=== PATIENT | female | born 1970 | race Two or more races ===

== ENCOUNTER → 2017-04-04 | Outpatient (CLI) | payer MEDICARE, MEDICAID ==
[~2017-04-04] VITALS: Ht 30.5 cm; Wt 0.5 kg
[~2017-04-04] MED LIST: ADENOSINE 76 MG in GIVE UN-DILUTED 0 ML IV ONE; ADENOSINE 90 MG/30 ML INJ IV ONE
== END | disposition home or self-care (01) ==
LOC: Rad HDHVI 09:34
PROVIDERS: ATTEND Internal Medicine Cardiovascular Disease
DX: I10 Essential (primary) hypertension (principal); E11.9 Type 2 diabetes mellitus without complications; E78.00 Pure hypercholesterolemia, unspecified
CPT/HCPCS: 78452; 93005; 93306; 96374; 96375; A9500; J0153

== ENCOUNTER → 2017-05-01 | Outpatient (CLI) | payer MEDICARE ==
[2017-05-01 10:50] VITALS: BP 167/73
[2017-05-01 11:20] VITALS: BP 155/67
[2017-05-01 12:38] LABS: Basophils # (auto) 0 uL; Eosinophils # (auto) 0.1 uL; Hemoglobin 7.9 g/dL (12.2-16.2); Lymphocytes # (auto) 1.4 uL; Mean Corpuscular Hemoglobin 29.2 pg (28.0-32.0); Nucleated Red Blood Cells % 0.1 %
[2017-05-01 12:41] LABS: Basophils % (auto) 0.3 % (0.0-2.0); Eosinophils % (auto) 2.5 % (0.0-7.0); Hematocrit 23.4 % (36.0-46.0); Lymphocytes % (auto) 29.3 % (10.0-50.0); Mean Corpuscular Hgb Conc. 33.9 g/dL (32.0-36.0); Mean Corpuscular Volume 86.3 fL (80.0-100.0); Mean Platelet Volume 8.6 fL (6.9-10.8); Monocytes # (auto) 0.2 uL; Neutrophils % (auto) 62.9 % (37.0-80.0); Platelet Count (auto) 159 10^3/uL (140-450); Red Cell Distribution Width 14.1 % (11.8-14.3); White Blood Cell 4.7 10^3/uL (4.4-10.8)
[2017-05-01 12:43] LABS: BUN/Creatinine Ratio 4.6; Calcium 7.3 mg/dL (8.5-10.1); Potassium 4.4 mmol/L (3.5-5.1)
[2017-05-01 12:49] LABS: INR 1.01 (0.9-1.15); Partial Thromboplastin Time 28.5 sec (22.64-33.71)
== END | disposition home or self-care (01) ==
LOC: Rad HDHVI 10:36
PROVIDERS: ATTEND Internal Medicine Cardiovascular Disease
DX: Z01.818 Encounter for other preprocedural examination (principal); I10 Essential (primary) hypertension; D64.9 Anemia, unspecified; R79.1 Abnormal coagulation profile; I25.119 Atherosclerotic heart disease of native coronary artery with unspecified angina pectoris; E78.00 Pure hypercholesterolemia, unspecified; E11.9 Type 2 diabetes mellitus without complications; Z98.890 Other specified postprocedural states
CPT/HCPCS: 36415; 80048; 85025; 85610; 85730; 93005; G0463; 71020

== ENCOUNTER 2017-05-04 08:22 | Day surgery (SDC) | payer MEDICAID, MEDICARE ==
[2017-05-04] MEDS ORDERED: INSLANTI SC (08:50)
[2017-05-04] MEDS ORDERED: CINA30TA2 PO (08:50)
[2017-05-04] MEDS ORDERED: AMLO5TAB2 PO (08:50)
[2017-05-04] MEDS ORDERED: BENA20TA14 PO (08:50)
[2017-05-04] MEDS ORDERED: CARV12.544 PO (08:50)
[2017-05-04] MEDS ORDERED: SERT-274 PO (08:50)
[2017-05-04] MEDS ORDERED: SEVE800T8 PO (08:50)
[2017-05-04] MEDS ORDERED: OMEP20CA74 PO (08:50)
[2017-05-04] MEDS ORDERED: CLON0.1T PO (08:50)
[2017-05-04] MEDS ORDERED: IOHEXOL 350 MG/ML 100ML IJ ONE (09:27)
[2017-05-04] MEDS ORDERED: LIDOCAINE 2%HCL (LOCAL ANESTH.) INJ 20ML MDV ONE (09:28)
[2017-05-04] MEDS ORDERED: fentaNYL CITRATE 100 MCG/2 ML VL ONE (09:50)
[2017-05-04] MEDS ORDERED: IODIXANOL 320MG/ML 100ML BTL IV ONE (09:51)
[2017-05-04] MEDS ORDERED: MIDAZOLAM HCL 1MG/1ML-2 ML VIAL ONE (09:51)
[2017-05-04] MEDS ORDERED: ANGIOMAX 250 MG VIAL IV ONE (09:52)
[2017-05-04] MEDS ORDERED: ACETAMINOPHEN 325 MG TAB PO ONE ×2 (11:15→11:30)
== END 2017-05-04 13:30 | disposition home or self-care (01) ==
LOC: CATH 08:22
PROVIDERS: ATTEND Internal Medicine Cardiovascular Disease
DX: I25.10 Atherosclerotic heart disease of native coronary artery without angina pectoris (principal); E11.40 Type 2 diabetes mellitus with diabetic neuropathy, unspecified; N19 Unspecified kidney failure; Z99.2 Dependence on renal dialysis; I27.20 Pulmonary hypertension, unspecified; E66.9 Obesity, unspecified; Z86.718 Personal history of other venous thrombosis and embolism; G45.9 Transient cerebral ischemic attack, unspecified; J44.9 Chronic obstructive pulmonary disease, unspecified
CPT/HCPCS: 93460; C1769; C1894; J1644; J2250; J3010; J7030; Q9967; 99152

== ENCOUNTER → 2017-06-26 | Outpatient (CLI) | payer MEDICARE, MEDICAID ==
[~2017-06-26] MED LIST changes: -ADENOSINE 76 MG in GIVE UN-DILUTED 0 ML IV ONE; -ADENOSINE 90 MG/30 ML INJ IV ONE; +AMIO200T33 PO; +AMLO5TAB2 PO; +ASPI81CH43 PO; +ATOR10TA52 PO; +BENA20TA14 PO; +CALC0.5C PO; +CARV12.544 PO; +CINA30TA2 PO; +CLON0.1T PO; +CLOP75TA28 PO; +HYDR-4683 PO; +HYDR50TA15 PO; +INSLANTI SC; +LUBI24CA6 PO; +METO10TA3 PO; +METO25TA5 PO; +OMEP20CA74 PO; +PANT40TA2 PO; +SENN-58 PO; +SERT-274 PO; +SEVE800T8 PO
== END | disposition home or self-care (01) ==
LOC: Rad HDHVI 15:51
PROVIDERS: ATTEND Internal Medicine Cardiovascular Disease
DX: I25.10 Atherosclerotic heart disease of native coronary artery without angina pectoris (principal); I10 Essential (primary) hypertension
CPT/HCPCS: 93306

== ENCOUNTER 2017-07-03 09:21 | Inpatient (IN) | payer MEDICARE, MEDICAID ==
[~2017-07-03] VITALS: Ht 170.2 cm; Wt 50.6 kg
[~2017-07-03 09:21] MED LIST changes: -AMIO200T33 PO; -ASPI81CH43 PO; -ATOR10TA52 PO; -CALC0.5C PO; -CLOP75TA28 PO; -HYDR-4683 PO; -HYDR50TA15 PO; -LUBI24CA6 PO; -METO10TA3 PO; -METO25TA5 PO; -PANT40TA2 PO; -SENN-58 PO
[2017-07-03 10:19] LABS: Basophils # (auto) 0 uL; Basophils % (auto) 0.6 % (0.0-2.0); Eosinophils # (auto) 0.6 uL; Eosinophils % (auto) 7.6 % (0.0-7.0); Hematocrit 29.6 % (36.0-46.0); Hemoglobin 9.6 g/dL (12.2-16.2); Lymphocytes # (auto) 0.8 uL; Mean Corpuscular Hemoglobin 28.4 pg (28.0-32.0); Mean Corpuscular Hgb Conc. 32.4 g/dL (32.0-36.0); Mean Corpuscular Volume 87.7 fL (80.0-100.0); Monocytes # (auto) 0.5 uL; Monocytes % (auto) 6.5 % (0.0-12.0); Neutrophils # (auto) 6.1 uL; Neutrophils % (auto) 75.3 % (37.0-80.0); Platelet Count (auto) 366 10^3/uL (140-450); Red Blood Cells 3.37 10^6/uL (4.0-5.20); Red Cell Distribution Width 16.1 % (11.8-14.3); White Blood Cell 8.1 10^3/uL (4.4-10.8)
[2017-07-03 10:31] LABS: INR 1.14 (0.9-1.15); Prothrombin Time 12.4 sec (9.37-12.3)
[2017-07-03 10:51] LABS: Albumin 2.9 g/dL (3.4-5.0); BUN/Creatinine Ratio 3.9; Bilirubin, Total 0.5 mg/dL (0.2-1.0); Calcium 8.7 mg/dL (8.5-10.1); Potassium 3.7 mmol/L (3.5-5.1)
[2017-07-03] MEDS ORDERED: METO10TA3 PO (13:28)
[2017-07-03] MEDS ORDERED: CLOP75TA28 PO (13:28)
[2017-07-03] MEDS ORDERED: HYDR50TA15 PO (13:28)
[2017-07-03] MEDS ORDERED: SENN-58 PO (13:28)
[2017-07-03] MEDS ORDERED: HYDR-4683 PO (13:28)
[2017-07-03] MEDS ORDERED: LUBI24CA6 PO (13:28)
[2017-07-03] MEDS ORDERED: ASPI81CH43 PO (13:28)
[2017-07-03] MEDS ORDERED: AMIO200T33 PO (13:28)
[2017-07-03] MEDS ORDERED: CALC0.5C PO (13:28)
[2017-07-03] MEDS ORDERED: METO25TA5 PO (13:28)
[2017-07-03] MEDS ORDERED: PANT40TA2 PO (13:28)
[2017-07-03] MEDS ORDERED: ATOR10TA52 PO (13:28)
[2017-07-03] MEDS ORDERED: ONDANSETRON HCL 4 MG/2 ML VIAL IV PRN (13:30)
[2017-07-03] MEDS ORDERED: MORPHINE SULFATE 4 MG/ML SYR/VIAL IV PRN ×2 (13:30)
[2017-07-03] MEDS ORDERED: NITROGLYCERIN 0.4 MG SL TAB SL PRN (13:30)
[2017-07-03] MEDS ORDERED: DEXTROSE (50%) 50ML SYRG IV PRN (14:00)
[2017-07-03] MEDS ORDERED: hydrALAZINE HCL 25 MG TAB PO SCH (14:00)
[2017-07-03] MEDS ORDERED: PATIENTS OWN MEDICATION (Hydralazine Hcl 1 TAB) PO SCH (14:00)
[2017-07-03] MEDS: HYDROcodone-ACET 5/325MG TAB PO PRN ×2 (14:20→20:39)
[2017-07-03] MEDS: hydrALAZINE HCL 25 MG TAB PO SCH ×2 (14:21→21:48)
[2017-07-03] MEDS ORDERED: KETOROLAC TROMETH 30 MG/ML 1ML VIAL IV ONE (14:30)
[2017-07-03] MEDS ORDERED: ENOXAPARIN SOD 80 MG/0.8ML SYRINGE SC ONE (14:30)
[2017-07-03 17:00] VITALS: BP 142/74
[2017-07-03] MEDS: InsuLIN REG 1unit/0.01ml Soln (100units/ml) SC SCH ×2 (17:00→22:00)
[2017-07-03] MEDS: SEVELAMER 800 MG TAB PO SCH (17:40)
[2017-07-03] MEDS: ACCU-CHEK COMFORT CURVE STRIP VI SCH ×2 (17:41→22:14)
[2017-07-03] MEDS: IPRATROPIUM BROM 0.5 MG/2.5ML INH SOL NEB SCH (18:00)
[2017-07-03] MEDS ORDERED: PATIENTS OWN MEDICATION (Sevelamer Carbonate (Renvela) 800 MG) PO SCH (18:00)
[2017-07-03 20:00] VITALS: BP 147/69
[2017-07-03 20:59] VITALS: BP 142/74
[2017-07-03] MEDS: ATORVASTATIN 20 MG TAB PO SCH (21:47)
[2017-07-03 21:48] VITALS: BP 147/69
[2017-07-03] MEDS: METOPROLOL TARTRATE 25 MG TAB PO SCH (21:48)
[2017-07-04] VITALS (7 sets, daily range): BP systolic 121–153; BP diastolic 70–80
[2017-07-04] MEDS: HYDROcodone-ACET 5/325MG TAB PO PRN ×4 (03:06→21:43)
[2017-07-04] MEDS: hydrALAZINE HCL 25 MG TAB PO SCH ×3 (05:57→21:40)
[2017-07-04 06:10] LABS: Basophils # (auto) 0 uL; Basophils % (auto) 0.4 % (0.0-2.0); Eosinophils # (auto) 0.9 uL; Eosinophils % (auto) 9.5 % (0.0-7.0); Hematocrit 29.2 % (36.0-46.0); Hemoglobin 9.7 g/dL (12.2-16.2); Lymphocytes # (auto) 0.8 uL; Lymphocytes % (auto) 8.7 % (10.0-50.0); Mean Corpuscular Hgb Conc. 33.1 g/dL (32.0-36.0); Mean Corpuscular Volume 87.5 fL (80.0-100.0); Monocytes # (auto) 0.6 uL; Monocytes % (auto) 6.1 % (0.0-12.0); Neutrophils % (auto) 75.3 % (37.0-80.0); Platelet Count (auto) 347 10^3/uL (140-450); Red Blood Cells 3.34 10^6/uL (4.0-5.20); White Blood Cell 9.3 10^3/uL (4.4-10.8)
[2017-07-04 06:40] LABS: Calcium 8.9 mg/dL (8.5-10.1); Potassium 3.9 mmol/L (3.5-5.1)
[2017-07-04 06:49] LABS: BUN/Creatinine Ratio 4.5
[2017-07-04] MEDS: INSULIN LANTUS (GLARGINE) 1 /0.01ml (100units/ml) SC SCH (06:52)
[2017-07-04] MEDS: InsuLIN REG 1unit/0.01ml Soln (100units/ml) SC SCH ×4 (06:53→21:32)
[2017-07-04] MEDS: ACCU-CHEK COMFORT CURVE STRIP VI SCH ×4 (07:09→21:31)
[2017-07-04] MEDS: IPRATROPIUM BROM 0.5 MG/2.5ML INH SOL NEB SCH ×5 (07:13→19:26)
[2017-07-04] MEDS: ALBUTEROL SULF 2.5 MG/0.5ML(0.5%) NEB SOLN NEB PRN ×2 (07:13→12:17)
[2017-07-04] MEDS: SEVELAMER 800 MG TAB PO SCH ×3 (08:21→17:09)
[2017-07-04] MEDS ORDERED: SENNA 8.6 MG TAB PO ONE (09:30)
[2017-07-04] MEDS: DOCUSATE SOD 100 MG CAP PO PRN ×2 (09:37→21:45)
[2017-07-04] MEDS: CLOPIDOGREL BISULFATE 75 MG TAB PO SCH (09:39)
[2017-07-04] MEDS: CALCITRIOL 0.25 MCG CAP PO SCH (09:39)
[2017-07-04] MEDS: AMIODARONE HCL 200 MG TAB PO SCH (09:39)
[2017-07-04] MEDS: ASPirin 81 mg TAB PO SCH (09:39)
[2017-07-04] MEDS: PANTOPRAZOLE 40 MG TAB PO SCH (09:39)
[2017-07-04] MEDS: amLODIPine BESYLATE 5 MG TAB PO SCH (09:40)
[2017-07-04] MEDS: METOPROLOL TARTRATE 25 MG TAB PO SCH ×2 (09:41→21:40)
[2017-07-04] MEDS ORDERED: ENOXAPARIN SOD 80 MG/0.8ML SYRINGE SC SCH (10:00)
[2017-07-04] MEDS ORDERED: PATIENTS OWN MEDICATION (Atorvastatin Calcium 1 TAB) PO SCH (10:00)
[2017-07-04] MEDS ORDERED: CALCITRIOL PO SCH (10:00)
[2017-07-04] MEDS ORDERED: EPOETIN ALFA 10,000 UNIT/1 ML VIAL IV ONE (15:15)
[2017-07-04] MEDS: ATORVASTATIN 20 MG TAB PO SCH (21:39)
[2017-07-05 05:07] VITALS: BP 153/71
[2017-07-05] MEDS: hydrALAZINE HCL 25 MG TAB PO SCH ×3 (05:57→22:31)
[2017-07-05] MEDS: IPRATROPIUM BROM 0.5 MG/2.5ML INH SOL NEB SCH ×3 (06:28→18:55)
[2017-07-05] MEDS: INSULIN LANTUS (GLARGINE) 1 /0.01ml (100units/ml) SC SCH (06:45)
[2017-07-05] MEDS: InsuLIN REG 1unit/0.01ml Soln (100units/ml) SC SCH ×4 (06:45→22:00)
[2017-07-05] MEDS: ACCU-CHEK COMFORT CURVE STRIP VI SCH ×4 (06:45→22:00)
[2017-07-05] MEDS: DOCUSATE SOD 100 MG CAP PO PRN (08:17)
[2017-07-05] MEDS: SEVELAMER 800 MG TAB PO SCH ×3 (08:17→17:39)
[2017-07-05] MEDS: HYDROcodone-ACET 5/325MG TAB PO PRN ×3 (08:18→22:31)
[2017-07-05] MEDS: AMIODARONE HCL 200 MG TAB PO SCH (08:39)
[2017-07-05] MEDS: CLOPIDOGREL BISULFATE 75 MG TAB PO SCH (08:40)
[2017-07-05] MEDS: CALCITRIOL 0.25 MCG CAP PO SCH (08:40)
[2017-07-05] MEDS: amLODIPine BESYLATE 5 MG TAB PO SCH (08:40)
[2017-07-05] MEDS: ASPirin 81 mg TAB PO SCH (08:40)
[2017-07-05] MEDS: PANTOPRAZOLE 40 MG TAB PO SCH (08:40)
[2017-07-05] MEDS: METOPROLOL TARTRATE 25 MG TAB PO SCH ×2 (08:57→22:44)
[2017-07-05 09:00] VITALS: BP 154/73
[2017-07-05] MEDS ORDERED: LACTULOSE 20Gm/30ML SOLN PO ONE (11:00)
[2017-07-05] MEDS ORDERED: DOCUSATE SOD 100 MG CAP PO ONE (11:00)
[2017-07-05 13:00] VITALS: BP 137/68
[2017-07-05 17:00] VITALS: BP 148/72
[2017-07-05] MEDS: ALBUTEROL SULF 2.5 MG/0.5ML(0.5%) NEB SOLN NEB PRN (18:55)
[2017-07-05 20:00] VITALS: BP 145/73
[2017-07-05 22:21] VITALS: BP 145/73
[2017-07-05] MEDS: ATORVASTATIN 20 MG TAB PO SCH (22:30)
[2017-07-06] MEDS: IPRATROPIUM BROM 0.5 MG/2.5ML INH SOL NEB SCH ×3 (00:22→12:33)
[2017-07-06 04:34] VITALS: BP 129/81
[2017-07-06] MEDS: hydrALAZINE HCL 25 MG TAB PO SCH ×2 (06:25→14:00)
[2017-07-06] MEDS: InsuLIN REG 1unit/0.01ml Soln (100units/ml) SC SCH ×2 (06:57→11:30)
[2017-07-06] MEDS: ACCU-CHEK COMFORT CURVE STRIP VI SCH ×2 (06:57→12:00)
[2017-07-06] MEDS: INSULIN LANTUS (GLARGINE) 1 /0.01ml (100units/ml) SC SCH (06:58)
[2017-07-06 07:08] LABS: Hematocrit 29.3 % (36.0-46.0); Hemoglobin 9.5 g/dL (12.2-16.2); Mean Corpuscular Hemoglobin 28.5 pg (28.0-32.0); Mean Corpuscular Hgb Conc. 32.5 g/dL (32.0-36.0); Mean Corpuscular Volume 87.6 fL (80.0-100.0); Platelet Count (auto) 367 10^3/uL (140-450); Red Blood Cells 3.34 10^6/uL (4.0-5.20); Red Cell Distribution Width 16.3 % (11.8-14.3); White Blood Cell 8.8 10^3/uL (4.4-10.8)
[2017-07-06 07:15] LABS: BUN/Creatinine Ratio 3.5; Phosphorus 3.5 mg/dL (2.5-4.90); Potassium 4.1 mmol/L (3.5-5.1)
[2017-07-06 07:17] LABS: Band Neutrophils % (manual) 0; Basophils % (manual) 0 (0.0-2.0); Blast Cells 0; Metamyelocytes % 0; Myelocytes % 0; Promyelocytes % 0; Reactive Lymphocytes 0
[2017-07-06 08:00] VITALS: BP 158/78
[2017-07-06] MEDS: SEVELAMER 800 MG TAB PO SCH ×2 (08:36→12:09)
[2017-07-06 11:08] VITALS: BP 129/81
[2017-07-06 11:09] LABS: Eosinophils % (manual) 18 (0-7); Lymphocytes % (manual) 14 (10.0-50.0); Monocytes % (manual) 3 (0-12)
[2017-07-06 12:09] VITALS: BP 173/85
[2017-07-06] MEDS: ASPirin 81 mg TAB PO SCH (14:25)
[2017-07-06] MEDS: amLODIPine BESYLATE 5 MG TAB PO SCH (14:25)
[2017-07-06] MEDS: AMIODARONE HCL 200 MG TAB PO SCH (14:25)
[2017-07-06] MEDS: METOPROLOL TARTRATE 25 MG TAB PO SCH (14:25)
[2017-07-06] MEDS: CALCITRIOL 0.25 MCG CAP PO SCH (14:26)
[2017-07-06] MEDS: PANTOPRAZOLE 40 MG TAB PO SCH (14:26)
[2017-07-06] MEDS: CLOPIDOGREL BISULFATE 75 MG TAB PO SCH (14:26)
[2017-07-06] MEDS ORDERED: EPOETIN ALFA 10,000 UNIT/1 ML VIAL IV ONE (19:00)
== END 2017-07-06 14:30 | disposition home or self-care (01) | DRG 291 ==
LOC: ER 09:21 → TELE 09:22 → TELE-CENTR 17:11
PROVIDERS: ADMIT Internal Medicine; ATTEND Internal Medicine
PROC: 5A1D70Z Performance of Urinary Filtration, Intermittent, Less than 6 Hours Per Day (ICD-10-PCS; principal; 2017-07-04)
PROC: 5A1D70Z Performance of Urinary Filtration, Intermittent, Less than 6 Hours Per Day (ICD-10-PCS; 2017-07-06)
DX: I13.2 Hypertensive heart and chronic kidney disease with heart failure and with stage 5 chronic kidney disease, or end stage renal disease (principal); N18.6 End stage renal disease; J96.00 Acute respiratory failure, unspecified whether with hypoxia or hypercapnia; E44.0 Moderate protein-calorie malnutrition; I50.32 Chronic diastolic (congestive) heart failure; Z68.1 Body mass index [BMI] 19.9 or less, adult; R07.89 Other chest pain; I25.10 Atherosclerotic heart disease of native coronary artery without angina pectoris; E11.22 Type 2 diabetes mellitus with diabetic chronic kidney disease; D63.1 Anemia in chronic kidney disease; E11.43 Type 2 diabetes mellitus with diabetic autonomic (poly)neuropathy; F32.9 Major depressive disorder, single episode, unspecified; E66.9 Obesity, unspecified; K59.00 Constipation, unspecified; E78.5 Hyperlipidemia, unspecified; K21.9 Gastro-esophageal reflux disease without esophagitis; K31.84 Gastroparesis; Z79.4 Long term (current) use of insulin; Z86.73 Personal history of transient ischemic attack (TIA), and cerebral infarction without residual deficits; Z95.1 Presence of aortocoronary bypass graft; Z99.2 Dependence on renal dialysis; Z79.899 Other long term (current) drug therapy; Z90.49 Acquired absence of other specified parts of digestive tract; Z90.5 Acquired absence of kidney; J98.6 Disorders of diaphragm
CPT/HCPCS: 36415; 36600; 71045; 71250; 78582; 80048; 80053; 82805; 82962; 83036; 84100; 84484; 85007; 85025; 85027; 85610; 85730; 87040; 87081; 90935; 93005; 93306; 93970; 94640; 94761; J0885; J1815

== ENCOUNTER → 2017-07-20 | Outpatient (CLI) | payer MEDICARE, MEDICAID ==
[~2017-07-20] MED LIST changes: +AMIO200T33 PO; +ASPI81CH43 PO; +ATOR10TA52 PO; -BENA20TA14 PO; +CALC0.5C PO; -CARV12.544 PO; -CLON0.1T PO; +CLOP75TA28 PO; +HYDR-4683 PO; +HYDR50TA15 PO; +LUBI24CA6 PO; +METO10TA3 PO; +METO25TA5 PO; -OMEP20CA74 PO; +PANT40TA2 PO; +SENN-58 PO
== END | disposition home or self-care (01) ==
LOC: Rad HDHVI 08:01
PROVIDERS: ATTEND Internal Medicine Cardiovascular Disease
DX: E11.9 Type 2 diabetes mellitus without complications (principal); I25.5 Ischemic cardiomyopathy
CPT/HCPCS: 93306

== ENCOUNTER → 2017-08-03 | Outpatient (CLI) | payer MEDICARE, MEDICAID ==
[~2017-08-03] VITALS: Ht 30.5 cm; Wt 0.5 kg
[~2017-08-03] MED LIST changes: +ADENOSINE 65 MG in GIVE UN-DILUTED 0 ML IV ONE; +ADENOSINE 90 MG/30 ML INJ IV ONE
== END | disposition home or self-care (01) ==
LOC: Rad HDHVI 08:40
PROVIDERS: ATTEND Internal Medicine Cardiovascular Disease
DX: E11.22 Type 2 diabetes mellitus with diabetic chronic kidney disease (principal); I13.0 Hypertensive heart and chronic kidney disease with heart failure and stage 1 through stage 4 chronic kidney disease, or unspecified chronic kidney disease; N18.9 Chronic kidney disease, unspecified; E78.5 Hyperlipidemia, unspecified; I50.33 Acute on chronic diastolic (congestive) heart failure; E11.40 Type 2 diabetes mellitus with diabetic neuropathy, unspecified; J98.6 Disorders of diaphragm; R00.2 Palpitations; R06.02 Shortness of breath; R07.89 Other chest pain; Z79.899 Other long term (current) drug therapy; Z95.1 Presence of aortocoronary bypass graft
CPT/HCPCS: 78452; 93005; 96374; 96375; A9500; J0153

== ENCOUNTER 2019-03-05 11:14 | Inpatient (IN) | payer MEDICARE, MEDICAID ==
[~2019-03-05] VITALS: Ht 170.2 cm; Wt 90.3 kg
[~2019-03-05 11:14] MED LIST changes: -ADENOSINE 65 MG in GIVE UN-DILUTED 0 ML IV ONE; -ADENOSINE 90 MG/30 ML INJ IV ONE; +AMLO5TAB15 PO; -AMLO5TAB2 PO; -HYDR-4683 PO; +HYDR-4833 PO
[2019-03-05 11:58] LABS: Basophils # (auto) 0 uL; Basophils % (auto) 0.4 % (0.0-2.0); Eosinophils # (auto) 0.2 uL; Eosinophils % (auto) 3.6 % (0.0-7.0); Hematocrit 35.2 % (36.0-46.0); Hemoglobin 11.7 g/dL (12.2-16.2); Lymphocytes # (auto) 0.9 uL; Mean Corpuscular Hemoglobin 30.1 pg (28.0-32.0); Mean Corpuscular Hgb Conc. 33.2 g/dL (32.0-36.0); Mean Corpuscular Volume 90.4 fL (80.0-100.0); Monocytes # (auto) 0.4 uL; Monocytes % (auto) 6.5 % (0.0-12.0); Neutrophils # (auto) 4.5 uL; Neutrophils % (auto) 74.5 % (37.0-80.0); Platelet Count (auto) 195 10^3/uL (140-450); Red Blood Cells 3.89 10^6/uL (4.0-5.20); Red Cell Distribution Width 13.8 % (11.8-14.3); White Blood Cell 6.1 10^3/uL (4.4-10.8)
[2019-03-05 12:17] LABS: Albumin 3.6 g/dL (3.4-5.0); Calcium 8.6 mg/dL (8.5-10.1); Potassium 3.9 mmol/L (3.5-5.1)
[2019-03-05 12:18] LABS: BUN/Creatinine Ratio 6.6
[2019-03-05 12:31] LABS: Bilirubin, Total 0.4 mg/dL (0.2-1.0); Total Protein 7.9 g/dL (6.4-8.2)
[2019-03-05] MEDS ORDERED: ONDANSETRON HCL 4 MG/2 ML VIAL IV ONE (14:45)
[2019-03-05] MEDS ORDERED: MORPHINE SULFATE 4 MG/ML SYR/VIAL IV ONE (14:45)
[2019-03-05] MEDS ORDERED: NITROGLYCERIN 0.4 MG SL TAB SL PRN (15:45)
[2019-03-05] MEDS ORDERED: MORPHINE SULF INJ 2 MG/ML SYRINGE 1ML IV PRN (15:45)
[2019-03-05] MEDS ORDERED: DEXTROSE (50%) 50ML SYRG IV PRN (16:30)
[2019-03-05] MEDS: ACCU-CHEK COMFORT CURVE STRIP VI SCH ×2 (18:16→21:43)
[2019-03-05] MEDS: InsuLIN REG 1unit/0.01ml Soln (100units/ml) SC SCH ×2 (18:16→21:43)
[2019-03-05] MEDS: CLOPIDOGREL BISULFATE 75 MG TAB PO SCH (18:26)
[2019-03-05] MEDS: ENOXAPARIN SOD 80 MG/0.8ML SYRINGE SC SCH (18:26)
[2019-03-05] MEDS: SEVELAMER 800 MG TAB PO SCH (18:26)
--- NOTE | 2019-03-05 19:25 | NUR ---
CAME ON WC FROM, ALERT AND ORIENTED X4, NOT IN DISTRESS, CLEAR LUNG SOUNDS IN BILATERAL UPPER AND LOWER LUNG LOBES, RR=18, SAT=96-98%, SR R=78 ON TELE MONITOR, DENIED CHEST PAIN OR DISCOMFORT AT THIS TIME, ABDOMEN SOFT WITH ACTIVE BS, LAST BM=THIS MORNING REPORTED, DIETARY WAS CONTACTED FOR DINNER TRAY ORDERED, PENDING DIET TRAY ORDERED, SKIN INTACT WARM TO TOUCH, LT. UPPER ARM SHILLY CATHETER HD ACCESS INTACT, RT.AC IV ACCESS IN LACE AND INTACT, AMBULATES WITH NO RESTRICTIONS NOTED, VS T=97.6 RR=18 SAT=98% P=58 AX=780/76, DENIED PAIN, RESTING ON THE BED, HEAD OF BED ELEVATED, BED IN LOW POSITION RAILS UP X2, CALL LIGHT ON REACH, REPORT WAS GIVEN TO THE HARNESS INSTALLER RN.
[2019-03-05] MEDS ORDERED: LUBI24CA6 PO (19:40)
[2019-03-05] MEDS ORDERED: NIFE60TA59 PO (19:43)
--- NOTE | 2019-03-05 19:54 | NUR ---
Opening Shift Note Assumed care of patient, awake and alert. No S/S of distress/SOB or pain. Instructed on POC and to call for assist PRN, will continue to monitor for changes Q1hr and PRN.Dinner served.
--- NOTE | 2019-03-05 20:47 | NUR ---
Paged Dr. García for pain med for headache, with order of [place] 10/325mg.p.o every 6 hours as needed.
[2019-03-05] MEDS: HYDROcodone-ACET 10/325MG TAB PO PRN (21:09)
[2019-03-05] MEDS: ATORVASTATIN 20 MG TAB PO SCH (21:10)
[2019-03-05] MEDS: hydrALAZINE HCL 25 MG TAB PO SCH (21:10)
[2019-03-05 21:38] VITALS: BP 167/70
[2019-03-05] MEDS: INSULIN LANTUS (GLARGINE) 1 /0.01ml (100units/ml) SC SCH (21:43)
[2019-03-06 04:47] VITALS: BP 147/73
[2019-03-06] MEDS: hydrALAZINE HCL 25 MG TAB PO SCH ×3 (05:47→21:58)
[2019-03-06] MEDS: ACCU-CHEK COMFORT CURVE STRIP VI SCH ×4 (06:03→21:58)
[2019-03-06] MEDS: InsuLIN REG 1unit/0.01ml Soln (100units/ml) SC SCH ×4 (06:03→22:17)
[2019-03-06] MEDS: HYDROcodone-ACET 10/325MG TAB PO PRN ×3 (06:03→20:24)
[2019-03-06] MEDS: INSULIN LANTUS (GLARGINE) 1 /0.01ml (100units/ml) SC SCH ×2 (06:23→22:16)
--- NOTE | 2019-03-06 07:14 | NUR ---
Care report given to Hayley Parsons, patient is resting no distress.
--- NOTE | 2019-03-06 07:30 | NUR ---
Opening Shift Note RECEIVED REPORT FROM NOC RN. Assumed care of patient, awake and alert. No S/S of distress/SOB or pain. BED IN LOWEST, LOCKED POSITION WITH SIDERAILS UP x2 AND CALL LIGHT WITHIN REACH. Instructed on POC and to call for assist PRN, will continue to monitor for changes Q1hr and PRN.
[2019-03-06] MEDS: SEVELAMER 800 MG TAB PO SCH ×3 (08:10→17:41)
[2019-03-06 08:32] VITALS: BP 178/75
[2019-03-06] MEDS: cloNIDine HCL 0.1 MG TAB PO PRN (09:25)
[2019-03-06] MEDS: CLOPIDOGREL BISULFATE 75 MG TAB PO SCH (09:55)
[2019-03-06] MEDS: ASPirin-EC 81 mg tab PO SCH (09:55)
[2019-03-06] MEDS: CALCITRIOL 0.25 MCG CAP PO SCH (09:55)
[2019-03-06] MEDS: METOPROLOL SUCCINATE XL 50 MG TAB PO SCH (09:55)
[2019-03-06] MEDS: SERTRALINE HCL 50 MG TAB PO SCH (09:56)
[2019-03-06] MEDS: AMIODARONE HCL 200 MG TAB PO SCH (09:56)
[2019-03-06 13:21] VITALS: BP 131/69
[2019-03-06 16:45] VITALS: BP 143/63
--- NOTE | 2019-03-06 16:45 | NUR ---
DR. HOANG CALLED FOR A STATUS UPDATE ON PATIENT. WILL PUT IN ORDERS FOR DIALYSIS FOR TOMORROW (MONDAY).
[2019-03-06] MEDS: ENOXAPARIN SOD 80 MG/0.8ML SYRINGE SC SCH (17:41)
--- NOTE | 2019-03-06 19:25 | NUR ---
Opening Shift Note Assumed care of patient, awake and alert. No S/S of distress or SOB. Verbalizes 7/10 pain localized to frontal lobe. Will assess patient and medicate as per order. Instructed on POC and to call for assist PRN, will continue to monitor for changes Q1hr and PRN.Dinner served.
[2019-03-06 21:39] VITALS: BP 147/67
[2019-03-06] MEDS: ATORVASTATIN 20 MG TAB PO SCH (21:58)
[2019-03-07] MEDS: cloNIDine HCL 0.1 MG TAB PO PRN ×2 (05:16→17:47)
[2019-03-07 05:20] VITALS: BP 177/75
[2019-03-07] MEDS: hydrALAZINE HCL 25 MG TAB PO SCH ×3 (06:13→22:16)
[2019-03-07] MEDS: InsuLIN REG 1unit/0.01ml Soln (100units/ml) SC SCH ×4 (06:27→22:00)
[2019-03-07] MEDS: INSULIN LANTUS (GLARGINE) 1 /0.01ml (100units/ml) SC SCH ×2 (06:28→22:17)
[2019-03-07] MEDS: ACCU-CHEK COMFORT CURVE STRIP VI SCH ×4 (06:29→22:17)
--- NOTE | 2019-03-07 07:30 | NUR ---
Opening Shift Note RECEIVED REPORT FROM NOC RN. Assumed care of patient, awake and alert. No S/S of distress/SOB or pain. BED IN LOWEST, LOCKED POSITION WITH SIDERAILS UP x2 AD CALL LIGHT WITHIN REACH. Instructed on POC and to call for assist PRN, will continue to monitor for changes Q1hr and PRN.
[2019-03-07] MEDS: SEVELAMER 800 MG TAB PO SCH ×3 (08:07→17:47)
[2019-03-07] MEDS: HYDROcodone-ACET 10/325MG TAB PO PRN ×2 (08:07→17:28)
[2019-03-07] MEDS ORDERED: ENOXAPARIN SOD 100 MG/1 ML SYRINGE SC SCH (08:30)
[2019-03-07 09:00] VITALS: BP 137/72
--- NOTE | 2019-03-07 12:30 | NUR ---
DIALYSIS FINISHED. 2.5 LITERS REMOVED. POST DIALYSIS VITALS: HR 51, BP 145/56
[2019-03-07 13:00] VITALS: BP 133/62
[2019-03-07] MEDS: CLOPIDOGREL BISULFATE 75 MG TAB PO SCH (14:10)
[2019-03-07] MEDS: CALCITRIOL 0.25 MCG CAP PO SCH (14:10)
[2019-03-07] MEDS: ASPirin-EC 81 mg tab PO SCH (14:11)
[2019-03-07] MEDS: AMIODARONE HCL 200 MG TAB PO SCH (14:11)
[2019-03-07] MEDS: SERTRALINE HCL 50 MG TAB PO SCH (14:11)
[2019-03-07] MEDS: METOPROLOL SUCCINATE XL 50 MG TAB PO SCH (14:13)
[2019-03-07 17:00] VITALS: BP 159/69
--- NOTE | 2019-03-07 19:30 | NUR ---
Opening Shift Note Assumed care of patient, awake and alert. No S/S of distress or SOB. Denies pain at this time. Instructed on POC and to call for assist PRN, will continue to monitor for changes Q1hr and PRN.
[2019-03-07 22:00] VITALS: BP 138/70
--- NOTE | 2019-03-07 22:00 | NUR ---
2200 BLOOD SUGAR READING 135. PATIENT STATES SHE ONLY WANTS LANTUS AND NOT REGULAR INSULIN AT THIS TIME BECAUSE SHE "DIDN'T FEEL GOOD THIS MORNING SINCE HER BLOOD SUGAR WAS LOW."
[2019-03-07] MEDS: ATORVASTATIN 20 MG TAB PO SCH (22:16)
[2019-03-08] MEDS: cloNIDine HCL 0.1 MG TAB PO PRN ×2 (05:13→18:04)
[2019-03-08] MEDS: hydrALAZINE HCL 25 MG TAB PO SCH ×3 (06:00→22:35)
--- NOTE | 2019-03-08 06:00 | NUR ---
AM BLOOD PRESSURE 121/63. PATIENT STATES SHE "STARTS FEELING DIZZY, WHEN HER BLOOD PRESSURE IS AT THAT READING." 0600 APRESOLINE REFUSED. WILL CONTINUE TO MONITOR CLOSELY.
[2019-03-08 06:19] VITALS: BP 155/72
[2019-03-08] MEDS: INSULIN LANTUS (GLARGINE) 1 /0.01ml (100units/ml) SC SCH ×2 (06:23→22:00)
[2019-03-08] MEDS: ACCU-CHEK COMFORT CURVE STRIP VI SCH ×4 (06:23→22:00)
[2019-03-08] MEDS: InsuLIN REG 1unit/0.01ml Soln (100units/ml) SC SCH ×4 (06:24→22:00)
[2019-03-08 06:29] LABS: Basophils # (auto) 0 uL; Basophils % (auto) 0.4 % (0.0-2.0); Eosinophils # (auto) 0.2 uL; Eosinophils % (auto) 4.4 % (0.0-7.0); Hematocrit 33.3 % (36.0-46.0); Hemoglobin 11.3 g/dL (12.2-16.2); Lymphocytes # (auto) 1.1 uL; Lymphocytes % (auto) 20.6 % (10.0-50.0); Mean Corpuscular Hemoglobin 30.4 pg (28.0-32.0); Mean Corpuscular Hgb Conc. 33.8 g/dL (32.0-36.0); Monocytes # (auto) 0.4 uL; Monocytes % (auto) 7.3 % (0.0-12.0); Neutrophils # (auto) 3.5 uL; Neutrophils % (auto) 67.3 % (37.0-80.0); Platelet Count (auto) 164 10^3/uL (140-450); Red Cell Distribution Width 13.7 % (11.8-14.3); White Blood Cell 5.2 10^3/uL (4.4-10.8)
[2019-03-08 06:47] LABS: INR 0.98 (0.9-1.15); Partial Thromboplastin Time 33.9 sec (23.64-32.05)
[2019-03-08 06:58] LABS: Calcium 8.4 mg/dL (8.5-10.1)
--- NOTE | 2019-03-08 07:30 | NUR ---
Opening Shift Note Assumed care of patient, awake and alert. No S/S of distress/SOB or pain. Instructed on POC and to call for assist PRN, will continue to monitor for changes Q1hr and PRN.
[2019-03-08 08:00] VITALS: BP 153/48
[2019-03-08] MEDS: SEVELAMER 800 MG TAB PO SCH ×3 (08:00→18:03)
[2019-03-08] MEDS ORDERED: ANGIOMAX 250 MG VIAL IV ONE (08:57)
[2019-03-08] MEDS ORDERED: fentaNYL CITRATE 100 MCG/2 ML VL ONE (08:57)
[2019-03-08] MEDS ORDERED: MIDAZOLAM HCL 1MG/1ML-2 ML VIAL ONE (08:58)
[2019-03-08] MEDS ORDERED: SODIUM CHL 0.9% 50 ML ONE (08:58)
[2019-03-08 09:00] VITALS: BP 153/48
[2019-03-08] MEDS ORDERED: IOHEXOL 350 MG/ML 100ML IJ ONE (09:40)
[2019-03-08] MEDS ORDERED: ATROPINE SULF 1 MG/10ml SYR ONE (09:48)
[2019-03-08] MEDS ORDERED: EPINEPHrine HCL 1 MG/10 ML SYRG ONE (09:48)
[2019-03-08] MEDS: HEPARIN SODIUM (PORCINE) 5000 UNITS/ML 1ML VIAL SC SCH ×2 (10:00→22:41)
[2019-03-08] MEDS: METOPROLOL SUCCINATE XL 50 MG TAB PO SCH (10:00)
[2019-03-08] MEDS: CLOPIDOGREL BISULFATE 75 MG TAB PO SCH (10:25)
[2019-03-08] MEDS: SERTRALINE HCL 50 MG TAB PO SCH (11:24)
[2019-03-08] MEDS: CALCITRIOL 0.25 MCG CAP PO SCH (11:24)
[2019-03-08] MEDS: ASPirin-EC 81 mg tab PO SCH (11:31)
[2019-03-08] MEDS: AMIODARONE HCL 200 MG TAB PO SCH (11:32)
--- NOTE | 2019-03-08 11:32 | NUR ---
PHYSICAL ASSESSMENT PHYSICAL ASSESSMENT DONE AT 1115 WHEN PATIENT RETURNED FROM CORRECTIONAL CASE MANAGER. PT HAS CHEST PAIN AT 1115 UPON RETURN FROM CORRECTIONAL CASE MANAGER. DR LLOYD MILIAN, GAVE PRN MORPHINE. CORRECTIONAL CASE MANAGER STATED IT IS FROM REINNERVATION FROM STENT PLACEMENT. REEVALUATED PAIN AT 1130 PT PAIN IS 5/10 AND STATING ITS TOLERABLE. NO SOB OR DIAPHORESIS NOTED. WILL CONTINUE TO MONITOR Addendum: 03/08/19 at 1249 by JACE COLON RN RN Amended: Links added.
--- NOTE | 2019-03-08 12:25 | NUR ---
NUTRITION ASSESSMENT NOTES Please refer to link notes of nutrition screen form filed under the intervention section of the plan of care for further details. Est. Needs: 1800 kcal to 2250 kcal (20-25 kcal/kgBW), 90 gms to 135 gms pro (1.0-1.5 gms/kgBW d/t ESRD on HD). Will continue to monitor pertinent labs and reassess nutrient need prn Thank you. Addendum: 03/08/19 at [address] Amended: Links added.
[2019-03-08 13:00] VITALS: BP 152/52
[2019-03-08] MEDS: HYDROcodone-ACET 10/325MG TAB PO PRN ×2 (16:58→23:09)
[2019-03-08 17:00] VITALS: BP 161/51
--- NOTE | 2019-03-08 19:30 | NUR ---
OPENING SHIFT NOTE ASSUMED CARE OF PATIENT. PATIENT AWAKE AND ALERT X4 WITH NO S/S OF DISTRESS/SOB. FALL PRECAUTIONS IN PLACE. BED AT LOWEST LOCKED POSITION, SIDE RAILS UP X2 AND CALL LIGHT WITHIN REACH. INSTRUCTED ON POC AND TO CALL FOR ASSISTANCE PRN. WILL CONTINUE TO MONITOR FOR CHANGES Q1H AND PRN.
[2019-03-08 21:48] VITALS: BP 131/67
[2019-03-08] MEDS: ATORVASTATIN 20 MG TAB PO SCH (22:35)
[2019-03-09 05:17] VITALS: BP 133/73
[2019-03-09] MEDS: hydrALAZINE HCL 25 MG TAB PO SCH ×2 (05:43→13:50)
[2019-03-09] MEDS: INSULIN LANTUS (GLARGINE) 1 /0.01ml (100units/ml) SC SCH (05:43)
[2019-03-09] MEDS: ACCU-CHEK COMFORT CURVE STRIP VI SCH ×2 (05:43→11:30)
[2019-03-09] MEDS: InsuLIN REG 1unit/0.01ml Soln (100units/ml) SC SCH ×2 (05:44→11:30)
[2019-03-09] MEDS: HYDROcodone-ACET 10/325MG TAB PO PRN ×2 (05:45→13:50)
[2019-03-09] MEDS ORDERED: SODIUM CHL 0.9% 1000 ML BAG XX ONE (07:00)
--- NOTE | 2019-03-09 07:30 | NUR ---
Opening Shift Note Assumed care of patient, awake and alert. No S/S of distress/SOB. Pain reassessment currently at 09/21. Patient feels comfortable while eating her breakfast. Instructed on POC and to call for assist PRN, will continue to monitor for changes Q1hr and PRN.
[2019-03-09] MEDS: SEVELAMER 800 MG TAB PO SCH ×2 (07:54→12:00)
[2019-03-09 08:00] VITALS: BP 143/72
[2019-03-09 09:20] VITALS: BP 143/72
[2019-03-09] MEDS: METOPROLOL SUCCINATE XL 50 MG TAB PO SCH (10:00)
--- NOTE | 2019-03-09 13:30 | NUR ---
finished dialysis. 2.5 liters removed. vital signs stable and pressure dressing to left arm in place.
[2019-03-09] MEDS: AMIODARONE HCL 200 MG TAB PO SCH (13:47)
[2019-03-09] MEDS: CLOPIDOGREL BISULFATE 75 MG TAB PO SCH (13:47)
[2019-03-09] MEDS: SERTRALINE HCL 50 MG TAB PO SCH (13:47)
[2019-03-09] MEDS: CALCITRIOL 0.25 MCG CAP PO SCH (13:51)
[2019-03-09] MEDS: ASPirin-EC 81 mg tab PO SCH (13:51)
[2019-03-09 13:52] VITALS: BP 138/73
[2019-03-09] MEDS: HEPARIN SODIUM (PORCINE) 5000 UNITS/ML 1ML VIAL SC SCH (14:00)
[2019-03-09 14:23] VITALS: BP 127/68
--- NOTE | 2019-03-09 15:30 | NUR ---
Discharge instructions given as ordered. Encourage to follow up with PMD as instructed. All questions and concerns addressed. Patient verbalized understanding. IV removed with catheter intact, pressure dressing applied. Telemetry unit returned to ICU. Patient taken to vehicle via wheelchair with all personal belongings, accompanied by staff and family member. No distress noted at time of departure.
== END 2019-03-09 15:30 | disposition home or self-care (01) | DRG 246 ==
LOC: ER 11:14 → TELE 11:15 → SUATTDRO 14:30 → TELE-WESTW 18:48
PROVIDERS: ADMIT Internal Medicine Cardiovascular Disease; ATTEND Internal Medicine Cardiovascular Disease
PROC: 5A1D70Z Performance of Urinary Filtration, Intermittent, Less than 6 Hours Per Day (ICD-10-PCS; 2019-03-07)
PROC: 027034Z Dilation of Coronary Artery, One Artery with Drug-eluting Intraluminal Device, Percutaneous Approach (ICD-10-PCS; principal; 2019-03-08)
PROC: B2131ZZ Fluoroscopy of Multiple Coronary Artery Bypass Grafts using Low Osmolar Contrast (ICD-10-PCS; 2019-03-08)
PROC: B2111ZZ Fluoroscopy of Multiple Coronary Arteries using Low Osmolar Contrast (ICD-10-PCS; 2019-03-08)
PROC: B2181ZZ Fluoroscopy of Left Internal Mammary Bypass Graft using Low Osmolar Contrast (ICD-10-PCS; 2019-03-08)
PROC: 5A1D70Z Performance of Urinary Filtration, Intermittent, Less than 6 Hours Per Day (ICD-10-PCS; 2019-03-09)
DX: I21.4 Non-ST elevation (NSTEMI) myocardial infarction (principal); N18.6 End stage renal disease; I13.2 Hypertensive heart and chronic kidney disease with heart failure and with stage 5 chronic kidney disease, or end stage renal disease; E11.22 Type 2 diabetes mellitus with diabetic chronic kidney disease; I50.9 Heart failure, unspecified; I25.10 Atherosclerotic heart disease of native coronary artery without angina pectoris; E66.01 Morbid (severe) obesity due to excess calories; D63.1 Anemia in chronic kidney disease; E78.5 Hyperlipidemia, unspecified; E11.42 Type 2 diabetes mellitus with diabetic polyneuropathy; Z79.02 Long term (current) use of antithrombotics/antiplatelets; Z99.2 Dependence on renal dialysis; Z79.4 Long term (current) use of insulin; Z86.73 Personal history of transient ischemic attack (TIA), and cerebral infarction without residual deficits; Z68.31 Body mass index [BMI] 31.0-31.9, adult; Z95.1 Presence of aortocoronary bypass graft; Z82.49 Family history of ischemic heart disease and other diseases of the circulatory system; Z90.710 Acquired absence of both cervix and uterus; Z79.82 Long term (current) use of aspirin; Z79.899 Other long term (current) drug therapy; Z98.61 Coronary angioplasty status
CPT/HCPCS: 36415; 71045; 80048; 80053; 82962; 83735; 84484; 85025; 85610; 85730; 90935; 92928; 93005; 93455; 99152; 99153; 99291; C1874; C1887; G0378; J1815; J2250; J2405

== ENCOUNTER → 2019-04-02 | Outpatient (CLI) | payer MEDICARE, MEDICAID ==
[~2019-04-02] MED LIST changes: +ALPR0.25 PO; +CARV12.544 PO; +IOHEXOL 350 MG/ML 100ML IJ ONE; +LIDOCAINE 2%HCL (LOCAL ANESTH.) INJ 20ML MDV ONE; +NIFE60TA59 PO; +NITR0.4S29 SL
[2019-04-02 09:39] VITALS: BP 173/76
[2019-04-02 09:53] VITALS: BP 164/69
--- NOTE | 2019-04-02 09:53 | NUR ---
Pre-Op Discharge Summary: See e-MAR for any medications given for this visit. Pre-op orders received and carried out per MD of EKG, LABS and chest xrays. Patient given a copy of EKG with instructions to go to [facility] out patient for further follow up care. PT TO HAVE PTCA OF THE CIRC ON 04/04/19.
[2019-04-02 12:35] LABS: Partial Thromboplastin Time 26.8 sec (23.64-32.05)
[2019-04-02 12:45] LABS: Calcium 9.7 mg/dL (8.5-10.1); Potassium 4.3 mmol/L (3.5-5.1)
[2019-04-02 12:49] LABS: BUN/Creatinine Ratio 5.9
[2019-04-02 12:58] LABS: Basophils # (auto) 0 uL; Basophils % (auto) 0.2 % (0.0-2.0); Eosinophils # (auto) 0.3 uL; Eosinophils % (auto) 3.5 % (0.0-7.0); Hematocrit 35.5 % (36.0-46.0); Hemoglobin 12.2 g/dL (12.2-16.2); Lymphocytes # (auto) 1.2 uL; Mean Corpuscular Hemoglobin 30.6 pg (28.0-32.0); Mean Corpuscular Hgb Conc. 34.2 g/dL (32.0-36.0); Mean Corpuscular Volume 89.4 fL (80.0-100.0); Monocytes # (auto) 0.4 uL; Monocytes % (auto) 5.6 % (0.0-12.0); Neutrophils # (auto) 5.4 uL; Neutrophils % (auto) 73.7 % (37.0-80.0); Nucleated Red Blood Cells % 0.1 %; Platelet Count (auto) 193 10^3/uL (140-450); Red Blood Cells 3.97 10^6/uL (4.0-5.20); Red Cell Distribution Width 13.4 % (11.8-14.3); White Blood Cell 7.3 10^3/uL (4.4-10.8)
== END | disposition home or self-care (01) ==
LOC: Rad HDHVI 09:26
PROVIDERS: ATTEND Internal Medicine Cardiovascular Disease
DX: Z01.812 Encounter for preprocedural laboratory examination (principal); E78.5 Hyperlipidemia, unspecified; I42.9 Cardiomyopathy, unspecified; I34.0 Nonrheumatic mitral (valve) insufficiency; E11.22 Type 2 diabetes mellitus with diabetic chronic kidney disease; N18.6 End stage renal disease; I51.7 Cardiomegaly; I21.19 ST elevation (STEMI) myocardial infarction involving other coronary artery of inferior wall; Z98.61 Coronary angioplasty status; Z95.1 Presence of aortocoronary bypass graft
CPT/HCPCS: 36415; 71046; 80048; 84702; 85025; 85610; 85730; 93005; G0463

== ENCOUNTER 2019-04-04 06:41 | Inpatient (IN) | payer MEDICARE, MEDICAID ==
[~2019-04-04] VITALS: Ht 170.2 cm; Wt 89.4 kg
[~2019-04-04 06:41] MED LIST changes: -IOHEXOL 350 MG/ML 100ML IJ ONE; -LIDOCAINE 2%HCL (LOCAL ANESTH.) INJ 20ML MDV ONE
[2019-04-04] MEDS ORDERED: ANGIOMAX 250 MG VIAL IV ONE (09:46)
[2019-04-04] MEDS ORDERED: SODIUM CHL 0.9% 50 ML ONE (09:47)
[2019-04-04] MEDS ORDERED: MIDAZOLAM HCL 1MG/1ML-2 ML VIAL ONE ×2 (09:47→10:24)
[2019-04-04] MEDS ORDERED: fentaNYL CITRATE 100 MCG/2 ML VL ONE (09:47)
[2019-04-04] MEDS ORDERED: IODIXANOL 320MG/ML 100ML BTL IV ONE (09:53)
[2019-04-04] MEDS ORDERED: LIDOCAINE 2%HCL (LOCAL ANESTH.) INJ 20ML MDV ONE ×2 (10:25→10:32)
[2019-04-04] MEDS ORDERED: ACETAMINOPHEN 500 MG TAB PO PRN (11:30)
[2019-04-04] MEDS ORDERED: ONDANSETRON HCL 4 MG/2 ML VIAL IV PRN (11:30)
[2019-04-04] MEDS ORDERED: NITROGLYCERIN 0.4 MG SL TAB SL PRN (11:30)
[2019-04-04] MEDS ORDERED: MORPHINE SULF INJ 2 MG/ML SYRINGE 1ML IV PRN (11:30)
[2019-04-04] MEDS: HYDROcodone-ACET 5/325MG TAB PO PRN ×2 (12:08→20:27)
[2019-04-04] MEDS: SODIUM CHLOR 0.9% PF (SALINE LOCK) 10ML VIAL/SYR IV SCH ×2 (14:00→22:00)
[2019-04-04] MEDS: SEVELAMER 800 MG TAB PO SCH ×2 (15:09→18:30)
--- NOTE | 2019-04-04 16:15 | NUR ---
Report received from Lisa CAMPBELL. ARTUR FORD brought to bed 220b following PTCA with stent placement, on monitor car operator. Patient transfered to unit bed, connected to cardiac monitor #37 running sinus diane at 56. Placed on 2L O2 via NC. Catheterization site assessed for any bleeding, redness or swelling. Angioseal device in place. Pedal pulses on affected leg assessed for positive tissue perfusion. Patient instructed on need to notify staff immediately if any pain, burning or wetness to site, and any lower back pain. All questions and concerns addressed, patient verbalized understanding of all education and instruction. Bed locked in lowest position, call light within reach, side rails up x2. Will continue to monitor q1hr and PRN.
[2019-04-04 16:30] VITALS: BP 151/76
--- NOTE | 2019-04-04 18:33 | NUR ---
MRSA swab sent to lab.
--- NOTE | 2019-04-04 18:55 | NUR ---
Patient Rounds Patient resting in bed watching television. No distress or SOB noted. Will endorse care to statistical programmer RN.
[2019-04-04] MEDS: METOPROLOL TARTRATE 25 MG TAB PO SCH ×2 (19:00→22:00)
--- NOTE | 2019-04-04 19:21 | NUR ---
Opening Shift Note Assumed care of patient, awake and alert x 4. No S/S of distress/SOB. Bed is in lowest position and locked. Call light within reach. Board updated. Tele box number matches monitor and leads are in correct placement. Restricted extremity band over left hand. Instructed on POC and to call for assist PRN, will continue to monitor for changes Q1hr and PRN.
[2019-04-04 22:00] VITALS: BP 135/68
[2019-04-04] MEDS ORDERED: CARVEDILOL 12.5 MG TAB PO SCH (22:00)
[2019-04-04] MEDS: PANTOPRAZOLE 40 MG TAB PO SCH (22:28)
[2019-04-05] MEDS: HYDROcodone-ACET 5/325MG TAB PO PRN ×2 (01:21→05:41)
[2019-04-05] MEDS: METOPROLOL TARTRATE 25 MG TAB PO SCH ×2 (05:41→14:00)
[2019-04-05] MEDS: SODIUM CHLOR 0.9% PF (SALINE LOCK) 10ML VIAL/SYR IV SCH ×2 (05:43→14:51)
[2019-04-05 06:22] VITALS: BP 153/75
--- NOTE | 2019-04-05 06:56 | NUR ---
BP is 159/73 with pulse of 60. Will endorse to day shift RN to notify MD García.
--- NOTE | 2019-04-05 07:05 | NUR ---
Opening Shift Note Assumed care of patient, appears to be sleeping awoken by name. No S/S of distress/SOB, no pain noted or reported at this time. Updated on POC and instructed to call for assistance as needed, patient verbalized understanding. Bed locked in lowest position, call light within reach, side rails up x2. Will continue to monitor for changes Q1hr and PRN.
[2019-04-05] MEDS: SEVELAMER 800 MG TAB PO SCH ×2 (08:16→12:10)
[2019-04-05 08:28] VITALS: BP 134/67
[2019-04-05] MEDS: PANTOPRAZOLE 40 MG TAB PO SCH (09:38)
[2019-04-05] MEDS ORDERED: hydrALAZINE HCL 25 MG TAB PO SCH (10:00)
[2019-04-05] MEDS ORDERED: LUBIPROSTONE 24 MCG PO SCH (10:00)
[2019-04-05] MEDS ORDERED: AMIODARONE HCL 200 MG TAB PO SCH (10:00)
[2019-04-05] MEDS ORDERED: ALPRAZolam 0.25 MG TAB PO PRN (10:00)
[2019-04-05] MEDS ORDERED: amLODIPine BESYLATE 5 MG TAB PO SCH (10:00)
[2019-04-05] MEDS ORDERED: CLOPIDOGREL BISULFATE 75 MG TAB PO SCH (10:00)
[2019-04-05] MEDS ORDERED: ATORVASTATIN 20 MG TAB PO SCH (10:00)
[2019-04-05] MEDS ORDERED: ASPirin 81 mg TAB PO SCH (10:00)
[2019-04-05] MEDS ORDERED: SERTRALINE HCL 50 MG TAB PO SCH (10:00)
[2019-04-05 13:00] VITALS: BP 159/70
--- NOTE | 2019-04-05 13:30 | NUR ---
Spoke with Dr. García Received orders to discharge home. Will input and follow through.
[2019-04-05 14:30] VITALS: BP 159/70
== END 2019-04-05 15:15 | disposition home or self-care (01) | DRG 246 ==
LOC: CATH 06:41 → TELE-CENTR 16:20
PROVIDERS: ADMIT Internal Medicine Cardiovascular Disease; ATTEND Internal Medicine Cardiovascular Disease
PROC: 027034Z Dilation of Coronary Artery, One Artery with Drug-eluting Intraluminal Device, Percutaneous Approach (ICD-10-PCS; principal; 2019-04-04)
PROC: 02713ZZ Dilation of Coronary Artery, Two Arteries, Percutaneous Approach (ICD-10-PCS; 2019-04-04)
PROC: B2161ZZ Fluoroscopy of Right and Left Heart using Low Osmolar Contrast (ICD-10-PCS; 2019-04-04)
DX: I21.4 Non-ST elevation (NSTEMI) myocardial infarction (principal); N18.6 End stage renal disease; I50.32 Chronic diastolic (congestive) heart failure; I13.2 Hypertensive heart and chronic kidney disease with heart failure and with stage 5 chronic kidney disease, or end stage renal disease; I25.5 Ischemic cardiomyopathy; E66.9 Obesity, unspecified; I25.10 Atherosclerotic heart disease of native coronary artery without angina pectoris; E11.22 Type 2 diabetes mellitus with diabetic chronic kidney disease; Z99.2 Dependence on renal dialysis; Z86.73 Personal history of transient ischemic attack (TIA), and cerebral infarction without residual deficits; Z90.710 Acquired absence of both cervix and uterus; Z95.1 Presence of aortocoronary bypass graft; Z68.30 Body mass index [BMI] 30.0-30.9, adult; Z79.899 Other long term (current) drug therapy
CPT/HCPCS: 36415; 71046; 80048; 84702; 85025; 85610; 85730; 87081; 92920; 92928; 93005; 93460; G0378; G0463; J2250; Q9967

== ENCOUNTER 2019-10-07 22:04 | Inpatient (IN) | payer MEDICARE, MEDICAID ==
[~2019-10-07] VITALS: Ht 170.2 cm; Wt 96.4 kg
[~2019-10-07 22:04] MED LIST changes: -CALC0.5C PO; -CARV12.544 PO; -CINA30TA2 PO; -HYDR-4833 PO; -INSLANTI SC; -METO10TA3 PO; -NIFE60TA59 PO; -SENN-58 PO
[2019-10-07 22:49] LABS: Basophils # (auto) 0 10 ^3/uL (0-0.2); Basophils % (auto) 0.2 % (0.0-2.0); Eosinophils # (auto) 0.2 10 ^3/uL (0-0.8); Eosinophils % (auto) 3.8 % (0.0-7.0); Hematocrit 31.6 % (36.0-46.0); Hemoglobin 10.3 g/dL (12.2-16.2); Lymphocytes # (auto) 1.4 10 ^3/uL (0.4-5.4); Lymphocytes % (auto) 20.7 % (10.0-50.0); Mean Corpuscular Hemoglobin 30.4 pg (28.0-32.0); Mean Corpuscular Hgb Conc. 32.7 g/dL (32.0-36.0); Mean Corpuscular Volume 92.9 fL (80.0-100.0); Monocytes # (auto) 0.6 10 ^3/uL (0-1.3); Monocytes % (auto) 9.8 % (0.0-12.0); Neutrophils # (auto) 4.3 10 ^3/uL (1.6-8.6); Neutrophils % (auto) 65.5 % (37.0-80.0); Nucleated Red Blood Cells % 0.4 %; Platelet Count (auto) 177 10^3/uL (140-450); Red Cell Distribution Width 14.5 % (11.8-14.3); White Blood Cell 6.5 10^3/uL (4.4-10.8)
[2019-10-07 23:05] LABS: INR 1.03 (0.9-1.15); Partial Thromboplastin Time 26.2 sec (23.64-32.05)
[2019-10-07 23:07] LABS: Alanine Aminotransferase 21 U/L (13-56); Albumin 3.2 g/dL (3.4-5.0); Anion Gap 10 (5-15); Aspartate Aminotransferase 16 U/L (15-37); BUN/Creatinine Ratio 5.6; Blood Urea Nitrogen 43 mg/dL (7-18); Calcium 6.5 mg/dL (8.5-10.1); Carbon Dioxide 23 mmol/L (21-32); Chloride 103 mmol/L (98-107); GFR African American 7 mL/min; GFR Non-African American 6 mL/min; Glucose 340 mg/dL (74-106); Magnesium 2.2 mg/dL (1.6-2.6); Potassium 3.4 mmol/L (3.5-5.1); Sodium 136 mmol/L (136-145)
[2019-10-07 23:12] LABS: Alkaline Phosphatase 121 U/L (45-117); Bilirubin, Total 0.2 mg/dL (0.2-1.0); Total Protein 7.1 g/dL (6.4-8.2)
[2019-10-07 23:50] LABS: CRP High Sensitivity 0.45 mg/dL (< 0.3); Magnesium 2.3 mg/dL (1.6-2.6)
[2019-10-08] MEDS ORDERED: ACETAMINOPHEN 500 MG TAB PO PRN (03:45)
[2019-10-08] MEDS ORDERED: SODIUM CHLORIDE 0.9% 1,000 ML IV SCH (03:45)
[2019-10-08] MEDS ORDERED: ONDANSETRON HCL 4 MG/2 ML VIAL IV PRN (03:45)
[2019-10-08] MEDS ORDERED: DEXTROSE (50%) 50ML SYRG IV PRN (03:45)
[2019-10-08] MEDS ORDERED: NITROGLYCERIN 0.4 MG SL TAB SL PRN (03:45)
[2019-10-08] MEDS ORDERED: HYDROcodone-ACET 5/325MG TAB PO PRN (03:45)
[2019-10-08] MEDS ORDERED: MORPHINE SULF INJ 2 MG/ML SYRINGE 1ML IV PRN (03:45)
[2019-10-08 04:15] VITALS: BP 157/56
[2019-10-08] MEDS: InsuLIN REG 1unit/0.01ml Soln (100units/ml) SC SCH ×5 (04:50→20:04)
[2019-10-08] MEDS: ACCU-CHEK COMFORT CURVE STRIP VI SCH ×5 (04:50→20:01)
[2019-10-08 05:29] LABS: Magnesium 2.5 mg/dL (1.6-2.6)
[2019-10-08] MEDS ORDERED: ALBUTEROL SULF HFA 90MCG INH 200DOSE IN SCH (06:00)
[2019-10-08] MEDS ORDERED: cloNIDine HCL 0.1 MG TAB ONE (08:34)
[2019-10-08] MEDS ORDERED: cloNIDine HCL 0.1 MG TAB PO ONE (08:45)
[2019-10-08 09:45] VITALS: BP 157/83
[2019-10-08] MEDS ORDERED: DOXYCYCLINE 100MG/250ML 250 ML IV SCH (10:00)
[2019-10-08] MEDS ORDERED: CLOPIDOGREL BISULFATE 75 MG TAB PO ONE (10:45)
[2019-10-08] MEDS ORDERED: amLODIPine BESYLATE 5 MG TAB PO ONE (10:45)
[2019-10-08] MEDS ORDERED: AMIODARONE HCL 200 MG TAB PO ONE (10:45)
[2019-10-08] MEDS ORDERED: METOPROLOL TARTRATE 25 MG TAB PO ONE (10:45)
[2019-10-08] MEDS ORDERED: ASPirin 81 mg TAB PO ONE (10:45)
[2019-10-08] MEDS: ENOXAPARIN SOD 30 MG/0.3 ML SYRINGE SC SCH (11:59)
[2019-10-08] MEDS: DOXYCYCLINE 100 MG TAB/CAP PO SCH ×2 (11:59→21:34)
[2019-10-08] MEDS: ASCORBIC ACID 1,000 MG TAB PO SCH (12:00)
[2019-10-08] MEDS: ZINC SULFATE 220mg CAP or TAB PO SCH (12:00)
[2019-10-08] MEDS: CHOLECALCIFEROL (VITD3) 1,000IU=25mCg TAB PO SCH (12:01)
[2019-10-08 13:06] LABS: BUN/Creatinine Ratio 6.2; Calcium 7.1 mg/dL (8.5-10.1); Potassium 3.7 mmol/L (3.5-5.1)
[2019-10-08 13:11] VITALS: BP 104/45
[2019-10-08] MEDS: MORPHINE SULF INJ 2 MG/ML SYRINGE 1ML IV PRN ×2 (14:59→21:33)
[2019-10-08 17:00] VITALS: BP 126/58
[2019-10-08] MEDS: METOPROLOL TARTRATE 25 MG TAB PO SCH (21:32)
[2019-10-08 22:00] VITALS: BP 132/73
[2019-10-09] MEDS: ACCU-CHEK COMFORT CURVE STRIP VI SCH ×6 (00:20→19:59)
[2019-10-09] MEDS: InsuLIN REG 1unit/0.01ml Soln (100units/ml) SC SCH ×6 (03:50→20:04)
[2019-10-09] MEDS: MORPHINE SULF INJ 2 MG/ML SYRINGE 1ML IV PRN ×3 (03:51→20:10)
[2019-10-09 05:00] VITALS: BP 128/54
[2019-10-09] MEDS: METOPROLOL TARTRATE 25 MG TAB PO SCH ×3 (05:45→22:00)
[2019-10-09 05:52] LABS: Basophils # (auto) 0 10 ^3/uL (0-0.2); Basophils % (auto) 0.2 % (0.0-2.0); Eosinophils # (auto) 0.3 10 ^3/uL (0-0.8); Hemoglobin 10.5 g/dL (12.2-16.2); Lymphocytes # (auto) 1.5 10 ^3/uL (0.4-5.4); Lymphocytes % (auto) 21.6 % (10.0-50.0); Mean Corpuscular Hemoglobin 31.2 pg (28.0-32.0); Mean Corpuscular Hgb Conc. 33.9 g/dL (32.0-36.0); Mean Corpuscular Volume 92.3 fL (80.0-100.0); Monocytes # (auto) 0.5 10 ^3/uL (0-1.3); Monocytes % (auto) 7.3 % (0.0-12.0); Neutrophils # (auto) 4.5 10 ^3/uL (1.6-8.6); Neutrophils % (auto) 65.9 % (37.0-80.0); Nucleated Red Blood Cells % 0.1 %; Platelet Count (auto) 181 10^3/uL (140-450); Red Blood Cells 3.36 10^6/uL (4.0-5.20); Red Cell Distribution Width 14.7 % (11.8-14.3); White Blood Cell 6.9 10^3/uL (4.4-10.8)
[2019-10-09 06:15] LABS: Potassium 5.1 mmol/L (3.5-5.1)
[2019-10-09 06:29] LABS: Albumin 3.6 g/dL (3.4-5.0); BUN/Creatinine Ratio 6.6; Bilirubin, Total 0.4 mg/dL (0.2-1.0); Calcium 7.6 mg/dL (8.5-10.1); Total Protein 7.9 g/dL (6.4-8.2)
[2019-10-09] MEDS ORDERED: SODIUM CHL 0.9% 1000 ML BAG XX ONE (07:00)
[2019-10-09 08:00] VITALS: BP 149/81
[2019-10-09] MEDS ORDERED: ADENOSINE 78 MG in GIVE UN-DILUTED 0 ML IV STA (08:08)
[2019-10-09] MEDS: amLODIPine BESYLATE 5 MG TAB PO SCH (10:00)
[2019-10-09] MEDS: CHOLECALCIFEROL (VITD3) 1,000IU=25mCg TAB PO SCH (10:00)
[2019-10-09] MEDS: AMIODARONE HCL 200 MG TAB PO SCH (10:00)
[2019-10-09] MEDS: ZINC SULFATE 220mg CAP or TAB PO SCH (10:00)
[2019-10-09] MEDS: ASCORBIC ACID 1,000 MG TAB PO SCH (10:00)
[2019-10-09] MEDS: ASPirin 81 mg TAB PO SCH (11:20)
[2019-10-09] MEDS: ENOXAPARIN SOD 30 MG/0.3 ML SYRINGE SC SCH (11:21)
[2019-10-09] MEDS: CLOPIDOGREL BISULFATE 75 MG TAB PO SCH (11:21)
[2019-10-09] MEDS: DOXYCYCLINE 100 MG TAB/CAP PO SCH ×2 (11:33→22:00)
[2019-10-09 12:00] VITALS: BP 125/58
[2019-10-09 16:56] VITALS: BP 113/60
[2019-10-09] MEDS ORDERED: EPOETIN ALFA 10,000 UNIT/1 ML VIAL SC ONE (21:00)
[2019-10-09 22:00] VITALS: BP 135/63
[2019-10-10] MEDS: MORPHINE SULF INJ 2 MG/ML SYRINGE 1ML IV PRN ×3 (02:08→21:39)
[2019-10-10] MEDS: ACCU-CHEK COMFORT CURVE STRIP VI SCH ×6 (04:22→21:41)
[2019-10-10] MEDS: InsuLIN REG 1unit/0.01ml Soln (100units/ml) SC SCH ×6 (04:23→23:19)
[2019-10-10 04:54] VITALS: BP 148/74
[2019-10-10] MEDS: METOPROLOL TARTRATE 25 MG TAB PO SCH ×3 (06:01→21:40)
[2019-10-10 08:00] VITALS: BP 158/71
[2019-10-10] MEDS: amLODIPine BESYLATE 5 MG TAB PO SCH (10:00)
[2019-10-10] MEDS: ENOXAPARIN SOD 30 MG/0.3 ML SYRINGE SC SCH (10:00)
[2019-10-10] MEDS: AMIODARONE HCL 200 MG TAB PO SCH (10:00)
[2019-10-10] MEDS: CLOPIDOGREL BISULFATE 75 MG TAB PO SCH (10:00)
[2019-10-10] MEDS: ASPirin 81 mg TAB PO SCH (10:00)
[2019-10-10 10:19] LABS: Hepatitis A Ab IgM Negative
[2019-10-10 10:20] LABS: Hepatitis B Core IgM Negative; Hepatitis B Surface Antigen Negative (Negative); Hepatitis C Antibody Negative (Negative)
[2019-10-10 12:00] VITALS: BP 120/64
[2019-10-10 16:30] VITALS: BP 154/75
[2019-10-10 21:36] VITALS: BP 160/75
[2019-10-10] MEDS: hydrALAZINE HCL 20 MG/ML VL IV PRN (23:35)
[2019-10-11] MEDS: InsuLIN REG 1unit/0.01ml Soln (100units/ml) SC SCH ×6 (04:00→20:00)
[2019-10-11] MEDS: ACCU-CHEK COMFORT CURVE STRIP VI SCH ×6 (05:01→20:00)
[2019-10-11 05:05] VITALS: BP 154/68
[2019-10-11] MEDS ORDERED: HEPARIN DRIP/D5W 100UNITS/ML 250 ML IV SCH (05:29)
[2019-10-11] MEDS ORDERED: HEPARIN SODIUM (PORCINE) 5000 UNITS/ML 1ML VIAL IV ONE (05:30)
[2019-10-11] MEDS ORDERED: HEPARIN DRIP/D5W 100UNITS/ML 250 ML IV PRN (06:15)
[2019-10-11] MEDS: METOPROLOL TARTRATE 25 MG TAB PO SCH ×3 (07:01→22:13)
[2019-10-11] MEDS: MORPHINE SULF INJ 2 MG/ML SYRINGE 1ML IV PRN ×3 (07:01→23:52)
[2019-10-11] MEDS ORDERED: LIDOCAINE 2%HCL (LOCAL ANESTH.) INJ 20ML MDV ONE (07:40)
[2019-10-11] MEDS ORDERED: IOHEXOL 350 MG/ML 100ML IJ ONE ×4 (07:44→09:28)
[2019-10-11 08:00] VITALS: BP 134/64
[2019-10-11] MEDS ORDERED: fentaNYL CITRATE 100 MCG/2 ML VL ONE ×2 (08:16→09:32)
[2019-10-11] MEDS ORDERED: ANGIOMAX 250 MG VIAL IV ONE (08:16)
[2019-10-11] MEDS ORDERED: MIDAZOLAM HCL 1MG/1ML-2 ML VIAL ONE (08:17)
[2019-10-11] MEDS ORDERED: SODIUM CHL 0.9% 50 ML ONE (08:17)
[2019-10-11] MEDS ORDERED: NITROGLYCERIN 0.4MG/DOSE SPRAY 4.9GM ONE (08:46)
[2019-10-11] MEDS ORDERED: ATROPINE SULF 1 MG/10ml SYR ONE (09:09)
[2019-10-11] MEDS ORDERED: ASPirin 81 mg TAB ONE (09:46)
[2019-10-11] MEDS ORDERED: TICAGRELOR 90 MG TAB ONE (09:47)
[2019-10-11] MEDS: amLODIPine BESYLATE 5 MG TAB PO SCH (10:00)
[2019-10-11] MEDS: AMIODARONE HCL 200 MG TAB PO SCH (10:00)
[2019-10-11] MEDS: TICAGRELOR 60 MG TAB PO SCH ×2 (10:00→22:13)
[2019-10-11] MEDS ORDERED: TICAGRELOR 60 MG TAB PO ONE (10:00)
[2019-10-11] MEDS: ASPirin 81 mg TAB PO SCH (10:00)
[2019-10-11 11:55] LABS: Basophils # (auto) 0 10 ^3/uL (0-0.2); Basophils % (auto) 0.2 % (0.0-2.0); Eosinophils # (auto) 0.2 10 ^3/uL (0-0.8); Eosinophils % (auto) 3.3 % (0.0-7.0); Hematocrit 34.4 % (36.0-46.0); Hemoglobin 11.5 g/dL (12.2-16.2); Lymphocytes # (auto) 1.2 10 ^3/uL (0.4-5.4); Lymphocytes % (auto) 19.8 % (10.0-50.0); Mean Corpuscular Hemoglobin 30.9 pg (28.0-32.0); Mean Corpuscular Hgb Conc. 33.4 g/dL (32.0-36.0); Mean Corpuscular Volume 92.6 fL (80.0-100.0); Monocytes # (auto) 0.4 10 ^3/uL (0-1.3); Monocytes % (auto) 6.9 % (0.0-12.0); Neutrophils # (auto) 4.1 10 ^3/uL (1.6-8.6); Neutrophils % (auto) 69.8 % (37.0-80.0); Nucleated Red Blood Cells % 0.1 %; Platelet Count (auto) 175 10^3/uL (140-450); Red Blood Cells 3.71 10^6/uL (4.0-5.20); Red Cell Distribution Width 14.9 % (11.8-14.3); White Blood Cell 5.9 10^3/uL (4.4-10.8)
[2019-10-11 12:00] VITALS: BP 152/64
[2019-10-11 12:10] LABS: INR 1.34 (0.9-1.15)
[2019-10-11 12:14] LABS: Partial Thromboplastin Time 85.8 sec (23.64-32.05)
[2019-10-11] MEDS ORDERED: SODIUM CHL 0.9% 1000 ML BAG XX ONE (15:30)
[2019-10-11 17:00] VITALS: BP 159/76
[2019-10-11] MEDS ORDERED: EPOETIN ALFA 10,000 UNIT/1 ML VIAL SC ONE (21:00)
[2019-10-11 22:24] VITALS: BP 141/71
[2019-10-12] MEDS: ACCU-CHEK COMFORT CURVE STRIP VI SCH ×6 (00:30→20:00)
[2019-10-12] MEDS: InsuLIN REG 1unit/0.01ml Soln (100units/ml) SC SCH ×6 (00:30→22:10)
[2019-10-12 05:10] VITALS: BP 163/73
[2019-10-12] MEDS: METOPROLOL TARTRATE 25 MG TAB PO SCH ×3 (05:30→22:11)
[2019-10-12 06:27] LABS: Basophils # (auto) 0 10 ^3/uL (0-0.2); Basophils % (auto) 0.1 % (0.0-2.0); Eosinophils # (auto) 0.2 10 ^3/uL (0-0.8); Hematocrit 30.7 % (36.0-46.0); Hemoglobin 10.3 g/dL (12.2-16.2); Lymphocytes # (auto) 0.7 10 ^3/uL (0.4-5.4); Lymphocytes % (auto) 11.6 % (10.0-50.0); Mean Corpuscular Hemoglobin 31.2 pg (28.0-32.0); Mean Corpuscular Hgb Conc. 33.7 g/dL (32.0-36.0); Mean Corpuscular Volume 92.6 fL (80.0-100.0); Monocytes # (auto) 0.6 10 ^3/uL (0-1.3); Monocytes % (auto) 9.7 % (0.0-12.0); Neutrophils # (auto) 4.4 10 ^3/uL (1.6-8.6); Neutrophils % (auto) 75.6 % (37.0-80.0); Platelet Count (auto) 150 10^3/uL (140-450); Red Blood Cells 3.32 10^6/uL (4.0-5.20); Red Cell Distribution Width 15.1 % (11.8-14.3); White Blood Cell 5.8 10^3/uL (4.4-10.8)
[2019-10-12 06:52] LABS: Potassium 4.8 mmol/L (3.5-5.1)
[2019-10-12 07:08] LABS: Albumin 3.3 g/dL (3.4-5.0); BUN/Creatinine Ratio 5.4; Bilirubin, Total 0.6 mg/dL (0.2-1.0); Calcium 7.8 mg/dL (8.5-10.1); Total Protein 7.4 g/dL (6.4-8.2)
[2019-10-12] MEDS: hydrALAZINE HCL 20 MG/ML VL IV PRN ×2 (07:31→17:48)
[2019-10-12 07:53] LABS: CRP High Sensitivity 1.78 mg/dL (< 0.3)
[2019-10-12 09:00] VITALS: BP 127/78
[2019-10-12] MEDS: ASPirin 81 mg TAB PO SCH (10:21)
[2019-10-12] MEDS: AMIODARONE HCL 200 MG TAB PO SCH (10:21)
[2019-10-12] MEDS: TICAGRELOR 60 MG TAB PO SCH ×2 (10:21→22:10)
[2019-10-12] MEDS: amLODIPine BESYLATE 5 MG TAB PO SCH (10:21)
[2019-10-12 13:00] VITALS: BP 162/71
[2019-10-12 17:00] VITALS: BP 174/68
[2019-10-12 22:20] VITALS: BP 134/70
[2019-10-13] MEDS: ACCU-CHEK COMFORT CURVE STRIP VI SCH ×4 (00:10→12:00)
[2019-10-13] MEDS: InsuLIN REG 1unit/0.01ml Soln (100units/ml) SC SCH ×4 (00:11→12:00)
[2019-10-13 05:23] VITALS: BP 170/80
[2019-10-13] MEDS: METOPROLOL TARTRATE 25 MG TAB PO SCH ×2 (06:31→14:17)
[2019-10-13 09:00] VITALS: BP 163/70
[2019-10-13] MEDS: ASPirin 81 mg TAB PO SCH (10:11)
[2019-10-13] MEDS: amLODIPine BESYLATE 5 MG TAB PO SCH (10:11)
[2019-10-13] MEDS: AMIODARONE HCL 200 MG TAB PO SCH (10:12)
[2019-10-13 13:00] VITALS: BP 155/67
[2019-10-13] MEDS: TICAGRELOR 60 MG TAB PO SCH (14:15)
[2019-10-13 15:27] VITALS: BP 155/67
== END 2019-10-13 16:20 | disposition home or self-care (01) | DRG 246 ==
LOC: EDBD 22:04 → ER 22:07 → TELE 22:08 → TELE-EAST 10-08 09:16
PROVIDERS: ADMIT Hospitalist; ATTEND Internal Medicine Cardiovascular Disease
PROC: 5A1D70Z Performance of Urinary Filtration, Intermittent, Less than 6 Hours Per Day (ICD-10-PCS; principal; 2019-10-07)
PROC: 027236Z Dilation of Coronary Artery, Three Arteries with Three Drug-eluting Intraluminal Devices, Percutaneous Approach (ICD-10-PCS; 2019-10-11)
PROC: 5A1D70Z Performance of Urinary Filtration, Intermittent, Less than 6 Hours Per Day (ICD-10-PCS; 2019-10-11)
PROC: 4A023N7 Measurement of Cardiac Sampling and Pressure, Left Heart, Percutaneous Approach (ICD-10-PCS; 2019-10-11)
PROC: B2111ZZ Fluoroscopy of Multiple Coronary Arteries using Low Osmolar Contrast (ICD-10-PCS; 2019-10-11)
DX: I21.4 Non-ST elevation (NSTEMI) myocardial infarction (principal); N18.6 End stage renal disease; N25.81 Secondary hyperparathyroidism of renal origin; I13.2 Hypertensive heart and chronic kidney disease with heart failure and with stage 5 chronic kidney disease, or end stage renal disease; D68.69 Other thrombophilia; E44.0 Moderate protein-calorie malnutrition; I16.0 Hypertensive urgency; E87.6 Hypokalemia; D63.8 Anemia in other chronic diseases classified elsewhere; D63.1 Anemia in chronic kidney disease; I25.10 Atherosclerotic heart disease of native coronary artery without angina pectoris; I25.5 Ischemic cardiomyopathy; E11.40 Type 2 diabetes mellitus with diabetic neuropathy, unspecified; I50.9 Heart failure, unspecified; E11.22 Type 2 diabetes mellitus with diabetic chronic kidney disease; E11.65 Type 2 diabetes mellitus with hyperglycemia; Z03.818 Encounter for observation for suspected exposure to other biological agents ruled out; Z99.2 Dependence on renal dialysis; Z95.5 Presence of coronary angioplasty implant and graft; Z95.1 Presence of aortocoronary bypass graft; Z90.49 Acquired absence of other specified parts of digestive tract; Z90.710 Acquired absence of both cervix and uterus; E66.9 Obesity, unspecified; E78.5 Hyperlipidemia, unspecified; Z68.31 Body mass index [BMI] 31.0-31.9, adult
CPT/HCPCS: 36415; 71045; 78452; 80048; 80053; 80074; 82728; 82962; 83036; 83540; 83550; 83605; 83615; 83735; 83880; 84443; 84484; 85025; 85379; 85610; 85730; 86141; 86850; 86900; 86901; 87070; 87804; 87880; 90935; 92928; 92929; 93005; 93017; 93458; 96361; 96374; 96375; 99152; 99153; C1874; C1887; G0378; J0153; J0885; J1642; J1815; J2250; J2405

== ENCOUNTER → 2019-10-22 | Outpatient (CLI) | payer MEDICARE, MEDICAID | END | disposition home or self-care (01) | LOC: Rad HDHVI 13:53 | PROVIDERS: ATTEND Internal Medicine Cardiovascular Disease | DX: I25.10 Atherosclerotic heart disease of native coronary artery without angina pectoris (principal); I50.43 Acute on chronic combined systolic (congestive) and diastolic (congestive) heart failure; Z98.61 Coronary angioplasty status | CPT/HCPCS: 93306 ==

== ENCOUNTER 2020-02-15 17:02 | Inpatient (IN) | payer MEDICARE, MEDICAID ==
[~2020-02-15] VITALS: Ht 170.2 cm; Wt 92.8 kg
[2020-02-15 18:43] LABS: Basophils # (auto) 0 10 ^3/uL (0-0.2); Basophils % (auto) 0.5 % (0.0-2.0); Eosinophils # (auto) 0.2 10 ^3/uL (0-0.8); Eosinophils % (auto) 2.8 % (0.0-7.0); Hematocrit 36.2 % (36.0-46.0); Hemoglobin 12.2 g/dL (12.2-16.2); Lymphocytes # (auto) 0.8 10 ^3/uL (0.4-5.4); Lymphocytes % (auto) 14.1 % (10.0-50.0); Mean Corpuscular Hemoglobin 30.5 pg (28.0-32.0); Mean Corpuscular Hgb Conc. 33.6 g/dL (32.0-36.0); Mean Corpuscular Volume 90.8 fL (80.0-100.0); Monocytes # (auto) 0.5 10 ^3/uL (0-1.3); Neutrophils # (auto) 4.2 10 ^3/uL (1.6-8.6); Neutrophils % (auto) 73.6 % (37.0-80.0); Nucleated Red Blood Cells % 0.2 %; Platelet Count (auto) 181 10^3/uL (140-450); Red Blood Cells 3.99 10^6/uL (4.0-5.20); Red Cell Distribution Width 15.1 % (11.8-14.3); White Blood Cell 5.8 10^3/uL (4.4-10.8)
[2020-02-15 19:01] LABS: Alanine Aminotransferase 35 U/L (13-56); Albumin 3.7 g/dL (3.4-5.0); Anion Gap 11 (5-15); Aspartate Aminotransferase 19 U/L (15-37); BUN/Creatinine Ratio 6.6; Blood Urea Nitrogen 66 mg/dL (7-18); Calcium 9.1 mg/dL (8.5-10.1); Carbon Dioxide 27 mmol/L (21-32); Chloride 98 mmol/L (98-107); GFR African American 5 mL/min; GFR Non-African American 4 mL/min; Glucose 164 mg/dL (74-106); Potassium 3.8 mmol/L (3.5-5.1); Sodium 136 mmol/L (136-145)
[2020-02-15 19:05] LABS: Alkaline Phosphatase 100 U/L (45-117); Bilirubin, Total 0.3 mg/dL (0.2-1.0); Total Protein 8.2 g/dL (6.4-8.2)
[2020-02-16] MEDS ORDERED: ONDANSETRON HCL 4 MG/2 ML VIAL IV ONE (05:15)
[2020-02-16] MEDS ORDERED: HYDROcodone-ACET 5/325MG TAB PO ONE (05:15)
[2020-02-16 06:09] LABS: INR 1.04 (0.9-1.15); Partial Thromboplastin Time 27.6 sec (23.0-31.2)
[2020-02-16] MEDS ORDERED: DEXTROSE (50%) 50ML SYRG IV PRN (08:45)
--- NOTE | 2020-02-16 10:00 | NUR ---
PATIENT TO FLOOR ROOM 289B. PATIENT IS ALERT AND ORIENTED X4, W/O S/S OF DISTRESS AND NO COMPLAINTS OF PAIN. VS ARE WNL, TELE # [phone] SR 70. PATIENT WAS ORIENTED TO ROOM AND CALL LIGHT USE, ASKED TO CALL FOR ANY NEEDS OR TO GET UP AND USE THE BR AND PATIENT AGREED. INFORMED PATIENT OF POC TO POSSIBLY DO HEART CATH WITH DR. DESAI TOMORROW , PATIENT VERBALIZED UNDERSTANDING AND HAS NO QUESTIONS AT THIS TIME.
[2020-02-16] MEDS ORDERED: ISOS30TA4 PO (10:27)
[2020-02-16] MEDS ORDERED: TICA1TAB PO (10:27)
[2020-02-16] MEDS ORDERED: ONDA-155 PO (10:27)
--- NOTE | 2020-02-16 10:45 | NUR ---
PATIENT INFORMED ME SHE IS A DIALYSIS PATIENT OF DR. ALBERTO. CONTACTED DR. DESAI TO CONSULT NEPHRO FOR THIS PATIENT CONSULT WAS PUT IN AND [facility] WAS CONTACTED TO SET UP DIALYSIS FOR THIS PATIENT SPOKE WITH MALENA AT THE ANSWERING EXCHANGE-MESSAGE WILL BE FORWARDED TO THE OFFICE.
--- NOTE | 2020-02-16 11:07 | NUR ---
MRSA NARES SWABBED AND WALKED TO LAB BY THIS RN.
[2020-02-16] MEDS: InsuLIN REG 1unit/0.01ml Soln (100units/ml) SC SCH ×3 (11:30→22:00)
[2020-02-16] MEDS: ACCU-CHEK COMFORT CURVE STRIP VI SCH ×3 (12:30→22:00)
--- NOTE | 2020-02-16 12:31 | NUR ---
22 GAUGE IV PLACED IN RIGHT UPPER ARM.
[2020-02-16] MEDS: NITROGLYCERIN 0.4 MG SL TAB SL PRN ×4 (13:42→16:32)
--- NOTE | 2020-02-16 14:01 | NUR ---
CONTACTED DR. DESAI REGARDING PATIENT EPISODE OF CP. PATIENT REPORTED 9 CP. EKG COMPLETE. X1 NITRO GIVEN. PATIENT IS QUOTING PAIN 15 MINUTES LATER AT 4/10 AND APPEARS TO BE MORE COMFORTABLE. SHE STATES "I FEEL BETER". AWAITING RETURN CALL AT THIS TIME.
--- NOTE | 2020-02-16 14:20 | NUR ---
ABLE TO REACH DR. DESAI. ORDERS TO GIVE ONE MORE NITRO. LOOKED AT EKG STATES "NO CHANGES". NO FURTHER ORDERS RECEIVED AT THIS TIME.
[2020-02-16 14:40] VITALS: BP 138/54
--- NOTE | 2020-02-16 16:10 | NUR ---
PATIENT COMPLAINS OF SECOND EPISODE OF CP AND IS REQUESTING NTG. PATIENT RATES PAIN 9/10 AND WHEN ASKED DESCRIBES THE PAIN THE SAME PREVIOUS EPISODE- "STABBING IN THE CHEST". MD DESAI IS AWARE OF PATIENT'S CHEST PAIN SAYING THE PATIENT HAS "SMALL VESSELS". AFTER ADMINISTRATION OF FIRST DOSE NTG PATIENT RATES PAIN NOW AT 4/10. 1623 PATIENT IS REQUESTING ANOTHER NTG. SHE INFORMS ME THAT SHE WANTS THE PAIN TO SUBSIDE A BIT MORE AND THAT LAST TIME THE SECOND DOSE WAS WHAT GAVE HER RELIEF.
[2020-02-16 17:30] VITALS: BP 174/75
[2020-02-16] MEDS: MORPHINE SULF INJ 2 MG/ML SYRINGE 1ML IV PRN ×2 (17:47→20:45)
[2020-02-16 18:00] VITALS: BP 154/65
[2020-02-16 20:00] VITALS: BP 141/66
[2020-02-16 22:00] VITALS: BP 141/66
[2020-02-17] MEDS: MORPHINE SULF INJ 2 MG/ML SYRINGE 1ML IV PRN ×2 (00:40→02:47)
[2020-02-17 05:00] VITALS: BP 161/89
[2020-02-17] MEDS: InsuLIN REG 1unit/0.01ml Soln (100units/ml) SC SCH ×4 (06:52→22:00)
[2020-02-17] MEDS: ACCU-CHEK COMFORT CURVE STRIP VI SCH ×4 (06:52→22:18)
--- NOTE | 2020-02-17 07:20 | NUR ---
Opening Shift Note Assumed care of patient, awake and alert. No S/S of distress/SOB or pain. Instructed on POC and to call for assistance PRN bed is locked and in lowest position , bed rails up x2 , will continue to monitor for changes Q1hr and PRN.
[2020-02-17] MEDS: NITROGLYCERIN 0.4 MG SL TAB SL PRN ×2 (10:40→10:44)
[2020-02-17] MEDS ORDERED: SODIUM CHL 0.9% 1000 ML BAG XX ONE (10:45)
[2020-02-17] MEDS ORDERED: IOHEXOL 350 MG/ML 100ML IJ ONE ×2 (12:14→13:49)
[2020-02-17] MEDS ORDERED: LIDOCAINE 2%HCL (LOCAL ANESTH.) INJ 20ML MDV ONE (12:14)
[2020-02-17] MEDS ORDERED: fentaNYL CITRATE 100 MCG/2 ML VL ONE (13:06)
[2020-02-17] MEDS ORDERED: ANGIOMAX 250 MG VIAL IV ONE (13:06)
[2020-02-17] MEDS ORDERED: MIDAZOLAM HCL 1MG/1ML-2 ML VIAL ONE (13:07)
[2020-02-17] MEDS ORDERED: SODIUM CHL 0.9% 50 ML ONE (13:07)
[2020-02-17] MEDS ORDERED: TICAGRELOR 90 MG TAB ONE (13:59)
[2020-02-17] MEDS ORDERED: ASPirin 325 MG TAB ONE (14:00)
[2020-02-17] MEDS ORDERED: NITROGLYCERIN 0.4MG/DOSE SPRAY 4.9GM ONE (14:09)
[2020-02-17] MEDS ORDERED: ONDANSETRON ODT 4 MG TAB PO PRN (14:45)
[2020-02-17] MEDS ORDERED: NITROGLYCERIN 0.4 MG SL TAB SL SCH (14:45)
[2020-02-17] MEDS ORDERED: METOPROLOL TARTRATE 25 MG TAB PO ONE (15:30)
--- NOTE | 2020-02-17 15:50 | NUR ---
DIALYSIS NURSE AT BEDSIDE
[2020-02-17 16:49] VITALS: BP 142/76
[2020-02-17] MEDS: SEVELAMER 800 MG TAB PO SCH (18:00)
--- NOTE | 2020-02-17 18:36 | NUR ---
PATIENT IS ON DIALYSIS, PATIENT HAS A SAFE GUARD PRESSURE DEVICE ON R GROIN , PATIENTS HEAD OF BED IS AT 15 DEGREES , PATIENT NEEDS TO HAVE THE SAFE GUARD RELEASED OF PRESSURE AT 2030 THERE IS 40 ML OF AIR AND YOU CAN USE A REGULAR 20 ML SYRINGE TWICE. Addendum: 02/17/20 at 1845 by SUZETTE EPPERSON RN RN ENDORSED CARE TO [employer] NET DEVELOPER SHANNAN
--- NOTE | 2020-02-17 20:15 | NUR ---
Dialysis end Removed 2500ml Pt stable HR 79 BP152/72 Will continue too
[2020-02-17 21:56] VITALS: BP 164/74
[2020-02-17] MEDS: PANTOPRAZOLE 40 MG TAB PO SCH (22:17)
[2020-02-17] MEDS: METOPROLOL TARTRATE 25 MG TAB PO SCH (22:17)
[2020-02-17] MEDS: ATORVASTATIN 20 MG TAB PO SCH (22:17)
[2020-02-17] MEDS ORDERED: ALPRAZolam 0.5 MG TAB ONE (22:30)
--- NOTE | 2020-02-18 02:30 | NUR ---
Headache and high blood pressure BP165/89 HR77. Paged doctor Ricky
--- NOTE | 2020-02-18 04:55 | NUR ---
Pt having temp 100.2 BP 156/74 HR 74 Paged doctor Ricky again.
[2020-02-18 05:26] VITALS: BP 156/76
--- NOTE | 2020-02-18 06:25 | NUR ---
Received and implemented orders from doctor Ricky.
[2020-02-18] MEDS: METOPROLOL TARTRATE 25 MG TAB PO SCH ×3 (06:27→22:26)
[2020-02-18] MEDS ORDERED: ACETAMINOPHEN 325 MG TAB PO PRN (06:45)
[2020-02-18] MEDS: ACCU-CHEK COMFORT CURVE STRIP VI SCH ×4 (07:02→22:00)
[2020-02-18] MEDS: InsuLIN REG 1unit/0.01ml Soln (100units/ml) SC SCH ×4 (07:03→22:00)
[2020-02-18] MEDS: SEVELAMER 800 MG TAB PO SCH ×3 (08:14→18:08)
[2020-02-18] MEDS: cefTRIAXone 1GM/50ML D5W 50 ML IV SCH (08:14)
[2020-02-18 09:00] VITALS: BP 158/74
[2020-02-18] MEDS: amLODIPine BESYLATE 5 MG TAB PO SCH (09:51)
[2020-02-18] MEDS: PANTOPRAZOLE 40 MG TAB PO SCH ×2 (09:51→22:26)
[2020-02-18] MEDS: AMIODARONE HCL 200 MG TAB PO SCH (09:51)
[2020-02-18] MEDS: ISOSORBIDE MONONITRATE ER 60 MG TAB PO SCH (09:52)
[2020-02-18] MEDS: TICAGRELOR 90 MG TAB PO SCH ×2 (09:52→22:24)
[2020-02-18] MEDS: ASPirin-EC 81 mg tab PO SCH (09:53)
[2020-02-18] MEDS: SERTRALINE HCL 50 MG TAB PO SCH (09:53)
[2020-02-18] MEDS: LUBIPROSTONE 24 MG PO SCH (09:53)
[2020-02-18] MEDS ORDERED: ALPRAZolam 0.25 MG TAB PO PRN (10:00)
[2020-02-18] MEDS ORDERED: hydrALAZINE HCL 25 MG TAB PO SCH (10:00)
[2020-02-18] MEDS ORDERED: TICAGRELOR 60 MG TAB PO SCH (10:00)
[2020-02-18 13:00] VITALS: BP 151/66
[2020-02-18 16:53] VITALS: BP 147/62
--- NOTE | 2020-02-18 19:18 | NUR ---
Opening Shift Note Assumed care of patient, awake and alert. No S/S of distress/SOB or pain. Instructed on POC and to call for assist PRN, will continue to monitor for changes Q1hr and PRN.
[2020-02-18 22:00] VITALS: BP 132/73
[2020-02-18] MEDS: ATORVASTATIN 20 MG TAB PO SCH (22:25)
[2020-02-19 05:50] VITALS: BP 149/66
[2020-02-19] MEDS: InsuLIN REG 1unit/0.01ml Soln (100units/ml) SC SCH ×3 (07:00→17:46)
[2020-02-19] MEDS ORDERED: SODIUM CHL 0.9% 1000 ML BAG XX ONE (07:00)
[2020-02-19] MEDS: ACCU-CHEK COMFORT CURVE STRIP VI SCH ×3 (07:03→17:00)
[2020-02-19] MEDS: cefTRIAXone 1GM/50ML D5W 50 ML IV SCH (07:04)
[2020-02-19] MEDS: METOPROLOL TARTRATE 25 MG TAB PO SCH ×2 (07:05→14:05)
--- NOTE | 2020-02-19 08:47 | NUR ---
SPOKE TO DR HOANG SPOKE TO DR HOANG ABOUT PATIENTS BLOOD PRESSURE OF 186/81 RELAYED TO MD THAT PER CORNICE MAKER TIFF PATIENT'S DIALYSIS IS AROUND 1100 PER MD HOLD 1000 AMLODIPINE BUT CLEARED TO ADMINISTER ALL OTHER MEDICATIONS.
[2020-02-19 08:51] VITALS: BP 186/81
[2020-02-19] MEDS: TICAGRELOR 90 MG TAB PO SCH (09:02)
[2020-02-19] MEDS: ASPirin-EC 81 mg tab PO SCH (09:03)
[2020-02-19] MEDS: SEVELAMER 800 MG TAB PO SCH ×3 (09:03→17:48)
[2020-02-19] MEDS: ISOSORBIDE MONONITRATE ER 60 MG TAB PO SCH (09:04)
[2020-02-19] MEDS: SERTRALINE HCL 50 MG TAB PO SCH (09:04)
[2020-02-19] MEDS: PANTOPRAZOLE 40 MG TAB PO SCH (09:04)
[2020-02-19] MEDS: AMIODARONE HCL 200 MG TAB PO SCH (09:05)
[2020-02-19] MEDS: amLODIPine BESYLATE 5 MG TAB PO SCH (09:06)
[2020-02-19] MEDS: LUBIPROSTONE 24 MG PO SCH (10:00)
--- NOTE | 2020-02-19 10:40 | NUR ---
DIALYSIS NURSE AT BEDSIDE
--- NOTE | 2020-02-19 12:57 | NUR ---
Nutrition Assessment Notes Please refer to link for full assessment notes. Est Energy needs: 7545-5057 kcals (17-20 kcal/kgBW) Est Protein needs: 102-111 gms/day (1.1-1.2 gm/kgBW) Will continue to monitor and reassess prn. Addendum: 02/19/20 at [address] Amended: Links added.
[2020-02-19 13:00] VITALS: BP 141/72
--- NOTE | 2020-02-19 13:40 | NUR ---
DIALYSIS COMPLETED DIALYSIS COMPLETED DIALYSIS NURSE TIFF REMOVED 2.5L OF FLUID , 150/75 BP STAYED STEADY THROUGHOUT , NO SIGNS AND SYMPTOMS OF DISTRESS , BED IS LOCKED AND IN LOWEST POSITION , BED RAILS UP X2 WILL CONTINUE TO MONITOR Q1H OR PRN.
[2020-02-19 17:00] VITALS: BP 148/74
--- NOTE | 2020-02-19 18:40 | NUR ---
Discharge instructions given as ordered. Encourage to follow up with PMD as instructed. All questions and concerns addressed. Patient verbalized understanding. Medication reconciliation form completed and copy given to patient. Home medications held in Pharmacy returned to patient. IV removed with catheter intact, pressure dressing applied. Telemetry unit returned to ICU. Patient taken to vehicle via wheelchair with all personal belongings, accompanied by staff . No distress noted at time of departure.
== END 2020-02-19 18:40 | disposition home or self-care (01) | DRG 246 ==
LOC: ER 17:02 → EDBD 17:02 → TELE 17:03 → TELE-WESTW 02-16 09:54
PROVIDERS: ADMIT Internal Medicine Cardiovascular Disease; ATTEND Internal Medicine Cardiovascular Disease
PROC: 5A1D70Z Performance of Urinary Filtration, Intermittent, Less than 6 Hours Per Day (ICD-10-PCS; principal; 2020-02-17)
PROC: 027034Z Dilation of Coronary Artery, One Artery with Drug-eluting Intraluminal Device, Percutaneous Approach (ICD-10-PCS; 2020-02-17)
PROC: 4A023N7 Measurement of Cardiac Sampling and Pressure, Left Heart, Percutaneous Approach (ICD-10-PCS; 2020-02-17)
PROC: B2111ZZ Fluoroscopy of Multiple Coronary Arteries using Low Osmolar Contrast (ICD-10-PCS; 2020-02-17)
PROC: B2131ZZ Fluoroscopy of Multiple Coronary Artery Bypass Grafts using Low Osmolar Contrast (ICD-10-PCS; 2020-02-17)
PROC: 5A1D70Z Performance of Urinary Filtration, Intermittent, Less than 6 Hours Per Day (ICD-10-PCS; 2020-02-19)
DX: I25.110 Atherosclerotic heart disease of native coronary artery with unstable angina pectoris (principal); N18.6 End stage renal disease; I50.30 Unspecified diastolic (congestive) heart failure; I13.2 Hypertensive heart and chronic kidney disease with heart failure and with stage 5 chronic kidney disease, or end stage renal disease; R07.89 Other chest pain; E11.22 Type 2 diabetes mellitus with diabetic chronic kidney disease; E78.5 Hyperlipidemia, unspecified; D63.1 Anemia in chronic kidney disease; E11.21 Type 2 diabetes mellitus with diabetic nephropathy; E11.40 Type 2 diabetes mellitus with diabetic neuropathy, unspecified; E11.319 Type 2 diabetes mellitus with unspecified diabetic retinopathy without macular edema; E83.39 Other disorders of phosphorus metabolism; Z86.73 Personal history of transient ischemic attack (TIA), and cerebral infarction without residual deficits; Z95.5 Presence of coronary angioplasty implant and graft; Z99.2 Dependence on renal dialysis; Z90.710 Acquired absence of both cervix and uterus; Z82.49 Family history of ischemic heart disease and other diseases of the circulatory system; Z95.1 Presence of aortocoronary bypass graft
CPT/HCPCS: 36415; 71045; 78582; 80053; 82306; 82962; 83036; 83880; 83970; 84100; 84484; 85025; 85379; 85610; 85730; 87081; 90935; 92928; 93005; 93458; 99152; 99153; C1874; G0378; J0696; J1815; J2250; J2405

== ENCOUNTER → 2020-06-22 | Outpatient (CLI) | payer MEDICARE, MEDICAID ==
[~2020-06-22] MED LIST changes: +AMLO-489 PO; -AMLO5TAB15 PO; +CALC0.25 PO; +ISOS30TA4 PO; +ONDA-155 PO; +TICA1TAB PO
[2020-06-22 12:03] LABS: Basophils # (auto) 0 10 ^3/uL (0-0.2); Basophils % (auto) 0.3 % (0.0-2.0); Eosinophils # (auto) 0.1 10 ^3/uL (0-0.8); Eosinophils % (auto) 3.2 % (0.0-7.0); Hematocrit 29.3 % (36.0-46.0); Hemoglobin 10.1 g/dL (12.2-16.2); Lymphocytes # (auto) 0.9 10 ^3/uL (0.4-5.4); Lymphocytes % (auto) 20.5 % (10.0-50.0); Mean Corpuscular Hemoglobin 30.8 pg (28.0-32.0); Mean Corpuscular Hgb Conc. 34.5 g/dL (32.0-36.0); Mean Corpuscular Volume 89.4 fL (80.0-100.0); Monocytes # (auto) 0.4 10 ^3/uL (0-1.3); Monocytes % (auto) 9.1 % (0.0-12.0); Neutrophils # (auto) 3.1 10 ^3/uL (1.6-8.6); Neutrophils % (auto) 66.9 % (37.0-80.0); Platelet Count (auto) 186 10^3/uL (140-450); Red Blood Cells 3.28 10^6/uL (4.0-5.20); Red Cell Distribution Width 13.5 % (11.8-14.3); White Blood Cell 4.6 10^3/uL (4.4-10.8)
[2020-06-22 12:18] LABS: INR 1.02 (0.9-1.15); Partial Thromboplastin Time 27.1 sec (23.0-31.2)
[2020-06-22 12:34] LABS: BUN/Creatinine Ratio 4.3; Calcium 8.5 mg/dL (8.5-10.1)
== END | disposition home or self-care (01) ==
LOC: LAB 10:28
PROVIDERS: ATTEND Internal Medicine Cardiovascular Disease
DX: Z01.812 Encounter for preprocedural laboratory examination (principal); I50.32 Chronic diastolic (congestive) heart failure
CPT/HCPCS: 36415; 80048; 85025; 85610; 85730

== ENCOUNTER → 2020-06-23 | Outpatient (CLI) | payer MEDICARE, MEDICAID ==
[~2020-06-23] MED LIST changes: -ALPR0.25 PO; -AMLO-489 PO; -CLOP75TA28 PO; -LUBI24CA6 PO; -METO25TA5 PO
== END | disposition home or self-care (01) ==
LOC: Rad HDHVI 09:52
PROVIDERS: ATTEND Internal Medicine Cardiovascular Disease
DX: Z01.810 Encounter for preprocedural cardiovascular examination (principal); Z98.61 Coronary angioplasty status
CPT/HCPCS: 71046

== ENCOUNTER 2020-06-25 07:49 | Day surgery (SDC) | payer MEDICARE, MEDICAID ==
[~2020-06-25] VITALS: Ht 170.2 cm; Wt 90.7 kg
[2020-06-25] MEDS ORDERED: LIDOCAINE 2%HCL (LOCAL ANESTH.) INJ 20ML MDV ONE (12:36)
[2020-06-25] MEDS ORDERED: IOHEXOL 350 MG/ML 100ML IJ ONE (12:36)
[2020-06-25] MEDS ORDERED: fentaNYL CITRATE 100 MCG/2 ML VL ONE ×2 (12:53→14:10)
[2020-06-25] MEDS ORDERED: ANGIOMAX 250 MG VIAL IV ONE (12:53)
[2020-06-25] MEDS ORDERED: SODIUM CHL 0.9% 50 ML ONE (12:53)
[2020-06-25] MEDS ORDERED: MIDAZOLAM HCL 1MG/1ML-2 ML VIAL ONE (12:53)
[2020-06-25] MEDS ORDERED: HYDROmorphone HCL 2 MG/ML VL IV ONE (14:45)
== END 2020-06-25 16:58 | disposition home or self-care (01) ==
LOC: CATH 07:49
PROVIDERS: ATTEND Internal Medicine Cardiovascular Disease
DX: I25.810 Atherosclerosis of coronary artery bypass graft(s) without angina pectoris (principal); E78.5 Hyperlipidemia, unspecified; I67.9 Cerebrovascular disease, unspecified; Z95.1 Presence of aortocoronary bypass graft; E11.9 Type 2 diabetes mellitus without complications; I11.0 Hypertensive heart disease with heart failure; F41.9 Anxiety disorder, unspecified; J98.9 Respiratory disorder, unspecified; J90 Pleural effusion, not elsewhere classified; Z68.31 Body mass index [BMI] 31.0-31.9, adult; Z98.890 Other specified postprocedural states; Z79.899 Other long term (current) drug therapy; Z20.822 Contact with and (suspected) exposure to COVID-19; Z95.5 Presence of coronary angioplasty implant and graft; Z99.2 Dependence on renal dialysis; Z90.710 Acquired absence of both cervix and uterus
CPT/HCPCS: 92978; 92979; 93455; C1725; C1726; C1760; C1769; C1874; C1887; C1894; C9600; J0583; J1170; J1644; J2250; J3010; Q9967; U0003; 76942; 99152; 99153

== ENCOUNTER → 2020-08-26 | Outpatient (CLI) | payer MEDICARE, MEDICAID ==
[~2020-08-26] VITALS: Ht 170.2 cm; Wt 90.7 kg
[~2020-08-26] MED LIST changes: +ADENOSINE 76 MG in GIVE UN-DILUTED 0 ML IV ONE; +ADENOSINE 90 MG/30 ML INJ IV ONE
== END | disposition home or self-care (01) ==
LOC: Rad HDHVI 08:03
PROVIDERS: ATTEND Internal Medicine Cardiovascular Disease
DX: Z01.810 Encounter for preprocedural cardiovascular examination (principal); I25.10 Atherosclerotic heart disease of native coronary artery without angina pectoris; E78.5 Hyperlipidemia, unspecified; I12.9 Hypertensive chronic kidney disease with stage 1 through stage 4 chronic kidney disease, or unspecified chronic kidney disease; E11.22 Type 2 diabetes mellitus with diabetic chronic kidney disease; N18.4 Chronic kidney disease, stage 4 (severe); E11.21 Type 2 diabetes mellitus with diabetic nephropathy; R06.02 Shortness of breath; R07.89 Other chest pain; I25.5 Ischemic cardiomyopathy; Z95.1 Presence of aortocoronary bypass graft; Z82.49 Family history of ischemic heart disease and other diseases of the circulatory system
CPT/HCPCS: 78452; 93005; 96374; 96375; A9500; J0153

== ENCOUNTER → 2020-08-28 | Outpatient (CLI) | payer MEDICARE, MEDICAID ==
[~2020-08-28] MED LIST changes: -ADENOSINE 76 MG in GIVE UN-DILUTED 0 ML IV ONE; -ADENOSINE 90 MG/30 ML INJ IV ONE
== END | disposition home or self-care (01) ==
LOC: Rad HDHVI 15:34
PROVIDERS: ATTEND Internal Medicine Cardiovascular Disease
DX: R00.2 Palpitations (principal); R07.89 Other chest pain
CPT/HCPCS: 93306

== ENCOUNTER 2020-10-08 13:34 | Inpatient (IN) | payer MEDICARE, MEDICAID ==
[~2020-10-08] VITALS: Ht 167.6 cm; Wt 89.2 kg
[~2020-10-08 13:34] MED LIST changes: +ISOS1TAB28 PO; -ISOS30TA4 PO; -SERT-274 PO; +SERT50TA19 PO
[2020-10-08] MEDS ORDERED: CHOLECALCIFEROL (VITD3) 2,000 UNIT CAP/TAB PO ONE (13:45)
[2020-10-08] MEDS ORDERED: ONDANSETRON ODT 4 MG TAB PO ONE (13:45)
[2020-10-08] MEDS ORDERED: ZINC SULFATE 220mg CAP or TAB PO ONE (13:45)
[2020-10-08] MEDS ORDERED: ACETAMINOPHEN 325 MG TAB PO ONE (13:45)
[2020-10-08] MEDS ORDERED: AZITHROMYCIN 500MG/ 250ML 250 ML IV ONE (13:45)
[2020-10-08] MEDS ORDERED: ASCORBIC ACID 500 MG TAB PO ONE (13:45)
[2020-10-08 14:26] LABS: Basophils # (auto) 0 10 ^3/uL (0-0.2); Basophils % (auto) 0.2 % (0.0-2.0); Eosinophils # (auto) 0 10 ^3/uL (0-0.8); Eosinophils % (auto) 0.1 % (0.0-7.0); Hematocrit 31.3 % (36.0-46.0); Hemoglobin 10.4 g/dL (12.2-16.2); Lymphocytes # (auto) 0.7 10 ^3/uL (0.4-5.4); Lymphocytes % (auto) 4.4 % (10.0-50.0); Mean Corpuscular Hemoglobin 29.6 pg (28.0-32.0); Mean Corpuscular Hgb Conc. 33.2 g/dL (32.0-36.0); Mean Corpuscular Volume 89.3 fL (80.0-100.0); Monocytes # (auto) 1.3 10 ^3/uL (0-1.3); Neutrophils # (auto) 14.1 10 ^3/uL (1.6-8.6); Neutrophils % (auto) 87.3 % (37.0-80.0); Platelet Count (auto) 184 10^3/uL (140-450); Red Blood Cells 3.51 10^6/uL (4.0-5.20); Red Cell Distribution Width 13.8 % (11.8-14.3); White Blood Cell 16.2 10^3/uL (4.4-10.8)
[2020-10-08 14:40] LABS: Albumin 3.3 g/dL (3.4-5.0); Anion Gap 14 (5-15); Blood Urea Nitrogen 28 mg/dL (7-18); Carbon Dioxide 24 mmol/L (21-32); Chloride 92 mmol/L (98-107); Glucose 142 mg/dL (74-106); Potassium 3.4 mmol/L (3.5-5.1); Sodium 130 mmol/L (136-145)
[2020-10-08 14:48] LABS: Alanine Aminotransferase 14 U/L (13-56); Alkaline Phosphatase 87 U/L (45-117); Aspartate Aminotransferase 22 U/L (15-37); BUN/Creatinine Ratio 4.4; GFR African American 9 mL/min; GFR Non-African American 7 mL/min; Total Protein 8.4 g/dL (6.4-8.2)
[2020-10-08 14:50] LABS: CRP High Sensitivity > 19.0 mg/dL (< 0.3)
[2020-10-08] MEDS ORDERED: MORPHINE SULFATE 4 MG/ML SYR/VIAL IV ONE (15:15)
[2020-10-08] MEDS ORDERED: methylPREDNISolone SOD SUCC 125 MG/2 ML VL IV ONE (16:15)
[2020-10-08] MEDS ORDERED: HYDROmorphone HCL 2 MG/ML VL IV PRN (20:45)
[2020-10-08] MEDS ORDERED: DEXTROSE (50%) 50ML SYRG IV PRN (20:45)
[2020-10-08] MEDS ORDERED: VANCOMYCIN 1GM/250ML 250 ML IV ONE ×4 (21:15)
[2020-10-08 22:00] VITALS: BP 143/71
[2020-10-08] MEDS: ACCU-CHEK COMFORT CURVE STRIP VI SCH (22:00)
[2020-10-08] MEDS: PANTOPRAZOLE 40 MG TAB PO SCH (23:59)
[2020-10-08] MEDS: ATORVASTATIN 20 MG TAB PO SCH (23:59)
[2020-10-09] MEDS: InsuLIN REG 1unit/0.01ml Soln (100units/ml) SC SCH ×5 (00:14→21:12)
[2020-10-09] MEDS: PIPERACILLIN-TAZOB 2.25GM 50 ML IV SCH ×3 (01:31→20:51)
[2020-10-09 01:58] VITALS: BP 143/71
[2020-10-09 05:00] VITALS: BP 139/59
[2020-10-09] MEDS: ACCU-CHEK COMFORT CURVE STRIP VI SCH ×4 (06:06→21:11)
[2020-10-09] MEDS ORDERED: IVERMECTIN 3 MG TAB PO ONE ×4 (07:00)
[2020-10-09] MEDS ORDERED: CINA30TA2 PO (07:41)
[2020-10-09] MEDS ORDERED: ISOS60TA24 PO (07:41)
[2020-10-09] MEDS ORDERED: AMLO-489 PO (07:41)
[2020-10-09] MEDS ORDERED: HYDR50TA15 PO (07:41)
[2020-10-09] MEDS ORDERED: TEMA30CA PO (07:41)
[2020-10-09] MEDS: SEVELAMER 800 MG TAB PO SCH ×3 (08:31→18:05)
[2020-10-09 09:00] VITALS: BP 142/68
[2020-10-09 09:36] LABS: Magnesium 2.2 mg/dL (1.6-2.6); Phosphorus 4.7 mg/dL (2.5-4.90)
[2020-10-09 09:57] LABS: Basophils # (auto) 0 10 ^3/uL (0-0.2); Eosinophils # (auto) 0 10 ^3/uL (0-0.8); Hemoglobin 11.8 g/dL (12.2-16.2); Lymphocytes # (auto) 0.7 10 ^3/uL (0.4-5.4); Lymphocytes % (auto) 3.8 % (10.0-50.0); Mean Corpuscular Hemoglobin 30.5 pg (28.0-32.0); Mean Corpuscular Hgb Conc. 34.7 g/dL (32.0-36.0); Mean Corpuscular Volume 88.1 fL (80.0-100.0); Monocytes # (auto) 0.3 10 ^3/uL (0-1.3); Monocytes % (auto) 1.7 % (0.0-12.0); Neutrophils % (auto) 94.5 % (37.0-80.0); Nucleated Red Blood Cells % 0.1 %; Platelet Count (auto) 204 10^3/uL (140-450); Red Blood Cells 3.86 10^6/uL (4.0-5.20); Red Cell Distribution Width 13.9 % (11.8-14.3)
[2020-10-09] MEDS ORDERED: VANCOMYCIN 1GM/250ML 250 ML IV SCH (10:00)
[2020-10-09] MEDS: ASPirin 81 mg TAB PO SCH (10:18)
[2020-10-09] MEDS: PANTOPRAZOLE 40 MG TAB PO SCH ×2 (10:19→20:52)
[2020-10-09] MEDS: ISOSORBIDE MONONITRATE ER 60 MG TAB PO SCH (10:21)
[2020-10-09] MEDS: hydrALAZINE HCL 25 MG TAB PO SCH (10:21)
[2020-10-09] MEDS: CALCITRIOL 0.25 MCG CAP PO SCH (10:22)
[2020-10-09] MEDS: AMIODARONE HCL 200 MG TAB PO SCH (10:23)
[2020-10-09] MEDS: SERTRALINE HCL 50 MG TAB PO SCH (10:24)
[2020-10-09] MEDS: TICAGRELOR 60 MG TAB PO SCH ×2 (10:35→20:52)
[2020-10-09 13:00] VITALS: BP 136/69
[2020-10-09 16:33] VITALS: BP 144/69
[2020-10-09] MEDS: ATORVASTATIN 20 MG TAB PO SCH (20:52)
[2020-10-09 22:00] VITALS: BP 133/74
[2020-10-09] MEDS: HYDROmorphone HCL 2 MG/ML VL IV PRN (22:15)
[2020-10-10 04:37] VITALS: BP 128/79
[2020-10-10 04:39] VITALS: BP 127/76
[2020-10-10 06:14] LABS: Hematocrit 30.1 % (36.0-46.0); Hemoglobin 10.5 g/dL (12.2-16.2); Mean Corpuscular Hemoglobin 30.7 pg (28.0-32.0); Mean Corpuscular Hgb Conc. 34.7 g/dL (32.0-36.0); Mean Corpuscular Volume 88.3 fL (80.0-100.0); Platelet Count (auto) 222 10^3/uL (140-450); Red Blood Cells 3.41 10^6/uL (4.0-5.20); Red Cell Distribution Width 13.6 % (11.8-14.3); White Blood Cell 20.1 10^3/uL (4.4-10.8)
[2020-10-10 06:15] LABS: Band Neutrophils % (manual) 0; Basophils % (manual) 0 (0.0-2.0); Blast Cells 0; Eosinophils % (manual) 0 (0-7); Metamyelocytes % 0; Myelocytes % 0; Promyelocytes % 0; Reactive Lymphocytes 0
[2020-10-10 06:34] LABS: BUN/Creatinine Ratio 8.7; Calcium 8.2 mg/dL (8.5-10.1); Potassium 3.8 mmol/L (3.5-5.1)
[2020-10-10] MEDS: InsuLIN REG 1unit/0.01ml Soln (100units/ml) SC SCH ×3 (06:48→18:00)
[2020-10-10 06:50] LABS: Lymphocytes % (manual) 6 (10.0-50.0); Monocytes % (manual) 3 (0-12)
[2020-10-10] MEDS ORDERED: SODIUM CHL 0.9% 1000 ML BAG XX ONE (07:00)
[2020-10-10] MEDS: ACCU-CHEK COMFORT CURVE STRIP VI SCH ×4 (07:00→23:45)
[2020-10-10 08:00] VITALS: BP 152/75
[2020-10-10] MEDS: SEVELAMER 800 MG TAB PO SCH ×3 (09:15→18:00)
[2020-10-10] MEDS: hydrALAZINE HCL 25 MG TAB PO SCH (10:00)
[2020-10-10] MEDS: PANTOPRAZOLE 40 MG TAB PO SCH ×3 (10:00→23:56)
[2020-10-10] MEDS: SERTRALINE HCL 50 MG TAB PO SCH ×2 (10:00→15:19)
[2020-10-10] MEDS: ISOSORBIDE MONONITRATE ER 60 MG TAB PO SCH (10:00)
[2020-10-10] MEDS: ASPirin 81 mg TAB PO SCH ×2 (10:00→15:18)
[2020-10-10] MEDS: AMIODARONE HCL 200 MG TAB PO SCH (10:00)
[2020-10-10] MEDS: CALCITRIOL 0.25 MCG CAP PO SCH ×2 (10:00→15:19)
[2020-10-10] MEDS: TICAGRELOR 60 MG TAB PO SCH ×3 (10:00→23:55)
[2020-10-10] MEDS: PIPERACILLIN-TAZOB 2.25GM 50 ML IV SCH ×3 (10:00→23:55)
[2020-10-10 12:00] VITALS: BP 121/69
[2020-10-10] MEDS: HYDROmorphone HCL 2 MG/ML VL IV PRN (15:35)
[2020-10-10 16:00] VITALS: BP 130/63
[2020-10-10] MEDS ORDERED: EPOETIN ALFA-EPBX 10,000 UNIT/1ML VIAL SC ONE (21:00)
[2020-10-10 22:00] VITALS: BP 121/65
[2020-10-10] MEDS: ATORVASTATIN 20 MG TAB PO SCH (23:55)
[2020-10-11] MEDS: HYDROmorphone HCL 2 MG/ML VL IV PRN ×3 (00:06→23:10)
[2020-10-11 05:00] VITALS: BP 134/53
[2020-10-11] MEDS: ACCU-CHEK COMFORT CURVE STRIP VI SCH ×4 (06:12→21:53)
[2020-10-11] MEDS: InsuLIN REG 1unit/0.01ml Soln (100units/ml) SC SCH ×5 (06:20→21:19)
[2020-10-11] MEDS: ACETAMINOPHEN 325 MG TAB PO PRN (06:23)
[2020-10-11 07:16] LABS: Hematocrit 32.4 % (36.0-46.0); Mean Corpuscular Hemoglobin 30.3 pg (28.0-32.0); Mean Corpuscular Hgb Conc. 34.1 g/dL (32.0-36.0); Mean Corpuscular Volume 88.8 fL (80.0-100.0); Platelet Count (auto) 240 10^3/uL (140-450); Red Blood Cells 3.64 10^6/uL (4.0-5.20); Red Cell Distribution Width 13.8 % (11.8-14.3); White Blood Cell 12.3 10^3/uL (4.4-10.8)
[2020-10-11 07:30] LABS: Band Neutrophils % (manual) 0; Basophils % (manual) 0 (0.0-2.0); Blast Cells 0; Eosinophils % (manual) 0 (0-7); Promyelocytes % 0; Reactive Lymphocytes 0
[2020-10-11 07:38] LABS: Potassium 3.6 mmol/L (3.5-5.1)
[2020-10-11 07:47] LABS: BUN/Creatinine Ratio 6.6; Calcium 8.4 mg/dL (8.5-10.1)
[2020-10-11 07:55] LABS: Lymphocytes % (manual) 9 (10.0-50.0); Metamyelocytes % 1; Monocytes % (manual) 4 (0-12); Myelocytes % 1
[2020-10-11] MEDS: ASPirin 81 mg TAB PO SCH (08:19)
[2020-10-11] MEDS: SEVELAMER 800 MG TAB PO SCH ×3 (08:19→17:11)
[2020-10-11] MEDS: AMIODARONE HCL 200 MG TAB PO SCH (08:19)
[2020-10-11] MEDS: SERTRALINE HCL 50 MG TAB PO SCH (08:20)
[2020-10-11] MEDS: CALCITRIOL 0.25 MCG CAP PO SCH (08:20)
[2020-10-11] MEDS: ISOSORBIDE MONONITRATE ER 60 MG TAB PO SCH (08:20)
[2020-10-11] MEDS: PANTOPRAZOLE 40 MG TAB PO SCH ×2 (08:20→21:18)
[2020-10-11] MEDS: hydrALAZINE HCL 25 MG TAB PO SCH (08:20)
[2020-10-11] MEDS: PIPERACILLIN-TAZOB 2.25GM 50 ML IV SCH ×2 (08:21→21:17)
[2020-10-11 09:00] VITALS: BP 153/64
[2020-10-11] MEDS: TICAGRELOR 60 MG TAB PO SCH ×2 (11:57→21:17)
[2020-10-11 12:37] VITALS: BP 128/54
[2020-10-11] MEDS: ONDANSETRON HCL 4 MG/2 ML VIAL IV PRN (15:45)
[2020-10-11 16:59] VITALS: BP 128/58
[2020-10-11] MEDS: ATORVASTATIN 20 MG TAB PO SCH (21:18)
[2020-10-11 22:00] VITALS: BP 145/62
[2020-10-12 05:00] VITALS: BP 143/68
[2020-10-12] MEDS: ACCU-CHEK COMFORT CURVE STRIP VI SCH ×4 (06:29→21:50)
[2020-10-12] MEDS: InsuLIN REG 1unit/0.01ml Soln (100units/ml) SC SCH ×4 (06:29→21:47)
[2020-10-12] MEDS ORDERED: SODIUM CHL 0.9% 1000 ML BAG XX ONE (07:00)
[2020-10-12] MEDS: SEVELAMER 800 MG TAB PO SCH ×3 (08:00→18:28)
[2020-10-12 08:33] LABS: Hemoglobin 10.6 g/dL (12.2-16.2); Mean Corpuscular Hemoglobin 30.1 pg (28.0-32.0); Mean Corpuscular Hgb Conc. 34.2 g/dL (32.0-36.0); Mean Corpuscular Volume 88.1 fL (80.0-100.0); Platelet Count (auto) 236 10^3/uL (140-450); Red Blood Cells 3.52 10^6/uL (4.0-5.20); Red Cell Distribution Width 13.9 % (11.8-14.3); White Blood Cell 17.6 10^3/uL (4.4-10.8)
[2020-10-12 08:36] LABS: Basophils % (manual) 0 (0.0-2.0); Blast Cells 0; Eosinophils % (manual) 0 (0-7); Promyelocytes % 0; Reactive Lymphocytes 0
[2020-10-12 08:55] LABS: BUN/Creatinine Ratio 6.4; Calcium 8.5 mg/dL (8.5-10.1); Potassium 3.6 mmol/L (3.5-5.1)
[2020-10-12 09:00] VITALS: BP 152/64
[2020-10-12 09:22] LABS: Band Neutrophils % (manual) 9; Lymphocytes % (manual) 11 (10.0-50.0); Monocytes % (manual) 7 (0-12)
[2020-10-12 09:23] LABS: Metamyelocytes % 3; Myelocytes % 2
[2020-10-12] MEDS: PIPERACILLIN-TAZOB 2.25GM 50 ML IV SCH ×2 (09:36→21:52)
[2020-10-12] MEDS: hydrALAZINE HCL 25 MG TAB PO SCH (09:37)
[2020-10-12] MEDS: SERTRALINE HCL 50 MG TAB PO SCH (09:37)
[2020-10-12] MEDS: CALCITRIOL 0.25 MCG CAP PO SCH (09:38)
[2020-10-12] MEDS: AMIODARONE HCL 200 MG TAB PO SCH (09:38)
[2020-10-12] MEDS: PANTOPRAZOLE 40 MG TAB PO SCH ×2 (09:38→22:00)
[2020-10-12] MEDS: ISOSORBIDE MONONITRATE ER 60 MG TAB PO SCH (09:38)
[2020-10-12] MEDS: ASPirin 81 mg TAB PO SCH (09:38)
[2020-10-12] MEDS: HYDROmorphone HCL 2 MG/ML VL IV PRN ×3 (09:42→21:53)
[2020-10-12] MEDS: TICAGRELOR 60 MG TAB PO SCH ×2 (10:01→21:52)
[2020-10-12 12:36] VITALS: BP 129/64
[2020-10-12 16:28] LABS: Hepatitis A Ab IgM Negative; Hepatitis B Core IgM Negative; Hepatitis B Surface Antigen Negative (Negative)
[2020-10-12 16:29] LABS: Hepatitis C Antibody Negative (Negative)
[2020-10-12 20:00] VITALS: BP 152/64
[2020-10-12] MEDS: ATORVASTATIN 20 MG TAB PO SCH (21:52)
[2020-10-12 22:00] VITALS: BP 125/64
[2020-10-13] MEDS: ACETAMINOPHEN 325 MG TAB PO PRN (04:34)
[2020-10-13] MEDS: HYDROmorphone HCL 2 MG/ML VL IV PRN ×4 (04:34→22:48)
[2020-10-13 05:00] VITALS: BP 154/69
[2020-10-13] MEDS: InsuLIN REG 1unit/0.01ml Soln (100units/ml) SC SCH ×4 (06:47→22:08)
[2020-10-13] MEDS: ACCU-CHEK COMFORT CURVE STRIP VI SCH ×4 (06:48→21:21)
[2020-10-13 08:00] VITALS: BP 138/68
[2020-10-13] MEDS: SEVELAMER 800 MG TAB PO SCH ×3 (08:05→18:37)
[2020-10-13] MEDS: TICAGRELOR 60 MG TAB PO SCH ×2 (09:25→21:20)
[2020-10-13] MEDS: ASPirin 81 mg TAB PO SCH (09:25)
[2020-10-13] MEDS: PANTOPRAZOLE 40 MG TAB PO SCH ×2 (09:25→21:20)
[2020-10-13] MEDS: SERTRALINE HCL 50 MG TAB PO SCH (09:25)
[2020-10-13] MEDS: hydrALAZINE HCL 25 MG TAB PO SCH (09:26)
[2020-10-13] MEDS: AMIODARONE HCL 200 MG TAB PO SCH (09:26)
[2020-10-13] MEDS: ISOSORBIDE MONONITRATE ER 60 MG TAB PO SCH (09:26)
[2020-10-13] MEDS: PIPERACILLIN-TAZOB 2.25GM 50 ML IV SCH ×2 (09:27→21:18)
[2020-10-13] MEDS: CALCITRIOL 0.25 MCG CAP PO SCH (09:27)
[2020-10-13 12:00] VITALS: BP 125/65
[2020-10-13] MEDS: metroNIDAZOLE 500MG/100ML 100 ML IV SCH ×2 (14:00→21:19)
[2020-10-13 16:00] VITALS: BP 127/63
[2020-10-13] MEDS: ATORVASTATIN 20 MG TAB PO SCH (21:20)
[2020-10-13 22:13] VITALS: BP 145/87
[2020-10-14 05:10] VITALS: BP 155/85
[2020-10-14] MEDS: metroNIDAZOLE 500MG/100ML 100 ML IV SCH ×3 (05:15→21:33)
[2020-10-14] MEDS: HYDROmorphone HCL 2 MG/ML VL IV PRN ×3 (05:15→20:30)
[2020-10-14] MEDS: ACCU-CHEK COMFORT CURVE STRIP VI SCH ×4 (06:03→21:32)
[2020-10-14] MEDS: InsuLIN REG 1unit/0.01ml Soln (100units/ml) SC SCH ×5 (06:03→21:36)
[2020-10-14 06:32] LABS: Hematocrit 26.1 % (36.0-46.0)
[2020-10-14] MEDS ORDERED: SODIUM CHL 0.9% 1000 ML BAG XX ONE (07:00)
[2020-10-14 09:00] VITALS: BP 126/61
[2020-10-14] MEDS: PIPERACILLIN-TAZOB 2.25GM 50 ML IV SCH ×2 (10:00→22:44)
[2020-10-14] MEDS: TICAGRELOR 60 MG TAB PO SCH ×2 (10:00→21:31)
[2020-10-14] MEDS: ASPirin 81 mg TAB PO SCH (10:00)
[2020-10-14] MEDS: AMIODARONE HCL 200 MG TAB PO SCH (10:00)
[2020-10-14] MEDS: SEVELAMER 800 MG TAB PO SCH ×3 (10:30→17:42)
[2020-10-14 13:00] VITALS: BP 126/69
[2020-10-14] MEDS: ISOSORBIDE MONONITRATE ER 60 MG TAB PO SCH (13:00)
[2020-10-14] MEDS: hydrALAZINE HCL 25 MG TAB PO SCH (13:00)
[2020-10-14] MEDS: PANTOPRAZOLE 40 MG TAB PO SCH ×2 (13:00→21:32)
[2020-10-14] MEDS: CALCITRIOL 0.25 MCG CAP PO SCH (13:00)
[2020-10-14] MEDS: SERTRALINE HCL 50 MG TAB PO SCH (13:00)
[2020-10-14] MEDS: ACETAMINOPHEN 325 MG TAB PO PRN (14:18)
[2020-10-14 17:00] VITALS: BP 140/70
[2020-10-14] MEDS: ONDANSETRON HCL 4 MG/2 ML VIAL IV PRN (20:30)
[2020-10-14] MEDS ORDERED: EPOETIN ALFA-EPBX 10,000 UNIT/1ML VIAL SC ONE (21:00)
[2020-10-14] MEDS: ATORVASTATIN 20 MG TAB PO SCH (21:32)
[2020-10-14 22:00] VITALS: BP 134/64
[2020-10-15] MEDS: HYDROmorphone HCL 2 MG/ML VL IV PRN ×4 (02:21→21:18)
[2020-10-15 05:00] VITALS: BP 136/85
[2020-10-15] MEDS: metroNIDAZOLE 500MG/100ML 100 ML IV SCH ×3 (05:50→21:30)
[2020-10-15] MEDS: ACCU-CHEK COMFORT CURVE STRIP VI SCH ×3 (05:51→21:31)
[2020-10-15] MEDS: SEVELAMER 800 MG TAB PO SCH ×3 (08:00→18:29)
[2020-10-15 08:30] VITALS: BP 156/66
[2020-10-15] MEDS: ASPirin 81 mg TAB PO SCH (10:02)
[2020-10-15] MEDS: PIPERACILLIN-TAZOB 2.25GM 50 ML IV SCH ×2 (10:02→22:45)
[2020-10-15] MEDS: hydrALAZINE HCL 25 MG TAB PO SCH (10:03)
[2020-10-15] MEDS: AMIODARONE HCL 200 MG TAB PO SCH (10:04)
[2020-10-15] MEDS: TICAGRELOR 60 MG TAB PO SCH ×2 (10:04→21:30)
[2020-10-15] MEDS: ISOSORBIDE MONONITRATE ER 60 MG TAB PO SCH (10:05)
[2020-10-15] MEDS: PANTOPRAZOLE 40 MG TAB PO SCH ×2 (10:05→21:31)
[2020-10-15] MEDS: CALCITRIOL 0.25 MCG CAP PO SCH (10:05)
[2020-10-15] MEDS: SERTRALINE HCL 50 MG TAB PO SCH (10:06)
[2020-10-15] MEDS: InsuLIN REG 1unit/0.01ml Soln (100units/ml) SC SCH ×3 (11:30→22:16)
[2020-10-15 12:30] VITALS: BP 132/79
[2020-10-15] MEDS ORDERED: TRIAMCINOLONE 40MG/ML 1ML VIAL IM ONE (15:15)
[2020-10-15 17:00] VITALS: BP 139/64
[2020-10-15] MEDS: ATORVASTATIN 20 MG TAB PO SCH (21:30)
[2020-10-15 22:00] VITALS: BP 148/77
[2020-10-16] MEDS: HYDROmorphone HCL 2 MG/ML VL IV PRN ×3 (03:22→22:45)
[2020-10-16 05:00] VITALS: BP 156/70
[2020-10-16] MEDS: metroNIDAZOLE 500MG/100ML 100 ML IV SCH ×3 (06:06→21:54)
[2020-10-16] MEDS: ACCU-CHEK COMFORT CURVE STRIP VI SCH ×4 (06:07→21:57)
[2020-10-16] MEDS: InsuLIN REG 1unit/0.01ml Soln (100units/ml) SC SCH ×4 (06:08→21:57)
[2020-10-16 06:50] LABS: Basophils # (auto) 0 10 ^3/uL (0-0.2); Basophils % (auto) 0.2 % (0.0-2.0); Eosinophils # (auto) 0.1 10 ^3/uL (0-0.8); Eosinophils % (auto) 1.2 % (0.0-7.0); Hematocrit 26.1 % (36.0-46.0); Hemoglobin 8.8 g/dL (12.2-16.2); Lymphocytes # (auto) 0.9 10 ^3/uL (0.4-5.4); Lymphocytes % (auto) 8.1 % (10.0-50.0); Mean Corpuscular Hemoglobin 30.4 pg (28.0-32.0); Mean Corpuscular Hgb Conc. 33.9 g/dL (32.0-36.0); Mean Corpuscular Volume 89.6 fL (80.0-100.0); Monocytes # (auto) 0.8 10 ^3/uL (0-1.3); Monocytes % (auto) 7.5 % (0.0-12.0); Neutrophils # (auto) 9.3 10 ^3/uL (1.6-8.6); Platelet Count (auto) 226 10^3/uL (140-450); Red Blood Cells 2.91 10^6/uL (4.0-5.20); Red Cell Distribution Width 13.7 % (11.8-14.3); White Blood Cell 11.2 10^3/uL (4.4-10.8)
[2020-10-16] MEDS ORDERED: SODIUM CHL 0.9% 1000 ML BAG XX ONE (07:00)
[2020-10-16 07:01] LABS: INR 1.16 (0.9-1.15)
[2020-10-16 07:17] LABS: Albumin 2.3 g/dL (3.4-5.0); BUN/Creatinine Ratio 3.5; Bilirubin, Total 0.6 mg/dL (0.2-1.0); Calcium 8.3 mg/dL (8.5-10.1); Phosphorus 4.4 mg/dL (2.5-4.90); Total Protein 7.7 g/dL (6.4-8.2)
[2020-10-16 08:00] VITALS: BP 150/75
[2020-10-16] MEDS: SEVELAMER 800 MG TAB PO SCH ×3 (08:00→18:19)
[2020-10-16] MEDS: PANTOPRAZOLE 40 MG TAB PO SCH ×2 (09:44→22:14)
[2020-10-16] MEDS: TICAGRELOR 60 MG TAB PO SCH ×2 (09:44→22:46)
[2020-10-16] MEDS: PIPERACILLIN-TAZOB 2.25GM 50 ML IV SCH ×2 (10:10→22:12)
[2020-10-16 12:41] VITALS: BP 154/75
[2020-10-16] MEDS ORDERED: MIDAZOLAM HCL 1MG/1ML-2 ML VIAL ONE (13:49)
[2020-10-16] MEDS ORDERED: fentaNYL CITRATE 100 MCG/2 ML VL ONE (13:49)
[2020-10-16] MEDS ORDERED: FLUMAZENIL 0.1 MG/ML INJ 10ML MDV IV ONE (13:50)
[2020-10-16] MEDS ORDERED: fentaNYL CITRATE 100 MCG/2 ML VL IV ONE (14:00)
[2020-10-16] MEDS ORDERED: MIDAZOLAM HCL 1MG/1ML-2 ML VIAL IV ONE ×2 (14:00)
[2020-10-16] MEDS: ISOSORBIDE MONONITRATE ER 60 MG TAB PO SCH (15:31)
[2020-10-16] MEDS: hydrALAZINE HCL 25 MG TAB PO SCH (15:32)
[2020-10-16] MEDS: ASPirin 81 mg TAB PO SCH (16:53)
[2020-10-16] MEDS: CALCITRIOL 0.25 MCG CAP PO SCH (16:53)
[2020-10-16] MEDS: AMIODARONE HCL 200 MG TAB PO SCH (16:53)
[2020-10-16] MEDS: SERTRALINE HCL 50 MG TAB PO SCH (16:53)
[2020-10-16] MEDS ORDERED: EPOETIN ALFA-EPBX 10,000 UNIT/1ML VIAL SC ONE (21:00)
[2020-10-16 22:00] VITALS: BP 150/73
[2020-10-16] MEDS: ATORVASTATIN 20 MG TAB PO SCH (22:13)
[2020-10-17] MEDS: HYDROmorphone HCL 2 MG/ML VL IV PRN ×3 (04:50→16:51)
[2020-10-17 05:00] VITALS: BP 145/63
[2020-10-17] MEDS: InsuLIN REG 1unit/0.01ml Soln (100units/ml) SC SCH ×3 (06:26→17:00)
[2020-10-17] MEDS: metroNIDAZOLE 500MG/100ML 100 ML IV SCH ×2 (06:26→15:16)
[2020-10-17] MEDS: ACCU-CHEK COMFORT CURVE STRIP VI SCH ×3 (06:28→16:51)
[2020-10-17 07:51] VITALS: BP 145/85
[2020-10-17 09:00] VITALS: BP 149/85
[2020-10-17] MEDS: PIPERACILLIN-TAZOB 2.25GM 50 ML IV SCH (10:30)
[2020-10-17] MEDS: TICAGRELOR 60 MG TAB PO SCH (10:50)
[2020-10-17] MEDS: ASPirin 81 mg TAB PO SCH (10:54)
[2020-10-17] MEDS: SEVELAMER 800 MG TAB PO SCH ×2 (10:54→12:00)
[2020-10-17] MEDS: AMIODARONE HCL 200 MG TAB PO SCH (10:55)
[2020-10-17] MEDS: hydrALAZINE HCL 25 MG TAB PO SCH (10:55)
[2020-10-17] MEDS: CALCITRIOL 0.25 MCG CAP PO SCH (10:56)
[2020-10-17] MEDS: PANTOPRAZOLE 40 MG TAB PO SCH (10:56)
[2020-10-17] MEDS: ISOSORBIDE MONONITRATE ER 60 MG TAB PO SCH (10:56)
[2020-10-17] MEDS: SERTRALINE HCL 50 MG TAB PO SCH (10:56)
[2020-10-17 13:00] VITALS: BP 150/70
[2020-10-17 15:56] VITALS: BP 149/70
[2020-10-17] MEDS ORDERED: VANCOMYCIN 1GM/250ML 250 ML IV ONE (16:15)
== END 2020-10-17 18:00 | disposition home or self-care (01) | DRG 871 ==
LOC: ER 13:34 → TELE 20:21 → TELE-EAST 21:24
PROVIDERS: ADMIT Internal Medicine Cardiovascular Disease; ATTEND Internal Medicine Cardiovascular Disease
PROC: 5A1D70Z Performance of Urinary Filtration, Intermittent, Less than 6 Hours Per Day (ICD-10-PCS; 2020-10-10)
PROC: 5A1D70Z Performance of Urinary Filtration, Intermittent, Less than 6 Hours Per Day (ICD-10-PCS; 2020-10-12)
PROC: 5A1D70Z Performance of Urinary Filtration, Intermittent, Less than 6 Hours Per Day (ICD-10-PCS; 2020-10-14)
PROC: B24BZZ4 Ultrasonography of Heart with Aorta, Transesophageal (ICD-10-PCS; principal; 2020-10-16)
PROC: 5A1D70Z Performance of Urinary Filtration, Intermittent, Less than 6 Hours Per Day (ICD-10-PCS; 2020-10-16)
DX: A41.9 Sepsis, unspecified organism (principal); J85.2 Abscess of lung without pneumonia; N18.6 End stage renal disease; E87.1 Hypo-osmolality and hyponatremia; L03.211 Cellulitis of face; I13.2 Hypertensive heart and chronic kidney disease with heart failure and with stage 5 chronic kidney disease, or end stage renal disease; I38 Endocarditis, valve unspecified; E87.8 Other disorders of electrolyte and fluid balance, not elsewhere classified; R79.82 Elevated C-reactive protein (CRP); Z20.822 Contact with and (suspected) exposure to COVID-19; K04.7 Periapical abscess without sinus; D63.1 Anemia in chronic kidney disease; E78.5 Hyperlipidemia, unspecified; E83.39 Other disorders of phosphorus metabolism; E87.6 Hypokalemia; E11.40 Type 2 diabetes mellitus with diabetic neuropathy, unspecified; I34.0 Nonrheumatic mitral (valve) insufficiency; E11.22 Type 2 diabetes mellitus with diabetic chronic kidney disease; I25.10 Atherosclerotic heart disease of native coronary artery without angina pectoris; I50.9 Heart failure, unspecified; Z82.49 Family history of ischemic heart disease and other diseases of the circulatory system; Z86.73 Personal history of transient ischemic attack (TIA), and cerebral infarction without residual deficits; Z90.5 Acquired absence of kidney; Z90.710 Acquired absence of both cervix and uterus; Z95.1 Presence of aortocoronary bypass graft; Z99.2 Dependence on renal dialysis; Z90.49 Acquired absence of other specified parts of digestive tract
CPT/HCPCS: 36415; 70486; 71045; 71250; 80048; 80053; 80074; 82728; 82962; 83605; 83735; 83880; 84100; 84484; 85007; 85014; 85018; 85025; 85027; 85379; 85610; 85730; 86141; 86850; 86900; 86901; 87040; 87077; 87186; 87426; 87493; 90935; 93005; 93312; 96365; 96366; 99291; G0378; J1642; J1815; J2250; J2405; J2543; J3490; Q0162

== ENCOUNTER → 2020-11-17 | Outpatient (CLI) | payer MEDICARE, MEDICAID ==
[~2020-11-17] MED LIST changes: -AMIO200T33 PO; +AMLO-489 PO; +CINA30TA2 PO; +IOHEXOL 350 MG/ML 100ML IJ ONE; -ISOS1TAB28 PO; +ISOS60TA24 PO; +TEMA30CA PO
[2020-11-17 10:39] VITALS: BP 162/77
[2020-11-17 11:16] VITALS: BP 178/74
== END | disposition home or self-care (01) ==
LOC: Rad HDHVI 10:29
PROVIDERS: ATTEND Internal Medicine Cardiovascular Disease
DX: J92.9 Pleural plaque without asbestos (principal); N28.1 Cyst of kidney, acquired; N26.1 Atrophy of kidney (terminal); I70.0 Atherosclerosis of aorta; I51.7 Cardiomegaly; M47.814 Spondylosis without myelopathy or radiculopathy, thoracic region; R59.0 Localized enlarged lymph nodes; I28.1 Aneurysm of pulmonary artery; Z90.49 Acquired absence of other specified parts of digestive tract
CPT/HCPCS: 71260; G0463; Q9967

== ENCOUNTER → 2020-11-24 | Outpatient (CLI) | payer MEDICARE, MEDICAID ==
[~2020-11-24] MED LIST changes: -IOHEXOL 350 MG/ML 100ML IJ ONE
[2020-11-24 15:49] LABS: BUN/Creatinine Ratio 4.5; Calcium 7.9 mg/dL (8.5-10.1); Potassium 3.5 mmol/L (3.5-5.1)
== END | disposition home or self-care (01) ==
LOC: Rad HDHVI 14:43
PROVIDERS: ATTEND Internal Medicine Cardiovascular Disease
DX: I10 Essential (primary) hypertension (principal); R07.89 Other chest pain
CPT/HCPCS: 36415; 80048; 93306

== ENCOUNTER 2020-12-24 18:29 | Inpatient (IN) | payer MEDICARE, MEDICAID ==
[~2020-12-24] VITALS: Ht 170.2 cm; Wt 88.1 kg
[2020-12-24 19:15] LABS: Basophils # (auto) 0 10 ^3/uL (0-0.2); Basophils % (auto) 0.2 % (0.0-2.0); Eosinophils # (auto) 0.1 10 ^3/uL (0-0.8); Eosinophils % (auto) 1.1 % (0.0-7.0); Hematocrit 26.3 % (36.0-46.0); Hemoglobin 8.9 g/dL (12.2-16.2); Lymphocytes # (auto) 1.1 10 ^3/uL (0.4-5.4); Lymphocytes % (auto) 14.8 % (10.0-50.0); Mean Corpuscular Hemoglobin 28.6 pg (28.0-32.0); Mean Corpuscular Hgb Conc. 33.8 g/dL (32.0-36.0); Mean Corpuscular Volume 84.6 fL (80.0-100.0); Monocytes # (auto) 0.6 10 ^3/uL (0-1.3); Monocytes % (auto) 8.1 % (0.0-12.0); Neutrophils # (auto) 5.7 10 ^3/uL (1.6-8.6); Neutrophils % (auto) 75.8 % (37.0-80.0); Red Blood Cells 3.11 10^6/uL (4.0-5.20); Red Cell Distribution Width 15.6 % (11.8-14.3); White Blood Cell 7.5 10^3/uL (4.4-10.8)
[2020-12-24 19:34] LABS: Albumin 3.1 g/dL (3.4-5.0); Anion Gap 9 (5-15); Blood Urea Nitrogen 24 mg/dL (7-18); Calcium 7.8 mg/dL (8.5-10.1); Carbon Dioxide 27 mmol/L (21-32); Chloride 94 mmol/L (98-107); Glucose 140 mg/dL (74-106); Potassium 3.5 mmol/L (3.5-5.1); Sodium 130 mmol/L (136-145)
[2020-12-24 19:40] LABS: Alanine Aminotransferase 16 U/L (13-56); Alkaline Phosphatase 66 U/L (45-117); Aspartate Aminotransferase 9 U/L (15-37); BUN/Creatinine Ratio 5.4; Bilirubin, Total 0.7 mg/dL (0.2-1.0); GFR African American 13 mL/min; GFR Non-African American 11 mL/min; Total Protein 8.4 g/dL (6.4-8.2)
[2020-12-24 20:12] LABS: INR 1.06 (0.9-1.15); Partial Thromboplastin Time 30.2 sec (23.6-33.0)
[2020-12-24] MEDS ORDERED: ACETAMINOPHEN 325 MG TAB PO ONE (22:00)
[2020-12-24] MEDS ORDERED: MORPHINE SULF INJ 2 MG/ML SYRINGE 1ML IV PRN (22:15)
[2020-12-24] MEDS ORDERED: NITROGLYCERIN 0.4 MG SL TAB SL PRN (22:15)
[2020-12-24] MEDS: HYDROmorphone HCL 2 MG/ML VL IV PRN (22:55)
[2020-12-24] MEDS: ONDANSETRON HCL 4 MG/2 ML VIAL IV PRN (22:55)
[2020-12-24] MEDS ORDERED: TEMAZEPAM 15 MG CAP PO PRN (23:45)
[2020-12-25] MEDS: HYDROmorphone HCL 2 MG/ML VL IV PRN ×4 (03:22→22:07)
[2020-12-25] MEDS: hydrALAZINE HCL 25 MG TAB PO SCH ×3 (06:29→22:19)
[2020-12-25] MEDS: SEVELAMER 800 MG TAB PO SCH ×3 (08:00→18:34)
[2020-12-25] MEDS: SERTRALINE HCL 50 MG TAB PO SCH (10:25)
[2020-12-25] MEDS: AMIODARONE HCL 200 MG TAB PO SCH (10:25)
[2020-12-25] MEDS: ASPirin 81 mg TAB PO SCH (10:25)
[2020-12-25] MEDS: TICAGRELOR 60 MG TAB PO SCH ×2 (10:25→22:30)
[2020-12-25] MEDS: amLODIPine BESYLATE 5 MG TAB PO SCH (10:25)
[2020-12-25] MEDS: PANTOPRAZOLE 40 MG TAB PO SCH ×2 (10:25→22:19)
[2020-12-25] MEDS: ISOSORBIDE MONONITRATE ER 60 MG TAB PO SCH (10:25)
[2020-12-25] MEDS ORDERED: IOHEXOL 350 MG/ML 100ML IJ ONE (14:06)
[2020-12-25] MEDS ORDERED: LIDOCAINE 2%HCL (LOCAL ANESTH.) INJ 20ML MDV ONE (14:06)
[2020-12-25] MEDS ORDERED: MIDAZOLAM HCL 2MG/2ML 2ml VIAL (1mg/ml) ONE ×2 (14:37→15:12)
[2020-12-25] MEDS ORDERED: fentaNYL CITRATE 100 MCG/2 ML VL ONE (14:37)
[2020-12-25] MEDS ORDERED: IODIXANOL 320MG/ML 100ML BTL IV ONE (15:03)
[2020-12-25 18:30] VITALS: BP 146/86
[2020-12-25] MEDS: ONDANSETRON HCL 4 MG/2 ML VIAL IV PRN (19:53)
[2020-12-25 22:00] VITALS: BP 131/72
[2020-12-25] MEDS: INSULIN LANTUS (GLARGINE) 1 /0.01ml (100units/ml) SC SCH (22:00)
[2020-12-25] MEDS: ATORVASTATIN 20 MG TAB PO SCH (22:20)
[2020-12-26] MEDS: HYDROmorphone HCL 2 MG/ML VL IV PRN ×4 (02:57→18:51)
[2020-12-26 05:00] VITALS: BP 155/79
[2020-12-26] MEDS: hydrALAZINE HCL 25 MG TAB PO SCH ×3 (06:08→21:57)
[2020-12-26] MEDS ORDERED: SODIUM CHL 0.9% 1000 ML BAG XX ONE (08:15)
[2020-12-26 08:20] VITALS: BP 157/73
[2020-12-26] MEDS: SEVELAMER 800 MG TAB PO SCH ×3 (08:36→18:21)
[2020-12-26] MEDS: amLODIPine BESYLATE 5 MG TAB PO SCH (10:00)
[2020-12-26] MEDS: AMIODARONE HCL 200 MG TAB PO SCH (10:24)
[2020-12-26] MEDS: ASPirin 81 mg TAB PO SCH (10:24)
[2020-12-26] MEDS: SERTRALINE HCL 50 MG TAB PO SCH (10:24)
[2020-12-26] MEDS: PANTOPRAZOLE 40 MG TAB PO SCH ×2 (10:24→21:26)
[2020-12-26] MEDS: ISOSORBIDE MONONITRATE ER 60 MG TAB PO SCH (10:26)
[2020-12-26] MEDS: TICAGRELOR 60 MG TAB PO SCH ×2 (10:42→21:57)
[2020-12-26 13:00] VITALS: BP 140/60
[2020-12-26 16:25] VITALS: BP 150/75
[2020-12-26] MEDS ORDERED: EPOETIN ALFA-EPBX 10,000 UNIT/1ML VIAL SC ONE (21:00)
[2020-12-26] MEDS: ATORVASTATIN 20 MG TAB PO SCH (21:26)
[2020-12-26] MEDS: INSULIN LANTUS (GLARGINE) 1 /0.01ml (100units/ml) SC SCH (21:58)
[2020-12-26 22:00] VITALS: BP 163/75
[2020-12-27] MEDS: HYDROmorphone HCL 2 MG/ML VL IV PRN ×4 (00:17→13:26)
[2020-12-27 05:00] VITALS: BP 165/84
[2020-12-27] MEDS: hydrALAZINE HCL 25 MG TAB PO SCH ×2 (05:59→14:00)
[2020-12-27 09:00] VITALS: BP 145/76
[2020-12-27] MEDS: SEVELAMER 800 MG TAB PO SCH ×2 (09:40→13:51)
[2020-12-27] MEDS: ASPirin 81 mg TAB PO SCH (09:40)
[2020-12-27] MEDS: AMIODARONE HCL 200 MG TAB PO SCH (09:41)
[2020-12-27] MEDS: SERTRALINE HCL 50 MG TAB PO SCH (09:41)
[2020-12-27] MEDS: PANTOPRAZOLE 40 MG TAB PO SCH (09:41)
[2020-12-27] MEDS: TICAGRELOR 60 MG TAB PO SCH (09:41)
[2020-12-27] MEDS: ISOSORBIDE MONONITRATE ER 60 MG TAB PO SCH (09:42)
[2020-12-27] MEDS: amLODIPine BESYLATE 5 MG TAB PO SCH (09:51)
[2020-12-27 12:34] VITALS: BP 146/72
[2020-12-27 14:21] VITALS: BP 146/72
== END 2020-12-27 15:00 | disposition home or self-care (01) | DRG 246 ==
LOC: ER 18:29 → TELE 22:11 → TELE-CENTR 12-25 17:23
PROVIDERS: ADMIT Internal Medicine Cardiovascular Disease; ATTEND Internal Medicine Cardiovascular Disease
PROC: 4A023N7 Measurement of Cardiac Sampling and Pressure, Left Heart, Percutaneous Approach (ICD-10-PCS; principal; 2020-12-25)
PROC: 027135Z Dilation of Coronary Artery, Two Arteries with Two Drug-eluting Intraluminal Devices, Percutaneous Approach (ICD-10-PCS; 2020-12-25)
PROC: B2111ZZ Fluoroscopy of Multiple Coronary Arteries using Low Osmolar Contrast (ICD-10-PCS; 2020-12-25)
PROC: B2151ZZ Fluoroscopy of Left Heart using Low Osmolar Contrast (ICD-10-PCS; 2020-12-25)
PROC: 5A1D70Z Performance of Urinary Filtration, Intermittent, Less than 6 Hours Per Day (ICD-10-PCS; 2020-12-26)
DX: I25.5 Ischemic cardiomyopathy (principal); N18.6 End stage renal disease; E87.1 Hypo-osmolality and hyponatremia; I13.2 Hypertensive heart and chronic kidney disease with heart failure and with stage 5 chronic kidney disease, or end stage renal disease; I24.9 Acute ischemic heart disease, unspecified; D64.9 Anemia, unspecified; I25.119 Atherosclerotic heart disease of native coronary artery with unspecified angina pectoris; E11.22 Type 2 diabetes mellitus with diabetic chronic kidney disease; E11.40 Type 2 diabetes mellitus with diabetic neuropathy, unspecified; Z20.822 Contact with and (suspected) exposure to COVID-19; I48.91 Unspecified atrial fibrillation; I50.9 Heart failure, unspecified; Z82.49 Family history of ischemic heart disease and other diseases of the circulatory system; Z79.02 Long term (current) use of antithrombotics/antiplatelets; Z99.2 Dependence on renal dialysis; Z86.73 Personal history of transient ischemic attack (TIA), and cerebral infarction without residual deficits; Z90.710 Acquired absence of both cervix and uterus; Z95.1 Presence of aortocoronary bypass graft
CPT/HCPCS: 36415; 71046; 80053; 82962; 84484; 85025; 85610; 85730; 87426; 90935; 93005; 96374; 99152; C1874; G0378; J1815; J2250; J2405; Q9967

== ENCOUNTER → 2021-04-16 | Outpatient (CLI) | payer MEDICARE, MEDICAID | END | disposition home or self-care (01) | LOC: Rad HDHVI 11:49 | PROVIDERS: ATTEND Internal Medicine Cardiovascular Disease | DX: R58 Hemorrhage, not elsewhere classified (principal); I25.10 Atherosclerotic heart disease of native coronary artery without angina pectoris; I70.0 Atherosclerosis of aorta; Z95.1 Presence of aortocoronary bypass graft; Z94.0 Kidney transplant status | CPT/HCPCS: 71250 ==

== ENCOUNTER → 2021-04-21 | Outpatient (CLI) | payer MEDICARE, MEDICAID ==
[~2021-04-21] MED LIST changes: +VANCOMYCIN 1GM/250ML 250 ML IV ONE; +cefTRIAXone 1GM/50ML D5W 50 ML IV ONE
[2021-04-21 11:22] VITALS: BP 163/67
[2021-04-21 13:03] VITALS: BP 173/79
== END | disposition home or self-care (01) ==
LOC: CHF HDHVI 11:04
PROVIDERS: ATTEND Internal Medicine Cardiovascular Disease
DX: T81.49XA Infection following a procedure, other surgical site, initial encounter (principal); I25.10 Atherosclerotic heart disease of native coronary artery without angina pectoris; Z95.1 Presence of aortocoronary bypass graft
CPT/HCPCS: 96365; 96367; G0463; J0696; J1642; J3370

== ENCOUNTER → 2021-04-22 | Outpatient (CLI) | payer MEDICARE, MEDICAID ==
[~2021-04-22] MED LIST changes: -VANCOMYCIN 1GM/250ML 250 ML IV ONE
[2021-04-22 13:55] VITALS: BP 158/69
[2021-04-22 14:31] VITALS: BP 156/72
== END | disposition home or self-care (01) ==
LOC: CHF HDHVI 13:48
PROVIDERS: ATTEND Internal Medicine Cardiovascular Disease
DX: T81.49XA Infection following a procedure, other surgical site, initial encounter (principal); I25.10 Atherosclerotic heart disease of native coronary artery without angina pectoris; Z95.1 Presence of aortocoronary bypass graft; Y83.8 Other surgical procedures as the cause of abnormal reaction of the patient, or of later complication, without mention of misadventure at the time of the procedure
CPT/HCPCS: 96365; G0463; J0696

== ENCOUNTER → 2021-04-28 | Outpatient (CLI) | payer MEDICARE, MEDICAID ==
[~2021-04-28] MED LIST changes: +VANCOMYCIN 1GM/250ML 250 ML IV ONE; -cefTRIAXone 1GM/50ML D5W 50 ML IV ONE
[2021-04-28 12:47] VITALS: BP 169/75
[2021-04-28 14:12] VITALS: BP 154/72
== END | disposition home or self-care (01) ==
LOC: CHF HDHVI 12:48
PROVIDERS: ATTEND Internal Medicine Cardiovascular Disease
DX: T81.49XA Infection following a procedure, other surgical site, initial encounter (principal); I25.10 Atherosclerotic heart disease of native coronary artery without angina pectoris; Z95.1 Presence of aortocoronary bypass graft; Y83.8 Other surgical procedures as the cause of abnormal reaction of the patient, or of later complication, without mention of misadventure at the time of the procedure; Y92.89 Other specified places as the place of occurrence of the external cause
CPT/HCPCS: 96365; G0463; J3370

== ENCOUNTER → 2021-05-19 | Outpatient (CLI) | payer MEDICARE, MEDICAID ==
[2021-05-19 10:13] VITALS: BP 147/60
[2021-05-19 11:30] VITALS: BP 157/72
== END | disposition home or self-care (01) ==
LOC: CHF HDHVI 09:54
PROVIDERS: ATTEND Internal Medicine Cardiovascular Disease
DX: T81.49XA Infection following a procedure, other surgical site, initial encounter (principal); I25.10 Atherosclerotic heart disease of native coronary artery without angina pectoris; Y83.8 Other surgical procedures as the cause of abnormal reaction of the patient, or of later complication, without mention of misadventure at the time of the procedure; Y92.89 Other specified places as the place of occurrence of the external cause
CPT/HCPCS: 96365; G0463; J3370

== ENCOUNTER → 2021-07-07 | Outpatient (CLI) | payer MEDICARE, MEDICAID ==
[2021-07-07 13:19] VITALS: BP 147/63
[2021-07-07 14:48] VITALS: BP 162/67
== END | disposition home or self-care (01) ==
LOC: CHF HDHVI 13:13
PROVIDERS: ATTEND Internal Medicine Cardiovascular Disease
DX: T81.49XA Infection following a procedure, other surgical site, initial encounter (principal); J98.51 Mediastinitis; I25.10 Atherosclerotic heart disease of native coronary artery without angina pectoris; Z95.1 Presence of aortocoronary bypass graft; Y83.8 Other surgical procedures as the cause of abnormal reaction of the patient, or of later complication, without mention of misadventure at the time of the procedure; Y92.89 Other specified places as the place of occurrence of the external cause
CPT/HCPCS: 71250; 96365; G0463; J3370

== ENCOUNTER → 2021-07-19 | Outpatient (CLI) | payer MEDICARE, MEDICAID ==
[2021-07-19 13:00] VITALS: BP 154/73
[2021-07-19 14:20] VITALS: BP 160/72
== END | disposition home or self-care (01) ==
LOC: CHF HDHVI 13:03
PROVIDERS: ATTEND Internal Medicine Cardiovascular Disease
DX: I25.10 Atherosclerotic heart disease of native coronary artery without angina pectoris (principal); J98.51 Mediastinitis; Z95.1 Presence of aortocoronary bypass graft
CPT/HCPCS: 96365; G0463; J3370

== ENCOUNTER → 2021-08-05 | Outpatient (CLI) | payer MEDICARE, MEDICAID ==
[2021-08-05 12:43] VITALS: BP 169/75
[2021-08-05 14:00] VITALS: BP 160/75
== END | disposition home or self-care (01) ==
LOC: CHF HDHVI 12:43
PROVIDERS: ATTEND Internal Medicine Cardiovascular Disease
DX: T81.49XA Infection following a procedure, other surgical site, initial encounter (principal); J98.51 Mediastinitis; I25.10 Atherosclerotic heart disease of native coronary artery without angina pectoris; Z16.22 Resistance to vancomycin related antibiotics; Z95.1 Presence of aortocoronary bypass graft; Y92.89 Other specified places as the place of occurrence of the external cause; Y83.8 Other surgical procedures as the cause of abnormal reaction of the patient, or of later complication, without mention of misadventure at the time of the procedure
CPT/HCPCS: 36415; 80202; 96365; G0463; J3370

== ENCOUNTER 2021-10-27 00:31 | Inpatient (IN) | payer MEDICARE, MEDICAID ==
[~2021-10-27] VITALS: Ht 170.2 cm; Wt 85.2 kg
[~2021-10-27 00:31] MED LIST changes: +ACET-1158 PO; -CALC0.25 PO; -CINA30TA2 PO; +NITR0.2D16 TD; +TRAM50TA2 PO; -VANCOMYCIN 1GM/250ML 250 ML IV ONE
[2021-10-27] MEDS ORDERED: ONDANSETRON HCL 4 MG/2 ML VIAL ONE (01:42)
[2021-10-27] MEDS ORDERED: MORPHINE SULFATE 4 MG/ML SYR/VIAL ONE (01:43)
[2021-10-27 01:49] LABS: Albumin 2.9 g/dL (3.4-5.0); Calcium 9.4 mg/dL (8.5-10.1); Potassium 4.2 mmol/L (3.5-5.1)
[2021-10-27 01:51] LABS: BUN/Creatinine Ratio 6.6
[2021-10-27 01:53] LABS: Bilirubin, Total 0.5 mg/dL (0.2-1.0); Total Protein 8.4 g/dL (6.4-8.2)
[2021-10-27] MEDS ORDERED: ONDANSETRON HCL 4 MG/2 ML VIAL IV ONE (02:00)
[2021-10-27] MEDS ORDERED: MORPHINE SULFATE 4 MG/ML SYR/VIAL IV ONE (02:00)
[2021-10-27] MEDS ORDERED: IOHEXOL 350 MG/ML 100ML IJ ONE (02:56)
[2021-10-27 03:26] LABS: Basophils # (auto) 0 10 ^3/uL (0-0.2); Basophils % (auto) 0.3 % (0.0-2.0); Eosinophils # (auto) 0 10 ^3/uL (0-0.8); Eosinophils % (auto) 0.4 % (0.0-7.0); Hematocrit 24.3 % (36.0-46.0); Hemoglobin 8.4 g/dL (12.2-16.2); Monocytes # (auto) 0.8 10 ^3/uL (0-1.3); White Blood Cell 9.6 10^3/uL (4.4-10.8)
[2021-10-27 03:27] LABS: Mean Corpuscular Hemoglobin 28.3 pg (28.0-32.0); Mean Corpuscular Hgb Conc. 34.6 g/dL (32.0-36.0); Mean Corpuscular Volume 81.7 fL (80.0-100.0); Monocytes % (auto) 7.8 % (0.0-12.0); Neutrophils # (auto) 7.8 10 ^3/uL (1.6-8.6); Neutrophils % (auto) 81.5 % (37.0-80.0); Red Blood Cells 2.97 10^6/uL (4.0-5.20); Red Cell Distribution Width 17.3 % (11.8-14.3)
[2021-10-27] MEDS ORDERED: NITROGLYCERIN 0.4 MG SL TAB SL PRN (11:00)
[2021-10-27] MEDS ORDERED: MORPHINE SULFATE INJ 2 MG/ml SYRG IV PRN (11:00)
[2021-10-27] MEDS ORDERED: FUROSEMIDE 40 MG/4 ML VIAL IV ONE (11:00)
[2021-10-27] MEDS ORDERED: DEXTROSE (50%) 50ML SYRG IV PRN (11:00)
[2021-10-27] MEDS ORDERED: ONDANSETRON HCL 4 MG/2 ML VIAL IV PRN (11:00)
[2021-10-27] MEDS ORDERED: PANTOPRAZOLE 40 MG/10 ML VIAL INJ IV ONE (11:00)
[2021-10-27] MEDS: ACCU-CHEK COMFORT CURVE STRIP VI SCH ×3 (12:09→22:33)
[2021-10-27] MEDS: InsuLIN REG 1unit/0.01ml Soln (100units/ml) SC SCH ×3 (12:21→23:45)
[2021-10-27] MEDS ORDERED: SODIUM CHL 0.9% 1000 ML BAG XX ONE (12:45)
[2021-10-27] MEDS ORDERED: DOCUSATE SOD 100 MG CAP PO PRN (15:00)
[2021-10-27] MEDS ORDERED: LABETALOL HCL 5 MG/ML 4ML SYRINGE IV PRN (15:00)
[2021-10-27] MEDS: SEVELAMER 800 MG TAB PO SCH (18:00)
[2021-10-27] MEDS: MORPHINE SULFATE INJ 2 MG/ml SYRG IV PRN (19:00)
[2021-10-27 19:14] LABS: Magnesium 2.3 mg/dL (1.6-2.6); Phosphorus 2.4 mg/dL (2.5-4.90)
[2021-10-27] MEDS ORDERED: INSU1INJ19 SC (19:20)
[2021-10-27 19:29] LABS: INR 1.11 (0.9-1.15); Partial Thromboplastin Time 34.5 sec (23.6-33.0)
[2021-10-27] MEDS ORDERED: EPOETIN ALFA-EPBX 10,000 UNIT/1ML VIAL SC ONE (21:00)
[2021-10-27 22:00] VITALS: BP 151/70
[2021-10-27] MEDS: TICAGRELOR 60 MG TAB PO SCH (22:00)
[2021-10-27] MEDS: ATORVASTATIN 20 MG TAB PO SCH (22:32)
[2021-10-27] MEDS: hydrALAZINE HCL 25 MG TAB PO SCH (22:33)
[2021-10-27] MEDS: LORazepam 0.5 MG TAB PO PRN (22:38)
[2021-10-28] VITALS (8 sets, daily range): BP systolic 138–153; BP diastolic 41–68
[2021-10-28] MEDS: TICAGRELOR 60 MG TAB PO SCH ×2 (02:21→22:04)
[2021-10-28 05:35] LABS: Basophils # (auto) 0 10 ^3/uL (0-0.2); Eosinophils # (auto) 0 10 ^3/uL (0-0.8); Hemoglobin 7.8 g/dL (12.2-16.2); Lymphocytes # (auto) 0.8 10 ^3/uL (0.4-5.4); Monocytes # (auto) 0.9 10 ^3/uL (0-1.3)
[2021-10-28 05:36] LABS: Basophils % (auto) 0.3 % (0.0-2.0); Eosinophils % (auto) 0.5 % (0.0-7.0); Mean Corpuscular Hemoglobin 27.7 pg (28.0-32.0); Mean Corpuscular Hgb Conc. 33.8 g/dL (32.0-36.0); Mean Corpuscular Volume 81.9 fL (80.0-100.0); Monocytes % (auto) 11.3 % (0.0-12.0); Neutrophils % (auto) 77.9 % (37.0-80.0); Red Cell Distribution Width 17.7 % (11.8-14.3); White Blood Cell 7.7 10^3/uL (4.4-10.8)
[2021-10-28 05:50] LABS: Alanine Aminotransferase 12 U/L (13-56); Albumin 2.5 g/dL (3.4-5.0); Anion Gap 9 (5-15); Aspartate Aminotransferase 17 U/L (15-37); BUN/Creatinine Ratio 4.7; Blood Urea Nitrogen 30 mg/dL (7-18); Calcium 9.1 mg/dL (8.5-10.1); Carbon Dioxide 30 mmol/L (21-32); Chloride 94 mmol/L (98-107); GFR African American 9 mL/min; GFR Non-African American 7 mL/min; Glucose 104 mg/dL (74-106); Lipase 51 U/L (73-393); Magnesium 2.5 mg/dL (1.6-2.6); Potassium 4.1 mmol/L (3.5-5.1); Sodium 133 mmol/L (136-145); Uric Acid 4.1 mg/dL (2.6-6.0)
[2021-10-28 05:56] LABS: INR 1.16 (0.9-1.15)
[2021-10-28 06:03] LABS: Alkaline Phosphatase 124 U/L (45-117); Bilirubin, Total 0.6 mg/dL (0.2-1.0); Cholesterol 74 mg/dL (< 200); Creatine Kinase IFCC 87 U/L (26-192); HDL Cholesterol 27 mg/dL (40-59); LDL Cholesterol 39 mg/dL (< 100); Total Protein 8.2 g/dL (6.4-8.2); Triglycerides 88 mg/dL (< 150)
[2021-10-28 06:14] LABS: Thyroid Stimulating Hormone 0.55 uIU/mL (0.358-3.74)
[2021-10-28] MEDS: InsuLIN REG 1unit/0.01ml Soln (100units/ml) SC SCH ×4 (06:40→22:10)
[2021-10-28] MEDS: ISOSORBIDE MONONITRATE ER 60 MG TAB PO SCH (06:42)
[2021-10-28 06:43] LABS: CRP High Sensitivity < 19 mg/dL (< 0.3)
[2021-10-28] MEDS: hydrALAZINE HCL 25 MG TAB PO SCH ×3 (06:43→22:04)
[2021-10-28] MEDS: ACCU-CHEK COMFORT CURVE STRIP VI SCH ×4 (06:43→22:05)
[2021-10-28] MEDS: SEVELAMER 800 MG TAB PO SCH ×3 (08:00→17:58)
[2021-10-28] MEDS: MORPHINE SULFATE INJ 2 MG/ml SYRG IV PRN ×3 (08:09→23:23)
[2021-10-28] MEDS: PANTOPRAZOLE 40 MG/10 ML VIAL INJ IV SCH (09:55)
[2021-10-28] MEDS: SERTRALINE HCL 50 MG TAB PO SCH (10:00)
[2021-10-28] MEDS: ENOXAPARIN SOD 30 MG/0.3 ML SYRINGE SC SCH (10:00)
[2021-10-28] MEDS: ASPirin 81 mg TAB PO SCH (10:00)
[2021-10-28] MEDS ORDERED: LIDOCAINE 2%HCL (LOCAL ANESTH.) INJ 10ml MDV ONE (10:55)
[2021-10-28] MEDS ORDERED: ANGIOMAX 250 MG VIAL IV ONE (10:55)
[2021-10-28] MEDS ORDERED: fentaNYL CITRATE 100 MCG/2 ML VL ONE (10:55)
[2021-10-28] MEDS ORDERED: MIDAZOLAM HCL 2MG/2ML 2ml VIAL (1mg/ml) ONE (10:55)
[2021-10-28] MEDS ORDERED: SODIUM CHL 0.9% 0 ML ONE (10:55)
[2021-10-28] MEDS ORDERED: IODIXANOL 320MG/ML 100ML BTL IV ONE (11:02)
[2021-10-28] MEDS ORDERED: HYDROmorphone HCL 2 MG/ML VL/or syr ONE (11:09)
[2021-10-28] MEDS: SUCRALFATE 1 GM/10 ML ORAL SUSP PO SCH ×2 (17:58→22:03)
[2021-10-28] MEDS: ATORVASTATIN 20 MG TAB PO SCH (22:05)
[2021-10-28] MEDS: HYDROcodone-ACET 5/325MG TAB PO PRN (22:05)
[2021-10-28] MEDS: LORazepam 0.5 MG TAB PO PRN (23:22)
[2021-10-29] MEDS: hydrALAZINE HCL 20 MG/ML VL IV PRN (04:34)
[2021-10-29] MEDS: HYDROcodone-ACET 5/325MG TAB PO PRN ×2 (04:36→17:02)
[2021-10-29 05:20] VITALS: BP 161/73
[2021-10-29 05:49] LABS: Potassium 4.7 mmol/L (3.5-5.1)
[2021-10-29 05:55] LABS: BUN/Creatinine Ratio 5.8; Calcium 9.1 mg/dL (8.5-10.1)
[2021-10-29] MEDS: hydrALAZINE HCL 25 MG TAB PO SCH ×3 (06:00→22:53)
[2021-10-29] MEDS: ISOSORBIDE MONONITRATE ER 60 MG TAB PO SCH (06:51)
[2021-10-29] MEDS: SUCRALFATE 1 GM/10 ML ORAL SUSP PO SCH ×4 (06:52→22:51)
[2021-10-29] MEDS: ACCU-CHEK COMFORT CURVE STRIP VI SCH ×4 (06:52→22:43)
[2021-10-29] MEDS: InsuLIN REG 1unit/0.01ml Soln (100units/ml) SC SCH ×4 (06:53→22:00)
[2021-10-29] MEDS ORDERED: SODIUM CHL 0.9% 1000 ML BAG XX ONE (07:00)
[2021-10-29] MEDS: SEVELAMER 800 MG TAB PO SCH ×3 (08:17→17:39)
[2021-10-29 09:37] VITALS: BP 125/59
[2021-10-29 10:03] LABS: Hematocrit 22.1 % (36.0-46.0); Hemoglobin 7.4 g/dL (12.2-16.2)
[2021-10-29] MEDS: PANTOPRAZOLE 40 MG/10 ML VIAL INJ IV SCH (11:52)
[2021-10-29] MEDS: ENOXAPARIN SOD 30 MG/0.3 ML SYRINGE SC SCH (11:53)
[2021-10-29] MEDS: TICAGRELOR 60 MG TAB PO SCH ×2 (11:53→23:01)
[2021-10-29] MEDS: ASPirin 81 mg TAB PO SCH (11:53)
[2021-10-29] MEDS: SERTRALINE HCL 50 MG TAB PO SCH (11:53)
[2021-10-29] MEDS: MORPHINE SULFATE INJ 2 MG/ml SYRG IV PRN ×2 (11:56→18:54)
[2021-10-29 12:55] VITALS: BP 138/66
[2021-10-29 17:10] VITALS: BP 152/58
[2021-10-29] MEDS ORDERED: KETOROLAC TROMETH 30 MG/ML 1ML VIAL IV ONE (17:15)
[2021-10-29] MEDS ORDERED: EPOETIN ALFA-EPBX 10,000 UNIT/1ML VIAL SC ONE (21:00)
[2021-10-29 22:00] VITALS: BP 152/62
[2021-10-29] MEDS: COLCHICINE 0.6 MG CAP PO SCH (22:51)
[2021-10-29] MEDS: ATORVASTATIN 20 MG TAB PO SCH (22:52)
[2021-10-29] MEDS: KETOROLAC TROMETH 30 MG/ML 1ML VIAL IV PRN (23:01)
[2021-10-29] MEDS: LORazepam 0.5 MG TAB PO PRN (23:04)
[2021-10-30] VITALS (8 sets, daily range): BP systolic 126–143; BP diastolic 44–62
[2021-10-30] MEDS: HYDROcodone-ACET 5/325MG TAB PO PRN ×3 (02:40→15:28)
[2021-10-30 04:21] LABS: Hemoglobin 6.8 g/dL (12.2-16.2)
[2021-10-30] MEDS: InsuLIN REG 1unit/0.01ml Soln (100units/ml) SC SCH ×4 (06:52→22:00)
[2021-10-30] MEDS: ACCU-CHEK COMFORT CURVE STRIP VI SCH ×4 (06:52→22:33)
[2021-10-30] MEDS: hydrALAZINE HCL 25 MG TAB PO SCH ×3 (06:54→22:27)
[2021-10-30] MEDS: SUCRALFATE 1 GM/10 ML ORAL SUSP PO SCH ×4 (06:54→22:24)
[2021-10-30] MEDS: ISOSORBIDE MONONITRATE ER 60 MG TAB PO SCH (06:55)
[2021-10-30] MEDS: SEVELAMER 800 MG TAB PO SCH ×3 (08:27→18:09)
[2021-10-30] MEDS: SERTRALINE HCL 50 MG TAB PO SCH (09:26)
[2021-10-30] MEDS: COLCHICINE 0.6 MG CAP PO SCH ×2 (09:26→22:24)
[2021-10-30] MEDS: ENOXAPARIN SOD 30 MG/0.3 ML SYRINGE SC SCH (09:26)
[2021-10-30] MEDS: ASPirin 81 mg TAB PO SCH (09:26)
[2021-10-30] MEDS: PANTOPRAZOLE 40 MG/10 ML VIAL INJ IV SCH (09:27)
[2021-10-30] MEDS: TICAGRELOR 60 MG TAB PO SCH ×2 (09:27→22:25)
[2021-10-30] MEDS: KETOROLAC TROMETH 30 MG/ML 1ML VIAL IV PRN ×2 (14:25→22:28)
[2021-10-30] MEDS: ATORVASTATIN 20 MG TAB PO SCH (22:25)
[2021-10-30] MEDS: LORazepam 0.5 MG TAB PO PRN (22:27)
[2021-10-31] MEDS: MORPHINE SULFATE INJ 2 MG/ml SYRG IV PRN ×2 (03:18→21:58)
[2021-10-31 04:49] VITALS: BP 135/60
[2021-10-31] MEDS: InsuLIN REG 1unit/0.01ml Soln (100units/ml) SC SCH ×4 (07:00→21:52)
[2021-10-31] MEDS: ACCU-CHEK COMFORT CURVE STRIP VI SCH ×4 (07:02→21:44)
[2021-10-31] MEDS: KETOROLAC TROMETH 30 MG/ML 1ML VIAL IV PRN ×2 (07:02→17:35)
[2021-10-31] MEDS: SUCRALFATE 1 GM/10 ML ORAL SUSP PO SCH ×4 (07:02→21:55)
[2021-10-31] MEDS: hydrALAZINE HCL 25 MG TAB PO SCH (07:02)
[2021-10-31] MEDS: ISOSORBIDE MONONITRATE ER 60 MG TAB PO SCH (07:02)
[2021-10-31] MEDS: SEVELAMER 800 MG TAB PO SCH ×3 (08:15→17:36)
[2021-10-31 09:00] VITALS: BP 146/61
[2021-10-31] MEDS: PANTOPRAZOLE 40 MG/10 ML VIAL INJ IV SCH (09:50)
[2021-10-31] MEDS: COLCHICINE 0.6 MG CAP PO SCH ×2 (09:51→21:56)
[2021-10-31] MEDS: ENOXAPARIN SOD 30 MG/0.3 ML SYRINGE SC SCH (09:51)
[2021-10-31] MEDS: SERTRALINE HCL 50 MG TAB PO SCH (09:51)
[2021-10-31] MEDS: ASPirin 81 mg TAB PO SCH (09:51)
[2021-10-31 10:05] LABS: Hemoglobin 8.1 g/dL (12.2-16.2)
[2021-10-31 10:07] LABS: Hematocrit 24.9 % (36.0-46.0)
[2021-10-31] MEDS: TICAGRELOR 60 MG TAB PO SCH ×2 (10:24→21:55)
[2021-10-31 13:00] VITALS: BP 128/56
[2021-10-31 17:00] VITALS: BP 142/72
[2021-10-31] MEDS: ONDANSETRON HCL 4 MG/2 ML VIAL IV PRN (17:36)
[2021-10-31] MEDS: ATORVASTATIN 20 MG TAB PO SCH (21:56)
[2021-10-31 22:00] VITALS: BP 149/64
[2021-10-31] MEDS: LORazepam 0.5 MG TAB PO PRN (22:05)
[2021-11-01 05:00] VITALS: BP 170/73
[2021-11-01] MEDS: InsuLIN REG 1unit/0.01ml Soln (100units/ml) SC SCH ×4 (05:55→22:00)
[2021-11-01] MEDS: ACCU-CHEK COMFORT CURVE STRIP VI SCH ×4 (05:55→22:11)
[2021-11-01] MEDS: ISOSORBIDE MONONITRATE ER 60 MG TAB PO SCH (05:55)
[2021-11-01] MEDS: SUCRALFATE 1 GM/10 ML ORAL SUSP PO SCH ×4 (05:59→22:17)
[2021-11-01] MEDS: MORPHINE SULFATE INJ 2 MG/ml SYRG IV PRN ×2 (05:59→20:17)
[2021-11-01] MEDS ORDERED: SODIUM CHL 0.9% 1000 ML BAG XX ONE (07:00)
[2021-11-01] MEDS: SEVELAMER 800 MG TAB PO SCH ×3 (08:00→18:10)
[2021-11-01 08:47] VITALS: BP 142/72
[2021-11-01] MEDS: PANTOPRAZOLE 40 MG/10 ML VIAL INJ IV SCH (09:22)
[2021-11-01] MEDS: COLCHICINE 0.6 MG CAP PO SCH ×2 (09:23→22:17)
[2021-11-01] MEDS: ENOXAPARIN SOD 30 MG/0.3 ML SYRINGE SC SCH (09:23)
[2021-11-01] MEDS: ASPirin 81 mg TAB PO SCH (09:24)
[2021-11-01] MEDS: SERTRALINE HCL 50 MG TAB PO SCH (09:24)
[2021-11-01] MEDS: TICAGRELOR 60 MG TAB PO SCH ×2 (09:31→22:17)
[2021-11-01] MEDS ORDERED: EZ-GAS II GRANULES (RADIOLOGY USE) PO ONE (09:59)
[2021-11-01] MEDS ORDERED: BARIUM SULFATE 98% 340 GM PWDR ONE (09:59)
[2021-11-01] MEDS ORDERED: EZ PAQUE SUSP 12OZ BTL ONE (10:00)
[2021-11-01] MEDS: CHOLESTYRAMINE 4 GM POWDER PO SCH ×2 (12:31→23:40)
[2021-11-01 13:18] VITALS: BP 156/62
[2021-11-01 17:35] VITALS: BP 189/85
[2021-11-01 18:00] VITALS: BP 170/88
[2021-11-01] MEDS: hydrALAZINE HCL 20 MG/ML VL IV PRN (18:55)
[2021-11-01] MEDS ORDERED: EPOETIN ALFA-EPBX 10,000 UNIT/1ML VIAL SC ONE (21:00)
[2021-11-01] MEDS: ATORVASTATIN 20 MG TAB PO SCH (22:17)
[2021-11-01 22:48] VITALS: BP 143/57
[2021-11-02 05:13] VITALS: BP 158/71
[2021-11-02] MEDS: ACCU-CHEK COMFORT CURVE STRIP VI SCH ×4 (06:10→21:49)
[2021-11-02] MEDS: InsuLIN REG 1unit/0.01ml Soln (100units/ml) SC SCH ×4 (06:10→21:50)
[2021-11-02] MEDS: SUCRALFATE 1 GM/10 ML ORAL SUSP PO SCH ×4 (06:38→21:49)
[2021-11-02] MEDS: ISOSORBIDE MONONITRATE ER 60 MG TAB PO SCH (06:38)
[2021-11-02] MEDS: ENOXAPARIN SOD 30 MG/0.3 ML SYRINGE SC SCH (08:30)
[2021-11-02] MEDS: SEVELAMER 800 MG TAB PO SCH ×3 (08:30→18:15)
[2021-11-02] MEDS: COLCHICINE 0.6 MG CAP PO SCH ×2 (08:30→21:49)
[2021-11-02] MEDS: PANTOPRAZOLE 40 MG/10 ML VIAL INJ IV SCH (08:30)
[2021-11-02] MEDS: SERTRALINE HCL 50 MG TAB PO SCH (08:31)
[2021-11-02] MEDS: TICAGRELOR 60 MG TAB PO SCH ×2 (08:31→21:56)
[2021-11-02] MEDS: ASPirin 81 mg TAB PO SCH (08:31)
[2021-11-02 09:00] VITALS: BP 168/71
[2021-11-02] MEDS: CHOLESTYRAMINE 4 GM POWDER PO SCH ×2 (11:21→23:48)
[2021-11-02 13:00] VITALS: BP 164/55
[2021-11-02] MEDS: ONDANSETRON HCL 4 MG/2 ML VIAL IV PRN (15:00)
[2021-11-02] MEDS: MORPHINE SULFATE INJ 2 MG/ml SYRG IV PRN (15:01)
[2021-11-02] MEDS: hydrALAZINE HCL 20 MG/ML VL IV PRN (16:01)
[2021-11-02 17:00] VITALS: BP 176/64
[2021-11-02] MEDS: metroNIDAZOLE 500 MG TAB PO SCH ×2 (18:15→23:48)
[2021-11-02] MEDS: ATORVASTATIN 20 MG TAB PO SCH (21:49)
[2021-11-02 22:00] VITALS: BP 151/76
[2021-11-02] MEDS: LORazepam 0.5 MG TAB PO PRN (23:40)
[2021-11-03 05:00] VITALS: BP 151/73
[2021-11-03] MEDS: metroNIDAZOLE 500 MG TAB PO SCH ×4 (06:13→23:45)
[2021-11-03] MEDS: InsuLIN REG 1unit/0.01ml Soln (100units/ml) SC SCH ×4 (06:39→21:30)
[2021-11-03] MEDS: ACCU-CHEK COMFORT CURVE STRIP VI SCH ×4 (06:39→21:30)
[2021-11-03] MEDS: ISOSORBIDE MONONITRATE ER 60 MG TAB PO SCH (06:41)
[2021-11-03] MEDS: SUCRALFATE 1 GM/10 ML ORAL SUSP PO SCH ×4 (06:41→21:29)
[2021-11-03] MEDS ORDERED: SODIUM CHL 0.9% 1000 ML BAG XX ONE (07:00)
[2021-11-03] MEDS: ASPirin 81 mg TAB PO SCH (08:45)
[2021-11-03] MEDS: ENOXAPARIN SOD 30 MG/0.3 ML SYRINGE SC SCH (08:45)
[2021-11-03] MEDS: SEVELAMER 800 MG TAB PO SCH ×3 (08:45→17:53)
[2021-11-03] MEDS: COLCHICINE 0.6 MG CAP PO SCH ×2 (08:45→21:29)
[2021-11-03] MEDS: SERTRALINE HCL 50 MG TAB PO SCH (08:45)
[2021-11-03] MEDS: TICAGRELOR 60 MG TAB PO SCH ×2 (08:46→21:07)
[2021-11-03 09:00] VITALS: BP 174/71
[2021-11-03] MEDS: CHOLESTYRAMINE 4 GM POWDER PO SCH ×2 (12:00→23:06)
[2021-11-03 13:00] VITALS: BP 170/74
[2021-11-03] MEDS: ONDANSETRON HCL 4 MG/2 ML VIAL IV PRN (14:32)
[2021-11-03] MEDS: PANTOPRAZOLE 40 MG/10 ML VIAL INJ IV SCH (14:33)
[2021-11-03] MEDS: MORPHINE SULFATE INJ 2 MG/ml SYRG IV PRN ×2 (14:34→23:08)
[2021-11-03 17:00] VITALS: BP 156/59
[2021-11-03] MEDS ORDERED: PHENYLEPHRINE HCL 0.5 % NASAL SPRAY 15ML ONE (20:30)
[2021-11-03] MEDS ORDERED: EPOETIN ALFA-EPBX 10,000 UNIT/1ML VIAL SC ONE (21:00)
[2021-11-03] MEDS: ATORVASTATIN 20 MG TAB PO SCH (21:29)
[2021-11-03] MEDS: LORazepam 0.5 MG TAB PO PRN (21:31)
[2021-11-03 22:00] VITALS: BP 166/58
[2021-11-04] MEDS ORDERED: PHENYLEPHRINE HCL 1 % NASAL SPRAY 15ML ONE (02:00)
[2021-11-04 03:04] LABS: Basophils # (auto) 0 10 ^3/uL (0-0.2); Basophils % (auto) 0.3 % (0.0-2.0); Eosinophils # (auto) 0.4 10 ^3/uL (0-0.8); Eosinophils % (auto) 6.7 % (0.0-7.0); Hematocrit 27.3 % (36.0-46.0); Hemoglobin 8.9 g/dL (12.2-16.2); Lymphocytes # (auto) 0.8 10 ^3/uL (0.4-5.4); Lymphocytes % (auto) 12.6 % (10.0-50.0); Mean Corpuscular Hemoglobin 27.9 pg (28.0-32.0); Mean Corpuscular Hgb Conc. 32.6 g/dL (32.0-36.0); Mean Corpuscular Volume 85.6 fL (80.0-100.0); Monocytes # (auto) 0.6 10 ^3/uL (0-1.3); Monocytes % (auto) 8.9 % (0.0-12.0); Neutrophils # (auto) 4.4 10 ^3/uL (1.6-8.6); Neutrophils % (auto) 71.5 % (37.0-80.0); Nucleated Red Blood Cells % 0.1 %; Red Blood Cells 3.19 10^6/uL (4.0-5.20); Red Cell Distribution Width 17.7 % (11.8-14.3); White Blood Cell 6.2 10^3/uL (4.4-10.8)
[2021-11-04 05:00] VITALS: BP 160/46
[2021-11-04] MEDS: metroNIDAZOLE 500 MG TAB PO SCH ×4 (06:00→23:19)
[2021-11-04] MEDS: SUCRALFATE 1 GM/10 ML ORAL SUSP PO SCH ×4 (06:58→23:02)
[2021-11-04] MEDS: InsuLIN REG 1unit/0.01ml Soln (100units/ml) SC SCH ×4 (06:58→22:00)
[2021-11-04] MEDS: ACCU-CHEK COMFORT CURVE STRIP VI SCH ×4 (06:58→23:12)
[2021-11-04] MEDS: ISOSORBIDE MONONITRATE ER 60 MG TAB PO SCH (06:58)
[2021-11-04 08:47] VITALS: BP 155/54
[2021-11-04] MEDS: PANTOPRAZOLE 40 MG/10 ML VIAL INJ IV SCH (09:17)
[2021-11-04] MEDS: ONDANSETRON HCL 4 MG/2 ML VIAL IV PRN ×4 (09:17→23:04)
[2021-11-04] MEDS: SEVELAMER 800 MG TAB PO SCH ×3 (09:18→17:19)
[2021-11-04] MEDS: ASPirin 81 mg TAB PO SCH (09:18)
[2021-11-04] MEDS: TICAGRELOR 60 MG TAB PO SCH ×2 (09:18→22:00)
[2021-11-04] MEDS: SERTRALINE HCL 50 MG TAB PO SCH (09:18)
[2021-11-04] MEDS: COLCHICINE 0.6 MG CAP PO SCH ×2 (09:18→23:03)
[2021-11-04] MEDS: ENOXAPARIN SOD 30 MG/0.3 ML SYRINGE SC SCH (09:19)
[2021-11-04] MEDS: hydrALAZINE HCL 20 MG/ML VL IV PRN ×2 (09:28→23:05)
[2021-11-04] MEDS: CHOLESTYRAMINE 4 GM POWDER PO SCH ×2 (11:44→23:11)
[2021-11-04 13:02] VITALS: BP 124/52
[2021-11-04 16:54] VITALS: BP 155/44
[2021-11-04] MEDS: MORPHINE SULFATE INJ 2 MG/ml SYRG IV PRN ×2 (17:23→23:04)
[2021-11-04 22:00] VITALS: BP 169/69
[2021-11-04] MEDS: ATORVASTATIN 20 MG TAB PO SCH (23:03)
[2021-11-05] MEDS: ONDANSETRON HCL 4 MG/2 ML VIAL IV PRN ×4 (02:57→21:06)
[2021-11-05 05:00] VITALS: BP 161/74
[2021-11-05 06:05] LABS: Hematocrit 24.3 % (36.0-46.0)
[2021-11-05] MEDS: MORPHINE SULFATE INJ 2 MG/ml SYRG IV PRN ×3 (06:45→21:09)
[2021-11-05] MEDS: metroNIDAZOLE 500 MG TAB PO SCH ×4 (06:49→23:04)
[2021-11-05] MEDS: SUCRALFATE 1 GM/10 ML ORAL SUSP PO SCH ×4 (06:49→22:50)
[2021-11-05] MEDS: ISOSORBIDE MONONITRATE ER 60 MG TAB PO SCH (06:49)
[2021-11-05] MEDS: InsuLIN REG 1unit/0.01ml Soln (100units/ml) SC SCH ×4 (06:57→21:10)
[2021-11-05] MEDS ORDERED: SODIUM CHL 0.9% 1000 ML BAG XX ONE (07:00)
[2021-11-05] MEDS: ACCU-CHEK COMFORT CURVE STRIP VI SCH ×4 (07:01→21:10)
[2021-11-05 08:00] VITALS: BP 165/75
[2021-11-05] MEDS: SEVELAMER 800 MG TAB PO SCH ×3 (08:00→18:00)
[2021-11-05 08:12] LABS: BUN/Creatinine Ratio 3.4; Calcium 8.5 mg/dL (8.5-10.1); Potassium 3.4 mmol/L (3.5-5.1)
[2021-11-05] MEDS: SERTRALINE HCL 50 MG TAB PO SCH (08:59)
[2021-11-05] MEDS: PANTOPRAZOLE 40 MG/10 ML VIAL INJ IV SCH (09:00)
[2021-11-05] MEDS: ASPirin 81 mg TAB PO SCH (09:04)
[2021-11-05] MEDS: ENOXAPARIN SOD 30 MG/0.3 ML SYRINGE SC SCH (09:05)
[2021-11-05] MEDS: TICAGRELOR 60 MG TAB PO SCH ×2 (09:05→22:00)
[2021-11-05] MEDS: COLCHICINE 0.6 MG CAP PO SCH ×2 (10:00→22:50)
[2021-11-05] MEDS: CHOLESTYRAMINE 4 GM POWDER PO SCH ×2 (11:18→23:48)
[2021-11-05 13:00] VITALS: BP 148/83
[2021-11-05 17:00] VITALS: BP 166/77
[2021-11-05] MEDS ORDERED: EPOETIN ALFA-EPBX 10,000 UNIT/1ML VIAL SC ONE (21:00)
[2021-11-05] MEDS: hydrALAZINE HCL 20 MG/ML VL IV PRN (21:05)
[2021-11-05 22:02] VITALS: BP 189/85
[2021-11-05] MEDS: ATORVASTATIN 20 MG TAB PO SCH (22:50)
[2021-11-05] MEDS: LORazepam 0.5 MG TAB PO PRN (22:51)
[2021-11-06] VITALS (7 sets, daily range): BP systolic 86–155; BP diastolic 54–76
[2021-11-06] MEDS: ONDANSETRON HCL 4 MG/2 ML VIAL IV PRN ×2 (01:43→22:14)
[2021-11-06] MEDS: MORPHINE SULFATE INJ 2 MG/ml SYRG IV PRN (01:43)
[2021-11-06] MEDS ORDERED: ENOXAPARIN SOD 30 MG/0.3 ML SYRINGE SC SCH (02:30)
[2021-11-06] MEDS ORDERED: TICAGRELOR 60 MG TAB PO SCH (02:30)
[2021-11-06] MEDS ORDERED: ASPirin 81 mg TAB PO SCH (02:30)
[2021-11-06] MEDS: SUCRALFATE 1 GM/10 ML ORAL SUSP PO SCH ×4 (06:06→22:06)
[2021-11-06] MEDS: metroNIDAZOLE 500 MG TAB PO SCH ×3 (06:08→16:55)
[2021-11-06] MEDS: ISOSORBIDE MONONITRATE ER 60 MG TAB PO SCH (06:08)
[2021-11-06 06:11] LABS: Potassium 4.3 mmol/L (3.5-5.1)
[2021-11-06] MEDS: InsuLIN REG 1unit/0.01ml Soln (100units/ml) SC SCH ×4 (06:12→21:59)
[2021-11-06] MEDS: ACCU-CHEK COMFORT CURVE STRIP VI SCH ×4 (06:15→21:59)
[2021-11-06 06:19] LABS: BUN/Creatinine Ratio 2.6; Calcium 8.4 mg/dL (8.5-10.1)
[2021-11-06] MEDS: COLCHICINE 0.6 MG CAP PO SCH ×2 (09:58→22:06)
[2021-11-06] MEDS: SEVELAMER 800 MG TAB PO SCH ×3 (09:58→16:56)
[2021-11-06] MEDS: SERTRALINE HCL 50 MG TAB PO SCH (09:58)
[2021-11-06] MEDS: PANTOPRAZOLE 40 MG/10 ML VIAL INJ IV SCH (09:59)
[2021-11-06] MEDS: CHOLESTYRAMINE 4 GM POWDER PO SCH ×2 (12:05→23:20)
[2021-11-06] MEDS: ATORVASTATIN 20 MG TAB PO SCH (22:06)
[2021-11-06] MEDS: hydrALAZINE HCL 20 MG/ML VL IV PRN (22:14)
[2021-11-07] MEDS: metroNIDAZOLE 500 MG TAB PO SCH ×5 (00:53→23:40)
[2021-11-07] MEDS: MORPHINE SULFATE INJ 2 MG/ml SYRG IV PRN ×3 (00:54→13:01)
[2021-11-07 05:00] VITALS: BP 193/71
[2021-11-07] MEDS: ACCU-CHEK COMFORT CURVE STRIP VI SCH ×4 (06:26→20:45)
[2021-11-07] MEDS: SUCRALFATE 1 GM/10 ML ORAL SUSP PO SCH ×4 (06:26→21:29)
[2021-11-07] MEDS: InsuLIN REG 1unit/0.01ml Soln (100units/ml) SC SCH ×4 (06:26→20:45)
[2021-11-07] MEDS: ISOSORBIDE MONONITRATE ER 60 MG TAB PO SCH (06:27)
[2021-11-07 08:40] VITALS: BP 145/66
[2021-11-07] MEDS: PANTOPRAZOLE 40 MG/10 ML VIAL INJ IV SCH (08:52)
[2021-11-07] MEDS: SEVELAMER 800 MG TAB PO SCH ×3 (08:52→16:58)
[2021-11-07] MEDS: COLCHICINE 0.6 MG CAP PO SCH ×2 (08:52→21:31)
[2021-11-07] MEDS: SERTRALINE HCL 50 MG TAB PO SCH (08:52)
[2021-11-07] MEDS: CHOLESTYRAMINE 4 GM POWDER PO SCH ×2 (12:06→22:34)
[2021-11-07 12:35] VITALS: BP 174/79
[2021-11-07] MEDS: hydrALAZINE HCL 20 MG/ML VL IV PRN (12:53)
[2021-11-07] MEDS: ONDANSETRON HCL 4 MG/2 ML VIAL IV PRN ×2 (13:00→22:42)
[2021-11-07 17:20] VITALS: BP 146/72
[2021-11-07] MEDS: ATORVASTATIN 20 MG TAB PO SCH (21:30)
[2021-11-07 22:00] VITALS: BP 125/49
[2021-11-08] MEDS ORDERED: MORPHINE SULFATE INJ 2 MG/ml SYRG IV PRN (01:00)
[2021-11-08] MEDS: metroNIDAZOLE 500 MG TAB PO SCH ×3 (05:56→17:38)
[2021-11-08] MEDS: ISOSORBIDE MONONITRATE ER 60 MG TAB PO SCH (06:42)
[2021-11-08] MEDS: SUCRALFATE 1 GM/10 ML ORAL SUSP PO SCH ×4 (06:43→21:38)
[2021-11-08] MEDS: ACCU-CHEK COMFORT CURVE STRIP VI SCH ×4 (06:49→21:51)
[2021-11-08] MEDS: InsuLIN REG 1unit/0.01ml Soln (100units/ml) SC SCH ×4 (06:50→21:51)
[2021-11-08] MEDS: SEVELAMER 800 MG TAB PO SCH ×3 (08:00→17:38)
[2021-11-08 09:19] VITALS: BP 163/67
[2021-11-08] MEDS: PANTOPRAZOLE 40 MG/10 ML VIAL INJ IV SCH (11:17)
[2021-11-08] MEDS: COLCHICINE 0.6 MG CAP PO SCH ×2 (11:17→21:38)
[2021-11-08] MEDS: SERTRALINE HCL 50 MG TAB PO SCH (11:18)
[2021-11-08] MEDS: CHOLESTYRAMINE 4 GM POWDER PO SCH ×2 (11:19→23:13)
[2021-11-08 12:27] VITALS: BP 174/84
[2021-11-08] MEDS ORDERED: SODIUM CHL 0.9% 1000 ML BAG XX ONE (14:30)
[2021-11-08 16:44] VITALS: BP 157/73
[2021-11-08] MEDS ORDERED: EPOETIN ALFA-EPBX 10,000 UNIT/1ML VIAL SC ONE (21:00)
[2021-11-08] MEDS: ATORVASTATIN 20 MG TAB PO SCH (21:38)
[2021-11-08 21:58] VITALS: BP 162/70
[2021-11-08] MEDS: hydrALAZINE HCL 20 MG/ML VL IV PRN (23:00)
[2021-11-09] MEDS: metroNIDAZOLE 500 MG TAB PO SCH ×4 (00:01→17:19)
[2021-11-09 04:59] VITALS: BP 149/66
[2021-11-09 06:11] LABS: Albumin 2.7 g/dL (3.4-5.0); Calcium 8.6 mg/dL (8.5-10.1); Potassium 4.2 mmol/L (3.5-5.1)
[2021-11-09 06:15] LABS: BUN/Creatinine Ratio 2.3; Bilirubin, Total 0.7 mg/dL (0.2-1.0); Total Protein 7.4 g/dL (6.4-8.2)
[2021-11-09 06:22] LABS: White Blood Cell 6.2 10^3/uL (4.4-10.8)
[2021-11-09 06:23] LABS: Hemoglobin 8.1 g/dL (12.2-16.2); Mean Corpuscular Hemoglobin 28.1 pg (28.0-32.0); Mean Corpuscular Hgb Conc. 32.3 g/dL (32.0-36.0); Red Blood Cells 2.87 10^6/uL (4.0-5.20); Red Cell Distribution Width 19.8 % (11.8-14.3)
[2021-11-09] MEDS: SUCRALFATE 1 GM/10 ML ORAL SUSP PO SCH ×4 (06:29→21:40)
[2021-11-09 06:30] LABS: Band Neutrophils % (manual) 0; Basophils % (manual) 0 (0.0-2.0); Blast Cells 0; Metamyelocytes % 0; Myelocytes % 0; Promyelocytes % 0; Reactive Lymphocytes 0
[2021-11-09] MEDS: ISOSORBIDE MONONITRATE ER 60 MG TAB PO SCH (06:30)
[2021-11-09] MEDS: InsuLIN REG 1unit/0.01ml Soln (100units/ml) SC SCH ×4 (06:30→21:52)
[2021-11-09] MEDS: ACCU-CHEK COMFORT CURVE STRIP VI SCH ×4 (06:30→21:40)
[2021-11-09] MEDS ORDERED: FLUMAZENIL 0.1 MG/ML INJ 10ML MDV IV ONE (07:48)
[2021-11-09] MEDS ORDERED: NALOXONE HCL 0.4 MG/ML VIAL ONE (07:48)
[2021-11-09] MEDS ORDERED: SODIUM CHLORIDE LOCK 10 ML ONE (07:49)
[2021-11-09] MEDS ORDERED: LIDOCAINE VISCOUS 2% 15ML UD ONE (07:49)
[2021-11-09] MEDS ORDERED: MIDAZOLAM HCL 5 MG/ML-1ML VIAL ONE (07:49)
[2021-11-09] MEDS ORDERED: diphenhdrAMINE HCL 50 MG/1 ML VL ONE (07:49)
[2021-11-09] MEDS ORDERED: fentaNYL CITRATE 100 MCG/2 ML VL ONE (07:50)
[2021-11-09] MEDS: SEVELAMER 800 MG TAB PO SCH ×3 (08:00→17:19)
[2021-11-09 08:16] LABS: Eosinophils % (manual) 2 (0-7); Lymphocytes % (manual) 14 (10.0-50.0); Monocytes % (manual) 8 (0-12)
[2021-11-09] MEDS ORDERED: LIDOCAINE VISCOUS 2% 15ML UD MT ONE (08:31)
[2021-11-09] MEDS ORDERED: fentaNYL CITRATE 100 MCG/2 ML VL IV ONE ×2 (08:31→08:34)
[2021-11-09] MEDS ORDERED: MIDAZOLAM HCL 5 MG/ML-1ML VIAL IV ONE ×2 (08:31→08:34)
[2021-11-09 08:49] VITALS: BP 148/65
[2021-11-09] MEDS: SERTRALINE HCL 50 MG TAB PO SCH (10:42)
[2021-11-09] MEDS: PANTOPRAZOLE 40 MG TAB PO SCH ×2 (10:42→21:39)
[2021-11-09] MEDS: COLCHICINE 0.6 MG CAP PO SCH ×2 (10:42→21:39)
[2021-11-09] MEDS: CHOLESTYRAMINE 4 GM POWDER PO SCH ×2 (10:43→23:00)
[2021-11-09 10:46] LABS: INR 1.67 (0.9-1.15); Partial Thromboplastin Time 36.6 sec (23.6-33.0)
[2021-11-09 13:00] VITALS: BP 160/81
[2021-11-09 16:54] VITALS: BP 156/71
[2021-11-09] MEDS: hydrALAZINE HCL 20 MG/ML VL IV PRN (19:08)
[2021-11-09] MEDS: ATORVASTATIN 20 MG TAB PO SCH (21:39)
[2021-11-09 22:00] VITALS: BP 146/85
[2021-11-10 05:19] VITALS: BP 140/67
[2021-11-10] MEDS: metroNIDAZOLE 500 MG TAB PO SCH ×5 (06:31→23:43)
[2021-11-10] MEDS: ISOSORBIDE MONONITRATE ER 60 MG TAB PO SCH (06:31)
[2021-11-10] MEDS: SUCRALFATE 1 GM/10 ML ORAL SUSP PO SCH ×4 (06:32→22:22)
[2021-11-10] MEDS: ACCU-CHEK COMFORT CURVE STRIP VI SCH ×4 (06:32→23:17)
[2021-11-10] MEDS: InsuLIN REG 1unit/0.01ml Soln (100units/ml) SC SCH ×4 (06:32→22:00)
[2021-11-10] MEDS: SEVELAMER 800 MG TAB PO SCH ×3 (07:49→18:13)
[2021-11-10 07:50] VITALS: BP 177/79
[2021-11-10 09:00] VITALS: BP 177/79
[2021-11-10] MEDS: COLCHICINE 0.6 MG CAP PO SCH ×2 (09:21→22:24)
[2021-11-10] MEDS: SERTRALINE HCL 50 MG TAB PO SCH (09:21)
[2021-11-10] MEDS: PANTOPRAZOLE 40 MG TAB PO SCH ×2 (09:23→22:25)
[2021-11-10] MEDS: hydrALAZINE HCL 20 MG/ML VL IV PRN (09:25)
[2021-11-10] MEDS: HYDROcodone-ACET 5/325MG TAB PO PRN ×2 (09:38→18:30)
[2021-11-10] MEDS ORDERED: SODIUM CHL 0.9% 1000 ML BAG XX ONE (10:00)
[2021-11-10 10:33] LABS: Hematocrit 31.4 % (36.0-46.0); Hemoglobin 9.8 g/dL (12.2-16.2)
[2021-11-10] MEDS: CHOLESTYRAMINE 4 GM POWDER PO SCH ×2 (12:04→23:43)
[2021-11-10 13:48] VITALS: BP 149/70
[2021-11-10] MEDS ORDERED: DONNATAL 5ml ORAL Elix (BELLADONNA ALK-PHENOBARB) PO ONE (16:00)
[2021-11-10] MEDS ORDERED: ALUM & MAG HYDROX-SIMETH LIQ(MAALOX) 30 ML PO ONE (16:00)
[2021-11-10 16:58] VITALS: BP 165/86
[2021-11-10] MEDS ORDERED: LIDOCAINE VISCOUS 2% 15ML UD PO ONE (18:00)
[2021-11-10] MEDS ORDERED: EPOETIN ALFA-EPBX 10,000 UNIT/1ML VIAL SC ONE (21:00)
[2021-11-10 22:00] VITALS: BP 131/57
[2021-11-10] MEDS: ATORVASTATIN 20 MG TAB PO SCH (22:25)
[2021-11-11] VITALS (8 sets, daily range): BP systolic 142–162; BP diastolic 64–75
[2021-11-11] MEDS: ONDANSETRON HCL 4 MG/2 ML VIAL IV PRN ×2 (05:41→11:42)
[2021-11-11] MEDS: metroNIDAZOLE 500 MG TAB PO SCH ×2 (05:42→11:40)
[2021-11-11] MEDS: SUCRALFATE 1 GM/10 ML ORAL SUSP PO SCH ×4 (05:43→21:42)
[2021-11-11] MEDS: ISOSORBIDE MONONITRATE ER 60 MG TAB PO SCH (05:45)
[2021-11-11] MEDS: ACCU-CHEK COMFORT CURVE STRIP VI SCH ×4 (05:46→21:43)
[2021-11-11] MEDS: HYDROcodone-ACET 5/325MG TAB PO PRN (05:47)
[2021-11-11] MEDS: InsuLIN REG 1unit/0.01ml Soln (100units/ml) SC SCH ×4 (06:12→21:43)
[2021-11-11] MEDS: COLCHICINE 0.6 MG CAP PO SCH (08:58)
[2021-11-11] MEDS: SERTRALINE HCL 50 MG TAB PO SCH (08:58)
[2021-11-11] MEDS: SEVELAMER 800 MG TAB PO SCH ×3 (08:58→17:11)
[2021-11-11] MEDS: PANTOPRAZOLE 40 MG TAB PO SCH ×2 (08:59→21:43)
[2021-11-11] MEDS: CHOLESTYRAMINE 4 GM POWDER PO SCH (11:27)
[2021-11-11] MEDS: hydrALAZINE HCL 20 MG/ML VL IV PRN (17:11)
[2021-11-11] MEDS: ATORVASTATIN 20 MG TAB PO SCH (21:42)
[2021-11-12 05:31] VITALS: BP 160/71
[2021-11-12] MEDS: SUCRALFATE 1 GM/10 ML ORAL SUSP PO SCH ×2 (05:49→11:30)
[2021-11-12] MEDS: ISOSORBIDE MONONITRATE ER 60 MG TAB PO SCH (05:49)
[2021-11-12] MEDS: hydrALAZINE HCL 20 MG/ML VL IV PRN (05:50)
[2021-11-12] MEDS: ACCU-CHEK COMFORT CURVE STRIP VI SCH ×2 (05:50→11:30)
[2021-11-12] MEDS: InsuLIN REG 1unit/0.01ml Soln (100units/ml) SC SCH ×2 (06:42→11:30)
[2021-11-12] MEDS ORDERED: SODIUM CHL 0.9% 1000 ML BAG XX ONE (07:00)
[2021-11-12 09:00] VITALS: BP 161/71
[2021-11-12] MEDS: SERTRALINE HCL 50 MG TAB PO SCH (09:27)
[2021-11-12] MEDS: PANTOPRAZOLE 40 MG TAB PO SCH (09:27)
[2021-11-12] MEDS: SEVELAMER 800 MG TAB PO SCH ×2 (09:28→12:00)
[2021-11-12 13:00] VITALS: BP 164/83
[2021-11-12 14:44] VITALS: BP 153/78
[2021-11-12] MEDS ORDERED: EPOETIN ALFA-EPBX 10,000 UNIT/1ML VIAL SC ONE (21:00)
== END 2021-11-12 15:51 | disposition home or self-care (01) | DRG 286 ==
LOC: ER 00:31 → TELE 10:56 → TELE-WESTW 18:09
PROVIDERS: ADMIT Hospitalist; ATTEND Internal Medicine Cardiovascular Disease
PROC: 4A023N7 Measurement of Cardiac Sampling and Pressure, Left Heart, Percutaneous Approach (ICD-10-PCS; 2021-10-28)
PROC: B211YZZ Fluoroscopy of Multiple Coronary Arteries using Other Contrast (ICD-10-PCS; 2021-10-28)
PROC: B215YZZ Fluoroscopy of Left Heart using Other Contrast (ICD-10-PCS; 2021-10-28)
PROC: B21FYZZ Fluoroscopy of Other Bypass Graft using Other Contrast (ICD-10-PCS; 2021-10-28)
PROC: B218YZZ Fluoroscopy of Left Internal Mammary Bypass Graft using Other Contrast (ICD-10-PCS; 2021-10-28)
PROC: B517YZZ Fluoroscopy of Left Subclavian Vein using Other Contrast (ICD-10-PCS; 2021-10-28)
PROC: 5A1D70Z Performance of Urinary Filtration, Intermittent, Less than 6 Hours Per Day (ICD-10-PCS; 2021-10-29)
PROC: 30233N1 Transfusion of Nonautologous Red Blood Cells into Peripheral Vein, Percutaneous Approach (ICD-10-PCS; 2021-10-30)
PROC: 5A1D70Z Performance of Urinary Filtration, Intermittent, Less than 6 Hours Per Day (ICD-10-PCS; principal; 2021-11-01)
PROC: 5A1D70Z Performance of Urinary Filtration, Intermittent, Less than 6 Hours Per Day (ICD-10-PCS; 2021-11-03)
PROC: 5A1D70Z Performance of Urinary Filtration, Intermittent, Less than 6 Hours Per Day (ICD-10-PCS; 2021-11-05)
PROC: 5A1D70Z Performance of Urinary Filtration, Intermittent, Less than 6 Hours Per Day (ICD-10-PCS; 2021-11-08)
PROC: 0DB68ZX Excision of Stomach, Via Natural or Artificial Opening Endoscopic, Diagnostic (ICD-10-PCS; 2021-11-09)
PROC: 5A1D70Z Performance of Urinary Filtration, Intermittent, Less than 6 Hours Per Day (ICD-10-PCS; 2021-11-10)
PROC: 5A1D70Z Performance of Urinary Filtration, Intermittent, Less than 6 Hours Per Day (ICD-10-PCS; 2021-11-12)
DX: R07.9 Chest pain, unspecified (principal); N18.6 End stage renal disease; A04.72 Enterocolitis due to Clostridium difficile, not specified as recurrent; E87.1 Hypo-osmolality and hyponatremia; I13.2 Hypertensive heart and chronic kidney disease with heart failure and with stage 5 chronic kidney disease, or end stage renal disease; I25.119 Atherosclerotic heart disease of native coronary artery with unspecified angina pectoris; K21.00 Gastro-esophageal reflux disease with esophagitis, without bleeding; D63.1 Anemia in chronic kidney disease; E11.51 Type 2 diabetes mellitus with diabetic peripheral angiopathy without gangrene; E11.40 Type 2 diabetes mellitus with diabetic neuropathy, unspecified; G60.0 Hereditary motor and sensory neuropathy; E87.70 Fluid overload, unspecified; I25.5 Ischemic cardiomyopathy; Z20.822 Contact with and (suspected) exposure to COVID-19; K31.7 Polyp of stomach and duodenum; I50.9 Heart failure, unspecified; Z90.49 Acquired absence of other specified parts of digestive tract; Z90.710 Acquired absence of both cervix and uterus; E11.22 Type 2 diabetes mellitus with diabetic chronic kidney disease; E11.65 Type 2 diabetes mellitus with hyperglycemia
CPT/HCPCS: 36415; 71045; 71046; 71250; 71275; 73562; 74220; 80048; 80053; 80061; 82270; 82550; 82728; 82962; 83615; 83690; 83735; 83880; 84100; 84439; 84443; 84484; 84550; 85007; 85014; 85018; 85025; 85027; 85379; 85610; 85652; 85730; 86141; 86850; 86900; 86901; 86920; 87040; 87081; 87493; 90935; 92610; 93005; 93925; 93970; 96374; 96375; 99291; C9113; G0378; G0463; J1642; J1815; J1885; J2001; J2250; J2405; J3490; Q9967

== ENCOUNTER 2022-01-22 13:33 | Inpatient (IN) | payer MEDICARE, MEDICAID ==
[~2022-01-22] VITALS: Ht 167.6 cm; Wt 78.5 kg
[~2022-01-22 13:33] MED LIST changes: +INSU1INJ19 SC
[2022-01-22 14:39] LABS: Basophils # (auto) 0 10 ^3/uL (0-0.2); Basophils % (auto) 0.2 % (0.0-2.0); Eosinophils # (auto) 0.1 10 ^3/uL (0-0.8); Red Cell Distribution Width 15.8 % (11.8-14.3)
[2022-01-22 14:40] LABS: Eosinophils % (auto) 0.5 % (0.0-7.0); Hematocrit 27.6 % (36.0-46.0); Hemoglobin 9.1 g/dL (12.2-16.2); Lymphocytes # (auto) 0.3 10 ^3/uL (0.4-5.4); Lymphocytes % (auto) 2.8 % (10.0-50.0); Mean Corpuscular Hemoglobin 27.2 pg (28.0-32.0); Mean Corpuscular Hgb Conc. 32.8 g/dL (32.0-36.0); Monocytes # (auto) 0.4 10 ^3/uL (0-1.3); Monocytes % (auto) 3.5 % (0.0-12.0); Neutrophils # (auto) 11.3 10 ^3/uL (1.6-8.6); Nucleated Red Blood Cells % 0.1 %; Red Blood Cells 3.33 10^6/uL (4.0-5.20); White Blood Cell 12.2 10^3/uL (4.4-10.8)
[2022-01-22 15:03] LABS: Albumin 3.4 g/dL (3.4-5.0); BUN/Creatinine Ratio 7.5; Calcium 8.9 mg/dL (8.5-10.1); Potassium 4.4 mmol/L (3.5-5.1)
[2022-01-22 15:06] LABS: Bilirubin, Total 0.6 mg/dL (0.2-1.0)
[2022-01-22] MEDS ORDERED: VANCOMYCIN 1GM/250ML 250 ML IV ONE (20:15)
[2022-01-22] MEDS ORDERED: DEXTROSE (50%) 50ML SYRG IV PRN (20:15)
[2022-01-22] MEDS ORDERED: cefTRIAXone 1GM/50ML D5W 50 ML IV ONE (20:15)
[2022-01-22] MEDS ORDERED: VANCOMYCIN 1GM/250ML 250 ML IV SCH (20:15)
[2022-01-22] MEDS: ACETAMINOPHEN 500 MG TAB PO PRN (21:28)
[2022-01-22] MEDS: ACCU-CHEK COMFORT CURVE STRIP VI SCH (22:00)
[2022-01-22] MEDS: traMADol HCL 50 MG TAB PO PRN (22:21)
[2022-01-22] MEDS: TICAGRELOR 60 MG TAB PO SCH (22:22)
[2022-01-22] MEDS: ONDANSETRON ODT 4 MG TAB PO SCH (22:22)
[2022-01-22] MEDS: INSULIN LANTUS (GLARGINE) 1 /0.01ml (100units/ml) SC SCH (22:42)
[2022-01-22] MEDS: InsuLIN REG 1unit/0.01ml Soln (100units/ml) SC SCH (22:43)
[2022-01-22] MEDS: TEMAZEPAM 15 MG CAP PO SCH (22:44)
[2022-01-22] MEDS: KETOROLAC TROMETH 30 MG/ML 1ML VIAL IV PRN (23:55)
[2022-01-23] VITALS (7 sets, daily range): BP systolic 116–154; BP diastolic 56–76
[2022-01-23] MEDS: ACETAMINOPHEN 500 MG TAB PO PRN (03:05)
[2022-01-23] MEDS: ONDANSETRON ODT 4 MG TAB PO SCH ×3 (06:50→21:16)
[2022-01-23] MEDS: InsuLIN REG 1unit/0.01ml Soln (100units/ml) SC SCH ×4 (06:50→22:04)
[2022-01-23] MEDS: ISOSORBIDE MONONITRATE ER 60 MG TAB PO SCH (06:51)
[2022-01-23] MEDS: ACCU-CHEK COMFORT CURVE STRIP VI SCH ×4 (06:52→22:09)
[2022-01-23] MEDS: SERTRALINE HCL 50 MG TAB PO SCH (08:24)
[2022-01-23] MEDS: SEVELAMER 800 MG TAB PO SCH ×3 (08:24→17:02)
[2022-01-23] MEDS: amLODIPine BESYLATE 5 MG TAB PO SCH (08:25)
[2022-01-23] MEDS: PANTOPRAZOLE 40 MG TAB PO SCH (08:25)
[2022-01-23] MEDS: ASPirin 81 mg TAB PO SCH (08:25)
[2022-01-23] MEDS: hydrALAZINE HCL 25 MG TAB PO SCH ×3 (08:25→17:02)
[2022-01-23] MEDS: cefTRIAXone 1GM/50ML D5W 50 ML IV SCH (08:27)
[2022-01-23] MEDS ORDERED: Atorvastatin Calcium 10 MG TABLET PO SCH (10:00)
[2022-01-23] MEDS ORDERED: TEMAZEPAM 15 MG CAP PO SCH (10:00)
[2022-01-23] MEDS: TICAGRELOR 60 MG TAB PO SCH ×2 (10:00→22:09)
[2022-01-23] MEDS ORDERED: VANCOMYCIN PER PHARMACY 0 MG IV SCH (11:15)
[2022-01-23] MEDS: KETOROLAC TROMETH 30 MG/ML 1ML VIAL IV PRN ×2 (12:45→21:54)
[2022-01-23] MEDS ORDERED: SODIUM CHL 0.9% 1000 ML BAG XX ONE (14:30)
[2022-01-23] MEDS: traMADol HCL 50 MG TAB PO PRN (17:00)
[2022-01-23] MEDS ORDERED: VANCOMYCIN 1GM/250ML 250 ML IV ONE (18:00)
[2022-01-23] MEDS ORDERED: HYDROcodone-ACET 10/325MG TAB PO PRN (18:30)
[2022-01-23] MEDS ORDERED: EPOETIN ALFA-EPBX 10,000 UNIT/1ML VIAL SC ONE (21:00)
[2022-01-23] MEDS: ATORVASTATIN 20 MG TAB PO SCH (21:16)
[2022-01-23] MEDS: TEMAZEPAM 15 MG CAP PO SCH (21:16)
[2022-01-23] MEDS: BACLOFEN 10 MG TAB PO PRN (21:17)
[2022-01-23] MEDS: INSULIN LANTUS (GLARGINE) 1 /0.01ml (100units/ml) SC SCH (22:03)
[2022-01-24] VITALS (7 sets, daily range): BP systolic 38–138; BP diastolic 45–67
[2022-01-24] MEDS: HYDROmorphone HCL 2 MG/ML VL/or syr IV PRN ×3 (03:07→18:10)
[2022-01-24] MEDS: ONDANSETRON ODT 4 MG TAB PO SCH ×3 (05:53→21:31)
[2022-01-24] MEDS: ISOSORBIDE MONONITRATE ER 60 MG TAB PO SCH (06:05)
[2022-01-24] MEDS: ACCU-CHEK COMFORT CURVE STRIP VI SCH ×4 (06:06→21:34)
[2022-01-24] MEDS: InsuLIN REG 1unit/0.01ml Soln (100units/ml) SC SCH ×4 (06:06→21:37)
[2022-01-24] MEDS: SEVELAMER 800 MG TAB PO SCH ×3 (08:52→18:08)
[2022-01-24] MEDS: cefTRIAXone 1GM/50ML D5W 50 ML IV SCH (08:52)
[2022-01-24] MEDS: hydrALAZINE HCL 25 MG TAB PO SCH ×3 (08:52→18:08)
[2022-01-24] MEDS: BACLOFEN 10 MG TAB PO PRN ×2 (08:53→21:59)
[2022-01-24] MEDS: amLODIPine BESYLATE 5 MG TAB PO SCH (10:40)
[2022-01-24] MEDS: TICAGRELOR 60 MG TAB PO SCH ×2 (10:40→21:52)
[2022-01-24] MEDS: ASPirin 81 mg TAB PO SCH (10:40)
[2022-01-24] MEDS: SERTRALINE HCL 50 MG TAB PO SCH (10:41)
[2022-01-24] MEDS: PANTOPRAZOLE 40 MG TAB PO SCH (10:41)
[2022-01-24] MEDS: ACETAMINOPHEN 500 MG TAB PO PRN (15:17)
[2022-01-24] MEDS: TEMAZEPAM 15 MG CAP PO SCH (21:32)
[2022-01-24] MEDS: ATORVASTATIN 20 MG TAB PO SCH (21:32)
[2022-01-24] MEDS: INSULIN LANTUS (GLARGINE) 1 /0.01ml (100units/ml) SC SCH (21:38)
[2022-01-25] MEDS: HYDROmorphone HCL 2 MG/ML VL/or syr IV PRN ×3 (00:25→13:01)
[2022-01-25 00:30] VITALS: BP 138/59
[2022-01-25 05:00] VITALS: BP 139/75
[2022-01-25] MEDS: ONDANSETRON ODT 4 MG TAB PO SCH ×3 (05:38→20:46)
[2022-01-25] MEDS: ACCU-CHEK COMFORT CURVE STRIP VI SCH ×4 (06:42→22:28)
[2022-01-25] MEDS: InsuLIN REG 1unit/0.01ml Soln (100units/ml) SC SCH ×4 (06:43→22:30)
[2022-01-25] MEDS: ISOSORBIDE MONONITRATE ER 60 MG TAB PO SCH (06:59)
[2022-01-25] MEDS ORDERED: SODIUM CHL 0.9% 1000 ML BAG XX ONE (07:00)
[2022-01-25] MEDS: hydrALAZINE HCL 25 MG TAB PO SCH ×3 (08:00→18:00)
[2022-01-25] MEDS: SEVELAMER 800 MG TAB PO SCH ×3 (08:00→18:00)
[2022-01-25] MEDS: PANTOPRAZOLE 40 MG TAB PO SCH ×2 (08:48→10:00)
[2022-01-25] MEDS: amLODIPine BESYLATE 5 MG TAB PO SCH (08:48)
[2022-01-25] MEDS: TICAGRELOR 60 MG TAB PO SCH ×3 (08:48→22:46)
[2022-01-25] MEDS: ASPirin 81 mg TAB PO SCH ×2 (08:48→10:00)
[2022-01-25] MEDS: SERTRALINE HCL 50 MG TAB PO SCH ×2 (08:49→10:00)
[2022-01-25] MEDS: cefTRIAXone 1GM/50ML D5W 50 ML IV SCH (08:53)
[2022-01-25 09:00] VITALS: BP 117/60
[2022-01-25] MEDS ORDERED: METOCLOPRAMIDE HCL 5MG/ml INJ 2ml VIAL IV PRN (09:30)
[2022-01-25 09:56] LABS: Basophils # (auto) 0 10 ^3/uL (0-0.2); Basophils % (auto) 0.4 % (0.0-2.0); Eosinophils # (auto) 0.1 10 ^3/uL (0-0.8); Eosinophils % (auto) 1.3 % (0.0-7.0); Hematocrit 26.7 % (36.0-46.0); Hemoglobin 8.6 g/dL (12.2-16.2); Lymphocytes # (auto) 0.6 10 ^3/uL (0.4-5.4); Lymphocytes % (auto) 8.7 % (10.0-50.0); Mean Corpuscular Hemoglobin 27.2 pg (28.0-32.0); Mean Corpuscular Hgb Conc. 32.1 g/dL (32.0-36.0); Mean Corpuscular Volume 84.7 fL (80.0-100.0); Monocytes # (auto) 0.8 10 ^3/uL (0-1.3); Monocytes % (auto) 11.2 % (0.0-12.0); Neutrophils # (auto) 5.4 10 ^3/uL (1.6-8.6); Neutrophils % (auto) 78.4 % (37.0-80.0); Red Blood Cells 3.15 10^6/uL (4.0-5.20); White Blood Cell 6.8 10^3/uL (4.4-10.8)
[2022-01-25 10:06] LABS: BUN/Creatinine Ratio 5.8; Calcium 9.1 mg/dL (8.5-10.1); Potassium 4.3 mmol/L (3.5-5.1)
[2022-01-25] MEDS: BACLOFEN 10 MG TAB PO PRN (12:30)
[2022-01-25 13:00] VITALS: BP 147/71
[2022-01-25] MEDS ORDERED: IOHEXOL 350 MG/ML 100ML IJ ONE (15:50)
[2022-01-25] MEDS ORDERED: HYDROmorphone HCL 2 MG/ML VL/or syr IV PRN (16:15)
[2022-01-25] MEDS ORDERED: HYDROmorphone HCL 2 MG/ML VL/or syr IV ONE (16:15)
[2022-01-25 17:00] VITALS: BP 105/64
[2022-01-25] MEDS ORDERED: VANCOMYCIN 1GM/250ML 250 ML IV ONE (17:00)
[2022-01-25] MEDS ORDERED: EPOETIN ALFA-EPBX 10,000 UNIT/1ML VIAL SC ONE (21:00)
[2022-01-25 22:00] VITALS: BP 118/58
[2022-01-25] MEDS: ATORVASTATIN 20 MG TAB PO SCH (22:27)
[2022-01-25] MEDS: TEMAZEPAM 15 MG CAP PO SCH (22:30)
[2022-01-25] MEDS: INSULIN LANTUS (GLARGINE) 1 /0.01ml (100units/ml) SC SCH (22:30)
[2022-01-26 05:00] VITALS: BP_SYST 151; BP_SYST 99; BP_DIAS 48; BP_DIAS 75
[2022-01-26] MEDS ORDERED: NALOXONE HCL 0.4 MG/ML VIAL IV ONE (05:15)
[2022-01-26] MEDS: ACCU-CHEK COMFORT CURVE STRIP VI SCH ×4 (06:39→21:28)
[2022-01-26] MEDS: InsuLIN REG 1unit/0.01ml Soln (100units/ml) SC SCH ×4 (06:39→21:29)
[2022-01-26] MEDS: ONDANSETRON ODT 4 MG TAB PO SCH ×3 (06:45→21:36)
[2022-01-26] MEDS: ISOSORBIDE MONONITRATE ER 60 MG TAB PO SCH (06:46)
[2022-01-26] MEDS: hydrALAZINE HCL 25 MG TAB PO SCH ×3 (08:00→17:34)
[2022-01-26] MEDS: SEVELAMER 800 MG TAB PO SCH ×3 (08:00→17:34)
[2022-01-26] MEDS ORDERED: SODIUM CHL 0.9% 1000 ML BAG XX ONE (08:30)
[2022-01-26 09:14] VITALS: BP 165/73
[2022-01-26] MEDS: amLODIPine BESYLATE 5 MG TAB PO SCH (10:00)
[2022-01-26] MEDS: cefTRIAXone 1GM/50ML D5W 50 ML IV SCH (11:13)
[2022-01-26] MEDS: SERTRALINE HCL 50 MG TAB PO SCH (11:14)
[2022-01-26] MEDS: ASPirin 81 mg TAB PO SCH (11:14)
[2022-01-26] MEDS: PANTOPRAZOLE 40 MG TAB PO SCH (11:14)
[2022-01-26] MEDS: TICAGRELOR 60 MG TAB PO SCH ×2 (11:14→21:36)
[2022-01-26 13:00] VITALS: BP 151/79
[2022-01-26 16:59] VITALS: BP 153/77
[2022-01-26] MEDS: ACETAMINOPHEN 500 MG TAB PO PRN (17:35)
[2022-01-26] MEDS: INSULIN LANTUS (GLARGINE) 1 /0.01ml (100units/ml) SC SCH (21:28)
[2022-01-26] MEDS: TEMAZEPAM 15 MG CAP PO SCH (21:29)
[2022-01-26] MEDS: ATORVASTATIN 20 MG TAB PO SCH (21:36)
[2022-01-26 22:00] VITALS: BP 149/32
[2022-01-26] MEDS: HYDROmorphone HCL 2 MG/ML VL/or syr IV PRN (23:40)
[2022-01-27 05:00] VITALS: BP 150/60
[2022-01-27] MEDS: ACCU-CHEK COMFORT CURVE STRIP VI SCH ×4 (05:39→21:48)
[2022-01-27] MEDS: ONDANSETRON ODT 4 MG TAB PO SCH ×3 (05:40→21:47)
[2022-01-27] MEDS: ISOSORBIDE MONONITRATE ER 60 MG TAB PO SCH (05:40)
[2022-01-27] MEDS: InsuLIN REG 1unit/0.01ml Soln (100units/ml) SC SCH ×4 (07:00→21:48)
[2022-01-27] MEDS: SEVELAMER 800 MG TAB PO SCH ×3 (08:00→18:00)
[2022-01-27 09:00] VITALS: BP 140/73
[2022-01-27] MEDS: cefTRIAXone 1GM/50ML D5W 50 ML IV SCH (10:09)
[2022-01-27] MEDS: TICAGRELOR 60 MG TAB PO SCH ×2 (10:11→21:46)
[2022-01-27] MEDS: SERTRALINE HCL 50 MG TAB PO SCH (10:11)
[2022-01-27] MEDS: ASPirin 81 mg TAB PO SCH (10:11)
[2022-01-27] MEDS: hydrALAZINE HCL 25 MG TAB PO SCH ×3 (10:11→18:00)
[2022-01-27] MEDS: amLODIPine BESYLATE 5 MG TAB PO SCH (10:12)
[2022-01-27] MEDS: PANTOPRAZOLE 40 MG TAB PO SCH (10:12)
[2022-01-27 13:00] VITALS: BP 155/79
[2022-01-27] MEDS: HYDROmorphone HCL 2 MG/ML VL/or syr IV PRN (15:18)
[2022-01-27 17:12] VITALS: BP 146/63
[2022-01-27 20:00] VITALS: BP 146/59
[2022-01-27 21:47] VITALS: BP 146/59
[2022-01-27] MEDS: ATORVASTATIN 20 MG TAB PO SCH (21:47)
[2022-01-27] MEDS: TEMAZEPAM 15 MG CAP PO SCH (21:47)
[2022-01-27] MEDS: INSULIN LANTUS (GLARGINE) 1 /0.01ml (100units/ml) SC SCH (21:57)
[2022-01-28] VITALS (7 sets, daily range): BP systolic 136–175; BP diastolic 53–81
[2022-01-28] MEDS: ACETAMINOPHEN 500 MG TAB PO PRN ×2 (01:05→15:08)
[2022-01-28] MEDS: ONDANSETRON ODT 4 MG TAB PO SCH ×3 (06:15→23:44)
[2022-01-28] MEDS: ACCU-CHEK COMFORT CURVE STRIP VI SCH ×3 (06:37→16:45)
[2022-01-28] MEDS: InsuLIN REG 1unit/0.01ml Soln (100units/ml) SC SCH ×3 (06:37→16:44)
[2022-01-28] MEDS: ISOSORBIDE MONONITRATE ER 60 MG TAB PO SCH (06:38)
[2022-01-28] MEDS: hydrALAZINE HCL 25 MG TAB PO SCH ×3 (08:44→18:34)
[2022-01-28] MEDS: SEVELAMER 800 MG TAB PO SCH ×3 (08:44→18:34)
[2022-01-28] MEDS: ASPirin 81 mg TAB PO SCH (09:27)
[2022-01-28] MEDS: TICAGRELOR 60 MG TAB PO SCH ×2 (09:27→23:45)
[2022-01-28] MEDS: cefTRIAXone 1GM/50ML D5W 50 ML IV SCH (09:27)
[2022-01-28] MEDS: SERTRALINE HCL 50 MG TAB PO SCH (09:28)
[2022-01-28] MEDS: PANTOPRAZOLE 40 MG TAB PO SCH (09:28)
[2022-01-28] MEDS: amLODIPine BESYLATE 5 MG TAB PO SCH (09:28)
[2022-01-28] MEDS: TEMAZEPAM 15 MG CAP PO SCH (23:44)
[2022-01-28] MEDS: ATORVASTATIN 20 MG TAB PO SCH (23:44)
[2022-01-29] MEDS: INSULIN LANTUS (GLARGINE) 1 /0.01ml (100units/ml) SC SCH ×2 (00:04→22:13)
[2022-01-29] MEDS: InsuLIN REG 1unit/0.01ml Soln (100units/ml) SC SCH ×5 (00:07→22:00)
[2022-01-29] MEDS: hydrALAZINE HCL 25 MG TAB PO SCH ×4 (01:26→21:53)
[2022-01-29] MEDS: ACETAMINOPHEN 500 MG TAB PO PRN ×3 (01:33→21:16)
[2022-01-29 05:16] VITALS: BP 139/60
[2022-01-29] MEDS: ONDANSETRON ODT 4 MG TAB PO SCH ×3 (05:24→22:01)
[2022-01-29] MEDS: ISOSORBIDE MONONITRATE ER 60 MG TAB PO SCH (06:18)
[2022-01-29] MEDS: ACCU-CHEK COMFORT CURVE STRIP VI SCH ×5 (06:19→22:01)
[2022-01-29] MEDS ORDERED: SODIUM CHL 0.9% 1000 ML BAG XX ONE (07:00)
[2022-01-29] MEDS: SEVELAMER 800 MG TAB PO SCH ×3 (08:46→18:00)
[2022-01-29] MEDS: SERTRALINE HCL 50 MG TAB PO SCH (08:46)
[2022-01-29] MEDS: cefTRIAXone 1GM/50ML D5W 50 ML IV SCH (08:46)
[2022-01-29] MEDS: PANTOPRAZOLE 40 MG TAB PO SCH (08:47)
[2022-01-29] MEDS: ASPirin 81 mg TAB PO SCH (08:47)
[2022-01-29] MEDS: TICAGRELOR 60 MG TAB PO SCH ×2 (08:57→22:18)
[2022-01-29] MEDS: BACLOFEN 10 MG TAB PO PRN (08:57)
[2022-01-29] MEDS: amLODIPine BESYLATE 5 MG TAB PO SCH (08:57)
[2022-01-29 09:00] VITALS: BP 151/62
[2022-01-29] MEDS: HYDROmorphone HCL 2 MG/ML VL/or syr IV PRN (12:06)
[2022-01-29 12:55] VITALS: BP 156/76
[2022-01-29 16:58] VITALS: BP 144/66
[2022-01-29] MEDS ORDERED: EPOETIN ALFA-EPBX 10,000 UNIT/1ML VIAL SC ONE (21:00)
[2022-01-29 22:00] VITALS: BP 185/65
[2022-01-29] MEDS: TEMAZEPAM 15 MG CAP PO SCH (22:00)
[2022-01-29] MEDS: ATORVASTATIN 20 MG TAB PO SCH (22:00)
[2022-01-30] MEDS: TEMAZEPAM 15 MG CAP PO SCH ×2 (01:00→21:22)
[2022-01-30 05:00] VITALS: BP 154/61
[2022-01-30] MEDS: ONDANSETRON ODT 4 MG TAB PO SCH ×3 (06:28→21:22)
[2022-01-30] MEDS: ISOSORBIDE MONONITRATE ER 60 MG TAB PO SCH (06:29)
[2022-01-30] MEDS: InsuLIN REG 1unit/0.01ml Soln (100units/ml) SC SCH ×4 (06:33→21:24)
[2022-01-30] MEDS: ACCU-CHEK COMFORT CURVE STRIP VI SCH ×4 (06:33→21:24)
[2022-01-30] MEDS: SEVELAMER 800 MG TAB PO SCH ×3 (08:34→17:14)
[2022-01-30] MEDS: ASPirin 81 mg TAB PO SCH (08:35)
[2022-01-30] MEDS: PANTOPRAZOLE 40 MG TAB PO SCH (08:35)
[2022-01-30] MEDS: amLODIPine BESYLATE 5 MG TAB PO SCH (08:36)
[2022-01-30] MEDS: cefTRIAXone 1GM/50ML D5W 50 ML IV SCH (08:36)
[2022-01-30] MEDS: SERTRALINE HCL 50 MG TAB PO SCH (08:36)
[2022-01-30] MEDS: TICAGRELOR 60 MG TAB PO SCH ×2 (08:46→21:26)
[2022-01-30 09:00] VITALS: BP 169/70
[2022-01-30] MEDS: BACLOFEN 10 MG TAB PO PRN (10:28)
[2022-01-30] MEDS: hydrALAZINE HCL 25 MG TAB PO SCH ×2 (12:24→17:15)
[2022-01-30 13:00] VITALS: BP 171/67
[2022-01-30] MEDS: ACETAMINOPHEN 500 MG TAB PO PRN (14:27)
[2022-01-30 16:55] VITALS: BP 175/67
[2022-01-30 18:10] VITALS: BP 148/63
[2022-01-30 21:16] VITALS: BP 151/67
[2022-01-30] MEDS: ATORVASTATIN 20 MG TAB PO SCH (21:22)
[2022-01-30] MEDS: INSULIN LANTUS (GLARGINE) 1 /0.01ml (100units/ml) SC SCH (21:22)
[2022-01-30] MEDS: HYDROcodone-ACET 5/325MG TAB PO PRN (21:38)
[2022-01-31] MEDS: ONDANSETRON ODT 4 MG TAB PO SCH ×3 (05:21→22:06)
[2022-01-31] MEDS: HYDROcodone-ACET 5/325MG TAB PO PRN ×3 (05:54→18:11)
[2022-01-31 06:28] LABS: Basophils # (auto) 0 10 ^3/uL (0-0.2); Basophils % (auto) 0.3 % (0.0-2.0); Eosinophils # (auto) 0.3 10 ^3/uL (0-0.8); Eosinophils % (auto) 4.1 % (0.0-7.0); Hematocrit 26.1 % (36.0-46.0); Hemoglobin 8.6 g/dL (12.2-16.2); Lymphocytes % (auto) 13.4 % (10.0-50.0); Mean Corpuscular Hgb Conc. 32.9 g/dL (32.0-36.0); Mean Corpuscular Volume 85.1 fL (80.0-100.0); Monocytes # (auto) 0.7 10 ^3/uL (0-1.3); Monocytes % (auto) 8.7 % (0.0-12.0); Neutrophils # (auto) 5.7 10 ^3/uL (1.6-8.6); Neutrophils % (auto) 73.5 % (37.0-80.0); Nucleated Red Blood Cells % 0.1 %; Red Blood Cells 3.07 10^6/uL (4.0-5.20); Red Cell Distribution Width 15.7 % (11.8-14.3); White Blood Cell 7.7 10^3/uL (4.4-10.8)
[2022-01-31 06:30] VITALS: BP 144/61
[2022-01-31] MEDS: ISOSORBIDE MONONITRATE ER 60 MG TAB PO SCH (06:37)
[2022-01-31] MEDS: InsuLIN REG 1unit/0.01ml Soln (100units/ml) SC SCH ×4 (06:38→22:00)
[2022-01-31] MEDS: ACCU-CHEK COMFORT CURVE STRIP VI SCH ×4 (06:38→22:06)
[2022-01-31] MEDS: amLODIPine BESYLATE 5 MG TAB PO SCH (08:42)
[2022-01-31] MEDS: SEVELAMER 800 MG TAB PO SCH ×3 (08:42→18:10)
[2022-01-31] MEDS: cefTRIAXone 1GM/50ML D5W 50 ML IV SCH (08:43)
[2022-01-31] MEDS: PANTOPRAZOLE 40 MG TAB PO SCH (08:43)
[2022-01-31] MEDS: ASPirin 81 mg TAB PO SCH (08:43)
[2022-01-31] MEDS: SERTRALINE HCL 50 MG TAB PO SCH (08:43)
[2022-01-31] MEDS: hydrALAZINE HCL 25 MG TAB PO SCH ×3 (08:43→18:11)
[2022-01-31] MEDS: TICAGRELOR 60 MG TAB PO SCH ×2 (08:53→22:05)
[2022-01-31 09:00] VITALS: BP 159/76
[2022-01-31 13:00] VITALS: BP 171/64
[2022-01-31 16:54] VITALS: BP 143/68
[2022-01-31] MEDS: ATORVASTATIN 20 MG TAB PO SCH (22:05)
[2022-01-31] MEDS: TEMAZEPAM 15 MG CAP PO SCH (22:05)
[2022-01-31] MEDS: INSULIN LANTUS (GLARGINE) 1 /0.01ml (100units/ml) SC SCH (22:09)
[2022-01-31 23:08] LABS: INR 1.11 (0.9-1.15); Partial Thromboplastin Time 31.6 sec (24.6-33.4)
[2022-01-31 23:21] VITALS: BP 155/72
[2022-02-01] MEDS: HYDROcodone-ACET 5/325MG TAB PO PRN (03:55)
[2022-02-01] MEDS: ONDANSETRON ODT 4 MG TAB PO SCH ×3 (06:00→21:21)
[2022-02-01 06:03] LABS: BUN/Creatinine Ratio 4.2; Calcium 8.6 mg/dL (8.5-10.1); Potassium 3.7 mmol/L (3.5-5.1)
[2022-02-01] MEDS: ISOSORBIDE MONONITRATE ER 60 MG TAB PO SCH (06:03)
[2022-02-01 06:24] VITALS: BP 150/74
[2022-02-01] MEDS: InsuLIN REG 1unit/0.01ml Soln (100units/ml) SC SCH ×4 (07:00→21:29)
[2022-02-01] MEDS: ACCU-CHEK COMFORT CURVE STRIP VI SCH ×4 (07:00→21:21)
[2022-02-01] MEDS: SERTRALINE HCL 50 MG TAB PO SCH (08:27)
[2022-02-01] MEDS: ACETAMINOPHEN 500 MG TAB PO PRN ×3 (08:27→21:24)
[2022-02-01] MEDS: SEVELAMER 800 MG TAB PO SCH ×3 (08:27→18:18)
[2022-02-01] MEDS: PANTOPRAZOLE 40 MG TAB PO SCH (08:28)
[2022-02-01] MEDS: hydrALAZINE HCL 25 MG TAB PO SCH ×3 (08:28→18:00)
[2022-02-01] MEDS: ASPirin 81 mg TAB PO SCH (08:28)
[2022-02-01] MEDS: amLODIPine BESYLATE 5 MG TAB PO SCH (08:29)
[2022-02-01] MEDS: TICAGRELOR 60 MG TAB PO SCH ×2 (08:29→21:21)
[2022-02-01] MEDS: cefTRIAXone 1GM/50ML D5W 50 ML IV SCH (08:30)
[2022-02-01 09:00] VITALS: BP 157/71
[2022-02-01] MEDS ORDERED: SODIUM CHL 0.9% 1000 ML BAG XX ONE (10:00)
[2022-02-01 10:40] LABS: Hematocrit 25.9 % (36.0-46.0); Hemoglobin 8.5 g/dL (12.2-16.2)
[2022-02-01 12:48] VITALS: BP 149/75
[2022-02-01] MEDS ORDERED: VANCOMYCIN 1GM/250ML 250 ML IV ONE ×2 (16:00→20:00)
[2022-02-01 17:00] VITALS: BP 139/68
[2022-02-01] MEDS ORDERED: EPOETIN ALFA-EPBX 10,000 UNIT/1ML VIAL SC ONE (21:00)
[2022-02-01] MEDS: TEMAZEPAM 15 MG CAP PO SCH (21:21)
[2022-02-01] MEDS: ATORVASTATIN 20 MG TAB PO SCH (21:21)
[2022-02-01] MEDS: INSULIN LANTUS (GLARGINE) 1 /0.01ml (100units/ml) SC SCH (21:29)
[2022-02-01 22:00] VITALS: BP 153/56
[2022-02-02 05:00] VITALS: BP 125/55
[2022-02-02] MEDS: ONDANSETRON ODT 4 MG TAB PO SCH ×3 (05:32→21:51)
[2022-02-02] MEDS: ACETAMINOPHEN 500 MG TAB PO PRN (05:34)
[2022-02-02] MEDS: ISOSORBIDE MONONITRATE ER 60 MG TAB PO SCH (06:10)
[2022-02-02 06:16] LABS: BUN/Creatinine Ratio 2.9; Calcium 8.6 mg/dL (8.5-10.1); Potassium 3.4 mmol/L (3.5-5.1)
[2022-02-02] MEDS: InsuLIN REG 1unit/0.01ml Soln (100units/ml) SC SCH ×4 (06:39→21:52)
[2022-02-02] MEDS: ACCU-CHEK COMFORT CURVE STRIP VI SCH ×4 (06:39→21:52)
[2022-02-02 09:00] VITALS: BP 126/60
[2022-02-02] MEDS ORDERED: LIDOCAINE 1% (LOCAL ANESTH.) PF 5ml SDV ID ONE (09:30)
[2022-02-02] MEDS: ASPirin 81 mg TAB PO SCH (10:34)
[2022-02-02] MEDS: cefTRIAXone 1GM/50ML D5W 50 ML IV SCH (10:34)
[2022-02-02] MEDS: SERTRALINE HCL 50 MG TAB PO SCH (10:34)
[2022-02-02] MEDS: SEVELAMER 800 MG TAB PO SCH ×3 (10:34→18:42)
[2022-02-02] MEDS: amLODIPine BESYLATE 5 MG TAB PO SCH (10:35)
[2022-02-02] MEDS: PANTOPRAZOLE 40 MG TAB PO SCH (10:36)
[2022-02-02] MEDS: TICAGRELOR 60 MG TAB PO SCH ×2 (10:53→21:51)
[2022-02-02] MEDS: hydrALAZINE HCL 25 MG TAB PO SCH ×3 (10:54→18:00)
[2022-02-02] MEDS: SODIUM CHLOR 0.9% PF (SALINE LOCK) 10ML VIAL/SYR IV SCH ×2 (11:00→21:50)
[2022-02-02] MEDS ORDERED: SODIUM CHL 0.9% 1000 ML BAG XX ONE (11:45)
[2022-02-02 13:00] VITALS: BP 139/65
[2022-02-02] MEDS: HYDROmorphone HCL 2 MG/ML VL/or syr IV PRN ×2 (13:32→13:43)
[2022-02-02 16:53] VITALS: BP 113/58
[2022-02-02] MEDS ORDERED: EPOETIN ALFA-EPBX 10,000 UNIT/1ML VIAL SC ONE (21:00)
[2022-02-02 21:48] VITALS: BP 124/58
[2022-02-02] MEDS: HYDROcodone-ACET 5/325MG TAB PO PRN (21:50)
[2022-02-02] MEDS: ATORVASTATIN 20 MG TAB PO SCH (21:51)
[2022-02-02] MEDS: TEMAZEPAM 15 MG CAP PO SCH (21:51)
[2022-02-02] MEDS: INSULIN LANTUS (GLARGINE) 1 /0.01ml (100units/ml) SC SCH (21:52)
[2022-02-03 05:00] VITALS: BP 144/65
[2022-02-03] MEDS: ONDANSETRON ODT 4 MG TAB PO SCH ×2 (06:00→14:00)
[2022-02-03] MEDS: InsuLIN REG 1unit/0.01ml Soln (100units/ml) SC SCH ×2 (06:09→11:30)
[2022-02-03] MEDS: ACCU-CHEK COMFORT CURVE STRIP VI SCH ×2 (06:09→16:59)
[2022-02-03] MEDS: ISOSORBIDE MONONITRATE ER 60 MG TAB PO SCH (06:17)
[2022-02-03] MEDS: SEVELAMER 800 MG TAB PO SCH ×2 (08:00→12:00)
[2022-02-03] MEDS: ASPirin 81 mg TAB PO SCH (08:41)
[2022-02-03] MEDS: PANTOPRAZOLE 40 MG TAB PO SCH (08:41)
[2022-02-03] MEDS: amLODIPine BESYLATE 5 MG TAB PO SCH (08:43)
[2022-02-03] MEDS: SERTRALINE HCL 50 MG TAB PO SCH (08:44)
[2022-02-03] MEDS: cefTRIAXone 1GM/50ML D5W 50 ML IV SCH (08:44)
[2022-02-03] MEDS: hydrALAZINE HCL 25 MG TAB PO SCH ×2 (08:44→12:00)
[2022-02-03] MEDS: SODIUM CHLOR 0.9% PF (SALINE LOCK) 10ML VIAL/SYR IV SCH (08:45)
[2022-02-03] MEDS: TICAGRELOR 60 MG TAB PO SCH (08:45)
[2022-02-03 09:00] VITALS: BP 141/50
[2022-02-03 13:00] VITALS: BP 142/70
[2022-02-03] MEDS: HYDROmorphone HCL 2 MG/ML VL/or syr IV PRN (14:27)
[2022-02-03 16:15] VITALS: BP 144/64
== END 2022-02-03 16:30 | disposition home health service (06) | DRG 177 ==
LOC: ER 13:33 → OVERFLOW 20:12 → CENTRAL 23:25
PROVIDERS: ADMIT Internal Medicine Cardiovascular Disease; ATTEND Internal Medicine Cardiovascular Disease
PROC: 5A1D70Z Performance of Urinary Filtration, Intermittent, Less than 6 Hours Per Day (ICD-10-PCS; principal; 2022-01-25)
PROC: 5A1D70Z Performance of Urinary Filtration, Intermittent, Less than 6 Hours Per Day (ICD-10-PCS; 2022-01-27)
PROC: 5A1D70Z Performance of Urinary Filtration, Intermittent, Less than 6 Hours Per Day (ICD-10-PCS; 2022-01-29)
PROC: 5A1D70Z Performance of Urinary Filtration, Intermittent, Less than 6 Hours Per Day (ICD-10-PCS; 2022-02-01)
PROC: 5A1D70Z Performance of Urinary Filtration, Intermittent, Less than 6 Hours Per Day (ICD-10-PCS; 2022-02-02)
PROC: 02HV33Z Insertion of Infusion Device into Superior Vena Cava, Percutaneous Approach (ICD-10-PCS; 2022-02-02)
PROC: B548ZZA Ultrasonography of Superior Vena Cava, Guidance (ICD-10-PCS; 2022-02-02)
DX: J98.51 Mediastinitis (principal); N18.6 End stage renal disease; I13.2 Hypertensive heart and chronic kidney disease with heart failure and with stage 5 chronic kidney disease, or end stage renal disease; M86.9 Osteomyelitis, unspecified; I50.22 Chronic systolic (congestive) heart failure; N25.81 Secondary hyperparathyroidism of renal origin; G89.29 Other chronic pain; I25.10 Atherosclerotic heart disease of native coronary artery without angina pectoris; I25.5 Ischemic cardiomyopathy; K22.2 Esophageal obstruction; R07.2 Precordial pain; E11.40 Type 2 diabetes mellitus with diabetic neuropathy, unspecified; E11.59 Type 2 diabetes mellitus with other circulatory complications; Z20.822 Contact with and (suspected) exposure to COVID-19; E11.21 Type 2 diabetes mellitus with diabetic nephropathy; R09.89 Other specified symptoms and signs involving the circulatory and respiratory systems; D63.1 Anemia in chronic kidney disease; K21.00 Gastro-esophageal reflux disease with esophagitis, without bleeding; I48.91 Unspecified atrial fibrillation; E11.69 Type 2 diabetes mellitus with other specified complication; E11.22 Type 2 diabetes mellitus with diabetic chronic kidney disease; Z99.2 Dependence on renal dialysis; Z98.61 Coronary angioplasty status; Z90.710 Acquired absence of both cervix and uterus; Z86.73 Personal history of transient ischemic attack (TIA), and cerebral infarction without residual deficits; Z82.49 Family history of ischemic heart disease and other diseases of the circulatory system; Z79.02 Long term (current) use of antithrombotics/antiplatelets
CPT/HCPCS: 36415; 36569; 71045; 71046; 71275; 78315; 80048; 80053; 80202; 82306; 82565; 82962; 83880; 83970; 84100; 84484; 85014; 85018; 85025; 85610; 85730; 87040; 90935; 93005; 96365; 96368; G0378; J0696; J1815; J1885; Q0162

== ENCOUNTER → 2022-05-04 | Outpatient (CLI) | payer MEDICARE, MEDICAID ==
[~2022-05-04] MED LIST changes: +AMIO200T33 PO
== END | disposition home or self-care (01) ==
LOC: Rad HDHVI 12:36
PROVIDERS: ATTEND Internal Medicine Cardiovascular Disease
DX: I08.8 Other rheumatic multiple valve diseases (principal); R07.89 Other chest pain; R06.02 Shortness of breath
CPT/HCPCS: 93306

== ENCOUNTER 2022-06-21 03:10 | Emergency (ER) | payer MEDICARE, MEDICAID ==
[~2022-06-21] VITALS: Ht 170.2 cm; Wt 81.0 kg
[2022-06-21] MEDS ORDERED: OXYMETAZOLINE HCL 0.05 % NASAL SPRAY 15ML EACHNOSTRI ONE (04:00)
[2022-06-21 04:14] VITALS: BP 127/60
[2022-06-21] MEDS ORDERED: PERCOT PO (04:18)
[2022-06-21] MEDS ORDERED: AMOX500T86 PO (04:18)
[2022-06-21] MEDS ORDERED: OXYCODONE W/ ACETAMINOPHEN 5/325MG TABLET PO ONE (04:30)
== END 2022-06-21 04:41 | disposition home or self-care (01) ==
LOC: ER 03:10
DX: R04.0 Epistaxis (principal); E11.22 Type 2 diabetes mellitus with diabetic chronic kidney disease; N18.6 End stage renal disease; Z95.1 Presence of aortocoronary bypass graft; Z79.82 Long term (current) use of aspirin; Z79.899 Other long term (current) drug therapy; Z79.4 Long term (current) use of insulin
CPT/HCPCS: 30901

== ENCOUNTER 2022-07-28 08:52 | Inpatient (IN) | payer MEDICARE, MEDICAID ==
[2022-07-25 14:00] LABS: Basophils # (auto) 0 10 ^3/uL (0-0.2); Eosinophils # (auto) 0.1 10 ^3/uL (0-0.8); Eosinophils % (auto) 2.1 % (0.0-7.0); Hemoglobin 8.3 g/dL (12.2-16.2); Monocytes # (auto) 0.3 10 ^3/uL (0-1.3); Neutrophils # (auto) 3.2 10 ^3/uL (1.6-8.6)
[2022-07-25 14:02] LABS: Basophils % (auto) 0.6 % (0.0-2.0); Lymphocytes % (auto) 22.4 % (10.0-50.0); Mean Corpuscular Hemoglobin 29.8 pg (28.0-32.0); Mean Corpuscular Hgb Conc. 34.7 g/dL (32.0-36.0); Mean Corpuscular Volume 85.9 fL (80.0-100.0); Neutrophils % (auto) 68.9 % (37.0-80.0); Red Cell Distribution Width 15.9 % (11.8-14.3); White Blood Cell 4.7 10^3/uL (4.4-10.8)
[2022-07-25 14:17] LABS: INR 1.03 (0.9-1.15); Partial Thromboplastin Time 27.9 sec (24.6-33.4)
[2022-07-25 14:43] LABS: BUN/Creatinine Ratio 8.6; Calcium 8.9 mg/dL (8.5-10.1); Potassium 4.5 mmol/L (3.5-5.1)
[~2022-07-28] VITALS: Ht 170.2 cm; Wt 89.7 kg
[~2022-07-28 08:52] MED LIST changes: -AMIO200T33 PO; -NITR0.2D16 TD
[2022-07-28] MEDS ORDERED: ANGIOMAX 250 MG VIAL IV ONE (15:52)
[2022-07-28] MEDS ORDERED: fentaNYL CITRATE 100 MCG/2 ML VL ONE (15:52)
[2022-07-28] MEDS ORDERED: MIDAZOLAM HCL 2MG/2ML 2ml VIAL (1mg/ml) ONE ×2 (15:53→16:39)
[2022-07-28] MEDS ORDERED: SODIUM CHL 0.9% 50 ML ONE (15:53)
[2022-07-28] MEDS ORDERED: IODIXANOL 320MG/ML 100ML BTL IV ONE (16:04)
[2022-07-28] MEDS ORDERED: IOHEXOL 300 MG/ML 100ML BOTTLE IJ ONE (16:04)
[2022-07-28] MEDS ORDERED: HYDROmorphone HCL 2 MG/ML VL/or syr ONE (16:31)
[2022-07-28 17:18] VITALS: BP 154/66
[2022-07-28] MEDS ORDERED: DEXTROSE (50%) 50ML SYRG IV PRN (17:30)
[2022-07-28 17:33] VITALS: BP 138/65
[2022-07-28 17:48] VITALS: BP 138/66
[2022-07-28 18:03] VITALS: BP 141/68
[2022-07-28 18:18] VITALS: BP 151/69
[2022-07-28] MEDS: SEVELAMER 800 MG TAB PO SCH (20:08)
[2022-07-28] MEDS: hydrALAZINE HCL 25 MG TAB PO SCH (20:08)
[2022-07-28] MEDS: traMADol HCL 50 MG TAB PO PRN (20:09)
[2022-07-28 22:00] VITALS: BP 126/51
[2022-07-28] MEDS: TICAGRELOR 60 MG TAB PO SCH (22:00)
[2022-07-28] MEDS: TEMAZEPAM 15 MG CAP PO SCH (22:11)
[2022-07-28] MEDS: ACETAMINOPHEN 500 MG TAB PO PRN (22:12)
[2022-07-28] MEDS: ONDANSETRON ODT 4 MG TAB PO SCH (22:12)
[2022-07-28] MEDS: ATORVASTATIN 20 MG TAB PO SCH (22:13)
[2022-07-28] MEDS: InsuLIN REG 1unit/0.01ml Soln (100units/ml) SC SCH (22:14)
[2022-07-28] MEDS: INSULIN LANTUS (GLARGINE) 1 /0.01ml (100units/ml) SC SCH (22:15)
[2022-07-28] MEDS: ACCU-CHEK COMFORT CURVE STRIP VI SCH (22:16)
[2022-07-29] MEDS: traMADol HCL 50 MG TAB PO PRN ×2 (02:13→18:29)
[2022-07-29 05:00] VITALS: BP 139/59
[2022-07-29] MEDS: ISOSORBIDE MONONITRATE ER 60 MG TAB PO SCH (06:22)
[2022-07-29] MEDS: InsuLIN REG 1unit/0.01ml Soln (100units/ml) SC SCH ×4 (06:22→22:14)
[2022-07-29] MEDS: ONDANSETRON ODT 4 MG TAB PO SCH ×2 (06:22→14:42)
[2022-07-29] MEDS: ACCU-CHEK COMFORT CURVE STRIP VI SCH ×4 (06:23→22:02)
[2022-07-29 06:51] LABS: Potassium 4.1 mmol/L (3.5-5.1)
[2022-07-29 07:13] LABS: Albumin 3.1 g/dL (3.4-5.0); BUN/Creatinine Ratio 9.5; Calcium 8.6 mg/dL (8.5-10.1)
[2022-07-29 07:22] LABS: Bilirubin, Total 0.7 mg/dL (0.2-1.0); Total Protein 6.4 g/dL (6.4-8.2)
[2022-07-29] MEDS: hydrALAZINE HCL 25 MG TAB PO SCH ×3 (08:50→18:28)
[2022-07-29] MEDS: SEVELAMER 800 MG TAB PO SCH ×3 (08:50→18:27)
[2022-07-29 08:54] VITALS: BP 125/61
[2022-07-29 09:00] VITALS: BP 129/58
[2022-07-29] MEDS: ACETAMINOPHEN 500 MG TAB PO PRN ×2 (09:41→22:07)
[2022-07-29] MEDS: PANTOPRAZOLE 40 MG TAB PO SCH (10:28)
[2022-07-29] MEDS: ASPirin 81 mg TAB PO SCH (10:28)
[2022-07-29] MEDS: amLODIPine BESYLATE 5 MG TAB PO SCH (10:28)
[2022-07-29] MEDS: SERTRALINE HCL 50 MG TAB PO SCH (10:29)
[2022-07-29] MEDS: TICAGRELOR 60 MG TAB PO SCH ×2 (11:17→22:00)
[2022-07-29] MEDS ORDERED: HYDROmorphone HCL 2 MG/ML VL/or syr IV ONE (12:30)
[2022-07-29 13:00] VITALS: BP 123/48
[2022-07-29] MEDS ORDERED: KETOROLAC TROMETH 30 MG/ML 1ML VIAL IV ONE (14:30)
[2022-07-29] MEDS ORDERED: ONDANSETRON ODT 4 MG TAB PO PRN (16:45)
[2022-07-29 17:00] VITALS: BP 117/51
[2022-07-29 20:00] VITALS: BP 139/61
[2022-07-29] MEDS: INSULIN LANTUS (GLARGINE) 1 /0.01ml (100units/ml) SC SCH (22:00)
[2022-07-29] MEDS: ATORVASTATIN 20 MG TAB PO SCH (22:08)
[2022-07-29] MEDS: TEMAZEPAM 15 MG CAP PO SCH (22:08)
[2022-07-30 04:34] VITALS: BP 114/48
[2022-07-30 05:00] VITALS: BP 135/59
[2022-07-30] MEDS: ACCU-CHEK COMFORT CURVE STRIP VI SCH ×3 (06:07→17:00)
[2022-07-30] MEDS: InsuLIN REG 1unit/0.01ml Soln (100units/ml) SC SCH ×3 (06:07→17:00)
[2022-07-30] MEDS: ISOSORBIDE MONONITRATE ER 60 MG TAB PO SCH (06:12)
[2022-07-30] MEDS: traMADol HCL 50 MG TAB PO PRN ×2 (06:14→15:40)
[2022-07-30 08:12] VITALS: BP 114/54
[2022-07-30] MEDS: SEVELAMER 800 MG TAB PO SCH ×2 (08:20→12:26)
[2022-07-30] MEDS: hydrALAZINE HCL 25 MG TAB PO SCH ×2 (08:20→12:27)
[2022-07-30] MEDS: ASPirin 81 mg TAB PO SCH (10:24)
[2022-07-30] MEDS: PANTOPRAZOLE 40 MG TAB PO SCH (10:25)
[2022-07-30] MEDS: SERTRALINE HCL 50 MG TAB PO SCH (10:25)
[2022-07-30] MEDS: amLODIPine BESYLATE 5 MG TAB PO SCH (10:25)
[2022-07-30] MEDS: TICAGRELOR 60 MG TAB PO SCH (10:36)
[2022-07-30 13:00] VITALS: BP 122/56
== END 2022-07-30 17:00 | disposition home or self-care (01) | DRG 246 ==
LOC: CATH 08:52 → TELE-WESTW 15:56 → TELE-EAST 18:53
PROVIDERS: ADMIT Internal Medicine Cardiovascular Disease; ATTEND Internal Medicine Cardiovascular Disease
PROC: 027135Z Dilation of Coronary Artery, Two Arteries with Two Drug-eluting Intraluminal Devices, Percutaneous Approach (ICD-10-PCS; principal; 2022-07-28)
PROC: 02F03ZZ Fragmentation in Coronary Artery, One Artery, Percutaneous Approach (ICD-10-PCS; 2022-07-28)
PROC: B21FYZZ Fluoroscopy of Other Bypass Graft using Other Contrast (ICD-10-PCS; 2022-07-28)
PROC: 4A023N7 Measurement of Cardiac Sampling and Pressure, Left Heart, Percutaneous Approach (ICD-10-PCS; 2022-07-28)
DX: I25.10 Atherosclerotic heart disease of native coronary artery without angina pectoris (principal); N18.6 End stage renal disease; I13.2 Hypertensive heart and chronic kidney disease with heart failure and with stage 5 chronic kidney disease, or end stage renal disease; I50.32 Chronic diastolic (congestive) heart failure; T82.855A Stenosis of coronary artery stent, initial encounter; Z20.822 Contact with and (suspected) exposure to COVID-19; E11.22 Type 2 diabetes mellitus with diabetic chronic kidney disease; E11.40 Type 2 diabetes mellitus with diabetic neuropathy, unspecified; I25.5 Ischemic cardiomyopathy; I48.91 Unspecified atrial fibrillation; K21.00 Gastro-esophageal reflux disease with esophagitis, without bleeding; Y83.1 Surgical operation with implant of artificial internal device as the cause of abnormal reaction of the patient, or of later complication, without mention of misadventure at the time of the procedure; Z79.02 Long term (current) use of antithrombotics/antiplatelets; Z95.1 Presence of aortocoronary bypass graft; Z99.2 Dependence on renal dialysis
CPT/HCPCS: 36415; 70450; 80048; 80053; 82962; 85025; 85610; 85730; 92928; 92929; 93458; 99152; 99153; G0378; J1815; J1885; J2250; Q0162; Q9967

== ENCOUNTER 2022-09-28 19:02 | Inpatient (IN) | payer MEDICARE, MEDICAID ==
[~2022-09-28] VITALS: Ht 170.2 cm; Wt 90.5 kg
[2022-09-28 20:04] LABS: Basophils # (auto) 0 10 ^3/uL (0-0.2); Basophils % (auto) 0.2 % (0.0-2.0); Eosinophils # (auto) 0.2 10 ^3/uL (0-0.8); Hemoglobin 8.2 g/dL (12.2-16.2); Lymphocytes # (auto) 0.8 10 ^3/uL (0.4-5.4); Monocytes # (auto) 0.6 10 ^3/uL (0-1.3); Neutrophils # (auto) 6.3 10 ^3/uL (1.6-8.6)
[2022-09-28 20:06] LABS: Eosinophils % (auto) 2.1 % (0.0-7.0); Hematocrit 24.5 % (36.0-46.0); Lymphocytes % (auto) 10.3 % (10.0-50.0); Mean Corpuscular Hemoglobin 27.3 pg (28.0-32.0); Mean Corpuscular Hgb Conc. 33.6 g/dL (32.0-36.0); Mean Corpuscular Volume 81.4 fL (80.0-100.0); Monocytes % (auto) 7.3 % (0.0-12.0); Neutrophils % (auto) 80.1 % (37.0-80.0); Nucleated Red Blood Cells % 0.1 %; Red Blood Cells 3.01 10^6/uL (4.0-5.20); Red Cell Distribution Width 17.1 % (11.8-14.3); White Blood Cell 7.9 10^3/uL (4.4-10.8)
[2022-09-28 20:21] LABS: Albumin 3.1 g/dL (3.4-5.0); Calcium 8.8 mg/dL (8.5-10.1); Potassium 4.2 mmol/L (3.5-5.1)
[2022-09-28 20:24] LABS: Bilirubin, Total 0.4 mg/dL (0.2-1.0); Total Protein 7.9 g/dL (6.4-8.2)
[2022-09-29] MEDS ORDERED: OXYCODONE W/ ACETAMINOPHEN 5/325MG TABLET PO ONE (02:15)
[2022-09-29] MEDS ORDERED: HYDROmorphone HCL 2 MG/ML VL/or syr IV ONE (03:15)
[2022-09-29] MEDS ORDERED: SODIUM CHLORIDE 0.9% 250 ML IV ONE (03:15)
[2022-09-29] MEDS ORDERED: VANCOMYCIN 1GM/250ML 250 ML IV ONE (03:15)
[2022-09-29] MEDS ORDERED: KETOROLAC TROMETH 30 MG/ML 1ML VIAL IV PRN (08:15)
[2022-09-29] MEDS ORDERED: ACETAMINOPHEN 500 MG TAB PO PRN (11:30)
[2022-09-29] MEDS ORDERED: NITROGLYCERIN 0.4 MG SL TAB SL SCH (11:30)
[2022-09-29] MEDS ORDERED: NITROGLYCERIN 0.4 MG SL TAB SL PRN (11:45)
[2022-09-29] MEDS ORDERED: MORPHINE SULFATE INJ 2 MG/ml SYRG IV PRN (11:45)
[2022-09-29] MEDS ORDERED: DEXTROSE (50%) 50ML SYRG IV PRN (11:45)
[2022-09-29] MEDS: KETOROLAC TROMETH 30 MG/ML 1ML VIAL IV PRN ×2 (12:32→20:04)
[2022-09-29] MEDS: SEVELAMER 800 MG TAB PO SCH ×2 (13:53→18:54)
[2022-09-29] MEDS: ONDANSETRON ODT 4 MG TAB PO SCH ×2 (14:00→22:00)
[2022-09-29] MEDS: traMADol HCL 50 MG TAB PO PRN (16:18)
[2022-09-29] MEDS: InsuLIN REG 1unit/0.01ml Soln (100units/ml) SC SCH ×2 (17:00→22:11)
[2022-09-29] MEDS: ACCU-CHEK COMFORT CURVE STRIP VI SCH ×2 (17:06→22:12)
[2022-09-29] MEDS: VERQUVO 5 MG PO SCH (22:00)
[2022-09-29] MEDS: ATORVASTATIN 20 MG TAB PO SCH (22:07)
[2022-09-29] MEDS: INSULIN LANTUS (GLARGINE) 1 /0.01ml (100units/ml) SC SCH (22:11)
[2022-09-30] MEDS: TEMAZEPAM 15 MG CAP PO PRN ×2 (00:51→22:30)
[2022-09-30] MEDS: ONDANSETRON ODT 4 MG TAB PO SCH ×3 (06:00→22:30)
[2022-09-30] MEDS: ACCU-CHEK COMFORT CURVE STRIP VI SCH ×4 (06:48→22:31)
[2022-09-30] MEDS: InsuLIN REG 1unit/0.01ml Soln (100units/ml) SC SCH ×4 (06:49→22:45)
[2022-09-30] MEDS: ISOSORBIDE MONONITRATE ER 60 MG TAB PO SCH (07:00)
[2022-09-30] MEDS: SEVELAMER 800 MG TAB PO SCH ×3 (08:00→18:54)
[2022-09-30 08:22] VITALS: BP 141/70
[2022-09-30] MEDS: amLODIPine BESYLATE 5 MG TAB PO SCH (10:00)
[2022-09-30] MEDS: VERQUVO 5 MG PO SCH ×2 (10:00→22:00)
[2022-09-30] MEDS: PANTOPRAZOLE 40 MG TAB PO SCH (10:36)
[2022-09-30] MEDS: SERTRALINE HCL 50 MG TAB PO SCH (10:36)
[2022-09-30] MEDS: KETOROLAC TROMETH 30 MG/ML 1ML VIAL IV PRN (10:45)
[2022-09-30] MEDS: CEFTRIAXONE SODIUM 2 GM in D5W 5% 100 ML IV SCH (11:01)
[2022-09-30 12:00] VITALS: BP 129/57
[2022-09-30] MEDS ORDERED: HYDR50TA15 PO (12:46)
[2022-09-30] MEDS ORDERED: PNEUMOCOCCAL VACC POLYS 25 MCG/0.5 ML VIAL IM ONE (13:00)
[2022-09-30 16:00] VITALS: BP 138/57
[2022-09-30] MEDS: HYDROmorphone HCL 2 MG/ML VL/or syr IV PRN (17:31)
[2022-09-30] MEDS ORDERED: PHENYLEPHRINE HCL 0.5 % NASAL SPRAY 15ML PRN (17:45)
[2022-09-30] MEDS ORDERED: EPOETIN ALFA-EPBX 4,000 UNIT/ML VIAL SC ONE (21:00)
[2022-09-30 22:00] VITALS: BP 129/51
[2022-09-30] MEDS: ATORVASTATIN 20 MG TAB PO SCH (22:31)
[2022-09-30] MEDS: INSULIN LANTUS (GLARGINE) 1 /0.01ml (100units/ml) SC SCH (22:46)
[2022-10-01] MEDS: HYDROmorphone HCL 2 MG/ML VL/or syr IV PRN ×3 (03:29→17:01)
[2022-10-01] MEDS: ONDANSETRON ODT 4 MG TAB PO SCH ×3 (05:04→21:42)
[2022-10-01 05:05] VITALS: BP 124/51
[2022-10-01] MEDS: InsuLIN REG 1unit/0.01ml Soln (100units/ml) SC SCH ×4 (07:00→21:47)
[2022-10-01] MEDS: ISOSORBIDE MONONITRATE ER 60 MG TAB PO SCH (07:03)
[2022-10-01] MEDS: ACCU-CHEK COMFORT CURVE STRIP VI SCH ×4 (07:04→21:42)
[2022-10-01] MEDS: SEVELAMER 800 MG TAB PO SCH ×3 (08:00→17:47)
[2022-10-01 09:00] VITALS: BP 143/47
[2022-10-01] MEDS: VERQUVO 5 MG PO SCH ×2 (10:00→21:43)
[2022-10-01] MEDS: CEFTRIAXONE SODIUM 2 GM in D5W 5% 100 ML IV SCH (10:21)
[2022-10-01] MEDS: SERTRALINE HCL 50 MG TAB PO SCH (10:21)
[2022-10-01] MEDS: PANTOPRAZOLE 40 MG TAB PO SCH (10:21)
[2022-10-01] MEDS: amLODIPine BESYLATE 5 MG TAB PO SCH (10:22)
[2022-10-01] MEDS ORDERED: D5W/SOD CHL 0.45%/KCL 20MEQ 1,000 ML IV SCH (11:30)
[2022-10-01 12:16] LABS: INR 1.08 (0.9-1.15); Partial Thromboplastin Time 31.6 sec (24.6-33.4)
[2022-10-01] MEDS ORDERED: PHENYLEPHRINE HCL 1 % NASAL SPRAY 15ML PRN (12:30)
[2022-10-01 13:00] VITALS: BP 101/38
[2022-10-01 16:46] VITALS: BP 115/49
[2022-10-01] MEDS: ATORVASTATIN 20 MG TAB PO SCH (21:42)
[2022-10-01] MEDS: INSULIN LANTUS (GLARGINE) 1 /0.01ml (100units/ml) SC SCH (21:55)
[2022-10-01 22:33] VITALS: BP 124/49
[2022-10-02] MEDS: HYDROmorphone HCL 2 MG/ML VL/or syr IV PRN ×4 (00:07→21:29)
[2022-10-02 05:00] VITALS: BP 111/36
[2022-10-02] MEDS: ONDANSETRON ODT 4 MG TAB PO SCH ×3 (06:00→21:23)
[2022-10-02] MEDS: ACCU-CHEK COMFORT CURVE STRIP VI SCH ×4 (06:32→21:29)
[2022-10-02] MEDS: InsuLIN REG 1unit/0.01ml Soln (100units/ml) SC SCH ×4 (06:32→21:44)
[2022-10-02] MEDS: ISOSORBIDE MONONITRATE ER 60 MG TAB PO SCH (06:38)
[2022-10-02] MEDS: SEVELAMER 800 MG TAB PO SCH ×3 (08:00→17:40)
[2022-10-02 09:00] VITALS: BP 132/55
[2022-10-02] MEDS: CEFTRIAXONE SODIUM 2 GM in D5W 5% 100 ML IV SCH (09:33)
[2022-10-02] MEDS: VERQUVO 5 MG PO SCH ×2 (09:34→22:00)
[2022-10-02] MEDS: PANTOPRAZOLE 40 MG TAB PO SCH (09:34)
[2022-10-02] MEDS: SERTRALINE HCL 50 MG TAB PO SCH (09:34)
[2022-10-02] MEDS: amLODIPine BESYLATE 5 MG TAB PO SCH (09:34)
[2022-10-02 13:00] VITALS: BP 126/51
[2022-10-02 17:00] VITALS: BP 123/50
[2022-10-02] MEDS: ATORVASTATIN 20 MG TAB PO SCH (21:23)
[2022-10-02] MEDS: INSULIN LANTUS (GLARGINE) 1 /0.01ml (100units/ml) SC SCH (21:44)
[2022-10-02 22:00] VITALS: BP 142/49
[2022-10-03] VITALS (10 sets, daily range): BP systolic 134–168; BP diastolic 48–86
[2022-10-03] MEDS: HYDROmorphone HCL 2 MG/ML VL/or syr IV PRN ×3 (04:21→20:27)
[2022-10-03 05:29] LABS: Albumin 3.3 g/dL (3.4-5.0); Potassium 4.7 mmol/L (3.5-5.1)
[2022-10-03 05:34] LABS: BUN/Creatinine Ratio 8.2 (10.0-20.0); Bilirubin, Total 0.3 mg/dL (0.2-1.0); Calcium 8.5 mg/dL (8.5-10.1); Total Protein 7.8 g/dL (6.4-8.2)
[2022-10-03] MEDS: ONDANSETRON ODT 4 MG TAB PO SCH ×3 (05:54→21:33)
[2022-10-03] MEDS: ISOSORBIDE MONONITRATE ER 60 MG TAB PO SCH (06:08)
[2022-10-03] MEDS: ACCU-CHEK COMFORT CURVE STRIP VI SCH ×4 (06:22→21:34)
[2022-10-03] MEDS: InsuLIN REG 1unit/0.01ml Soln (100units/ml) SC SCH ×4 (06:23→21:33)
[2022-10-03 06:25] LABS: Basophils # (auto) 0 10 ^3/uL (0-0.2); Basophils % (auto) 0.1 % (0.0-2.0); Eosinophils # (auto) 0.1 10 ^3/uL (0-0.8); Eosinophils % (auto) 1.4 % (0.0-7.0); Hematocrit 20.4 % (36.0-46.0); Lymphocytes # (auto) 0.6 10 ^3/uL (0.4-5.4); Lymphocytes % (auto) 8.1 % (10.0-50.0); Mean Corpuscular Hemoglobin 27.1 pg (28.0-32.0); Mean Corpuscular Hgb Conc. 33.1 g/dL (32.0-36.0); Mean Corpuscular Volume 81.9 fL (80.0-100.0); Monocytes # (auto) 0.5 10 ^3/uL (0-1.3); Monocytes % (auto) 6.9 % (0.0-12.0); Neutrophils # (auto) 5.8 10 ^3/uL (1.6-8.6); Neutrophils % (auto) 83.5 % (37.0-80.0); Nucleated Red Blood Cells % 0.1 %; Red Blood Cells 2.49 10^6/uL (4.0-5.20); Red Cell Distribution Width 16.6 % (11.8-14.3); White Blood Cell 6.9 10^3/uL (4.4-10.8)
[2022-10-03 06:53] LABS: Hemoglobin 6.8 g/dL (12.2-16.2)
[2022-10-03] MEDS: SEVELAMER 800 MG TAB PO SCH ×3 (08:35→18:01)
[2022-10-03] MEDS: CEFTRIAXONE SODIUM 2 GM in D5W 5% 100 ML IV SCH (09:01)
[2022-10-03] MEDS: amLODIPine BESYLATE 5 MG TAB PO SCH (09:51)
[2022-10-03] MEDS: PANTOPRAZOLE 40 MG TAB PO SCH (09:51)
[2022-10-03] MEDS: SERTRALINE HCL 50 MG TAB PO SCH (09:51)
[2022-10-03] MEDS: VERQUVO 5 MG PO SCH ×2 (09:51→21:49)
[2022-10-03] MEDS: ATORVASTATIN 20 MG TAB PO SCH (21:33)
[2022-10-03] MEDS: DOCUSATE SOD 100 MG CAP PO SCH (21:33)
[2022-10-03] MEDS: INSULIN LANTUS (GLARGINE) 1 /0.01ml (100units/ml) SC SCH (21:35)
[2022-10-04] MEDS: HYDROmorphone HCL 2 MG/ML VL/or syr IV PRN ×4 (00:38→20:32)
[2022-10-04 05:00] VITALS: BP 135/60
[2022-10-04] MEDS: InsuLIN REG 1unit/0.01ml Soln (100units/ml) SC SCH ×4 (06:17→22:00)
[2022-10-04] MEDS: ISOSORBIDE MONONITRATE ER 60 MG TAB PO SCH (06:21)
[2022-10-04] MEDS: ONDANSETRON ODT 4 MG TAB PO SCH ×3 (06:22→22:12)
[2022-10-04 08:00] VITALS: BP 162/73
[2022-10-04] MEDS: SEVELAMER 800 MG TAB PO SCH ×3 (08:00→17:30)
[2022-10-04 08:45] LABS: Basophils # (auto) 0 10 ^3/uL (0-0.2); Basophils % (auto) 0.5 % (0.0-2.0); Eosinophils # (auto) 0.2 10 ^3/uL (0-0.8); Hematocrit 28.5 % (36.0-46.0); Hemoglobin 9.4 g/dL (12.2-16.2); Lymphocytes # (auto) 0.5 10 ^3/uL (0.4-5.4); Lymphocytes % (auto) 10.9 % (10.0-50.0); Mean Corpuscular Hemoglobin 27.6 pg (28.0-32.0); Mean Corpuscular Hgb Conc. 33.1 g/dL (32.0-36.0); Mean Corpuscular Volume 83.4 fL (80.0-100.0); Monocytes # (auto) 0.5 10 ^3/uL (0-1.3); Monocytes % (auto) 10.1 % (0.0-12.0); Neutrophils # (auto) 3.5 10 ^3/uL (1.6-8.6); Neutrophils % (auto) 74.5 % (37.0-80.0); Nucleated Red Blood Cells % 0.1 %; Red Blood Cells 3.42 10^6/uL (4.0-5.20); White Blood Cell 4.6 10^3/uL (4.4-10.8)
[2022-10-04 09:05] LABS: INR 1.18 (0.9-1.15); Partial Thromboplastin Time 31.4 sec (24.6-33.4)
[2022-10-04 09:46] LABS: Potassium 4.4 mmol/L (3.5-5.1)
[2022-10-04 09:59] LABS: Albumin 3.2 g/dL (3.4-5.0); BUN/Creatinine Ratio 6.5 (10.0-20.0); Bilirubin, Total 0.6 mg/dL (0.2-1.0); Calcium 8.8 mg/dL (8.5-10.1)
[2022-10-04] MEDS: VERQUVO 5 MG PO SCH ×2 (10:00→22:00)
[2022-10-04] MEDS: PANTOPRAZOLE 40 MG TAB PO SCH (11:16)
[2022-10-04] MEDS: SERTRALINE HCL 50 MG TAB PO SCH (11:16)
[2022-10-04] MEDS: traMADol HCL 50 MG TAB PO PRN (11:17)
[2022-10-04] MEDS: amLODIPine BESYLATE 5 MG TAB PO SCH (11:24)
[2022-10-04] MEDS: CEFTRIAXONE SODIUM 2 GM in D5W 5% 100 ML IV SCH (11:25)
[2022-10-04] MEDS: DOCUSATE SOD 100 MG CAP PO SCH ×2 (11:27→22:12)
[2022-10-04] MEDS: ACCU-CHEK COMFORT CURVE STRIP VI SCH ×4 (11:35→22:13)
[2022-10-04 12:00] VITALS: BP 130/53
[2022-10-04 16:00] VITALS: BP 129/54
[2022-10-04 22:00] VITALS: BP 146/57
[2022-10-04] MEDS: ATORVASTATIN 20 MG TAB PO SCH (22:12)
[2022-10-04] MEDS: INSULIN LANTUS (GLARGINE) 1 /0.01ml (100units/ml) SC SCH (22:13)
[2022-10-05] MEDS: HYDROmorphone HCL 2 MG/ML VL/or syr IV PRN ×3 (03:15→15:23)
[2022-10-05 04:59] VITALS: BP 148/57
[2022-10-05] MEDS: ONDANSETRON ODT 4 MG TAB PO SCH ×2 (06:32→14:35)
[2022-10-05] MEDS: InsuLIN REG 1unit/0.01ml Soln (100units/ml) SC SCH ×2 (06:33→11:30)
[2022-10-05] MEDS: ISOSORBIDE MONONITRATE ER 60 MG TAB PO SCH (06:33)
[2022-10-05] MEDS: ACCU-CHEK COMFORT CURVE STRIP VI SCH ×2 (06:33→11:30)
[2022-10-05] MEDS ORDERED: SODIUM CHL 0.9% 1000 ML BAG XX ONE (07:00)
[2022-10-05 08:30] VITALS: BP 167/59
[2022-10-05] MEDS: CEFTRIAXONE SODIUM 2 GM in D5W 5% 100 ML IV SCH (09:14)
[2022-10-05] MEDS: SERTRALINE HCL 50 MG TAB PO SCH (09:15)
[2022-10-05] MEDS: SEVELAMER 800 MG TAB PO SCH ×2 (09:15→12:00)
[2022-10-05] MEDS: PANTOPRAZOLE 40 MG TAB PO SCH (09:15)
[2022-10-05] MEDS: DOCUSATE SOD 100 MG CAP PO SCH (09:16)
[2022-10-05] MEDS: amLODIPine BESYLATE 5 MG TAB PO SCH (09:16)
[2022-10-05] MEDS: VERQUVO 5 MG PO SCH (09:17)
[2022-10-05 13:11] VITALS: BP 132/60
[2022-10-05 15:43] VITALS: BP 132/60
[2022-10-05] MEDS ORDERED: EPOETIN ALFA-EPBX 10,000 UNIT/1ML VIAL SC ONE (21:00)
== END 2022-10-05 16:50 | disposition home or self-care (01) | DRG 177 ==
LOC: ER 19:02 → TELE 09-29 11:43 → TELE-CENTR 09-30 09:08
PROVIDERS: ADMIT Internal Medicine Cardiovascular Disease; ATTEND Internal Medicine Cardiovascular Disease
PROC: 5A1D70Z Performance of Urinary Filtration, Intermittent, Less than 6 Hours Per Day (ICD-10-PCS; 2022-09-30)
PROC: 5A1D70Z Performance of Urinary Filtration, Intermittent, Less than 6 Hours Per Day (ICD-10-PCS; principal; 2022-10-01)
PROC: 5A1D70Z Performance of Urinary Filtration, Intermittent, Less than 6 Hours Per Day (ICD-10-PCS; 2022-10-03)
PROC: 30233N1 Transfusion of Nonautologous Red Blood Cells into Peripheral Vein, Percutaneous Approach (ICD-10-PCS; 2022-10-03)
DX: J98.51 Mediastinitis (principal); N18.6 End stage renal disease; I13.2 Hypertensive heart and chronic kidney disease with heart failure and with stage 5 chronic kidney disease, or end stage renal disease; L03.818 Cellulitis of other sites; E87.1 Hypo-osmolality and hyponatremia; M86.8X8 Other osteomyelitis, other site; E11.69 Type 2 diabetes mellitus with other specified complication; E11.22 Type 2 diabetes mellitus with diabetic chronic kidney disease; B99.8 Other infectious disease; D64.9 Anemia, unspecified; I25.10 Atherosclerotic heart disease of native coronary artery without angina pectoris; I25.5 Ischemic cardiomyopathy; I48.91 Unspecified atrial fibrillation; K21.00 Gastro-esophageal reflux disease with esophagitis, without bleeding; R04.0 Epistaxis; I50.9 Heart failure, unspecified; Z20.822 Contact with and (suspected) exposure to COVID-19; E11.40 Type 2 diabetes mellitus with diabetic neuropathy, unspecified; Z79.02 Long term (current) use of antithrombotics/antiplatelets; Z82.3 Family history of stroke; Z82.49 Family history of ischemic heart disease and other diseases of the circulatory system; Z83.3 Family history of diabetes mellitus; Z95.1 Presence of aortocoronary bypass graft; Z99.2 Dependence on renal dialysis; Z79.899 Other long term (current) drug therapy
CPT/HCPCS: 36415; 71045; 71250; 78315; 80053; 82962; 85025; 85610; 85730; 86850; 86900; 86901; 86920; 87081; 90935; 93005; 96365; 96375; G0378; J0696; J1815; J1885; J7060; Q0162

== ENCOUNTER → 2022-11-03 | Outpatient (CLI) | payer MEDICARE, MEDICAID ==
[~2022-11-03] MED LIST changes: -ACET-1158 PO; +ACET500T58 PO; -AMLO-489 PO; +AMLO1TAB22 PO; +HYDR-4297 PO; -HYDR50TA15 PO; +SERT-206 PO; -SERT50TA19 PO; +VANCOMYCIN 1GM/250ML 250 ML IV ONE
[2022-11-03 13:01] VITALS: BP 175/56
[2022-11-03 14:16] VITALS: BP 147/60
== END | disposition home or self-care (01) ==
LOC: CHF HDHVI 12:59
PROVIDERS: ATTEND Internal Medicine Cardiovascular Disease
DX: L08.9 Local infection of the skin and subcutaneous tissue, unspecified (principal); I25.10 Atherosclerotic heart disease of native coronary artery without angina pectoris; K21.9 Gastro-esophageal reflux disease without esophagitis; I13.2 Hypertensive heart and chronic kidney disease with heart failure and with stage 5 chronic kidney disease, or end stage renal disease; E11.22 Type 2 diabetes mellitus with diabetic chronic kidney disease; N18.6 End stage renal disease; I50.9 Heart failure, unspecified; E11.40 Type 2 diabetes mellitus with diabetic neuropathy, unspecified; I48.91 Unspecified atrial fibrillation; Z99.2 Dependence on renal dialysis; Z79.02 Long term (current) use of antithrombotics/antiplatelets; Z79.899 Other long term (current) drug therapy
CPT/HCPCS: 96365; G0463; J3370

== ENCOUNTER → 2022-11-24 | Outpatient (CLI) | payer MEDICARE, MEDICAID ==
[~2022-11-24] MED LIST changes: -VANCOMYCIN 1GM/250ML 250 ML IV ONE
== END | disposition home or self-care (01) ==
LOC: Rad HDHVI 08:51
PROVIDERS: ATTEND Internal Medicine Cardiovascular Disease
DX: I08.0 Rheumatic disorders of both mitral and aortic valves (principal); I11.9 Hypertensive heart disease without heart failure
CPT/HCPCS: 93306

== ENCOUNTER → 2023-01-25 | Outpatient (CLI) | payer MEDICARE, MEDICAID | END | disposition home or self-care (01) | LOC: Rad HDHVI 10:04 | PROVIDERS: ATTEND Internal Medicine Cardiovascular Disease | DX: Z01.818 Encounter for other preprocedural examination (principal); M47.814 Spondylosis without myelopathy or radiculopathy, thoracic region | CPT/HCPCS: 71046 ==

== ENCOUNTER 2023-02-09 07:33 | Emergency (ER) | payer MEDICARE, MEDICAID ==
[~2023-02-09] VITALS: Ht 170.2 cm; Wt 92.4 kg
[2023-02-09 08:35] VITALS: BP 154/62; TEMP 97.9
[2023-02-09 10:01] LABS: Albumin 4.4 g/dL (3.2-4.8); Alkaline Phosphatase 270 U/L (46-116); Anion Gap 9 (5-15); Aspartate Aminotransferase 17 U/L (13-40); BUN/Creatinine Ratio 10.1 (10.0-20.0); Bilirubin, Total 0.3 mg/dL (0.2-1.0); Blood Urea Nitrogen 71 mg/dL (9-23); Calcium 9.2 mg/dL (8.5-10.1); Carbon Dioxide 31 mmol/L (20-30); Chloride 93 mmol/L (98-107); Glucose 235 mg/dL (74-106); Potassium 4.7 mmol/L (3.5-5.1); Sodium 133 mmol/L (136-145); Total Protein 8.5 g/dL (5.7-8.2)
[2023-02-09 10:04] LABS: Alanine Aminotransferase < 9 U/L (7-40)
[2023-02-09 10:08] LABS: Basophils # (auto) 0 10 ^3/uL (0-0.2); Basophils % (auto) 0.2 % (0.0-2.0); Eosinophils # (auto) 0.3 10 ^3/uL (0-0.8); Eosinophils % (auto) 5.1 % (0.0-7.0); Hematocrit 32.2 % (36.0-46.0); Hemoglobin 10.6 g/dL (12.2-16.2); Lymphocytes # (auto) 0.9 10 ^3/uL (0.4-5.4); Lymphocytes % (auto) 17.1 % (10.0-50.0); Mean Corpuscular Hemoglobin 27.9 pg (28.0-32.0); Mean Corpuscular Volume 84.4 fL (80.0-100.0); Monocytes # (auto) 0.3 10 ^3/uL (0-1.3); Monocytes % (auto) 5.5 % (0.0-12.0); Neutrophils # (auto) 3.8 10 ^3/uL (1.6-8.6); Neutrophils % (auto) 72.1 % (37.0-80.0); Nucleated Red Blood Cells % 0.1 %; Red Blood Cells 3.82 10^6/uL (4.0-5.20); Red Cell Distribution Width 16.7 % (11.8-14.3); White Blood Cell 5.3 10^3/uL (4.4-10.8)
[2023-02-09 10:18] LABS: INR 1.04 (0.9-1.15); Prothrombin Time 10.9 sec (9.3-11.8)
[2023-02-09 10:20] VITALS: PULSE 77; RESP 18; O2SAT 98
== END 2023-02-09 10:23 | disposition home or self-care (01) ==
LOC: ER 07:33
DX: Z45.2 Encounter for adjustment and management of vascular access device (principal); E11.22 Type 2 diabetes mellitus with diabetic chronic kidney disease; N18.6 End stage renal disease; Z99.2 Dependence on renal dialysis; Z95.1 Presence of aortocoronary bypass graft; Z79.82 Long term (current) use of aspirin; Z79.4 Long term (current) use of insulin; Z79.899 Other long term (current) drug therapy
CPT/HCPCS: 36415; 80053; 85025; 85610; 85730

== ENCOUNTER 2023-02-10 11:40 | Emergency (ER) | payer MEDICARE, MEDICAID ==
[~2023-02-10] VITALS: Ht 170.2 cm; Wt 90.0 kg
[2023-02-10 13:25] VITALS: BP 156/68; PULSE 77; RESP 18; TEMP 98.3; O2SAT 97
[2023-02-10] MEDS ORDERED: LIDOCAINE 1% (LOCAL ANESTH.) PF 5ml SDV ID ONE (14:15)
[2023-02-10] MEDS ORDERED: SODIUM CHLOR 0.9% PF (SALINE LOCK) 10ML VIAL/SYR IV SCH (22:00)
== END 2023-02-10 15:00 | disposition home or self-care (01) ==
LOC: ER 11:40
DX: T82.898A Other specified complication of vascular prosthetic devices, implants and grafts, initial encounter (principal); E11.9 Type 2 diabetes mellitus without complications; Z79.899 Other long term (current) drug therapy; Z79.82 Long term (current) use of aspirin; Z98.890 Other specified postprocedural states
CPT/HCPCS: 36569; 71045; 96374; 99285; C1751; J7050

== ENCOUNTER → 2023-03-03 | Outpatient (CLI) | payer MEDICARE, MEDICAID | END | disposition home or self-care (01) | LOC: Rad HDHVI 15:33 | PROVIDERS: ATTEND Internal Medicine Cardiovascular Disease | DX: R06.02 Shortness of breath (principal) | CPT/HCPCS: 71046 ==

== ENCOUNTER 2023-05-22 12:50 | Inpatient (IN) | payer MEDICARE, MEDICAID ==
[~2023-05-22] VITALS: Ht 167.6 cm; Wt 94.2 kg
[2023-05-22 14:36] LABS: Basophils # (auto) 0 10 ^3/uL (0-0.2); Basophils % (auto) 0.2 % (0.0-2.0); Eosinophils # (auto) 0.2 10 ^3/uL (0-0.8); Eosinophils % (auto) 2.5 % (0.0-7.0); Hematocrit 38.8 % (36.0-46.0); Hemoglobin 12.7 g/dL (12.2-16.2); Lymphocytes # (auto) 0.9 10 ^3/uL (0.4-5.4); Lymphocytes % (auto) 14.3 % (10.0-50.0); Mean Corpuscular Hemoglobin 27.8 pg (28.0-32.0); Mean Corpuscular Hgb Conc. 32.9 g/dL (32.0-36.0); Mean Corpuscular Volume 84.5 fL (80.0-100.0); Monocytes # (auto) 0.4 10 ^3/uL (0-1.3); Monocytes % (auto) 6.5 % (0.0-12.0); Neutrophils # (auto) 4.9 10 ^3/uL (1.6-8.6); Neutrophils % (auto) 76.5 % (37.0-80.0); Red Blood Cells 4.59 10^6/uL (4.0-5.20); Red Cell Distribution Width 15.8 % (11.8-14.3); White Blood Cell 6.4 10^3/uL (4.4-10.8)
[2023-05-22 14:43] LABS: Chloride 87 mmol/L (98-107); Potassium 4.4 mmol/L (3.5-5.1); Sodium 126 mmol/L (136-145)
[2023-05-22 14:44] LABS: Anion Gap 12 (5-15); Calcium 9.6 mg/dL (8.5-10.1); Carbon Dioxide 27 mmol/L (20-30)
[2023-05-22 14:49] LABS: BUN/Creatinine Ratio 8.3 (10.0-20.0); Blood Urea Nitrogen 72 mg/dL (9-23); Glucose 340 mg/dL (74-106)
[2023-05-22] MEDS ORDERED: ONDANSETRON HCL 4 MG/2 ML VIAL IV PRN (17:30)
[2023-05-22] MEDS ORDERED: NITROGLYCERIN 0.4 MG SL TAB SL PRN (17:30)
[2023-05-22] MEDS ORDERED: DOCUSATE SOD 100 MG CAP PO PRN (17:30)
[2023-05-22] MEDS ORDERED: MORPHINE SULFATE INJ 2 MG/ml SYRG IV PRN (17:30)
[2023-05-22] MEDS ORDERED: DEXTROSE (50%) 50ML SYRG IV PRN (17:30)
[2023-05-22] MEDS ORDERED: ACETAMINOPHEN 325 MG TAB PO PRN (17:30)
[2023-05-22] MEDS ORDERED: hydrALAZINE HCL 20 MG/ML VL IV PRN (19:00)
[2023-05-22] MEDS ORDERED: hydrOXYzine HCL 10 MG TAB PO PRN (19:00)
[2023-05-22] MEDS ORDERED: TEMAZEPAM 15 MG CAP PO PRN (19:15)
[2023-05-22] MEDS: TICAGRELOR 60 MG TAB PO SCH (22:00)
[2023-05-22] MEDS: ACCU-CHEK COMFORT CURVE STRIP VI SCH (22:00)
[2023-05-22] MEDS: InsuLIN REG 1unit/0.01ml Soln (100units/ml) SC SCH (22:00)
[2023-05-22] MEDS: ATORVASTATIN 20 MG TAB PO SCH (22:00)
[2023-05-23] VITALS (7 sets, daily range): BP systolic 130–176; BP diastolic 49–81; PULSE 70–77; RESP 16–18; TEMP 97.7–98; O2SAT 97–100
[2023-05-23 06:52] LABS: Basophils # (auto) 0 10 ^3/uL (0-0.2); Basophils % (auto) 0.3 % (0.0-2.0); Eosinophils # (auto) 0.2 10 ^3/uL (0-0.8); Hematocrit 39.6 % (36.0-46.0); Lymphocytes # (auto) 1.1 10 ^3/uL (0.4-5.4); Lymphocytes % (auto) 15.3 % (10.0-50.0); Mean Corpuscular Hemoglobin 27.5 pg (28.0-32.0); Mean Corpuscular Hgb Conc. 32.7 g/dL (32.0-36.0); Mean Corpuscular Volume 84.1 fL (80.0-100.0); Monocytes # (auto) 0.5 10 ^3/uL (0-1.3); Monocytes % (auto) 6.6 % (0.0-12.0); Neutrophils # (auto) 5.7 10 ^3/uL (1.6-8.6); Neutrophils % (auto) 75.8 % (37.0-80.0); Red Blood Cells 4.71 10^6/uL (4.0-5.20); Red Cell Distribution Width 15.6 % (11.8-14.3); White Blood Cell 7.5 10^3/uL (4.4-10.8)
[2023-05-23 07:09] LABS: Alanine Aminotransferase 13 U/L (7-40); Albumin 4.3 g/dL (3.2-4.8); Alkaline Phosphatase 379 U/L (46-116); Anion Gap 16 (5-15); Aspartate Aminotransferase 16 U/L (13-40); BUN/Creatinine Ratio 7.8 (10.0-20.0); Bilirubin, Total 0.6 mg/dL (0.2-1.0); Blood Urea Nitrogen 76 mg/dL (9-23); Carbon Dioxide 25 mmol/L (20-30); Chloride 88 mmol/L (98-107); Glucose 145 mg/dL (74-106); Potassium 3.8 mmol/L (3.5-5.1); Sodium 129 mmol/L (136-145); Total Protein 8.1 g/dL (5.7-8.2)
[2023-05-23] MEDS: ISOSORBIDE MONONITRATE ER 60 MG TAB PO SCH (07:18)
[2023-05-23] MEDS: ACCU-CHEK COMFORT CURVE STRIP VI SCH ×4 (07:23→20:57)
[2023-05-23] MEDS: InsuLIN REG 1unit/0.01ml Soln (100units/ml) SC SCH ×4 (07:26→21:03)
[2023-05-23 08:50] LABS: INR 1.09 (0.9-1.15); Prothrombin Time 11.4 sec (9.3-11.8)
[2023-05-23] MEDS: ASPirin 81 mg TAB PO SCH (09:40)
[2023-05-23] MEDS: PANTOPRAZOLE 40 MG TAB PO SCH (09:40)
[2023-05-23] MEDS: ENOXAPARIN SOD 30 MG/0.3 ML SYRINGE SC SCH (09:41)
[2023-05-23] MEDS: SERTRALINE HCL 50 MG TAB PO SCH (09:41)
[2023-05-23] MEDS: HYDROcodone-ACET 5/325MG TAB PO PRN ×2 (09:41→23:15)
[2023-05-23] MEDS: SEVELAMER 800 MG TAB PO SCH ×3 (09:42→17:34)
[2023-05-23] MEDS: TICAGRELOR 60 MG TAB PO SCH ×2 (09:42→21:03)
[2023-05-23] MEDS ORDERED: LORazepam 2MG/ML-1ML VIAL IV PRN (10:00)
[2023-05-23 10:11] LABS: Triglycerides 154 mg/dL (< 150)
[2023-05-23 10:12] LABS: LDL Cholesterol 75 mg/dL (< 100)
[2023-05-23 10:13] LABS: Cholesterol 138 mg/dL (< 200); HDL Cholesterol 35 mg/dL (40-59)
[2023-05-23] MEDS ORDERED: BREX1TAB4 PO (10:26)
[2023-05-23] MEDS ORDERED: SERT150C PO (10:26)
[2023-05-23 11:27] LABS: Folate (Folic Acid) > 24.00 ng/mL (>5.38)
[2023-05-23] MEDS: cloNIDine HCL 0.1 MG TAB PO PRN (16:51)
[2023-05-23] MEDS: ATORVASTATIN 20 MG TAB PO SCH (20:57)
[2023-05-24] VITALS (7 sets, daily range): BP systolic 116–168; BP diastolic 54–61; PULSE 67–77; RESP 18–22; TEMP 97.3–98.1; O2SAT 95–98
[2023-05-24] MEDS: InsuLIN REG 1unit/0.01ml Soln (100units/ml) SC SCH ×4 (06:16→21:21)
[2023-05-24] MEDS: ACCU-CHEK COMFORT CURVE STRIP VI SCH ×4 (06:16→21:22)
[2023-05-24 06:17] LABS: Hematocrit 35.1 % (36.0-46.0); Hemoglobin 11.7 g/dL (12.2-16.2)
[2023-05-24] MEDS: ISOSORBIDE MONONITRATE ER 60 MG TAB PO SCH (06:17)
[2023-05-24 06:40] LABS: % Iron Saturation 18.8 % (15-50)
[2023-05-24] MEDS ORDERED: SODIUM CHL 0.9% 1000 ML BAG XX ONE (07:00)
[2023-05-24] MEDS: SEVELAMER 800 MG TAB PO SCH ×3 (08:00→18:14)
[2023-05-24] MEDS: HYDROmorphone HCL 2 MG/ML VL/or syr IV PRN ×2 (09:35→20:36)
[2023-05-24] MEDS: cloNIDine HCL 0.1 MG TAB PO PRN (09:36)
[2023-05-24] MEDS: ENOXAPARIN SOD 30 MG/0.3 ML SYRINGE SC SCH (09:36)
[2023-05-24] MEDS: SERTRALINE HCL 50 MG TAB PO SCH (09:36)
[2023-05-24] MEDS: ASPirin 81 mg TAB PO SCH (09:36)
[2023-05-24] MEDS: PANTOPRAZOLE 40 MG TAB PO SCH (10:00)
[2023-05-24] MEDS: TICAGRELOR 60 MG TAB PO SCH ×2 (10:00→20:47)
[2023-05-24] MEDS: ATORVASTATIN 20 MG TAB PO SCH (20:38)
[2023-05-25] VITALS (7 sets, daily range): BP systolic 111–154; BP diastolic 49–67; PULSE 65–75; RESP 12–20; TEMP 97.6–98.6; O2SAT 95–98
[2023-05-25] MEDS: HYDROmorphone HCL 2 MG/ML VL/or syr IV PRN ×3 (04:39→22:43)
[2023-05-25] MEDS: ISOSORBIDE MONONITRATE ER 60 MG TAB PO SCH (05:40)
[2023-05-25] MEDS: InsuLIN REG 1unit/0.01ml Soln (100units/ml) SC SCH ×4 (06:26→21:41)
[2023-05-25] MEDS: ACCU-CHEK COMFORT CURVE STRIP VI SCH ×4 (06:28→21:40)
[2023-05-25] MEDS: SEVELAMER 800 MG TAB PO SCH ×3 (08:23→18:43)
[2023-05-25] MEDS: cefTRIAXone 1GM/50ML D5W 50 ML IV SCH (08:32)
[2023-05-25] MEDS: SERTRALINE HCL 50 MG TAB PO SCH (09:53)
[2023-05-25] MEDS: PANTOPRAZOLE 40 MG TAB PO SCH (09:53)
[2023-05-25] MEDS: ASPirin 81 mg TAB PO SCH (09:53)
[2023-05-25] MEDS: ENOXAPARIN SOD 30 MG/0.3 ML SYRINGE SC SCH (09:54)
[2023-05-25] MEDS: TICAGRELOR 60 MG TAB PO SCH ×2 (10:33→21:49)
[2023-05-25] MEDS: ATORVASTATIN 20 MG TAB PO SCH (21:51)
[2023-05-26 05:00] VITALS: BP 146/55; PULSE 70; RESP 16; TEMP 97.8; O2SAT 97
[2023-05-26] MEDS: HYDROmorphone HCL 2 MG/ML VL/or syr IV PRN ×2 (05:21→11:18)
[2023-05-26 05:58] LABS: Hematocrit 36.3 % (36.0-46.0); Hemoglobin 11.7 g/dL (12.2-16.2)
[2023-05-26] MEDS: ACCU-CHEK COMFORT CURVE STRIP VI SCH ×2 (06:13→11:17)
[2023-05-26] MEDS: InsuLIN REG 1unit/0.01ml Soln (100units/ml) SC SCH ×2 (06:15→11:40)
[2023-05-26] MEDS: ISOSORBIDE MONONITRATE ER 60 MG TAB PO SCH (06:28)
[2023-05-26] MEDS ORDERED: SODIUM CHL 0.9% 1000 ML BAG XX ONE (07:00)
[2023-05-26 08:00] VITALS: PULSE 71; PULSE 75; RESP 18; O2SAT 98
[2023-05-26] MEDS: SEVELAMER 800 MG TAB PO SCH ×2 (08:05→11:52)
[2023-05-26 08:35] VITALS: BP 140/67; PULSE 69; RESP 20; TEMP 98.2; O2SAT 94
[2023-05-26] MEDS: cefTRIAXone 1GM/50ML D5W 50 ML IV SCH (08:44)
[2023-05-26] MEDS: SERTRALINE HCL 50 MG TAB PO SCH (09:27)
[2023-05-26] MEDS: ASPirin 81 mg TAB PO SCH (09:27)
[2023-05-26] MEDS: PANTOPRAZOLE 40 MG TAB PO SCH (09:27)
[2023-05-26] MEDS: TICAGRELOR 60 MG TAB PO SCH (09:32)
[2023-05-26] MEDS: ENOXAPARIN SOD 30 MG/0.3 ML SYRINGE SC SCH (09:32)
[2023-05-26 12:35] VITALS: BP 149/72; PULSE 65; RESP 18; TEMP 97.9; O2SAT 96
[2023-05-26 14:16] LABS: Chloride 93 mmol/L (98-107); Potassium 4.4 mmol/L (3.5-5.1); Sodium 132 mmol/L (136-145)
[2023-05-26 14:17] LABS: Anion Gap 11 (5-15); Carbon Dioxide 28 mmol/L (20-30)
[2023-05-26 14:18] LABS: Calcium 9.2 mg/dL (8.5-10.1)
[2023-05-26 14:22] LABS: BUN/Creatinine Ratio 6.4 (10.0-20.0); Blood Urea Nitrogen 66 mg/dL (9-23); Glucose 158 mg/dL (74-106)
[2023-05-26 14:35] VITALS: BP 147/57; TEMP 36.6
[2023-05-26] MEDS ORDERED: EPOETIN ALFA-EPBX 10,000 UNIT/1ML VIAL SC ONE (21:00)
== END 2023-05-26 16:01 | disposition home or self-care (01) | DRG 149 ==
LOC: ER 12:50 → TELE 17:35 → TELE-WESTW 05-23 09:10
PROVIDERS: ADMIT Internal Medicine; ATTEND Internal Medicine Cardiovascular Disease
PROC: 5A1D70Z Performance of Urinary Filtration, Intermittent, Less than 6 Hours Per Day (ICD-10-PCS; principal; 2023-05-24)
DX: H81.4 Vertigo of central origin (principal); J98.51 Mediastinitis; N18.6 End stage renal disease; E87.1 Hypo-osmolality and hyponatremia; I50.20 Unspecified systolic (congestive) heart failure; I13.2 Hypertensive heart and chronic kidney disease with heart failure and with stage 5 chronic kidney disease, or end stage renal disease; I69.351 Hemiplegia and hemiparesis following cerebral infarction affecting right dominant side; R25.3 Fasciculation; E78.5 Hyperlipidemia, unspecified; G56.01 Carpal tunnel syndrome, right upper limb; I25.10 Atherosclerotic heart disease of native coronary artery without angina pectoris; F41.9 Anxiety disorder, unspecified; D63.1 Anemia in chronic kidney disease; I25.5 Ischemic cardiomyopathy; H55.00 Unspecified nystagmus; E11.22 Type 2 diabetes mellitus with diabetic chronic kidney disease; F17.200 Nicotine dependence, unspecified, uncomplicated; Z82.49 Family history of ischemic heart disease and other diseases of the circulatory system; Z79.899 Other long term (current) drug therapy; Z95.1 Presence of aortocoronary bypass graft; Z82.3 Family history of stroke; Z83.3 Family history of diabetes mellitus; Z79.02 Long term (current) use of antithrombotics/antiplatelets; Z79.82 Long term (current) use of aspirin
CPT/HCPCS: 36415; 70450; 70486; 70551; 71045; 80048; 80053; 80061; 82607; 82728; 82746; 82962; 83540; 83550; 84443; 84484; 85014; 85018; 85025; 85610; 87340; 90935; 93306; 93886; 95819; 99291; G0378; J1815; J2405

== ENCOUNTER → 2023-09-20 | Outpatient (CLI) | payer MEDICARE, MEDICAID ==
[~2023-09-20] MED LIST changes: -ACET500T58 PO; -AMLO1TAB22 PO; +BREX1TAB4 PO; -HYDR-4297 PO; -INSU1INJ19 SC; +ISOS1TAB29 PO; -ISOS60TA24 PO; -NITR0.4S29 SL; -ONDA-155 PO; -TRAM50TA2 PO
[2023-09-20 11:00] VITALS: BP 189/69; PULSE 67; RESP 18; O2SAT 99
[2023-09-20] MEDS: SODIUM CHLORIDE 0.9% 1,000 ML IV ONE (11:00)
[2023-09-20 13:48] VITALS: BP 167/57; PULSE 66; RESP 18; O2SAT 99
== END | disposition home or self-care (01) ==
LOC: CHF HDHVI 11:20
PROVIDERS: ATTEND Internal Medicine Cardiovascular Disease
DX: E87.1 Hypo-osmolality and hyponatremia (principal); F41.9 Anxiety disorder, unspecified; I25.10 Atherosclerotic heart disease of native coronary artery without angina pectoris; I13.2 Hypertensive heart and chronic kidney disease with heart failure and with stage 5 chronic kidney disease, or end stage renal disease; E11.22 Type 2 diabetes mellitus with diabetic chronic kidney disease; N18.6 End stage renal disease; I50.9 Heart failure, unspecified; E78.5 Hyperlipidemia, unspecified; Z99.2 Dependence on renal dialysis; Z79.02 Long term (current) use of antithrombotics/antiplatelets; Z79.82 Long term (current) use of aspirin; Z87.891 Personal history of nicotine dependence
CPT/HCPCS: 96360; 96361; G0463; J7030

== ENCOUNTER 2023-11-13 15:03 | Inpatient (IN) | payer MEDICARE, MEDICAID ==
[~2023-11-13] VITALS: Ht 170.2 cm; Wt 85.0 kg
[2023-11-13 16:13] LABS: Basophils # (auto) 0.1 10 ^3/uL (0-0.2); Basophils % (auto) 0.7 % (0.0-2.0); Eosinophils # (auto) 0.1 10 ^3/uL (0-0.8); Eosinophils % (auto) 1.6 % (0.0-7.0); Hematocrit 41.5 % (36.0-46.0); Hemoglobin 13.9 g/dL (12.2-16.2); Lymphocytes # (auto) 1.5 10 ^3/uL (0.4-5.4); Lymphocytes % (auto) 17.8 % (10.0-50.0); Mean Corpuscular Hemoglobin 28.1 pg (28.0-32.0); Mean Corpuscular Hgb Conc. 33.4 g/dL (32.0-36.0); Mean Corpuscular Volume 84.3 fL (80.0-100.0); Monocytes # (auto) 0.4 10 ^3/uL (0-1.3); Monocytes % (auto) 5.3 % (0.0-12.0); Neutrophils # (auto) 6.2 10 ^3/uL (1.6-8.6); Neutrophils % (auto) 74.6 % (37.0-80.0); Red Blood Cells 4.93 10^6/uL (4.0-5.20); Red Cell Distribution Width 16.1 % (11.8-14.3); White Blood Cell 8.3 10^3/uL (4.4-10.8)
[2023-11-13 16:41] LABS: Alanine Aminotransferase 18 U/L (7-40); Albumin 4.5 g/dL (3.2-4.8); Alkaline Phosphatase 103 U/L (46-116); Anion Gap 9 (5-15); Aspartate Aminotransferase 16 U/L (13-40); BUN/Creatinine Ratio 8.9 (10.0-20.0); Blood Urea Nitrogen 68 mg/dL (9-23); Calcium 10.5 mg/dL (8.7-10.4); Carbon Dioxide 31 mmol/L (20-30); Chloride 91 mmol/L (98-107); Glucose 127 mg/dL (74-106); Potassium 4.8 mmol/L (3.5-5.1); Sodium 131 mmol/L (136-145)
[2023-11-13 16:42] LABS: Bilirubin, Total 0.5 mg/dL (0.2-1.0); Total Protein 7.5 g/dL (5.7-8.2)
[2023-11-13 18:33] VITALS: PULSE 88; RESP 18; O2SAT 97
[2023-11-13] MEDS: KETOROLAC TROMETH 30 MG/ML 1ML VIAL IV ONE (22:31)
[2023-11-13] MEDS ORDERED: ACETAMINOPHEN 325 MG TAB PO PRN (22:45)
[2023-11-13] MEDS ORDERED: ENOXAPARIN SOD 100 MG/1 ML SYRINGE SC SCH (22:45)
[2023-11-13 23:07] VITALS: PULSE 78; RESP 18; O2SAT 97
[2023-11-13] MEDS ORDERED: ENOXAPARIN SOD 100 MG/1 ML SYRINGE SC ONE (23:15)
[2023-11-13] MEDS ORDERED: DEXTROSE (50%) 50ML SYRG IV PRN (23:30)
[2023-11-14 00:05] VITALS: PULSE 80; RESP 12; O2SAT 97
[2023-11-14] MEDS: ONDANSETRON HCL 4 MG/2 ML VIAL IV PRN (00:11)
[2023-11-14] MEDS: ENOXAPARIN SOD 100 MG/1 ML SYRINGE SC ONE (00:12)
[2023-11-14] MEDS: MORPHINE SULFATE INJ 2 MG/ml SYRG IV PRN ×2 (00:13→12:45)
[2023-11-14] MEDS: ASPirin-EC 81 mg tab PO ONE (00:14)
[2023-11-14] MEDS: ATORVASTATIN 20 MG TAB PO SCH (00:14)
[2023-11-14] MEDS: HYDROcodone-ACET 5/325MG TAB PO PRN (05:15)
[2023-11-14 05:58] LABS: Basophils # (auto) 0 10 ^3/uL (0-0.2); Basophils % (auto) 0.2 % (0.0-2.0); Eosinophils # (auto) 0.2 10 ^3/uL (0-0.8); Eosinophils % (auto) 2.2 % (0.0-7.0); Hemoglobin 13.3 g/dL (12.2-16.2); Lymphocytes # (auto) 1.7 10 ^3/uL (0.4-5.4); Lymphocytes % (auto) 22.6 % (10.0-50.0); Mean Corpuscular Hemoglobin 28.2 pg (28.0-32.0); Mean Corpuscular Hgb Conc. 33.4 g/dL (32.0-36.0); Mean Corpuscular Volume 84.4 fL (80.0-100.0); Monocytes # (auto) 0.8 10 ^3/uL (0-1.3); Monocytes % (auto) 10.2 % (0.0-12.0); Neutrophils # (auto) 4.8 10 ^3/uL (1.6-8.6); Neutrophils % (auto) 64.8 % (37.0-80.0); Nucleated Red Blood Cells % 0.1 %; Red Blood Cells 4.73 10^6/uL (4.0-5.20); Red Cell Distribution Width 16.1 % (11.8-14.3); White Blood Cell 7.4 10^3/uL (4.4-10.8)
[2023-11-14 06:17] LABS: Alanine Aminotransferase 15 U/L (7-40); Albumin 4.4 g/dL (3.2-4.8); Alkaline Phosphatase 91 U/L (46-116); Anion Gap 11 (5-15); Aspartate Aminotransferase 21 U/L (13-40); BUN/Creatinine Ratio 8.1 (10.0-20.0); Blood Urea Nitrogen 68 mg/dL (9-23); Calcium 10.1 mg/dL (8.7-10.4); Carbon Dioxide 28 mmol/L (20-30); Chloride 90 mmol/L (98-107); Glucose 159 mg/dL (74-106); Magnesium 2.4 mg/dL (1.6-2.6); Potassium 5.3 mmol/L (3.5-5.1); Sodium 129 mmol/L (136-145)
[2023-11-14 06:18] LABS: Bilirubin, Total 0.6 mg/dL (0.2-1.0); Total Protein 7.4 g/dL (5.7-8.2)
[2023-11-14] MEDS: InsuLIN REG 1unit/0.01ml Soln (100units/ml) SC SCH (07:00)
[2023-11-14] MEDS: ISOSORBIDE MONONITRATE ER 60 MG TAB PO SCH (07:00)
[2023-11-14] MEDS: ACCU-CHEK COMFORT CURVE STRIP VI SCH (07:13)
[2023-11-14 07:34] VITALS: PULSE 72; RESP 12; O2SAT 98
[2023-11-14] MEDS: SEVELAMER 800 MG TAB PO SCH (08:28)
[2023-11-14] MEDS: SODIUM CHL 0.9% 1000 ML BAG XX ONE (09:45)
[2023-11-14] MEDS: PANTOPRAZOLE 40 MG TAB PO SCH (10:01)
[2023-11-14] MEDS: ASPirin-EC 81 mg tab PO SCH (10:01)
[2023-11-14] MEDS: ALBUMIN 25% 100 ML IV ONE (10:27)
[2023-11-14 15:28] VITALS: PULSE 78; RESP 18; O2SAT 97
[2023-11-14] MEDS ORDERED: SERT150C PO (16:01)
[2023-11-14] MEDS ORDERED: HYDR-3682 PO (16:03)
[2023-11-14] MEDS ORDERED: CINA30TA14 PO (16:03)
[2023-11-14] MEDS ORDERED: CALC0.25 PO (16:04)
[2023-11-14] MEDS ORDERED: INSU100I56 SC (16:07)
[2023-11-14] MEDS ORDERED: INSU1INJ19 SC (16:11)
[2023-11-14 17:00] VITALS: BP 180/45; PULSE 71; RESP 22; TEMP 98.3; O2SAT 98
[2023-11-14 20:00] VITALS: PULSE 78
[2023-11-14 21:00] VITALS: BP 144/48; PULSE 74; RESP 20; TEMP 97.9; O2SAT 98
[2023-11-14] MEDS: TICAGRELOR 60 MG TAB PO SCH (22:52)
[2023-11-15] VITALS (9 sets, daily range): BP systolic 139–168; BP diastolic 46–69; PULSE 63–93; RESP 16–20; TEMP 97.3–98.4; O2SAT 95–98
[2023-11-15] MEDS: SERTRALINE HCL 50 MG TAB PO SCH (09:31)
[2023-11-15] MEDS: CEFEPIME 1GM/ 50ML 50 ML IV SCH (09:32)
[2023-11-15] MEDS: HYDROmorphone HCL 2 MG/ML VL/or syr IV PRN (10:01)
[2023-11-15 10:17] LABS: Basophils # (auto) 0 10 ^3/uL (0-0.2); Basophils % (auto) 0.2 % (0.0-2.0); Eosinophils # (auto) 0.2 10 ^3/uL (0-0.8); Eosinophils % (auto) 2.2 % (0.0-7.0); Hematocrit 36.9 % (36.0-46.0); Lymphocytes # (auto) 1.2 10 ^3/uL (0.4-5.4); Lymphocytes % (auto) 17.2 % (10.0-50.0); Mean Corpuscular Hemoglobin 28.1 pg (28.0-32.0); Mean Corpuscular Hgb Conc. 32.5 g/dL (32.0-36.0); Mean Corpuscular Volume 86.5 fL (80.0-100.0); Monocytes # (auto) 0.8 10 ^3/uL (0-1.3); Monocytes % (auto) 11.6 % (0.0-12.0); Neutrophils # (auto) 4.7 10 ^3/uL (1.6-8.6); Neutrophils % (auto) 68.8 % (37.0-80.0); Nucleated Red Blood Cells % 0.1 %; Red Blood Cells 4.27 10^6/uL (4.0-5.20); Red Cell Distribution Width 15.6 % (11.8-14.3); White Blood Cell 6.8 10^3/uL (4.4-10.8)
[2023-11-15 10:29] LABS: Alanine Aminotransferase 13 U/L (7-40); Alkaline Phosphatase 88 U/L (46-116); Anion Gap 9 (5-15); Aspartate Aminotransferase 17 U/L (13-40); Calcium 9.8 mg/dL (8.5-10.1); Carbon Dioxide 28 mmol/L (20-30); Chloride 97 mmol/L (98-107); Glucose 128 mg/dL (74-106); Potassium 5.1 mmol/L (3.5-5.1)
[2023-11-15 10:30] LABS: Albumin 4.4 g/dL (3.2-4.8); Bilirubin, Total 0.7 mg/dL (0.2-1.0); Total Protein 6.9 g/dL (5.7-8.2)
[2023-11-15 10:33] LABS: Blood Urea Nitrogen 44 mg/dL (9-23); Sodium 134 mmol/L (136-145)
[2023-11-15] MEDS ORDERED: LORazepam 2MG/ML-1ML VIAL IV PRN (12:45)
[2023-11-15] MEDS: METOCLOPRAMIDE HCL 10 MG TAB PO SCH (14:17)
[2023-11-15] MEDS: SODIUM CHLORIDE 0.9% 1,000 ML IV SCH (14:21)
[2023-11-15] MEDS: DexAMETHasone INJECTION 10 MG in D5W 5% 50 ML IV SCH (14:21)
[2023-11-15 15:43] LABS: Erythrocyte Sedimentation Rate 36 mm/hr (0-20)
[2023-11-15] MEDS ORDERED: VANCOMYCIN PER PHARMACY 0 MG IV SCH (16:00)
[2023-11-15] MEDS: VANCOMYCIN 1GM/200ML 200 ML IV ONE (17:23)
[2023-11-16] VITALS (8 sets, daily range): BP systolic 112–158; BP diastolic 43–62; PULSE 65–76; RESP 16–18; TEMP 98–99.4; O2SAT 93–98
[2023-11-16 11:06] LABS: Basophils # (auto) 0 10 ^3/uL (0-0.2); Basophils % (auto) 0.2 % (0.0-2.0); Eosinophils # (auto) 0 10 ^3/uL (0-0.8); Hematocrit 38.4 % (36.0-46.0); Hemoglobin 12.4 g/dL (12.2-16.2); Lymphocytes # (auto) 0.7 10 ^3/uL (0.4-5.4); Lymphocytes % (auto) 10.8 % (10.0-50.0); Mean Corpuscular Hemoglobin 28.1 pg (28.0-32.0); Mean Corpuscular Hgb Conc. 32.2 g/dL (32.0-36.0); Mean Corpuscular Volume 87.2 fL (80.0-100.0); Monocytes # (auto) 0.3 10 ^3/uL (0-1.3); Monocytes % (auto) 3.9 % (0.0-12.0); Neutrophils # (auto) 5.6 10 ^3/uL (1.6-8.6); Neutrophils % (auto) 85.1 % (37.0-80.0); Nucleated Red Blood Cells % 0.2 %; Red Cell Distribution Width 15.9 % (11.8-14.3); White Blood Cell 6.6 10^3/uL (4.4-10.8)
[2023-11-16 11:23] LABS: Alanine Aminotransferase 16 U/L (7-40); Albumin 4.6 g/dL (3.2-4.8); Alkaline Phosphatase 86 U/L (46-116); Anion Gap 15 (5-15); Aspartate Aminotransferase 19 U/L (13-40); BUN/Creatinine Ratio 6.3 (10.0-20.0); Calcium 10.2 mg/dL (8.5-10.1); Carbon Dioxide 22 mmol/L (20-30); Chloride 96 mmol/L (98-107); Glucose 159 mg/dL (74-106); Sodium 133 mmol/L (136-145)
[2023-11-16 11:24] LABS: Bilirubin, Total 0.3 mg/dL (0.2-1.0); Blood Urea Nitrogen 54 mg/dL (9-23); Total Protein 7.4 g/dL (5.7-8.2)
[2023-11-16 11:28] LABS: Potassium 6.6 mmol/L (3.5-5.1)
[2023-11-16] MEDS: SODIUM ZIRCONIUM CYCL 10 GM PAK PO ONE (14:06)
[2023-11-16] MEDS ORDERED: AMLO1TAB22 PO (15:43)
[2023-11-16] MEDS ORDERED: HYDR-4798 PO (15:43)
[2023-11-17] VITALS (8 sets, daily range): BP systolic 136–186; BP diastolic 46–74; PULSE 58–74; RESP 16–19; TEMP 97.4–98.5; O2SAT 90–100
[2023-11-17] MEDS: SODIUM CHL 0.9% 1000 ML BAG XX ONE (07:56)
[2023-11-17] MEDS: predniSONE 20 MG TAB PO SCH (09:20)
[2023-11-17 11:53] LABS: Erythrocyte Sedimentation Rate 33 mm/hr (0-20)
[2023-11-17 12:08] LABS: Anion Gap 12 (5-15); Carbon Dioxide 30 mmol/L (20-30); Chloride 93 mmol/L (98-107); Potassium 5.1 mmol/L (3.5-5.1); Sodium 135 mmol/L (136-145)
[2023-11-17 12:14] LABS: BUN/Creatinine Ratio 7.6 (10.0-20.0); Blood Urea Nitrogen 51 mg/dL (9-23); Glucose 145 mg/dL (74-106)
[2023-11-17] MEDS: VANCOMYCIN 500 MG in D5W 5% 100 ML IV ONE (12:40)
[2023-11-17] MEDS: hydrALAZINE HCL 20 MG/ML VL IV PRN (23:27)
[2023-11-18] VITALS (8 sets, daily range): BP systolic 151–190; BP diastolic 43–84; PULSE 60–76; RESP 16–20; TEMP 97.4–99.1; O2SAT 94–97
[2023-11-18] MEDS: SODIUM CHL 0.9% 1000 ML BAG XX ONE (07:00)
[2023-11-18] MEDS: FAMOTIDINE 20 MG TAB PO ONE (17:57)
[2023-11-18 19:07] LABS: Erythrocyte Sedimentation Rate 43 mm/hr (0-20)
[2023-11-19 05:00] VITALS: BP 155/65; PULSE 77; RESP 18; TEMP 98; O2SAT 96
[2023-11-19 06:35] LABS: Alanine Aminotransferase 18 U/L (7-40); Alkaline Phosphatase 84 U/L (46-116); Anion Gap 16 (5-15); Basophils # (auto) 0 10 ^3/uL (0-0.2); Basophils % (auto) 0.1 % (0.0-2.0); Blood Urea Nitrogen 47 mg/dL (9-23); Calcium 10.4 mg/dL (8.5-10.1); Carbon Dioxide 28 mmol/L (20-30); Chloride 95 mmol/L (98-107); Eosinophils # (auto) 0 10 ^3/uL (0-0.8); Eosinophils % (auto) 0.1 % (0.0-7.0); Glucose 122 mg/dL (74-106); Hematocrit 40.2 % (36.0-46.0); Hemoglobin 13.2 g/dL (12.2-16.2); Lymphocytes % (auto) 12.6 % (10.0-50.0); Mean Corpuscular Hemoglobin 27.9 pg (28.0-32.0); Mean Corpuscular Hgb Conc. 32.8 g/dL (32.0-36.0); Monocytes # (auto) 0.9 10 ^3/uL (0-1.3); Monocytes % (auto) 10.8 % (0.0-12.0); Neutrophils # (auto) 6.4 10 ^3/uL (1.6-8.6); Neutrophils % (auto) 76.4 % (37.0-80.0); Potassium 4.5 mmol/L (3.5-5.1); Red Blood Cells 4.73 10^6/uL (4.0-5.20); Red Cell Distribution Width 15.7 % (11.8-14.3); Sodium 139 mmol/L (136-145); White Blood Cell 8.3 10^3/uL (4.4-10.8)
[2023-11-19 06:36] LABS: Albumin 4.8 g/dL (3.2-4.8); Aspartate Aminotransferase 19 U/L (13-40); Bilirubin, Total 1.2 mg/dL (0.2-1.0); Total Protein 7.5 g/dL (5.7-8.2)
[2023-11-19 06:39] LABS: BUN/Creatinine Ratio 7.1 (10.0-20.0)
[2023-11-19 08:30] VITALS: PULSE 7; PULSE 81; RESP 14; O2SAT 94
[2023-11-19] MEDS: DOCUSATE SOD 100 MG CAP PO PRN (09:12)
[2023-11-19] MEDS: hydrOXYzine 25 MG TAB or CAP PO SCH (12:28)
[2023-11-19 13:00] VITALS: BP 177/78; PULSE 84; RESP 16; TEMP 98.6; O2SAT 98
[2023-11-19] MEDS: PANTOPRAZOLE 40 MG/10 ML VIAL INJ IV ONE (15:01)
[2023-11-19] MEDS: DOCUSATE CALCIUM 240 MG CAP PO ONE (15:55)
[2023-11-19 17:00] VITALS: BP 181/83; PULSE 82; RESP 20; TEMP 98.9; O2SAT 94
[2023-11-19 20:00] VITALS: O2SAT 94
[2023-11-19 23:34] VITALS: BP 182/53; PULSE 85; RESP 18; TEMP 98; O2SAT 95
[2023-11-20] VITALS (9 sets, daily range): BP systolic 138–196; BP diastolic 47–70; PULSE 79–99; RESP 16–19; TEMP 97.5–98.5; O2SAT 94–100
[2023-11-20] MEDS: NITROGLYCERIN 0.4 MG SL TAB SL PRN (04:19)
[2023-11-20 06:51] LABS: Basophils # (auto) 0 10 ^3/uL (0-0.2); Eosinophils # (auto) 0 10 ^3/uL (0-0.8); Eosinophils % (auto) 0.1 % (0.0-7.0); Hematocrit 37.6 % (36.0-46.0); Hemoglobin 12.7 g/dL (12.2-16.2); Lymphocytes # (auto) 1.2 10 ^3/uL (0.4-5.4); Lymphocytes % (auto) 14.8 % (10.0-50.0); Mean Corpuscular Hemoglobin 28.8 pg (28.0-32.0); Mean Corpuscular Hgb Conc. 33.9 g/dL (32.0-36.0); Monocytes % (auto) 12.2 % (0.0-12.0); Neutrophils # (auto) 5.9 10 ^3/uL (1.6-8.6); Neutrophils % (auto) 72.9 % (37.0-80.0); Red Blood Cells 4.42 10^6/uL (4.0-5.20); Red Cell Distribution Width 15.9 % (11.8-14.3); White Blood Cell 8.1 10^3/uL (4.4-10.8)
[2023-11-20 06:56] LABS: INR 1.15 (0.9-1.15); Partial Thromboplastin Time 25.3 SEC (24.5-34.5); Prothrombin Time 12.1 sec (9.3-11.8)
[2023-11-20 07:06] LABS: Alanine Aminotransferase 15 U/L (7-40); Alkaline Phosphatase 72 U/L (46-116); Anion Gap 13 (5-15); BUN/Creatinine Ratio 7.8 (10.0-20.0); Calcium 10.5 mg/dL (8.7-10.4); Carbon Dioxide 28 mmol/L (20-30); Chloride 95 mmol/L (98-107); Glucose 154 mg/dL (74-106); Potassium 4.6 mmol/L (3.5-5.1); Sodium 136 mmol/L (136-145)
[2023-11-20 07:08] LABS: Albumin 4.5 g/dL (3.2-4.8); Aspartate Aminotransferase 15 U/L (13-40)
[2023-11-20 07:09] LABS: Bilirubin, Total 0.8 mg/dL (0.2-1.0); Total Protein 7.5 g/dL (5.7-8.2)
[2023-11-20 07:10] LABS: Blood Urea Nitrogen 67 mg/dL (9-23)
[2023-11-20] MEDS ORDERED: ACCU-CHEK COMFORT CURVE STRIP VI ONE (07:30)
[2023-11-20] MEDS ORDERED: METOCLOPRAMIDE HCL 5MG/ml INJ 2ml VIAL IV ONE (07:30)
[2023-11-20] MEDS ORDERED: fentaNYL CITRATE 100 MCG/2 ML VL IV PRN (07:30)
[2023-11-20] MEDS ORDERED: HYDROmorphone HCL 2 MG/ML VL/or syr IV PRN ×2 (07:30)
[2023-11-20] MEDS ORDERED: MORPHINE SULFATE INJ 2 MG/ml SYRG IV PRN (07:30)
[2023-11-20] MEDS ORDERED: SUCCINYLCHOLINE CHLORIDE 20 MG/ML 10ML VIAL IV ONE (07:37)
[2023-11-20] MEDS ORDERED: ONDANSETRON HCL 4 MG/2 ML VIAL ONE (07:41)
[2023-11-20] MEDS ORDERED: PROPOFOL 10 MG/ML 20 ML IV ONE (07:41)
[2023-11-20] MEDS ORDERED: MIDAZOLAM HCL 2MG/2ML 2ml VIAL (1mg/ml) ONE (07:41)
[2023-11-20] MEDS ORDERED: KETAMINE 50mg/ML 1ml syringe ONE (07:41)
[2023-11-20] MEDS ORDERED: SODIUM CHLORIDE LOCK 10 ML ONE (07:41)
[2023-11-20] MEDS ORDERED: LIDOCAINE 1% INJ PF 5ML AMP ONE (07:41)
[2023-11-20] MEDS ORDERED: fentaNYL CITRATE 100 MCG/2 ML VL ONE (07:42)
[2023-11-20] MEDS: ceFAZolin 2 GM/D5W50ml 50 ML IV ONE (08:04)
[2023-11-20] MEDS: LIDOCAINE W/ EPINEPHRINE 1% 20ML VIAL ONE (08:23)
[2023-11-20] MEDS ORDERED: CEFEPIME 1GM/ 50ML 50 ML IV ONE (10:00)
[2023-11-20] MEDS: CEFEPIME 1GM/ 50ML 50 ML IV SCH (10:29)
[2023-11-20] MEDS: PANTOPRAZOLE 40 MG/10 ML VIAL INJ IV SCH (10:29)
[2023-11-20] MEDS: POLYETHYLENE GLYCOL 17 GM PWDR PO SCH (10:32)
[2023-11-20 14:11] LABS: Hepatitis A Ab IgM Negative
[2023-11-20 14:12] LABS: Hepatitis B Core IgM Negative; Hepatitis C Antibody Negative (Negative)
[2023-11-20] MEDS ORDERED: FAMOTIDINE 20 MG TAB PO SCH (16:00)
[2023-11-20] MEDS: LORazepam 0.5 MG TAB PO PRN (17:18)
[2023-11-20] MEDS: VANCOMYCIN 500 MG in D5W 5% 100 ML IV ONE (20:40)
[2023-11-21] VITALS (7 sets, daily range): BP systolic 116–192; BP diastolic 49–99; PULSE 80–99; RESP 16–18; TEMP 97.5–98.4; O2SAT 95–99
[2023-11-21 03:46] LABS: Hepatitis B Surface Antigen Negative (Negative)
[2023-11-21 06:13] LABS: Basophils # (auto) 0 10 ^3/uL (0-0.2); Basophils % (auto) 0.1 % (0.0-2.0); Eosinophils # (auto) 0 10 ^3/uL (0-0.8); Eosinophils % (auto) 0.1 % (0.0-7.0); Hematocrit 40.2 % (36.0-46.0); Hemoglobin 13.6 g/dL (12.2-16.2); Lymphocytes % (auto) 11.9 % (10.0-50.0); Mean Corpuscular Hemoglobin 28.5 pg (28.0-32.0); Mean Corpuscular Hgb Conc. 33.9 g/dL (32.0-36.0); Mean Corpuscular Volume 84.2 fL (80.0-100.0); Monocytes # (auto) 0.4 10 ^3/uL (0-1.3); Monocytes % (auto) 5.5 % (0.0-12.0); Neutrophils # (auto) 6.6 10 ^3/uL (1.6-8.6); Neutrophils % (auto) 82.4 % (37.0-80.0); Red Blood Cells 4.78 10^6/uL (4.0-5.20); Red Cell Distribution Width 15.5 % (11.8-14.3)
[2023-11-21 06:30] LABS: Alkaline Phosphatase 78 U/L (46-116); Anion Gap 16 (5-15); Aspartate Aminotransferase 16 U/L (13-40); BUN/Creatinine Ratio 7.1 (10.0-20.0); Calcium 10.5 mg/dL (8.7-10.4); Carbon Dioxide 24 mmol/L (20-30); Chloride 97 mmol/L (98-107); Glucose 124 mg/dL (74-106); Potassium 3.7 mmol/L (3.5-5.1); Sodium 137 mmol/L (136-145)
[2023-11-21 06:31] LABS: Albumin 4.9 g/dL (3.2-4.8); Bilirubin, Total 0.5 mg/dL (0.2-1.0); Total Protein 8.1 g/dL (5.7-8.2)
[2023-11-21 06:32] LABS: Alanine Aminotransferase < 9 U/L (7-40); Blood Urea Nitrogen 40 mg/dL (9-23)
[2023-11-21] MEDS: FLEET ENEMA(ADULT) 135 ML PR ONE (17:58)
== END 2023-11-21 18:42 | disposition short-term general hospital (02) | DRG 515 ==
LOC: ER 15:03 → TELE 22:53 → TELE-WESTW 11-14 14:49 → WEST WING 11-19 23:55
PROVIDERS: ADMIT Internal Medicine; ATTEND Internal Medicine
PROC: 5A1D70Z Performance of Urinary Filtration, Intermittent, Less than 6 Hours Per Day (ICD-10-PCS; 2023-11-14)
PROC: 5A1D70Z Performance of Urinary Filtration, Intermittent, Less than 6 Hours Per Day (ICD-10-PCS; 2023-11-16)
PROC: 5A1D70Z Performance of Urinary Filtration, Intermittent, Less than 6 Hours Per Day (ICD-10-PCS; 2023-11-18)
PROC: 03BT0ZX Excision of Left Temporal Artery, Open Approach, Diagnostic (ICD-10-PCS; principal; 2023-11-20 08:04)
PROC: 5A1D70Z Performance of Urinary Filtration, Intermittent, Less than 6 Hours Per Day (ICD-10-PCS; 2023-11-21)
DX: M31.6 Other giant cell arteritis (principal); I21.A1 Myocardial infarction type 2; N18.6 End stage renal disease; E87.1 Hypo-osmolality and hyponatremia; I13.2 Hypertensive heart and chronic kidney disease with heart failure and with stage 5 chronic kidney disease, or end stage renal disease; E87.5 Hyperkalemia; I25.10 Atherosclerotic heart disease of native coronary artery without angina pectoris; E78.5 Hyperlipidemia, unspecified; G56.03 Carpal tunnel syndrome, bilateral upper limbs; G47.10 Hypersomnia, unspecified; E66.9 Obesity, unspecified; H53.2 Diplopia; F32.A Depression, unspecified; E11.22 Type 2 diabetes mellitus with diabetic chronic kidney disease; K21.9 Gastro-esophageal reflux disease without esophagitis; K59.00 Constipation, unspecified; F41.9 Anxiety disorder, unspecified; I50.9 Heart failure, unspecified; Z99.2 Dependence on renal dialysis; I25.2 Old myocardial infarction; Z86.73 Personal history of transient ischemic attack (TIA), and cerebral infarction without residual deficits; Z95.1 Presence of aortocoronary bypass graft; Z82.49 Family history of ischemic heart disease and other diseases of the circulatory system; Z95.5 Presence of coronary angioplasty implant and graft; Z82.3 Family history of stroke; Z83.3 Family history of diabetes mellitus; Z79.82 Long term (current) use of aspirin; Z90.5 Acquired absence of kidney; Z79.899 Other long term (current) drug therapy; Z79.02 Long term (current) use of antithrombotics/antiplatelets; Z90.710 Acquired absence of both cervix and uterus; Z90.49 Acquired absence of other specified parts of digestive tract; Z68.29 Body mass index [BMI] 29.0-29.9, adult
CPT/HCPCS: 36415; 70450; 70551; 71045; 71250; 80048; 80053; 80074; 80202; 82550; 82565; 82962; 83735; 84132; 84484; 85025; 85610; 85652; 85730; 86141; 86850; 86900; 86901; 87077; 87081; 87186; 87205; 90935; 93005; 93306; 96374; 97110; 97116; 97163; 97530; G0378; J0330; J1100; J1815; J1885; J2250; J2405; J2470; J2704; J7060; P9047

== ENCOUNTER 2023-12-22 23:33 | Inpatient (IN) | payer MEDICARE, MEDICAID ==
[~2023-12-22] VITALS: Ht 162.6 cm; Wt 75.6 kg
[~2023-12-22 23:33] MED LIST changes: +AMLO1TAB22 PO; -BREX1TAB4 PO; +CALC0.25 PO; +CINA30TA14 PO; +HYDR-3682 PO; +HYDR-4798 PO; +INSU100I56 SC; +INSU1INJ19 SC; -SERT-206 PO; +SERT150C PO
[2023-12-22 23:55] VITALS: PULSE 97; RESP 14; O2SAT 90
[2023-12-23 00:08] LABS: Basophils # (auto) 0 10 ^3/uL (0-0.2); Basophils % (auto) 0.3 % (0.0-2.0); Eosinophils # (auto) 0 10 ^3/uL (0-0.8); Eosinophils % (auto) 0.2 % (0.0-7.0); Hematocrit 33.9 % (36.0-46.0); Lymphocytes # (auto) 0.8 10 ^3/uL (0.4-5.4); Lymphocytes % (auto) 5.5 % (10.0-50.0); Mean Corpuscular Hemoglobin 28.1 pg (28.0-32.0); Mean Corpuscular Hgb Conc. 32.6 g/dL (32.0-36.0); Mean Corpuscular Volume 86.3 fL (80.0-100.0); Monocytes # (auto) 0.9 10 ^3/uL (0-1.3); Neutrophils # (auto) 13.4 10 ^3/uL (1.6-8.6); Nucleated Red Blood Cells % 0.1 %; Platelet Count (auto) 251 10^3/uL (140-450); Red Blood Cells 3.93 10^6/uL (4.0-5.20); White Blood Cell 15.2 10^3/uL (4.4-10.8)
[2023-12-23 00:27] LABS: Albumin 4.4 g/dL (3.2-4.8); Alkaline Phosphatase 94 U/L (46-116); Anion Gap 17 (5-15); Aspartate Aminotransferase 21 U/L (13-40); BUN/Creatinine Ratio 7.3 (10.0-20.0); Blood Urea Nitrogen 47 mg/dL (9-23); Calcium 10.4 mg/dL (8.7-10.4); Carbon Dioxide 23 mmol/L (20-30); Chloride 89 mmol/L (98-107); Glucose 239 mg/dL (74-106); Lipase 30 U/L (12-53); Magnesium 2.3 mg/dL (1.6-2.6); Potassium 4.6 mmol/L (3.5-5.1); Sodium 129 mmol/L (136-145)
[2023-12-23 00:28] LABS: Bilirubin, Total 0.6 mg/dL (0.2-1.0); Phosphorus 5.1 mg/dL (2.4-5.1); Total Protein 8.2 g/dL (5.7-8.2)
[2023-12-23 00:30] LABS: Alanine Aminotransferase < 9 U/L (7-40)
[2023-12-23] MEDS: ACETAMINOPHEN 325 MG TAB PO ONE (00:48)
[2023-12-23] MEDS: VANCOMYCIN 1GM/200ML 200 ML IV ONE (01:56)
[2023-12-23] MEDS ORDERED: VANCOMYCIN PER PHARMACY 0 MG IV SCH (02:00)
[2023-12-23] MEDS ORDERED: DEXTROSE (50%) 50ML SYRG IV PRN (02:00)
[2023-12-23] MEDS ORDERED: DOCUSATE SOD 100 MG CAP PO PRN (02:00)
[2023-12-23] MEDS: CEFEPIME HCL-DEXTROSE 50 ML IV ONE (02:00)
[2023-12-23] MEDS: IBUPROFEN 800 MG TAB PO ONE (03:03)
[2023-12-23] MEDS: CEFEPIME 2GM/50ML NS 50 ML IV ONE (04:00)
[2023-12-23 04:09] LABS: Basophils # (auto) 0 10 ^3/uL (0-0.2); Basophils % (auto) 0.3 % (0.0-2.0); Eosinophils # (auto) 0 10 ^3/uL (0-0.8); Eosinophils % (auto) 0.1 % (0.0-7.0); Hematocrit 31.8 % (36.0-46.0); Hemoglobin 10.3 g/dL (12.2-16.2); Lymphocytes # (auto) 0.3 10 ^3/uL (0.4-5.4); Lymphocytes % (auto) 2.4 % (10.0-50.0); Mean Corpuscular Hemoglobin 27.8 pg (28.0-32.0); Mean Corpuscular Hgb Conc. 32.5 g/dL (32.0-36.0); Mean Corpuscular Volume 85.8 fL (80.0-100.0); Monocytes # (auto) 0.7 10 ^3/uL (0-1.3); Monocytes % (auto) 5.2 % (0.0-12.0); Platelet Count (auto) 231 10^3/uL (140-450); Red Blood Cells 3.71 10^6/uL (4.0-5.20); Red Cell Distribution Width 16.2 % (11.8-14.3); White Blood Cell 14.1 10^3/uL (4.4-10.8)
[2023-12-23 04:32] LABS: Alkaline Phosphatase 84 U/L (46-116); Anion Gap 10 (5-15); Aspartate Aminotransferase 21 U/L (13-40); BUN/Creatinine Ratio 6.3 (10.0-20.0); Bilirubin, Total 0.6 mg/dL (0.2-1.0); Blood Urea Nitrogen 42 mg/dL (9-23); Calcium 9.5 mg/dL (8.7-10.4); Carbon Dioxide 26 mmol/L (20-30); Chloride 91 mmol/L (98-107); Glucose 231 mg/dL (74-106); Potassium 4.9 mmol/L (3.5-5.1); Sodium 127 mmol/L (136-145); Total Protein 7.4 g/dL (5.7-8.2)
[2023-12-23 04:43] LABS: Alanine Aminotransferase < 9 U/L (7-40)
[2023-12-23] MEDS: MIDODRINE HCL 10 MG TAB PO ONE ×2 (05:15→06:01)
[2023-12-23] MEDS: SODIUM CHLOR 0.9% PF (SALINE LOCK) 10ML VIAL/SYR IV SCH (05:30)
[2023-12-23] MEDS: ACCU-CHEK COMFORT CURVE STRIP VI SCH (06:39)
[2023-12-23] MEDS: InsuLIN REG 1unit/0.01ml Soln (100units/ml) SC SCH ×2 (06:40→22:00)
[2023-12-23] MEDS: SEVELAMER 800 MG TAB PO SCH (08:27)
[2023-12-23] MEDS: cefTRIAXone 1GM/50ML D5W 50 ML IV SCH (09:41)
[2023-12-23] MEDS: FAMOTIDINE (10MG/ML) 2ML VL IV SCH (09:42)
[2023-12-23] MEDS: B-COMPLEX W/ C & FOLIC ACID(NEPHROVITE TAB) PO SCH (09:42)
[2023-12-23] MEDS: ASPirin 81 mg TAB PO SCH (09:43)
[2023-12-23] MEDS: MORPHINE SULFATE INJ 2 MG/ml SYRG IV PRN (09:45)
[2023-12-23] MEDS: MIDODRINE HCL 10 MG TAB PO SCH (12:37)
[2023-12-23 13:01] VITALS: BP_SYST 101; BP_DIAS 34; BP_DIAS 37; PULSE 87; RESP 20; TEMP 100.1; O2SAT 99
[2023-12-23] MEDS: HYDROcodone-ACET 5/325MG TAB PO PRN (13:13)
[2023-12-23] MEDS: ONDANSETRON HCL 4 MG/2 ML VIAL IV PRN (14:27)
[2023-12-23 17:00] VITALS: BP 145/45; PULSE 94; RESP 20; TEMP 102.6; O2SAT 98
[2023-12-23] MEDS: HYDROmorphone HCL 2 MG/ML VL/or syr IV PRN (18:19)
[2023-12-23] MEDS: ACETAMINOPHEN 325 MG TAB PO PRN (18:23)
[2023-12-23] MEDS: MEROPENEM 500MG IVPB 50 ML IV SCH (18:42)
[2023-12-23 20:00] VITALS: PULSE 74; PULSE 81; RESP 18
[2023-12-23] MEDS: ATORVASTATIN 20 MG TAB PO SCH (21:13)
[2023-12-24] VITALS (31 sets, daily range): BP systolic 81–147; BP diastolic 20–118; PULSE 72–131; RESP 14–35; TEMP 98.6–101.8; O2SAT 76–100
[2023-12-24 05:20] LABS: Basophils # (auto) 0 10 ^3/uL (0-0.2); Basophils % (auto) 0.2 % (0.0-2.0); Eosinophils # (auto) 0 10 ^3/uL (0-0.8); Eosinophils % (auto) 0.1 % (0.0-7.0); Hematocrit 31.2 % (36.0-46.0); Hemoglobin 10.4 g/dL (12.2-16.2); Lymphocytes # (auto) 0.6 10 ^3/uL (0.4-5.4); Lymphocytes % (auto) 4.7 % (10.0-50.0); Mean Corpuscular Hgb Conc. 33.2 g/dL (32.0-36.0); Mean Corpuscular Volume 84.4 fL (80.0-100.0); Monocytes # (auto) 0.5 10 ^3/uL (0-1.3); Monocytes % (auto) 4.3 % (0.0-12.0); Neutrophils # (auto) 11.5 10 ^3/uL (1.6-8.6); Neutrophils % (auto) 90.7 % (37.0-80.0); Nucleated Red Blood Cells % 0.1 %; Platelet Count (auto) 226 10^3/uL (140-450); Red Cell Distribution Width 16.8 % (11.8-14.3); White Blood Cell 12.6 10^3/uL (4.4-10.8)
[2023-12-24 05:37] LABS: Alanine Aminotransferase < 9 U/L (7-40); Albumin 4.3 g/dL (3.2-4.8); Alkaline Phosphatase 93 U/L (46-116); Anion Gap 16 (5-15); Aspartate Aminotransferase 30 U/L (13-40); Bilirubin, Total 0.4 mg/dL (0.2-1.0); Blood Urea Nitrogen 67 mg/dL (9-23); Calcium 10.1 mg/dL (8.7-10.4); Carbon Dioxide 24 mmol/L (20-30); Chloride 88 mmol/L (98-107); Glucose 152 mg/dL (74-106); Potassium 5.5 mmol/L (3.5-5.1); Sodium 128 mmol/L (136-145); Total Protein 8.1 g/dL (5.7-8.2)
[2023-12-24] MEDS: SODIUM CHL 0.9% 1000 ML BAG XX ONE (12:30)
[2023-12-24] MEDS: ALBUMIN 25% 100 ML IV ONE ×2 (15:09→15:15)
[2023-12-24] MEDS: SODIUM CHLORIDE 0.9% 500 ML IV ONE ×2 (15:15→21:11)
[2023-12-24] MEDS: MORPHINE SULFATE INJ 2 MG/ml SYRG IV PRN (16:14)
[2023-12-24 17:17] LABS: Basophils # (auto) 0 10 ^3/uL (0-0.2); Basophils % (auto) 0.3 % (0.0-2.0); Eosinophils # (auto) 0 10 ^3/uL (0-0.8); Eosinophils % (auto) 0.2 % (0.0-7.0); Hematocrit 28.3 % (36.0-46.0); Hemoglobin 9.2 g/dL (12.2-16.2); Lymphocytes # (auto) 0.5 10 ^3/uL (0.4-5.4); Lymphocytes % (auto) 5.4 % (10.0-50.0); Mean Corpuscular Hemoglobin 27.7 pg (28.0-32.0); Mean Corpuscular Hgb Conc. 32.5 g/dL (32.0-36.0); Mean Corpuscular Volume 85.5 fL (80.0-100.0); Monocytes # (auto) 0.4 10 ^3/uL (0-1.3); Monocytes % (auto) 4.6 % (0.0-12.0); Neutrophils # (auto) 8.5 10 ^3/uL (1.6-8.6); Neutrophils % (auto) 89.5 % (37.0-80.0); Platelet Count (auto) 206 10^3/uL (140-450); Red Blood Cells 3.31 10^6/uL (4.0-5.20); Red Cell Distribution Width 16.1 % (11.8-14.3); White Blood Cell 9.5 10^3/uL (4.4-10.8)
[2023-12-24] MEDS: NITROGLYCERIN 0.4 MG SL TAB SL PRN (17:30)
[2023-12-24 17:31] LABS: INR 1.15 (0.9-1.15); Partial Thromboplastin Time 31.6 SEC (24.5-34.5); Prothrombin Time 12.1 sec (9.3-11.8)
[2023-12-24] MEDS: NITROGLYCERIN 0.4 MG SL TAB SL ONE (17:32)
[2023-12-24 17:43] LABS: Albumin 4.2 g/dL (3.2-4.8); Alkaline Phosphatase 78 U/L (46-116); Anion Gap 13 (5-15); Aspartate Aminotransferase 45 U/L (13-40); BUN/Creatinine Ratio 7.2 (10.0-20.0); Bilirubin, Total 0.5 mg/dL (0.2-1.0); Calcium 10.1 mg/dL (8.7-10.4); Carbon Dioxide 25 mmol/L (20-30); Chloride 97 mmol/L (98-107); Glucose 190 mg/dL (74-106); Potassium 4.9 mmol/L (3.5-5.1); Total Protein 7.2 g/dL (5.7-8.2)
[2023-12-24 17:48] LABS: Blood Urea Nitrogen 38 mg/dL (9-23); Lactic Acid w/Reflex 3.4 mmol/L (0.4-2.0); Sodium 135 mmol/L (136-145)
[2023-12-24 17:49] LABS: Alanine Aminotransferase < 9 U/L (7-40)
[2023-12-24] MEDS ORDERED: ACETAMINOPHEN 650 MG RECT SUPP PR PRN (18:15)
[2023-12-24] MEDS: ACETAMINOPHEN 650 MG RECT SUPP PR PRN (18:21)
[2023-12-24] MEDS: ACETAMINOPHEN 650 MG RECT SUPP PR ONE (18:21)
[2023-12-24] MEDS ORDERED: METOCLOPRAMIDE HCL 5MG/ml INJ 2ml VIAL IV PRN (18:30)
[2023-12-24] MEDS: DICYCLOMINE HCL (10MG/ML) 2 ML AMPULE IM ONE (18:30)
[2023-12-24] MEDS: VANCOMYCIN 500 MG in D5W 5% 100 ML IV ONE (18:44)
[2023-12-24] MEDS: METOCLOPRAMIDE HCL 5MG/ml INJ 2ml VIAL IV ONE (18:44)
[2023-12-24] MEDS ORDERED: LORazepam 2MG/ML-1ML VIAL IV PRN (18:45)
[2023-12-24] MEDS: PANTOPRAZOLE 40 MG/10 ML VIAL INJ IV ONE (18:46)
[2023-12-24] MEDS: ASPirin 81 mg TAB PO ONE (19:45)
[2023-12-24] MEDS: MEROPENEM 1GM IVPB 50 ML IV ONE (22:08)
[2023-12-24] MEDS: MEROPENEM 500MG IVPB 50 ML IV ONE (22:11)
[2023-12-25] VITALS (90 sets, daily range): BP systolic 94–170; BP diastolic 25–86; PULSE 66–159; RESP 9–41; TEMP 98.2–99.4; O2SAT 81–100
[2023-12-25] MEDS: PHENYLEPHRINE INJ 80 MG in SODIUM CHL 0.9% 242 ML IV SCH (00:09)
[2023-12-25 04:34] LABS: Basophils # (auto) 0 10 ^3/uL (0-0.2); Basophils % (auto) 0.2 % (0.0-2.0); Eosinophils # (auto) 0 10 ^3/uL (0-0.8); Eosinophils % (auto) 0.3 % (0.0-7.0); Hematocrit 26.6 % (36.0-46.0); Hemoglobin 8.9 g/dL (12.2-16.2); Lymphocytes # (auto) 0.6 10 ^3/uL (0.4-5.4); Lymphocytes % (auto) 7.1 % (10.0-50.0); Mean Corpuscular Hemoglobin 28.6 pg (28.0-32.0); Mean Corpuscular Hgb Conc. 33.4 g/dL (32.0-36.0); Mean Corpuscular Volume 85.7 fL (80.0-100.0); Monocytes # (auto) 0.9 10 ^3/uL (0-1.3); Monocytes % (auto) 10.3 % (0.0-12.0); Neutrophils # (auto) 7.3 10 ^3/uL (1.6-8.6); Neutrophils % (auto) 82.1 % (37.0-80.0); Nucleated Red Blood Cells % 0.1 %; Platelet Count (auto) 177 10^3/uL (140-450); Red Cell Distribution Width 16.4 % (11.8-14.3)
[2023-12-25 04:48] LABS: Albumin 3.8 g/dL (3.2-4.8); Alkaline Phosphatase 73 U/L (46-116); Anion Gap 12 (5-15); Aspartate Aminotransferase 124 U/L (13-40); BUN/Creatinine Ratio 5.7 (10.0-20.0); Blood Urea Nitrogen 37 mg/dL (9-23); Calcium 9.6 mg/dL (8.7-10.4); Carbon Dioxide 25 mmol/L (20-30); Chloride 97 mmol/L (98-107); Glucose 208 mg/dL (74-106); Sodium 134 mmol/L (136-145)
[2023-12-25 04:49] LABS: Bilirubin, Total 0.4 mg/dL (0.2-1.0); Total Protein 6.9 g/dL (5.7-8.2)
[2023-12-25 05:05] LABS: Alanine Aminotransferase < 9 U/L (7-40); Lactic Acid w/Reflex 2.1 mmol/L (0.4-2.0); Potassium 5.6 mmol/L (3.5-5.1)
[2023-12-25] MEDS: OPTISON 3ml Vial for INJ IV ONE ×2 (09:50→10:30)
[2023-12-25] MEDS: PANTOPRAZOLE 40 MG/10 ML VIAL INJ IV SCH (10:00)
[2023-12-25] MEDS: HYDROmorphone HCL 2 MG/ML VL/or syr IV ONE (11:55)
[2023-12-25] MEDS: SODIUM CHL 0.9% 1000 ML BAG XX ONE (12:30)
[2023-12-25] MEDS: CLOPIDOGREL BISULFATE 75 MG TAB PO ONE (13:18)
[2023-12-25] MEDS: HYDROmorphone HCL 2 MG/ML VL/or syr IV PRN (16:29)
[2023-12-25] MEDS: EPOETIN ALFA-EPBX 10,000 UNIT/1ML VIAL SC ONE (20:49)
[2023-12-26] VITALS (60 sets, daily range): BP systolic 91–162; BP diastolic 24–89; PULSE 65–85; RESP 8–28; TEMP 90.8–99; O2SAT 96–100
[2023-12-26 04:50] LABS: Alanine Aminotransferase 21 U/L (7-40); Albumin 4.1 g/dL (3.2-4.8); Alkaline Phosphatase 80 U/L (46-116); Anion Gap 14 (5-15); Aspartate Aminotransferase 453 U/L (13-40); BUN/Creatinine Ratio 5.7 (10.0-20.0); Blood Urea Nitrogen 31 mg/dL (9-23); Calcium 9.9 mg/dL (8.7-10.4); Carbon Dioxide 25 mmol/L (20-30); Chloride 96 mmol/L (98-107); Glucose 107 mg/dL (74-106); Potassium 4.7 mmol/L (3.5-5.1); Sodium 135 mmol/L (136-145)
[2023-12-26 04:51] LABS: Bilirubin, Total 0.7 mg/dL (0.2-1.0); Total Protein 7.7 g/dL (5.7-8.2)
[2023-12-26 06:43] LABS: Basophils # (auto) 0 10 ^3/uL (0-0.2); Basophils % (auto) 0.2 % (0.0-2.0); Eosinophils # (auto) 0.2 10 ^3/uL (0-0.8); Eosinophils % (auto) 3.1 % (0.0-7.0); Hematocrit 25.8 % (36.0-46.0); Hemoglobin 8.5 g/dL (12.2-16.2); Lymphocytes # (auto) 0.9 10 ^3/uL (0.4-5.4); Lymphocytes % (auto) 14.8 % (10.0-50.0); Mean Corpuscular Hemoglobin 28.2 pg (28.0-32.0); Mean Corpuscular Hgb Conc. 33.1 g/dL (32.0-36.0); Mean Corpuscular Volume 85.2 fL (80.0-100.0); Monocytes # (auto) 0.8 10 ^3/uL (0-1.3); Monocytes % (auto) 12.2 % (0.0-12.0); Neutrophils # (auto) 4.4 10 ^3/uL (1.6-8.6); Neutrophils % (auto) 69.7 % (37.0-80.0); Nucleated Red Blood Cells % 0.1 %; Platelet Count (auto) 182 10^3/uL (140-450); Red Blood Cells 3.03 10^6/uL (4.0-5.20); Red Cell Distribution Width 16.7 % (11.8-14.3); White Blood Cell 6.3 10^3/uL (4.4-10.8)
[2023-12-26] MEDS: CLOPIDOGREL BISULFATE 75 MG TAB PO SCH (11:02)
[2023-12-26] MEDS: IODIXANOL 320MG/ML 100ML BTL IV ONE (12:48)
[2023-12-26] MEDS: fentaNYL CITRATE 100 MCG/2 ML VL ONE (12:51)
[2023-12-26] MEDS: ANGIOMAX 250 MG VIAL IV ONE (12:51)
[2023-12-26] MEDS: MIDAZOLAM HCL 2MG/2ML 2ml VIAL (1mg/ml) ONE (12:52)
[2023-12-26] MEDS: SODIUM CHL 0.9% 0 ML ONE (12:52)
[2023-12-26] MEDS: LIDOCAINE 2%HCL (LOCAL ANESTH.) INJ 20ML MDV ONE (12:52)
[2023-12-26] MEDS: HYDROmorphone HCL 2 MG/ML VL/or syr ONE ×2 (13:20→13:52)
[2023-12-26] MEDS ORDERED: AMLO1TAB23 PO (16:10)
[2023-12-26] MEDS ORDERED: FAMO-12 PO (16:12)
[2023-12-26] MEDS ORDERED: BREX1TAB4 PO (16:12)
[2023-12-26] MEDS ORDERED: ONDA-180 PO (16:12)
[2023-12-26] MEDS: SODIUM CHL 0.9% 1000 ML BAG XX ONE (16:57)
[2023-12-26] MEDS: VANCOMYCIN 500 MG in D5W 5% 100 ML IV ONE (18:19)
[2023-12-27] VITALS (7 sets, daily range): BP systolic 112–140; BP diastolic 25–80; PULSE 75–90; RESP 18–20; TEMP 97.4–98.7; O2SAT 90–100
[2023-12-27] MEDS ORDERED: SODIUM CHL 0.9% 1000 ML BAG XX ONE (07:00)
[2023-12-27 07:08] LABS: Calcium 10.2 mg/dL (8.7-10.4); Chloride 93 mmol/L (98-107); Potassium 4.1 mmol/L (3.5-5.1); Sodium 133 mmol/L (136-145)
[2023-12-27 07:09] LABS: Anion Gap 12 (5-15); Carbon Dioxide 28 mmol/L (20-30)
[2023-12-27 07:14] LABS: BUN/Creatinine Ratio 6.9 (10.0-20.0); Blood Urea Nitrogen 33 mg/dL (9-23); Glucose 119 mg/dL (74-106)
[2023-12-27 07:35] LABS: Basophils # (auto) 0 10 ^3/uL (0-0.2); Basophils % (auto) 0.4 % (0.0-2.0); Eosinophils # (auto) 0.2 10 ^3/uL (0-0.8); Eosinophils % (auto) 2.5 % (0.0-7.0); Hematocrit 29.6 % (36.0-46.0); Hemoglobin 9.3 g/dL (12.2-16.2); Lymphocytes # (auto) 1.2 10 ^3/uL (0.4-5.4); Lymphocytes % (auto) 12.8 % (10.0-50.0); Mean Corpuscular Hemoglobin 27.6 pg (28.0-32.0); Mean Corpuscular Hgb Conc. 31.4 g/dL (32.0-36.0); Mean Corpuscular Volume 87.7 fL (80.0-100.0); Monocytes # (auto) 1.2 10 ^3/uL (0-1.3); Monocytes % (auto) 12.1 % (0.0-12.0); Neutrophils # (auto) 6.9 10 ^3/uL (1.6-8.6); Neutrophils % (auto) 72.2 % (37.0-80.0); Nucleated Red Blood Cells % 0.1 %; Platelet Count (auto) 283 10^3/uL (140-450); Red Blood Cells 3.37 10^6/uL (4.0-5.20); Red Cell Distribution Width 16.9 % (11.8-14.3); White Blood Cell 9.6 10^3/uL (4.4-10.8)
[2023-12-27] MEDS: FAMOTIDINE 20 MG TAB PO SCH (08:55)
[2023-12-27] MEDS: ERTAPENEM SOD INJ 0.5 GM in SODIUM CHL 0.9% 50 ML IV SCH (10:00)
[2023-12-27 11:03] LABS: Platelet Estimate Adequate
[2023-12-27] MEDS ORDERED: SILVER NITRATE-POTAS NITRA STICK TOP ONE ×2 (14:15→16:00)
[2023-12-27] MEDS: HYDROmorphone HCL 2 MG/ML VL/or syr IV ONE (18:33)
[2023-12-27] MEDS: EPOETIN ALFA-EPBX 10,000 UNIT/1ML VIAL SC ONE (21:09)
[2023-12-28 01:00] VITALS: BP 132/72; PULSE 88; RESP 20; TEMP 98.4; O2SAT 100
[2023-12-28 05:00] VITALS: BP 151/67; PULSE 83; RESP 20; TEMP 97.6; O2SAT 100
[2023-12-28 08:00] VITALS: PULSE 75; PULSE 80; RESP 20; O2SAT 99
[2023-12-28 09:11] VITALS: BP 142/99; PULSE 80; RESP 20; TEMP 98.4; O2SAT 100
[2023-12-28] MEDS ORDERED: MORPHINE SULFATE INJ 2 MG/ml SYRG IV PRN (10:00)
[2023-12-28] MEDS: PIPERACILLIN-TAZO 4.5GM 100 ML IV ONE (11:44)
[2023-12-28 14:46] VITALS: BP 146/41; PULSE 74; RESP 16; TEMP 98.9; O2SAT 94
[2023-12-28 15:00] VITALS: BP 146/41; PULSE 74; RESP 16; TEMP 98.9; O2SAT 94
[2023-12-28] MEDS ORDERED: PIPERACILLIN-TAZO 4.5GM 100 ML IV SCH (22:00)
== END 2023-12-28 17:40 | disposition home health service (06) | DRG 853 ==
LOC: ER 23:33 → EDBD 23:33 → TELE 12-23 05:48 → TELE-CENTR 12-23 13:00 → ICU WEST 12-24 16:28 → TELE-WESTW 12-26 16:04 → TELE-CENTR 12-28 04:55
PROVIDERS: ADMIT Nurse Practitioner Family; ATTEND Internal Medicine
PROC: 5A1D70Z Performance of Urinary Filtration, Intermittent, Less than 6 Hours Per Day (ICD-10-PCS; 2023-12-24)
PROC: 5A1D70Z Performance of Urinary Filtration, Intermittent, Less than 6 Hours Per Day (ICD-10-PCS; 2023-12-25)
PROC: B2111ZZ Fluoroscopy of Multiple Coronary Arteries using Low Osmolar Contrast (ICD-10-PCS; principal; 2023-12-26)
PROC: B2181ZZ Fluoroscopy of Left Internal Mammary Bypass Graft using Low Osmolar Contrast (ICD-10-PCS; 2023-12-26)
PROC: B21F1ZZ Fluoroscopy of Other Bypass Graft using Low Osmolar Contrast (ICD-10-PCS; 2023-12-26)
PROC: 4A023N7 Measurement of Cardiac Sampling and Pressure, Left Heart, Percutaneous Approach (ICD-10-PCS; 2023-12-26)
PROC: B2151ZZ Fluoroscopy of Left Heart using Low Osmolar Contrast (ICD-10-PCS; 2023-12-26)
PROC: B41F1ZZ Fluoroscopy of Right Lower Extremity Arteries using Low Osmolar Contrast (ICD-10-PCS; 2023-12-26)
PROC: 5A1D70Z Performance of Urinary Filtration, Intermittent, Less than 6 Hours Per Day (ICD-10-PCS; 2023-12-26)
PROC: 0JB60ZZ Excision of Chest Subcutaneous Tissue and Fascia, Open Approach (ICD-10-PCS; 2023-12-27)
PROC: 5A1D70Z Performance of Urinary Filtration, Intermittent, Less than 6 Hours Per Day (ICD-10-PCS; 2023-12-27)
PROC: 05HD33Z Insertion of Infusion Device into Right Cephalic Vein, Percutaneous Approach (ICD-10-PCS; 2023-12-28)
PROC: B54MZZA Ultrasonography of Right Upper Extremity Veins, Guidance (ICD-10-PCS; 2023-12-28)
DX: A41.59 Other Gram-negative sepsis (principal); I21.4 Non-ST elevation (NSTEMI) myocardial infarction; J98.51 Mediastinitis; N18.6 End stage renal disease; R65.21 Severe sepsis with septic shock; J96.00 Acute respiratory failure, unspecified whether with hypoxia or hypercapnia; I50.33 Acute on chronic diastolic (congestive) heart failure; I13.2 Hypertensive heart and chronic kidney disease with heart failure and with stage 5 chronic kidney disease, or end stage renal disease; E87.1 Hypo-osmolality and hyponatremia; T81.41XA Infection following a procedure, superficial incisional surgical site, initial encounter; I25.810 Atherosclerosis of coronary artery bypass graft(s) without angina pectoris; Z16.11 Resistance to penicillins; E11.22 Type 2 diabetes mellitus with diabetic chronic kidney disease; D63.1 Anemia in chronic kidney disease; Y83.8 Other surgical procedures as the cause of abnormal reaction of the patient, or of later complication, without mention of misadventure at the time of the procedure; E78.5 Hyperlipidemia, unspecified; F32.A Depression, unspecified; F41.9 Anxiety disorder, unspecified; K21.9 Gastro-esophageal reflux disease without esophagitis; E11.65 Type 2 diabetes mellitus with hyperglycemia; E66.9 Obesity, unspecified; E87.5 Hyperkalemia; I25.5 Ischemic cardiomyopathy; Z99.2 Dependence on renal dialysis; Z79.891 Long term (current) use of opiate analgesic; Z79.899 Other long term (current) drug therapy; Z79.4 Long term (current) use of insulin; Z82.3 Family history of stroke; Z82.49 Family history of ischemic heart disease and other diseases of the circulatory system; Z83.3 Family history of diabetes mellitus; Z68.33 Body mass index [BMI] 33.0-33.9, adult; Z86.73 Personal history of transient ischemic attack (TIA), and cerebral infarction without residual deficits; Y92.89 Other specified places as the place of occurrence of the external cause; I25.2 Old myocardial infarction; Z95.5 Presence of coronary angioplasty implant and graft; Z68.28 Body mass index [BMI] 28.0-28.9, adult
CPT/HCPCS: 11044; 11047; 36415; 70450; 71045; 71250; 73020; 75710; 80048; 80053; 80202; 82962; 83036; 83605; 83690; 83735; 83880; 84100; 84484; 85025; 85610; 85730; 87040; 87070; 87077; 87081; 87186; 87205; 87340; 90935; 93005; 93306; 93459; 97110; 97116; 97163; 97530; 99152; G0378; J0692; J1335; J1815; J2185; J2250; J2405; J2470; J2543; J3490; J7060; P9047; Q9956; Q9967

== ENCOUNTER → 2024-01-09 | Emergency (ER) | payer MEDICARE, MEDICAID ==
[~2024-01-09] MED LIST changes: -AMLO1TAB22 PO; +AMLO1TAB23 PO; +BREX1TAB4 PO; +FAMO-12 PO; +ONDA-180 PO
== END | disposition left against medical advice (07) ==
LOC: ER 05:44
DX: M79.603 Pain in arm, unspecified (principal); Z53.21 Procedure and treatment not carried out due to patient leaving prior to being seen by health care provider

== ENCOUNTER 2024-01-11 11:40 | Emergency (ER) | payer MEDICARE, MEDICAID ==
[~2024-01-11] VITALS: Ht 167.6 cm; Wt 85.9 kg
[2024-01-11 12:08] VITALS: TEMP 98.2
[2024-01-11 13:14] LABS: Basophils # (auto) 0.1 10 ^3/uL (0-0.2); Basophils % (auto) 0.9 % (0.0-2.0); Eosinophils # (auto) 0.3 10 ^3/uL (0-0.8); Eosinophils % (auto) 4.9 % (0.0-7.0); Hematocrit 31.1 % (36.0-46.0); Hemoglobin 10.2 g/dL (12.2-16.2); Lymphocytes % (auto) 17.1 % (10.0-50.0); Mean Corpuscular Hemoglobin 27.4 pg (28.0-32.0); Mean Corpuscular Hgb Conc. 32.7 g/dL (32.0-36.0); Mean Corpuscular Volume 83.8 fL (80.0-100.0); Monocytes # (auto) 0.6 10 ^3/uL (0-1.3); Monocytes % (auto) 10.6 % (0.0-12.0); Neutrophils # (auto) 3.8 10 ^3/uL (1.6-8.6); Neutrophils % (auto) 66.5 % (37.0-80.0); Platelet Count (auto) 317 10^3/uL (140-450); Red Blood Cells 3.71 10^6/uL (4.0-5.20); Red Cell Distribution Width 17.1 % (11.8-14.3); White Blood Cell 5.7 10^3/uL (4.4-10.8)
[2024-01-11 13:29] LABS: INR 1.1 (0.9-1.15); Prothrombin Time 11.6 sec (9.3-11.8)
[2024-01-11 16:00] VITALS: BP 156/76; PULSE 75; RESP 18; O2SAT 100
[2024-01-11] MEDS: LIDOCAINE 1% (LOCAL ANESTH.) PF 5ml SDV ID ONE (16:26)
[2024-01-11] MEDS ORDERED: SODIUM CHLOR 0.9% PF (SALINE LOCK) 10ML VIAL/SYR IV SCH (22:00)
== END 2024-01-11 15:47 | disposition home or self-care (01) ==
LOC: ER 11:40
DX: E11.22 Type 2 diabetes mellitus with diabetic chronic kidney disease (principal); I13.2 Hypertensive heart and chronic kidney disease with heart failure and with stage 5 chronic kidney disease, or end stage renal disease; I50.9 Heart failure, unspecified; N18.6 End stage renal disease; Z45.2 Encounter for adjustment and management of vascular access device; Z79.899 Other long term (current) drug therapy; Z79.01 Long term (current) use of anticoagulants; Z86.73 Personal history of transient ischemic attack (TIA), and cerebral infarction without residual deficits
CPT/HCPCS: 36415; 36569; 85025; 85610; 99285; C1751; J7050; 85730

== ENCOUNTER 2024-01-11 18:26 | Emergency (ER) | payer MEDICARE, MEDICAID | END 2024-01-12 02:19 | disposition left against medical advice (07) | LOC: ER 18:26 | DX: R79.89 Other specified abnormal findings of blood chemistry (principal); Z53.21 Procedure and treatment not carried out due to patient leaving prior to being seen by health care provider ==

== ENCOUNTER 2024-02-19 09:18 | Inpatient (IN) | payer MEDICARE, MEDICAID ==
[~2024-02-19] VITALS: Ht 167.6 cm; Wt 92.9 kg
[~2024-02-19 09:18] MED LIST changes: +CHOL4POW33 PO; +OXYC325T14 PO
[2024-02-19 09:39] VITALS: PULSE 83; RESP 16; O2SAT 97
[2024-02-19 10:29] LABS: Basophils # (auto) 0 10 ^3/uL (0-0.2); Basophils % (auto) 0.1 % (0.0-2.0); Eosinophils # (auto) 0.2 10 ^3/uL (0-0.8); Mean Corpuscular Volume 80.6 fL (80.0-100.0); Red Cell Distribution Width 16.8 % (11.8-14.3)
[2024-02-19 10:33] LABS: Eosinophils % (auto) 2.2 % (0.0-7.0); Hematocrit 21.2 % (36.0-46.0); Hemoglobin 7.1 g/dL (12.2-16.2); Lymphocytes % (auto) 12.5 % (10.0-50.0); Mean Corpuscular Hemoglobin 26.9 pg (28.0-32.0); Mean Corpuscular Hgb Conc. 33.4 g/dL (32.0-36.0); Monocytes # (auto) 0.7 10 ^3/uL (0-1.3); Monocytes % (auto) 8.1 % (0.0-12.0); Neutrophils # (auto) 6.3 10 ^3/uL (1.6-8.6); Neutrophils % (auto) 77.1 % (37.0-80.0); Platelet Count (auto) 216 10^3/uL (140-450); Red Blood Cells 2.63 10^6/uL (4.0-5.20); White Blood Cell 8.2 10^3/uL (4.4-10.8)
[2024-02-19 11:03] LABS: Alanine Aminotransferase 18 U/L (7-40); Albumin 3.6 g/dL (3.2-4.8); Alkaline Phosphatase 75 U/L (46-116); Anion Gap 12 (5-15); Aspartate Aminotransferase 21 U/L (13-40); BUN/Creatinine Ratio 13.5 (10.0-20.0); Bilirubin, Total 0.3 mg/dL (0.2-1.0); Calcium 9.2 mg/dL (8.7-10.4); Carbon Dioxide 26 mmol/L (20-31); Chloride 93 mmol/L (98-107); Glucose 119 mg/dL (74-106); Sodium 131 mmol/L (136-145); Total Protein 6.5 g/dL (5.7-8.2)
[2024-02-19 11:08] LABS: Blood Urea Nitrogen 115 mg/dL (9-23)
[2024-02-19] MEDS: SODIUM CHLORIDE 0.9% 1,000 ML IV ONE (11:24)
[2024-02-19 12:04] LABS: INR 1.09 (0.9-1.15); Partial Thromboplastin Time 27.6 SEC (24.5-34.5); Prothrombin Time 11.5 sec (9.3-11.8)
[2024-02-19 12:07] LABS: Magnesium 2.4 mg/dL (1.6-2.6)
[2024-02-19] MEDS ORDERED: CLOP75TA70 PO (14:14)
[2024-02-19] MEDS ORDERED: ONDANSETRON HCL 4 MG/2 ML VIAL IV PRN (14:15)
[2024-02-19] MEDS ORDERED: ACETAMINOPHEN 325 MG TAB PO PRN (14:15)
[2024-02-19] MEDS ORDERED: DEXTROSE (50%) 50ML SYRG IV PRN (14:15)
[2024-02-19] MEDS: SODIUM CHLORIDE 0.9% 1,000 ML IV SCH (14:26)
[2024-02-19] MEDS: hydrOXYzine 25 MG TAB or CAP PO SCH (15:06)
[2024-02-19 15:30] LABS: Folate (Folic Acid) 22.16 ng/mL (>5.38)
[2024-02-19 15:31] LABS: Ferritin 79.1 ng/mL (10-291)
[2024-02-19 15:34] LABS: % Iron Saturation 23.8 % (15-50)
[2024-02-19] MEDS: ACCU-CHEK COMFORT CURVE STRIP VI SCH (17:00)
[2024-02-19] MEDS: InsuLIN REG 1unit/0.01ml Soln (100units/ml) SC SCH ×2 (17:00→22:00)
[2024-02-19] MEDS: SEVELAMER 800 MG TAB PO SCH (18:34)
[2024-02-19 20:00] VITALS: RESP 18; O2SAT 0
[2024-02-19] MEDS ORDERED: IOHEXOL 300 MG/ML 100ML BOTTLE IJ ONE (20:33)
[2024-02-19 21:54] VITALS: BP 136/38; PULSE 80; RESP 19; TEMP 97.7; O2SAT 96
[2024-02-19] MEDS: HYDROcodone-ACET 10/325MG TAB PO PRN (21:58)
[2024-02-19] MEDS: ATORVASTATIN 20 MG TAB PO SCH (21:58)
[2024-02-19] MEDS: TEMAZEPAM 15 MG CAP PO PRN (21:59)
[2024-02-19 23:55] VITALS: PULSE 80; RESP 19; O2SAT 96
[2024-02-20] VITALS (13 sets, daily range): BP systolic 82–148; BP diastolic 20–44; PULSE 68–87; RESP 14–20; TEMP 97.4–99; O2SAT 90–100
[2024-02-20] MEDS ORDERED: ISOSORBIDE MONONITRATE ER 60 MG TAB PO SCH (07:00)
[2024-02-20] MEDS ORDERED: SODIUM CHL 0.9% 1000 ML BAG XX ONE (07:00)
[2024-02-20] MEDS ORDERED: IOHEXOL 300 MG/ML 100ML BOTTLE IJ ONE (07:13)
[2024-02-20] MEDS: NITROGLYCERIN 0.4 MG SL TAB SL PRN (07:42)
[2024-02-20] MEDS ORDERED: INSULIN LANTUS (GLARGINE) 1 /0.01ml (100units/ml) SC SCH (10:00)
[2024-02-20] MEDS: CINACALCET HYDROCHLORIDE 30 MG TAB PO SCH (10:00)
[2024-02-20] MEDS ORDERED: DEXTROSE (50%) 50ML SYRG IV PRN (10:15)
[2024-02-20] MEDS: PANTOPRAZOLE 40 MG/10 ML VIAL INJ IV ONE (10:45)
[2024-02-20] MEDS: ACCU-CHEK COMFORT CURVE STRIP VI SCH (11:59)
[2024-02-20] MEDS: InsuLIN REG 1unit/0.01ml Soln (100units/ml) SC SCH (12:00)
[2024-02-20] MEDS: IRON SUCROSE COMPLEX 100 ML IV SCH (12:00)
[2024-02-20] MEDS ORDERED: ONDANSETRON HCL 4 MG/2 ML VIAL IV ONE (14:00)
[2024-02-20] MEDS ORDERED: fentaNYL CITRATE 100 MCG/2 ML VL ONE (14:06)
[2024-02-20] MEDS ORDERED: MIDAZOLAM HCL 2MG/2ML 2ml VIAL (1mg/ml) ONE (14:07)
[2024-02-20] MEDS ORDERED: KETAMINE 50mg/ML 1ml syringe ONE (14:08)
[2024-02-20] MEDS ORDERED: LIDOCAINE 2% (LOCAL ANESTH.) PF 5ml SDV ONE (14:10)
[2024-02-20] MEDS ORDERED: ONDANSETRON HCL 4 MG/2 ML VIAL ONE (14:10)
[2024-02-20] MEDS ORDERED: PROPOFOL 10 MG/ML 20 ML IV ONE (14:10)
[2024-02-20] MEDS: HYDROcodone-ACET 5/325MG TAB PO PRN (14:56)
[2024-02-20] MEDS: MORPHINE SULFATE INJ 2 MG/ml SYRG IV PRN (15:03)
[2024-02-20 16:40] LABS: Basophils # (auto) 0 10 ^3/uL (0-0.2); Lymphocytes # (auto) 0.5 10 ^3/uL (0.4-5.4); Mean Corpuscular Hgb Conc. 33.2 g/dL (32.0-36.0); Neutrophils # (auto) 5.1 10 ^3/uL (1.6-8.6)
[2024-02-20 16:42] LABS: Eosinophils # (auto) 0.2 10 ^3/uL (0-0.8); Eosinophils % (auto) 2.5 % (0.0-7.0); Hematocrit 23.4 % (36.0-46.0); Hemoglobin 7.8 g/dL (12.2-16.2); Mean Corpuscular Hemoglobin 26.4 pg (28.0-32.0); Mean Corpuscular Volume 79.6 fL (80.0-100.0); Monocytes # (auto) 0.3 10 ^3/uL (0-1.3); Monocytes % (auto) 5.7 % (0.0-12.0); Neutrophils % (auto) 83.8 % (37.0-80.0); Platelet Count (auto) 200 10^3/uL (140-450); Red Blood Cells 2.94 10^6/uL (4.0-5.20); Red Cell Distribution Width 16.6 % (11.8-14.3); White Blood Cell 6.1 10^3/uL (4.4-10.8)
[2024-02-20] MEDS: SUCRALFATE 1 GM/10 ML ORAL SUSP GT SCH (16:55)
[2024-02-20 16:57] LABS: % Iron Saturation 15.5 % (15-50)
[2024-02-20 17:12] LABS: Alanine Aminotransferase 24 U/L (7-40); Alkaline Phosphatase 75 U/L (46-116); Calcium 9.3 mg/dL (8.7-10.4); Chloride 101 mmol/L (98-107); Glucose 96 mg/dL (74-106); Potassium 4.8 mmol/L (3.5-5.1)
[2024-02-20 17:13] LABS: Albumin 3.5 g/dL (3.2-4.8); Aspartate Aminotransferase 37 U/L (13-40); BUN/Creatinine Ratio 10.6 (10.0-20.0); Bilirubin, Total 0.7 mg/dL (0.2-1.0); Sodium 138 mmol/L (136-145); Total Protein 6.2 g/dL (5.7-8.2)
[2024-02-20 17:16] LABS: Blood Urea Nitrogen 55 mg/dL (9-23)
[2024-02-20 17:22] LABS: Anion Gap 10 (5-15); Carbon Dioxide 27 mmol/L (20-31)
[2024-02-20] MEDS: EPOETIN ALFA-EPBX 10,000 UNIT/1ML VIAL SC ONE (21:44)
[2024-02-21] VITALS (16 sets, daily range): BP systolic 103–137; BP diastolic 20–45; PULSE 68–96; RESP 17–20; TEMP 97.8–98.6; O2SAT 90–97
[2024-02-21] MEDS: SERTRALINE HCL 50 MG TAB PO SCH (09:20)
[2024-02-21] MEDS: PANTOPRAZOLE 40 MG/10 ML VIAL INJ IV SCH (09:20)
[2024-02-21 10:17] LABS: Basophils # (auto) 0 10 ^3/uL (0-0.2); Basophils % (auto) 0.1 % (0.0-2.0); Eosinophils # (auto) 0.2 10 ^3/uL (0-0.8); Eosinophils % (auto) 2.5 % (0.0-7.0); Hematocrit 30.2 % (36.0-46.0); Hemoglobin 10.2 g/dL (12.2-16.2); Lymphocytes # (auto) 0.8 10 ^3/uL (0.4-5.4); Lymphocytes % (auto) 12.6 % (10.0-50.0); Mean Corpuscular Hemoglobin 27.7 pg (28.0-32.0); Mean Corpuscular Hgb Conc. 33.7 g/dL (32.0-36.0); Mean Corpuscular Volume 82.1 fL (80.0-100.0); Monocytes # (auto) 0.6 10 ^3/uL (0-1.3); Monocytes % (auto) 8.5 % (0.0-12.0); Neutrophils % (auto) 76.3 % (37.0-80.0); Nucleated Red Blood Cells % 0.1 %; Platelet Count (auto) 202 10^3/uL (140-450); Red Blood Cells 3.68 10^6/uL (4.0-5.20); Red Cell Distribution Width 16.5 % (11.8-14.3); White Blood Cell 6.5 10^3/uL (4.4-10.8)
[2024-02-21 10:27] LABS: Anion Gap 9 (5-15); Carbon Dioxide 27 mmol/L (20-31); Chloride 100 mmol/L (98-107); Potassium 5.3 mmol/L (3.5-5.1); Sodium 136 mmol/L (136-145)
[2024-02-21 10:28] LABS: Calcium 9.9 mg/dL (8.7-10.4)
[2024-02-21 10:33] LABS: BUN/Creatinine Ratio 8.7 (10.0-20.0); Blood Urea Nitrogen 56 mg/dL (9-23); Glucose 86 mg/dL (74-106)
[2024-02-21] MEDS: CLOPIDOGREL BISULFATE 75 MG TAB PO SCH (12:17)
[2024-02-21] MEDS: PANTOPRAZOLE 40 MG TAB PO SCH (17:44)
[2024-02-22] VITALS (8 sets, daily range): BP systolic 105–161; BP diastolic 30–64; PULSE 72–83; RESP 16–18; TEMP 97.8–99; O2SAT 92–97
[2024-02-22 08:52] LABS: Basophils # (auto) 0 10 ^3/uL (0-0.2); Eosinophils # (auto) 0.2 10 ^3/uL (0-0.8); Eosinophils % (auto) 2.7 % (0.0-7.0); Hematocrit 30.3 % (36.0-46.0); Hemoglobin 10.1 g/dL (12.2-16.2); Lymphocytes # (auto) 0.7 10 ^3/uL (0.4-5.4); Lymphocytes % (auto) 10.9 % (10.0-50.0); Mean Corpuscular Hemoglobin 27.3 pg (28.0-32.0); Mean Corpuscular Hgb Conc. 33.2 g/dL (32.0-36.0); Mean Corpuscular Volume 82.2 fL (80.0-100.0); Monocytes # (auto) 0.5 10 ^3/uL (0-1.3); Monocytes % (auto) 7.5 % (0.0-12.0); Neutrophils # (auto) 5.4 10 ^3/uL (1.6-8.6); Neutrophils % (auto) 78.9 % (37.0-80.0); Nucleated Red Blood Cells % 0.1 %; Platelet Count (auto) 206 10^3/uL (140-450); Red Blood Cells 3.69 10^6/uL (4.0-5.20); Red Cell Distribution Width 16.4 % (11.8-14.3); White Blood Cell 6.8 10^3/uL (4.4-10.8)
[2024-02-22 09:02] LABS: Anion Gap 11 (5-15); Carbon Dioxide 24 mmol/L (20-31); Chloride 101 mmol/L (98-107); Potassium 5.3 mmol/L (3.5-5.1); Sodium 136 mmol/L (136-145)
[2024-02-22 09:03] LABS: Calcium 9.7 mg/dL (8.7-10.4)
[2024-02-22 09:08] LABS: BUN/Creatinine Ratio 8.2 (10.0-20.0); Glucose 93 mg/dL (74-106)
[2024-02-22 09:09] LABS: Blood Urea Nitrogen 66 mg/dL (9-23)
[2024-02-22] MEDS ORDERED: PANT40TA2 PO (09:51)
[2024-02-22] MEDS ORDERED: SUCR1TAB31 PO (09:51)
== END 2024-02-22 13:55 | disposition home health service (06) | DRG 377 ==
LOC: EDBD 09:18 → ER 09:18 → TELE 14:05 → TELE-CENTR 20:38
PROVIDERS: ADMIT Nurse Practitioner Family; ATTEND Internal Medicine
PROC: 0DB68ZX Excision of Stomach, Via Natural or Artificial Opening Endoscopic, Diagnostic (ICD-10-PCS; 2024-02-20)
PROC: 30233N1 Transfusion of Nonautologous Red Blood Cells into Peripheral Vein, Percutaneous Approach (ICD-10-PCS; 2024-02-20)
PROC: 5A1D70Z Performance of Urinary Filtration, Intermittent, Less than 6 Hours Per Day (ICD-10-PCS; 2024-02-20)
PROC: 0DB98ZX Excision of Duodenum, Via Natural or Artificial Opening Endoscopic, Diagnostic (ICD-10-PCS; principal; 2024-02-20 14:02)
PROC: 5A1D70Z Performance of Urinary Filtration, Intermittent, Less than 6 Hours Per Day (ICD-10-PCS; 2024-02-22)
DX: K29.71 Gastritis, unspecified, with bleeding (principal); I21.A1 Myocardial infarction type 2; N18.6 End stage renal disease; T81.41XA Infection following a procedure, superficial incisional surgical site, initial encounter; I50.32 Chronic diastolic (congestive) heart failure; I13.2 Hypertensive heart and chronic kidney disease with heart failure and with stage 5 chronic kidney disease, or end stage renal disease; K31.819 Angiodysplasia of stomach and duodenum without bleeding; K22.11 Ulcer of esophagus with bleeding; D64.9 Anemia, unspecified; I95.9 Hypotension, unspecified; E78.5 Hyperlipidemia, unspecified; I25.10 Atherosclerotic heart disease of native coronary artery without angina pectoris; F41.9 Anxiety disorder, unspecified; F32.A Depression, unspecified; E11.22 Type 2 diabetes mellitus with diabetic chronic kidney disease; K21.9 Gastro-esophageal reflux disease without esophagitis; E66.9 Obesity, unspecified; K44.9 Diaphragmatic hernia without obstruction or gangrene; E87.5 Hyperkalemia; K31.7 Polyp of stomach and duodenum; Z86.73 Personal history of transient ischemic attack (TIA), and cerebral infarction without residual deficits; Z90.5 Acquired absence of kidney; Z98.61 Coronary angioplasty status; Z90.710 Acquired absence of both cervix and uterus; Z82.49 Family history of ischemic heart disease and other diseases of the circulatory system; Z79.4 Long term (current) use of insulin; Z68.33 Body mass index [BMI] 33.0-33.9, adult; Z99.2 Dependence on renal dialysis; Z82.3 Family history of stroke; Z83.3 Family history of diabetes mellitus
CPT/HCPCS: 36415; 71045; 74177; 80048; 80053; 82306; 82607; 82728; 82746; 82962; 83540; 83550; 83615; 83690; 83735; 84443; 84484; 85025; 85045; 85384; 85610; 85730; 86850; 86900; 86901; 86920; 87340; 90935; 93005; 97163; G0378; J1756; J1815; J2003; J2250; J2405; J2470; J2704

== ENCOUNTER → 2024-04-30 | Outpatient (CLI) | payer MEDICARE, MEDICAID ==
[~2024-04-30] MED LIST changes: +CLOP75TA70 PO; +SUCR1TAB31 PO; -TICA1TAB PO
--- NOTE | 2024-04-30 13:06 | DVH ---
Procedure: CT CHEST WITHOUT CONTRAST Reason for study/Clinical History: Sternal infection. Comparison Study: 12/28/2023. Exam Date: 04/30/2024 12:13 PM TECHNIQUE: Multidetector CT of the chest was performed from the lung apices to the upper abdomen with out the use of intravenous contract. Axial, coronal and sagittal multiplanar reformats were performed . Radiation Dose Information: CT Dose: CTDI volume is 22.43 mGy. Dose-length product is 829.59 mGy*cm The dose indicators for CT are the volume Computed Tomography (CT) Dose Index (CTDIvol) and the Dose Length Product (DLP), and are measured in units of mGy and mGy-cm, respectively. These indicators are not patient dose, but values generated from the CT scanner acquisition factors. The report includes radiation exposure data for exposures received during this examination. Radiation optimization: All CT scans at this facility use at least one of these dose optimization cinthia hniques: automated exposure control mA and/or kV adjustment per patient size (includes targeted exam s where dose is matched to clinical indication) or iterative reconstruction. FINDINGS Lungs/Pleura: No focal consolidation. No suspicious appearing pulmonary nodule or mass. Heart/Vascular Structures: Normal heart size. No pericardial effusion. There are coronary artery calc ifications. Lymph Nodes: No thoracic lymphadenopathy. Multiple mediastinal clips. Musculoskeletal: Again seen are surgical clips between the sternal heads. There has been interval dec rease in soft tissue density in this region. There is no bony erosion or destruction. There is no acu te osseous abnormality. Upper abdomen: Right kidney and gallbladder are surgically absent. Remaining visualized upper abdomin al structures appear within normal limits. IMPRESSION: 1. There has been interval decrease in soft tissue density between the sternal heads where there are surgical clips. There is no bony erosion or destruction. 2. There is no acute intrathoracic abnormality. HS:Y
== END | disposition home or self-care (01) ==
LOC: Rad HDHVI 12:12
PROVIDERS: ATTEND Internal Medicine Cardiovascular Disease
DX: I25.10 Atherosclerotic heart disease of native coronary artery without angina pectoris (principal); Z98.890 Other specified postprocedural states
CPT/HCPCS: 71250

== ENCOUNTER 2024-06-19 21:19 | Inpatient (IN) | payer MEDICARE, MEDICAID ==
[~2024-06-19] VITALS: Ht 167.6 cm; Wt 89.5 kg
--- NOTE | 2024-06-19 21:37 | ED.PDOC ---
HPI Comments 54 year old female brought in by EMS presents to the ED with a chief complaint of chest pain onset today around 07:00. Per EMS, patient has been experiencing shortness of breath for the past 3 days, noticed chest pain this morning, took Nitro prior to EMS arrival, Aspirin given by EMS with no improvement of symptoms, rates pain 01/22. Patient receives at home hemodialysis 4 times a week Monday, Monday, Monday, Monday. Patient has a bypass in 2018, october 2023 had another surgery and wound has not healed since then. PMHx depression, DM, HLD, HTN, GERD, anxiety, CHF, CKF, CAD. Denies fever, chills, nausea, vomiting, diarrhea, constipation, abdominal pain, cough, congestion, headache, blurry vision, dizziness. No other symptoms or modifying factors present at this time. Chief Complaint: Shortness of Breath Time Seen by MD: 21:25 Primary Care Provider: JANY Draper Notes: Medications, Allergies Allergies: Coded Allergies: No Known Drug Allergy (Verified Allergy, Unknown, 10/26/21) Home Meds Active Scripts Sucralfate (CARAFATE) 1 Gm Tab, 1 GM PO QID for 30 Days, #120 TAB Prov:VENANCIO JARA MD 02/22/24 Pantoprazole Sodium Sesquihydr (Protonix) 40 Mg Tab, 40 MG PO BIDAC for 30 Days, #60 TAB Prov:VENANCIO JARA MD 02/22/24 Reported Medications Cholestyramine (Cholestyramine) 4 Gm Pow, 1 PKT PO BID for 30 Days, #60 02/20/24 Oxycodone W/ Acetaminophen (Apap/Oxycodone) 1 Tab Tab, 1 TAB PO Q8HR for 30 Days, #90 [10/325 MG] 02/20/24 Clopidogrel Bisulfate (CLOPIDOGREL) 75 Mg Tab, 1 TAB PO DAILY 02/19/24 Famotidine (Famotidine) 20 Mg Tab, 1 TAB PO DAILY for 90 Days, #90 12/26/23 Brexpiprazole (Rexulti) 2 Mg Tab, 1 TAB PO DAILY for 30 Days, #30 12/26/23 Ondansetron HCl (Ondansetron Hydrochloride) 8 Mg Tab, 1 TAB PO BID for 30 Days, #60 12/26/23 Amlodipine Besylate (Amlodipine Besylate) 10 Mg Tab, 1 TAB PO DAILY 12/26/23 Hydrocodone-Acetaminophen (Hydrocodone Bitartrate/AC 10-325 mg) 1 Tab Tab, 1 TAB PO TID PRN for PAIN 11/16/23 Insulin Glargine (Basaglar Kwikpen) 100 Unit/Ml Inj, 20 UNIT SC BID for 81 Days, #36 11/14/23 Insulin Lispro-Aabc (Lyumjev Kwikpen) 100 Unit/Ml Inj, SC UD Per sliding scale. Max 24 units a day. 11/14/23 Calcitriol (Calcitriol) 0.25 Mcg Cap, 4 CAP PO DAILY for 30 Days, #120 11/14/23 Cinacalcet HCl (Cinacalcet Hydrochloride) 30 Mg Tab, 1 TAB PO DAILY 11/14/23 Hydroxyzine Hcl (Hydroxyzine Hcl) 25 Mg Tab, 1 TAB PO BID 11/14/23 Sertraline HCl (Sertraline Hydrochloride) 150 Mg Cap, 1 CAP PO QAM 11/14/23 Isosorbide Mononitrate (Isosorbide Mononitrate Er) 60 Mg Tab, 60 MG PO QAM for CHEST PAIN, MG 10/26/21 Temazepam (Temazepam) 30 Mg Cap, 30 MG PO HS for SLEEP, CAP 10/09/20 Atorvastatin Calcium (ATORVASTATIN CALCIUM) 10 Mg Tab, 1 TAB PO DAILY, #30 TAB 5 Refills 07/03/17 Pantoprazole Sodium Sesquihydr (Protonix) 40 Mg Tab, 40 MG PO DAILY for 90 Days, #90 07/03/17 Aspirin (Asa) 81 Mg Ch, 81 MG PO DAILY 07/03/17 Sevelamer Carbonate (Renvela) 800 Mg Tab, 800 MG PO TIDWM for KIDNEY DISEASE/ DIALYSIS for 30 Days, MG 05/04/17 Information Source: Patient, Emergency Med Personnel Mode of Arrival: EMS Severity: Moderate Timing: Hours Duration: Since onset Prehospital treatment: Other (aspirin ) Location: Chest (L) Radiation: No Radiation Quality: Sharp Onset: At Rest PE Risk Factors: None History of: Aspirin, Other (nitro) Modifying Factors: Nothing Associated Signs and Symptoms: SOB Vital Signs Vital Signs Date Time Temp Pulse Resp B/P (MAP) Pulse Ox O2 Delivery O2 Flow Rate FiO2 06/20/24 00:24 80 06/19/24 23:31 14 120/60 06/19/24 21:26 98.7 100 Physical Exam General: Awake, alert and oriented. No acute distress. Skin: Skin in warm, dry and intact. Appropriate color for ethnicity. Dressing over sternal wound in place, dressing dry and clean HEENT: The head is normocephalic and atraumatic. Conjunctivae are clear without exudates or hemorrhage. Sclera is non-icteric. EOM are intact. No signs of nystagmus. Eyelids are normal in appearance without swelling or lesions. Oral mucosa is pink and moist Neck: The neck is supple with normal range of motion. No JVD. Cardiac: Heart rate and rhythm are normal. No murmurs, gallops, or rubs are auscultated. Respiratory: No signs of respiratory distress. Lung sounds are clear in all lobes bilaterally without rales, ronchi, or wheezes. Abdominal: Abdomen is soft, non-tender without distention. Bowel sounds are present and normoactive in all four quadrants. Extremities: Upper and lower extremities are atraumatic in appearance without deformity or edema. Neurological: The patient is awake, alert and oriented to person, place, and time with normal speech. Speech is clear. There is no facial asymmetry. Psychiatric: Appropriate mood and affect. Good judgement and insight. No visual or auditory hallucinations. Review of Systems: As stated in HPI Past Medical History PAST MEDICAL HISTORY: Anxiety, CAD, CHF, CKF, CVA, Depression, DM, ESRD, High Lipids, HTN Surgical History: CABG, , Hysterectomy Surgical History (Other): gastric bypass DESK REPORTER History: No Pertinent DESK REPORTER History Family History Family History: Reviewed,noncontributory to illness, Family hx of heart sherley, Family hx of HTN Social History Smoker: Non-Smoker Alcohol: Denies ETOH Use Drugs: Denies Drug Use Lives In: Home Was a procedure done? Was a procedure done?: No CP Differential Dx Differential Diagnosis: Other Other Differential Diagnosis Differential diagnoses considered include acute ischemic coronary syndrome, aortic dissection, cardiac tamponade, mediastinitis, pulmonary embolus, pneumothorax, tension pneumothorax, esophageal rupture, coronary artery vasospasm, myocarditis, pericarditis, pneumonia, pulmonary edema, esophageal tear, pancreatitis, aortic stenosis, dilated cardiomyopathy, hypertrophic cardiomyopathy, mitral valve prolapse, malignancy, pleuritis, pneumomediastinum, primary pulmonary hypertension, cholecystitis, esophageal spasm, esophagus, gastritis, GERD, peptic ulcer disease, costochondritis, fibromyalgia, rib fracture, herpes zoster, radicular syndromes, thoracic outlet syndrome, somatization. X-Ray, Labs, Meds, VS Vital Signs Date Time Temp Pulse Resp B/P (MAP) Pulse Ox O2 Delivery O2 Flow Rate FiO2 06/20/24 00:24 80 06/19/24 23:31 80 14 120/60 06/19/24 23:01 86 16 119/48 06/19/24 21:26 98.7 100 20 147/51 (83) 100 06/19/24 21:24 88 Lab Test 06/20/24 00:20 06/19/24 22:44 06/19/24 21:49 Range/Units Troponin I High Sensitivity </=34 ng/L White Blood Count 5.8 4.4-10.8 10^3/uL Red Blood Count 4.13 4.0-5.20 10^6/uL Hemoglobin 11.2 L 12.2-16.2 g/dL Hematocrit 33.9 L 36.0-46.0 % Mean Corpuscular Volume 82.0 80.0-100.0 fL Mean Corpuscular Hemoglobin 27.1 L 28.0-32.0 pg Mean Corpuscular Hemoglobin Concent 33.1 32.0-36.0 g/dL Red Cell Distribution Width 16.7 H 11.8-14.3 % Platelet Count 187 140-450 10^3/uL Mean Platelet Volume 8.1 6.9-10.8 fL Neutrophils (%) (Auto) 78.7 37.0-80.0 % Lymphocytes (%) (Auto) 11.5 10.0-50.0 % Monocytes (%) (Auto) 8.0 0.0-12.0 % Eosinophils (%) (Auto) 1.1 0.0-7.0 % Basophils (%) (Auto) 0.7 0.0-2.0 % Neutrophils # (Auto) 4.6 1.6-8.6 10 ^3/uL Lymphocytes # (Auto) 0.7 0.4-5.4 10 ^3/uL Monocytes # (Auto) 0.5 0-1.3 10 ^3/uL Eosinophils # (Auto) 0.1 0-0.8 10 ^3/uL Basophils # (Auto) 0 0-0.2 10 ^3/uL Nucleated Red Blood Cells 0.1 % Sodium Level 134 L 136-145 mmol/L Potassium Level 3.8 3.5-5.1 mmol/L Chloride Level 92 L 98-107 mmol/L Carbon Dioxide Level 28 20-31 mmol/L Anion Gap 14 5-15 Blood Urea Nitrogen 46 H 9-23 mg/dL Creatinine 7.75 H 0.550-1.02 mg/dL Glomerular Filtration Rate Calc 6 >90 mL/min BUN/Creatinine Ratio 5.9 L 10.0-20.0 Serum Glucose 188 H 74-106 mg/dL Calcium Level 9.4 8.7-10.4 mg/dL Total Bilirubin 0.4 0.2-1.0 mg/dL Aspartate Amino Transferase (AST) 21 13-40 U/L Alanine Aminotransferase (ALT) < 9 7-40 U/L Alkaline Phosphatase 163 H 46-116 U/L B-Type Natriuretic Peptide 232.33 0-100 pg/mL Total Protein 7.8 5.7-8.2 g/dL Albumin 4.7 3.2-4.8 g/dL Current Medications Medications (Trade) Dose Ordered Sig/Arminda Route Start Time Stop Time Status Last Admin Morphine Sulfate 2 mg ONCE ONCE IV 06/19/24 21:45 06/19/24 21:46 DC 06/19/24 23:01 Al Hydrox/Mg Hydrox/Simethicone (Maalox Plus) 30 ml ONCE ONCE PO 06/20/24 01:30 06/20/24 01:31 DC 06/20/24 01:49 Lidocaine HCl (Xylocaine 2% Viscous) 10 ml ONCE ONCE PO 06/20/24 01:30 06/20/24 01:31 DC 06/20/24 01:[address] [address] Ph: [phone] DIAGNOSTIC IMAGING Diagnostic Imaging Report : [id number] Signed PATIENT: ARTUR FORD ACCT: [id number] UNIT: [id number] : 1970 LOC: ER ROOM / BED: / AGE / SEX: 54 / F ADM STATUS: REG ER SERVICE 30 ORDERING PHYSICIAN: GRACE WEINER MD PROCEDURE(s): CXR1 - CHEST XRAY 1 VIEW REASON: cp ORDER NUMBER(s): [id number], ACCESSION NUMBER(s): [id number] EXAM: XY CHEST XRAY 1 VIEW CLINICAL HISTORY: cp TECHNIQUE: Single AP view of the chest WID: COMPARISON: XY CHEST PORTABLE on DOS: 02/20/24, FINDINGS: Lines and tubes: Right PICC projects over the upper atrium. Multiple surgical clips project over the chest. Chest: The heart size and pulmonary vasculature is within normal limits. No pleural effusion, pneumothorax, or consolidation. The osseous structures are grossly intact. IMPRESSION: No acute cardiopulmonary abnormality. ATED BY: DEEDEE HARRELL MD DICTATED DATE/TIME: 06/19/242204 SIGNED BY: DEEDEE HARRELL MD SIGNED DATE/TIME: 06/19/242204 CC: Time of 1ST Reevaluation: 21:55 Reevaluation 1ST: Unchanged Patient Education/Counseling: Diagnosis, Treatment, Prognosis Family Education/Counseling: No Family Present Additional Information The following tests were ordered, and results were reviewed by me: XY CHEST, CBC, CMP, TROP-x3, EKG -x3, BNP, Additional Information was gathered from interviewing the following independent historians: EMS I reviewed and agreed with the following test results read by other providers: BOB CHEST I discussed treatment and results with medical personnel and patient Departure 1 Departure Time of Disposition: 02:57 Impression: Primary Impression: Chest pain Additional Impression: Coronary artery disease Disposition: ADMITTED INPATIENT Condition: Stable Comments 54-year-old female with a history of CABG, end-stage renal disease on dialysis p resents to the emergency department with chest pain. EKG and troponin negative for STEMI. She continues to have chest pain throughout the ED observation. Patient admitted for further treatment, evaluation and monitoring. Extensive evaluation was performed in attempt to identify or rule out: (See differential diagnosis section) The following tests were ordered, and results were reviewed by me: (See diagnostic results section) The following test were independently interpreted by me: Chest x-ray- no acute disease. EKG sinus rhythm no STEMI. I reviewed and agreed with the following test results read by other providers: Chest x-ray I reviewed the following notes from the pt's past medical encounters: (None available at this time) Additional information was gathered from interviewing the following independent historians: EMS personnel Discussion of management or test interpretation with external physician/other qu alified health care attendant: N/A Addressed an acute or chronic illness that poses a threat to life or bodily function: Chest pain, end-stage renal disease on dialysis, coronary artery disease Decision regarding hospitalization or escalation of hospital level of care: Risk and benefits of admission for further treatment of patient's condition was considered. Due to patient's current clinical condition, high risk of decline and poor outcome if discharged and need for further inpatient management and monitoring, patient will be admitted to the hospital. Drug therapy requiring intensive monitoring for toxicity: N/A Parenteral controlled substances: Morphine Decision regarding elective major surgery with identified patient or procedure risk factors: N/A Decision regarding emergency major surgery: N/A Decision not to resuscitate or to de-escalate care because of poor prognosis: N/A Diagnosis or treatment significantly limited by social determinants of health: N/A Critical Care Note Critical Care Time?: No Stability Stability form required: No Heart Score Heart Score: Heart Score Response (Comments) Value History Moderate Suspicious 1 EKG Normal 0 Age 45-64 1 Risk Factors >3 or Hx ASHD 2 Troponin 1-2 x's Normal limit 1 Total 5 I personally scribed for GRACE WEINER MD ([email or web address]) on 06/19/24 at 21:37. Electronically submitted by Nyasia Steiner ([email or web address]). I personally scribed for GRACE WEINER MD ([email or web address]) on 06/19/24 at 21:46. Electronically submitted by Nyasia Steiner ([email or web address]). I personally scribed for GRACE WEINER MD ([email or web address]) on 06/19/24 at 22:11. Electronically submitted by Nyasia Steiner ([email or web address]). GRACE WEINER MD Jun 19, 2024 21:37
[2024-06-19 22:02] LABS: Basophils # (auto) 0 10 ^3/uL (0-0.2); Basophils % (auto) 0.7 % (0.0-2.0); Eosinophils # (auto) 0.1 10 ^3/uL (0-0.8); Eosinophils % (auto) 1.1 % (0.0-7.0); Hematocrit 33.9 % (36.0-46.0); Hemoglobin 11.2 g/dL (12.2-16.2); Lymphocytes # (auto) 0.7 10 ^3/uL (0.4-5.4); Lymphocytes % (auto) 11.5 % (10.0-50.0); Mean Corpuscular Hemoglobin 27.1 pg (28.0-32.0); Mean Corpuscular Hgb Conc. 33.1 g/dL (32.0-36.0); Monocytes # (auto) 0.5 10 ^3/uL (0-1.3); Neutrophils # (auto) 4.6 10 ^3/uL (1.6-8.6); Neutrophils % (auto) 78.7 % (37.0-80.0); Nucleated Red Blood Cells % 0.1 %; Platelet Count (auto) 187 10^3/uL (140-450); Red Blood Cells 4.13 10^6/uL (4.0-5.20); Red Cell Distribution Width 16.7 % (11.8-14.3); White Blood Cell 5.8 10^3/uL (4.4-10.8)
[2024-06-19 22:05] VITALS: PULSE 81; RESP 16; O2SAT 100
--- NOTE | 2024-06-19 22:07 | DVH ---
EXAM: XY CHEST XRAY 1 VIEW CLINICAL HISTORY: cp TECHNIQUE: Single AP view of the chest WID: COMPARISON: XY CHEST PORTABLE on DOS: 02/20/24, FINDINGS: Lines and tubes: Right PICC projects over the upper atrium. Multiple surgical clips project over the chest. Chest: The heart size and pulmonary vasculature is within normal limits. No pleural effusion, pneumothorax, or consolidation. The osseous structures are grossly intact. IMPRESSION: No acute cardiopulmonary abnormality.
[2024-06-19 22:22] LABS: Albumin 4.7 g/dL (3.2-4.8); Anion Gap 14 (5-15); Aspartate Aminotransferase 21 U/L (13-40); BUN/Creatinine Ratio 5.9 (10.0-20.0); Calcium 9.4 mg/dL (8.7-10.4); Carbon Dioxide 28 mmol/L (20-31); Potassium 3.8 mmol/L (3.5-5.1)
[2024-06-19 22:23] LABS: Bilirubin, Total 0.4 mg/dL (0.2-1.0); Total Protein 7.8 g/dL (5.7-8.2)
[2024-06-19 22:27] LABS: Alanine Aminotransferase < 9 U/L (7-40); Alkaline Phosphatase 163 U/L (46-116); Blood Urea Nitrogen 46 mg/dL (9-23); Chloride 92 mmol/L (98-107); Glucose 188 mg/dL (74-106); Sodium 134 mmol/L (136-145)
[2024-06-19] MEDS: MORPHINE SULFATE INJ 2 MG/ml SYRG IV ONE (23:01)
[2024-06-20] VITALS (8 sets, daily range): BP systolic 104–117; BP diastolic 30–51; PULSE 62–75; RESP 16–18; TEMP 97.3–98.1; O2SAT 98–100
[2024-06-20] MEDS: LIDOCAINE VISCOUS 2% 15ML UD PO ONE (01:48)
[2024-06-20] MEDS: MAALOX PLUS or MAALOX 30 ML PO ONE (01:49)
[2024-06-20] MEDS: PANTOPRAZOLE 40 MG/10 ML VIAL INJ IV ONE (04:38)
[2024-06-20] MEDS: MORPHINE SULFATE INJ 2 MG/ml SYRG IV ONE (04:39)
[2024-06-20] MEDS ORDERED: DEXTROSE (50%) 50ML SYRG IV PRN (06:45)
[2024-06-20] MEDS ORDERED: MORPHINE SULFATE 4 MG/ML SYR/VIAL IV PRN (06:45)
[2024-06-20] MEDS ORDERED: ACETAMINOPHEN 325 MG TAB PO PRN (06:45)
[2024-06-20] MEDS ORDERED: ONDANSETRON HCL 4 MG/2 ML VIAL IV PRN (06:45)
[2024-06-20] MEDS ORDERED: NITROGLYCERIN 0.4 MG SL TAB SL PRN ×2 (06:45)
--- NOTE | 2024-06-20 06:56 | ECG ---
[facility] Test Date: 2024-06-19 Test Time: 23:18:11 Pat Name: ARTUR FORD Department: er Room: [address] [place] [address] Gender: F Importer Or Exporter: marianela : 1970 Requested By: GRACE WEINER Order Number: [id number] Reading MD: Elie King Measurements Intervals [place] Rate: 81 P: 39 VT: 144 QRS: -10 QRSD: 106 T: 103 QT: 479 QTc: 556 Interpretive Statements Sinus rhythm Probable left atrial enlargement LVH with secondary repolarization abnormality Prolonged QT interval Baseline wander in lead(s) I Electronically Signed On 06-20-2024 9:50:12 PST by Elie King Please click the below link to view image of tracing.
--- NOTE | 2024-06-20 06:56 | ECG ---
[facility] Test Date: 2024-06-20 Test Time: 00:24:07 Pat Name: ARTUR FORD Department: er Room: [address] [place] [address] Gender: F Traveling Inventory Associate: marianela : 1970 Requested By: GRACE WEINER Order Number: [id number] Reading MD: Elie King Measurements Intervals [place] Rate: 80 P: 34 FL: 147 QRS: -6 QRSD: 101 T: 110 QT: 450 QTc: 520 Interpretive Statements Sinus rhythm Probable left atrial enlargement LVH with secondary repolarization abnormality Prolonged QT interval Electronically Signed On 06-20-2024 9:50:21 PST by Elie King Please click the below link to view image of tracing.
[2024-06-20] MEDS ORDERED: SERTRALINE HCL PO SCH (07:00)
--- NOTE | 2024-06-20 07:02 | ECG ---
[facility] Test Date: 2024-06-19 Test Time: 21:24:34 Pat Name: ARTUR FORD Department: er Room: [address] [place] [address] Gender: F Link Assembler: marianela : 1970 Requested By: GRACE WEINER Order Number: [id number] Reading MD: Elie King Measurements Intervals [place] Rate: 88 P: 50 WV: 142 QRS: -2 QRSD: 101 T: 112 QT: 451 QTc: 546 Interpretive Statements Sinus rhythm Probable left atrial enlargement LVH with secondary repolarization abnormality Prolonged QT interval Electronically Signed On 06-20-2024 9:50:05 PST by Elie King Please click the below link to view image of tracing.
--- NOTE | 2024-06-20 07:11 | DVHHP2 ---
History of Present Illness Reason for Visit: Chest pain History of Present Illness Maribel Samuels is a 54-year-old female with past medical history of CAD status post CABG times 17 stents, hypertension, hyperlipidemia, diabetes, GERD, depression, anxiety, end-stage renal disease on HD 4 times a week (Monday/Monday/Monday/Monday) anuric, skin infection midsternal chest currently receiving IV antibiotics cefazolin once per day via right upper arm PICC line she is on day 4 and has not received today's dose, EGD, left temporal artery biopsy, , and hysterectomy who presents to the ED for chest pain that started today at 7:00 a.m. while she was at home, and shortness of breath x3 days. Patient reports that the chest pain woke her up from sleep rates the pain 6/10 constant and sharp. Patient also reports that she had a s kin debridement at [place] in October of 2023 and still receiving treatment for an infection. Patient also reports that she is compliant with her medications. She reports that she was supposed to get an echo today with her selling manager but due to her symptoms she is here for an evaluation. Patient denies any abdominal pain, nausea, vomiting, diarrhea, lightheadedness, fever, chills, and dizziness. Patient also denies any recent trauma or injury. Cardiovascular: CAD, HTN, hyperipidemia GI: GERD Psych: Anxiety, Depression Renal/: Chronic renal failure Endocrine: Diabetes Past Surgical History: , Hysterectomy, Other (EGD and left temporal artery biopsy) Smoke: No ALCOHOL: none Drugs: None Lives: with Family Domestic Violence: Neg Review of Systems Constitutional: No: Fever, Chills, Sweats, Weakness, Malaise, Other Eyes: No: Pain, Vision change, Conjunctivae inflammation, Eyelid inflammation, Other, Redness ENT: No: Ear pain, Ear discharge, Nose pain, Nose discharge, Nose congestion, Mouth pain, Mouth swelling, Throat pain, Throat swelling, Other Respiratory: Shortness of breath; No: Cough, Dry, SOB with excertion, Wheezing, Hemoptysis, Pleuritic Pain, Sputum, Wheezing, Other Cardiovascular: Chest Pain; No: Palpitations, Orthopnea, Paroxysmal Noc. Dyspnea, Edema, Lt Headedness, Other Gastrointestinal: No: Nausea, Vomiting, Abdominal Pain, Diarrhea, Constipation, Melena, Hematochezia, Other Genitourinary: No Dysuria, No Frequency, No Incontinence, No Hematuria, No Retention, No Other Musculoskeletal: No: other, neck pain, shoulder pain, arm pain, back pain, hand pain, leg pain, foot pain Skin: No: Rash, Lesions, Jaundice, Bruising, Other Neurological: No: Weakness, Numbness, Incoordination, Change in speech, Confusion, Seizures, Other Allergies: Coded Allergies: No Known Drug Allergy (Verified Allergy, Unknown, 10/26/21) Medications Current Medications Medications Dose Ordered Sig/Arminda Route Start Time Stop Time Status Last Admin Dose Admin Morphine Sulfate 2 mg Q30MP PRN IV 06/20/24 06:45 UNV Acetaminophen 650 mg Q6HP PRN PO 06/20/24 06:45 UNV Nitroglycerin 0.4 mg Q5MINP PRN SL 06/20/24 06:45 UNV Ondansetron HCl 4 mg Q4HP PRN IV 06/20/24 06:45 UNV Nitroglycerin 0.4 mg Q5MINP PRN SL 06/20/24 06:45 UNV Morphine Sulfate 2 mg Q30M PRN IV 06/20/24 06:45 UNV Diagnostic Test (Pha) 1 strip ACHS 06/20/24 07:00 UNV Insulin Human Regular ACHS SC 06/20/24 07:00 UNV Dextrose 50 ml UD PRN IV 06/20/24 06:45 UNV Aspirin 81 mg DAILY PO 06/20/24 10:00 UNV Cinacalcet 30 mg DAILY PO 06/20/24 10:00 UNV Clopidogrel Bisulfate 75 mg DAILY PO 06/20/24 10:00 UNV Pantoprazole Sodium 40 mg DAILY PO 06/20/24 10:00 UNV Patient Own Medication 1 tab DAILY PO 06/20/24 10:00 UNV Patient Own Medication 1 tab BID PO 06/20/24 10:00 UNV Patient Own Medication 1 tab BID PO 06/20/24 10:00 UNV Patient Own Medication 1 tab Q8HR PO 06/20/24 14:00 UNV Patient Own Medication 1 cap QAM PO 06/20/24 07:00 UNV Patient Own Medication 800 mg TIDWM PO 06/20/24 08:00 UNV Patient Own Medication 30 mg HS PO 06/20/24 22:00 UNV Exam Vital Signs Vital Signs Date Time Temp Pulse Resp B/P (MAP) Pulse Ox O2 Delivery O2 Flow Rate FiO2 06/20/24 06:00 78 18 112/38 (62) 96 06/20/24 04:00 98.0 98.0 06/19/24 22:05 Room Air* 0 21 General Appearance: Alert, Oriented X3, Cooperative, No acute distress HEENT: Atraumatic, PERRLA, EOMI, Mucous membr. moist/pink Respiratory: Clear to auscultation, Normal air movement Cardiovascular: Regular rate, Normal S1, Normal S2 Abdominal: Normal bowel sounds, Soft, No tenderness, No hepatospenomegaly, No masses Extremities: No clubbing, No cyanosis, No edema, Normal pulses, No tenderness/swelling Skin: No rashes, No breakdown, No significant lesion Neuro: Normal gait, Normal speech, Strength at 5/5 X4 ext, Normal tone, Sensation intact Psych/Mental Status: Mental status NL, Mood NL Labs/Xrays Labs Test 06/20/24 00:20 06/19/24 21:49 Range/Units Troponin I High Sensitivity 25 </=34 ng/L White Blood Count 5.8 4.4-10.8 10^3/uL Red Blood Count 4.13 4.0-5.20 10^6/uL Hemoglobin 11.2 L 12.2-16.2 g/dL Hematocrit 33.9 L 36.0-46.0 % Mean Corpuscular Volume 82.0 80.0-100.0 fL Mean Corpuscular Hemoglobin 27.1 L 28.0-32.0 pg Mean Corpuscular Hemoglobin Concent 33.1 32.0-36.0 g/dL Red Cell Distribution Width 16.7 H 11.8-14.3 % Platelet Count 187 140-450 10^3/uL Mean Platelet Volume 8.1 6.9-10.8 fL Neutrophils (%) (Auto) 78.7 37.0-80.0 % Lymphocytes (%) (Auto) 11.5 10.0-50.0 % Monocytes (%) (Auto) 8.0 0.0-12.0 % Eosinophils (%) (Auto) 1.1 0.0-7.0 % Basophils (%) (Auto) 0.7 0.0-2.0 % Neutrophils # (Auto) 4.6 1.6-8.6 10 ^3/uL Lymphocytes # (Auto) 0.7 0.4-5.4 10 ^3/uL Monocytes # (Auto) 0.5 0-1.3 10 ^3/uL Eosinophils # (Auto) 0.1 0-0.8 10 ^3/uL Basophils # (Auto) 0 0-0.2 10 ^3/uL Nucleated Red Blood Cells 0.1 % Sodium Level 134 L 136-145 mmol/L Potassium Level 3.8 3.5-5.1 mmol/L Chloride Level 92 L 98-107 mmol/L Carbon Dioxide Level 28 20-31 mmol/L Anion Gap 14 5-15 Blood Urea Nitrogen 46 H 9-23 mg/dL Creatinine 7.75 H 0.550-1.02 mg/dL Glomerular Filtration Rate Calc 6 >90 mL/min BUN/Creatinine Ratio 5.9 L 10.0-20.0 Serum Glucose 188 H 74-106 mg/dL Calcium Level 9.4 8.7-10.4 mg/dL Total Bilirubin 0.4 0.2-1.0 mg/dL Aspartate Amino Transferase (AST) 21 13-40 U/L Alanine Aminotransferase (ALT) < 9 7-40 U/L Alkaline Phosphatase 163 H 46-116 U/L B-Type Natriuretic Peptide 232.33 0-100 pg/mL Total Protein 7.8 5.7-8.2 g/dL Albumin 4.7 3.2-4.8 g/dL EXAM: XY CHEST XRAY 1 VIEW CLINICAL HISTORY: cp TECHNIQUE: Single AP view of the chest WID: COMPARISON: XY CHEST PORTABLE on DOS: 02/20/24, FINDINGS: Lines and tubes: Right PICC projects over the upper atrium. Multiple surgical clips project over the chest. Chest: The heart size and pulmonary vasculature is within normal limits. No pleural effusion, pneumothorax, or consolidation. The osseous structures are grossly intact. IMPRESSION: No acute cardiopulmonary abnormality. CLINICAL INFORMATION: 54 years old, Female; rule out aortic dissection. TECHNIQUE: Axial CTA images of the chest were obtained after the uneventful administration of 100 mL of Omnipaque 350 IV contrast. Coronal and sagittal reformatted images and MIP images were obtained, reviewed, and stored. One or more of the following dose reduction techniques were used: Automated exposure control. Adjustment of mA and/or kV according to patient size. CTDIvol = 21.66, 32.56, 0.07, 0.07 mGy DLP = 762.07 mGy-cm COMPARISON: CT ANGIO CHEST CONTRAST on DOS: 01/25/22, CTACH on DOS: 01/25/22, CTACH on DOS: 10/27/21 FINDINGS: Aorta: No thoracic aortic aneurysm or dissection. Moderate atherosclerotic calcification. Pulmonary arteries: No central or lobar pulmonary embolism. Evaluation for segmental or subsegmental pulmonary emboli is limited due to respiratory motion artifact. Cardiac: Mild to moderate cardiomegaly. Postsurgical changes of prior CABG. Mediastinum/olivia: Mildly prominent mediastinal lymph nodes, with the largest measuring up to 1.4 cm in short axis dimension of the right lower paratracheal station, slightly increased in size compared to the prior CT. Likely reactive. There are left brachiocephalic and left subclavian venous stents in place. Lungs: Respiratory motion artifact limits evaluation for subtle findings. No focal consolidation, pneumothorax, or pleural effusion. Chest wall: Prominent bilateral axillary lymph nodes, with the largest measuring up to 2.6 x 2.0 cm on the right 2.5 x 1.5 cm on the left, with normal reniform shape and fatty olivia, likely reactive, similar in appearance compared to the prior CT. Upper abdomen: Nodular contour of the liver with relative enlargement of the left hepatic lobe, may be seen with cirrhosis in the appropriate clinical setting. Postsurgical changes of prior cholecystectomy. Common bile duct is mildly prominent, measuring up to 1.4 cm in diameter, which may be seen after cholecystectomy due to reservoir effect. Dense arterial calcifications noted in the upper abdomen. Postsurgical changes of prior right nephrectomy. Atrophic left kidney. Bones: Sclerosis in the osseous structures with findings suggesting a degree of renal osteodystrophy. IMPRESSION: 1. No evidence of aortic aneurysm or dissection. 2. No evidence of acute disease in the chest. 3. Mildly prominent mediastinal and axillary lymph nodes, likely reactive. 4. Cirrhotic liver morphology. 5. Additional findings as described above. Assessment/Plan Assessment/Plan Assessment/Plan: Chest pain r/o cardiac ischemia Hypernatremia CRIS History of ESRD on HD 4x a week (S/M/W//F) Midsternal skin infection on IV antibiotics-cefazolin day 4 of 7 am labs PPI Pain management EKG Troponin negative x3 BNP Chest x-ray noted Mag level Pain management ACS protocol Cardiology consult Echo UDS TSH Lipid panel Last echo on 12/25/2023 EF 50% Echo ordered Nephro consult Magnesium IV Diabetes type 2 uncontrolled Hemoglobin A1c ISS and Accu-Cheks Hx of CAD Continue home medication Chronic HTN Continue home medication Chronic HLD Continue home medication History of depression Continue home medication History of anxiety Continue home medication FEN/PPX Diet hl DVT prophylaxis-not indicated patient ambulating PUD prophylaxis-Protonix home medications reconciled discussed plan of care with patient and nurse Admit to tele Plan discussed with: Patient My Orders Orders - ELMOMAGGIE ROJAS MELTER CASTER Procedure Category Date Status Time Admit ADMIT 06/20/24 Transmitted 06:44 Code Status CODE 06/20/24 Transmitted 06:44 Shift Production Supervisor BRIT 06/20/24 In Process 06:44 Cardiac DIET 06/20/24 Transmitted Diet-2gna,Lofat,Lochol Breakfast Morphine Sulfate PHA 06/20/24 Logged Injection 06:45 Acetaminophen Tablet PHA 06/20/24 Logged (Tylenol Tablet) 06:45 Complete Blood Count LAB 06/21/24 Verified 04:00 Basic Metabolic Panel LAB 06/21/24 Verified 04:00 Echo 2d Mode Cardiac US 06/20/24 Logged DOP 06:44 Nitroglycerin PHA 06/20/24 Logged Sublingual (Ntrostat 06:45 Ondansetron Hcl PHA 06/20/24 Logged (Zofran) 06:45 Electrocardigram EKG 06/21/24 Logged 04:00 Troponin-I Hs LAB 06/20/24 Transmitted 06:44 Cardiac BRIT 06/20/24 In Process Rehabilitation - Outpa Nitroglycerin PHA 06/20/24 Logged Sublingual (Ntrostat 06:45 Morphine Sulfate PHA 06/20/24 Logged Injection 06:45 Stat Ekg For Chest BRIT 06/20/24 In Process Pain 06:44 Notify Of Changes BRIT 06/20/24 In Process From Base 06:44 Recreation Leader For BRIT 06/20/24 In Process 24 Hours 06:44 Emergency Dysrhythmia BRIT 06/20/24 In Process Protocol 06:44 Rhythm Strips Once BRIT 06/20/24 In Process Every Shift 06:44 Oxygen By Nasal RT 06/20/24 Transmitted Cannula 06:44 Hemoglobin A1c LAB 06/20/24 Transmitted 06:44 Glucose Blood PHA 06/20/24 Logged (Accu-Chek Comfort 07:00 Mild Sliding Scale PHA 06/20/24 Transmitted 07:00 Dextrose 50% Syringe PHA 06/20/24 Transmitted 06:45 Aspirin Tablet PHA 06/20/24 Transmitted 10:00 Cinacalcet PHA 06/20/24 Transmitted Hydrochloride 10:00 Clopidogrel Bisulfate PHA 06/20/24 Transmitted (Plavix) 10:00 Pantoprazole Tablet PHA 06/20/24 Transmitted (Protonix Tablet) 10:00 (Nf) Atorvastatin PHA 06/20/24 Transmitted Calcium 10:00 (Nf) Hydroxyzine Hcl PHA 06/20/24 Transmitted 10:00 (Nf) Ondansetron Hcl PHA 06/20/24 Transmitted (Ondansetron Hydroc 10:00 (Nf) Oxycodone W/ PHA 06/20/24 Transmitted Acetaminophen (Apap/Ox 14:00 (Nf) Sertraline Hcl PHA 06/20/24 Transmitted (Sertraline Hydrochl 07:00 (Nf) Sevelamer PHA 06/20/24 Transmitted Carbonate (Renvela) 08:00 (Nf) Temazepam PHA 06/20/24 Transmitted 22:00 * Cardiology Consult CONS 06/20/24 Transmitted 07:07 Date of Service: Jun 20, 2024 Billing Provider: MAGGIE DAVISON Common Visit Codes: [id number] INP/OBS CARE (HIGH) MAGGIE DAVISON Jun 20, 2024 07:11
[2024-06-20] MEDS ORDERED: PATIENTS OWN MEDICATION (Sevelamer Carbonate (Renvela) 800 MG) PO SCH (08:00)
[2024-06-20] MEDS: MAGNESIUM SULFATE 1GM/100ML 100 ML IV ONE (08:17)
[2024-06-20] MEDS: PANTOPRAZOLE 40 MG TAB PO SCH (08:17)
[2024-06-20] MEDS: ASPirin 81 mg TAB PO SCH (08:18)
[2024-06-20] MEDS: CLOPIDOGREL BISULFATE 75 MG TAB PO SCH (08:18)
[2024-06-20] MEDS: InsuLIN REG 1unit/0.01ml Soln (100units/ml) SC SCH (08:19)
[2024-06-20] MEDS: ACCU-CHEK COMFORT CURVE STRIP VI SCH (08:19)
[2024-06-20] MEDS: CINACALCET HYDROCHLORIDE 30 MG TAB PO SCH (08:36)
[2024-06-20] MEDS: hydrOXYzine 25 MG TAB or CAP PO SCH (08:39)
[2024-06-20] MEDS: MORPHINE SULFATE INJ 2 MG/ml SYRG IV PRN (09:28)
--- NOTE | 2024-06-20 09:42 | DVHPN2 ---
Progress Note - Dictate Date Seen: Jun 20, 2024 Medical Necessity Reason Pt with a Central, PICC or Fol: No Subjective PT WELL KNOW TO ME WITH SHARP CHEST PAIN ASS OCIATED WITH SOB PMH: S/P MEDIASTINAL DEBRIDEMENT MEDIASTINITIS/ REMOVAL OD ALL STERNAL WIRES NOW WITH WOUND VACUUM ORG HD CAD S/P CABG S/P MULTI VESSEL PTCA STENT POST CABG ESRD ON HD HTN DIABETES ANEMIA LHC PATENT SVG TO LAD PATENT STENTS TO CX PATENT RCA AND PDA SVG TO PDA OCCLUDED EF 45% vital signs Vital Sign Date Time Temp Pulse Resp B/P (MAP) Pulse Ox O2 Delivery O2 Flow Rate FiO2 06/20/24 09:28 85 20 133/60 06/20/24 06:00 96 06/20/24 04:00 98.0 98.0 06/19/24 22:05 Room Air* 0 21 medications Current Medications Medications Dose Ordered Sig/Arminda Route Start Time Stop Time Status Last Admin Dose Admin Morphine Sulfate 2 mg Q30MP PRN IV 06/20/24 06:45 Cancel Acetaminophen 650 mg Q6HP PRN PO 06/20/24 06:45 Nitroglycerin 0.4 mg Q5MINP PRN SL 06/20/24 06:45 Cancel Ondansetron HCl 4 mg Q4HP PRN IV 06/20/24 06:45 Nitroglycerin 0.4 mg Q5MINP PRN SL 06/20/24 06:45 Morphine Sulfate 2 mg Q30M PRN IV 06/20/24 06:45 06/20/24 09:28 2 MG Diagnostic Test (Pha) 1 strip ACHS 06/20/24 07:00 06/20/24 08:19 1 STRIP Insulin Human Regular ACHS SC 06/20/24 07:00 06/20/24 08:19 2 UNITS Dextrose 50 ml UD PRN IV 06/20/24 06:45 Aspirin 81 mg DAILY PO 06/20/24 10:00 06/20/24 08:18 81 MG Cinacalcet 30 mg DAILY PO 06/20/24 10:00 06/20/24 08:36 30 MG Clopidogrel Bisulfate 75 mg DAILY PO 06/20/24 10:00 06/20/24 08:18 75 MG Pantoprazole Sodium 40 mg DAILY PO 06/20/24 10:00 06/20/24 08:17 40 MG Patient Own Medication 1 tab DAILY PO 06/20/24 10:00 UNV Patient Own Medication 1 tab BID PO 06/20/24 10:00 UNV Patient Own Medication 1 tab BID PO 06/20/24 10:00 Patient Own Medication 1 tab Q8HR PO 06/20/24 14:00 Patient Own Medication 1 cap QAM PO 06/20/24 07:00 UNV Patient Own Medication 800 mg TIDWM PO 06/20/24 08:00 UNV Patient Own Medication 30 mg HS PO 06/20/24 22:00 UNV Atorvastatin Calcium 10 mg HS PO 06/20/24 22:00 Hydroxyzine Pamoate 25 mg BID PO 06/20/24 10:00 06/20/24 08:39 25 MG Sertraline HCl 150 mg QAM PO 06/21/24 07:00 Sevelamer HCl 800 mg TIDWM PO 06/20/24 12:00 Temazepam 30 mg HS PO 06/20/24 22:00 laboratory and microbiology Laboratory Tests 06/19/24 21:49 Test 06/19/24 21:49 Range/Units Serum Glucose 188 H 74-106 mg/dL Problem List WITH SHARP CHEST PAIN ASS OCIATED WITH SOB PMH: S/P MEDIASTINAL DEBRIDEMENT MEDIASTINITIS/ REMOVAL OD ALL STERNAL WIRES NOW WITH WOUND VACUUM ORG HD CAD S/P CABG S/P MULTI VESSEL PTCA STENT POST CABG ESRD ON HD HTN DIABETES HX OF UGI BLEED ANEMIA LHC PATENT SVG TO LAD PATENT STENTS TO CX PATENT RCA AND PDA SVG TO PDA OCCLUDED EF 45% Assessment/Plan CTA CHEST R/O PE AND R/O AORTIC DISSECTION Plan discussed with: Patient Critical Care Time(min): 35 LLOYD SINGH MD Jun 20, 2024 09:42
[2024-06-20] MEDS ORDERED: IOHEXOL 350 MG/ML 100ML IJ ONE (09:55)
[2024-06-20] MEDS ORDERED: PATIENTS OWN MEDICATION (Atorvastatin Calcium 1 TAB) PO SCH (10:00)
[2024-06-20] MEDS ORDERED: PATIENTS OWN MEDICATION (Hydroxyzine Hcl 1 TAB) PO SCH (10:00)
[2024-06-20] MEDS: ONDANSETRON HYDROCHLORIDE 4 MG PO SCH (10:00)
[2024-06-20] MEDS ORDERED: INSU100I55 SC (10:14)
--- NOTE | 2024-06-20 10:23 | DVH ---
CLINICAL INFORMATION: 54 years old, Female; rule out aortic dissection. TECHNIQUE: Axial CTA images of the chest were obtained after the uneventful administration of 100 mL of Omnipaque 350 IV contrast. Coronal and sagittal reformatted images and MIP images were obtained, reviewed, and stored. One or more of the following dose reduction techniques were used: Automated exp osure control. Adjustment of mA and/or kV according to patient size. CTDIvol = 21.66, 32.56, 0.07, 0.07 mGy DLP = 762.07 mGy-cm COMPARISON: CT ANGIO CHEST CONTRAST on DOS: 01/25/22, CTACH on DOS: 01/25/22, CTACH on DOS: 10/27/21 FINDINGS: Aorta: No thoracic aortic aneurysm or dissection. Moderate atherosclerotic calcification. Pulmonary arteries: No central or lobar pulmonary embolism. Evaluation for segmental or subsegmental pulmonary emboli is limited due to respiratory motion artifact. Cardiac: Mild to moderate cardiomegaly. Postsurgical changes of prior CABG. Mediastinum/olivia: Mildly prominent mediastinal lymph nodes, with the largest measuring up to 1.4 cm i n short axis dimension of the right lower paratracheal station, slightly increased in size compared t o the prior CT. Likely reactive. There are left brachiocephalic and left subclavian venous stents in place. Lungs: Respiratory motion artifact limits evaluation for subtle findings. No focal consolidation, pne umothorax, or pleural effusion. Chest wall: Prominent bilateral axillary lymph nodes, with the largest measuring up to 2.6 x 2.0 cm o n the right 2.5 x 1.5 cm on the left, with normal reniform shape and fatty olivia, likely reactive, sim ilar in appearance compared to the prior CT. Upper abdomen: Nodular contour of the liver with relative enlargement of the left hepatic lobe, may b e seen with cirrhosis in the appropriate clinical setting. Postsurgical changes of prior cholecystect marco. Common bile duct is mildly prominent, measuring up to 1.4 cm in diameter, which may be seen afte r cholecystectomy due to reservoir effect. Dense arterial calcifications noted in the upper abdomen. Postsurgical changes of prior right nephrectomy. Atrophic left kidney. Bones: Sclerosis in the osseous structures with findings suggesting a degree of renal osteodystrophy. IMPRESSION: 1. No evidence of aortic aneurysm or dissection. 2. No evidence of acute disease in the chest. 3. Mildly prominent mediastinal and axillary lymph nodes, likely reactive. 4. Cirrhotic liver morphology. 5. Additional findings as described above.
--- NOTE | 2024-06-20 11:32 | DVHINCON2 ---
Date of service: Jun 20, 2024 Reason for Consultation esrd History of Present Illness 53 years old female with past medical history ESRD on home hemodialysis, coronary artery disease status post CABG, recent sternal wound infection status post wound VAC in [facility], diabetes, CVA, Congestive heart failure presented with chief complaints of chest pain, shortness of breath that started 1-2days ago,, patient is on home dialysis 4 times a week schedule last dialysis was yesterday Past Medical History As per HPI Past Surgical History As per HPI ,,fistula Allergies: Coded Allergies: No Known Drug Allergy (Verified Allergy, Unknown, 10/26/21) Home Meds Reported Medications Insulin Lispro-Aabc (Lyumjev) 100 Unit/Ml Inj, 100 UNIT IJ, INJ 06/20/24 Insulin Glargine (Basaglar Kwikpen) 100 Unit/Ml Inj, 300 UNIT SC, INJ 06/20/24 Oxycodone W/ Acetaminophen (Apap/Oxycodone) 1 Tab Tab, 1 TAB PO Q8HR for 30 Days, #90 [10/325 MG] 02/20/24 Clopidogrel Bisulfate (CLOPIDOGREL) 75 Mg Tab, 1 TAB PO DAILY 02/19/24 Ondansetron HCl (Ondansetron Hydrochloride) 8 Mg Tab, 1 TAB PO BID for 30 Days, #60 12/26/23 Cinacalcet HCl (Cinacalcet Hydrochloride) 30 Mg Tab, 1 TAB PO DAILY 11/14/23 Hydroxyzine Hcl (Hydroxyzine Hcl) 25 Mg Tab, 1 TAB PO BID 11/14/23 Sertraline HCl (Sertraline Hydrochloride) 150 Mg Cap, 1 CAP PO QAM 11/14/23 Temazepam (Temazepam) 30 Mg Cap, 30 MG PO HS for SLEEP, CAP 10/09/20 Atorvastatin Calcium (ATORVASTATIN CALCIUM) 10 Mg Tab, 1 TAB PO DAILY, #30 TAB 5 Refills 07/03/17 Pantoprazole Sodium Sesquihydr (Protonix) 40 Mg Tab, 40 MG PO DAILY for 90 Days, #90 07/03/17 Aspirin (Asa) 81 Mg Ch, 81 MG PO DAILY 07/03/17 Sevelamer Carbonate (Renvela) 800 Mg Tab, 800 MG PO TIDWM for KIDNEY DISEASE/ DIALYSIS for 30 Days, MG 05/04/17 Current Medications Current Medications Medications (Trade) Dose Ordered Sig/Arminda Route PRN Reason Start Time Stop Time Status Last Admin Morphine Sulfate 2 mg Q30MP PRN IV FOR CHEST PAIN 06/20/24 06:45 Cancel Acetaminophen (Tylenol Tablet) 650 mg Q6HP PRN PO MILD PAIN (1-3 PAIN SCALE) 06/20/24 06:45 Nitroglycerin (Ntrostat Sublingual) 0.4 mg Q5MINP PRN SL FOR CHEST PAIN 06/20/24 06:45 Cancel Ondansetron HCl (Zofran) 4 mg Q4HP PRN IV NAUSEA / VOMITING 06/20/24 06:45 06/20/24 14:18 DC Nitroglycerin (Ntrostat Sublingual) 0.4 mg Q5MINP PRN SL FOR CHEST PAIN 06/20/24 06:45 Morphine Sulfate 2 mg Q30M PRN IV FOR CHEST PAIN 06/20/24 06:45 06/20/24 09:28 Diagnostic Test (Pha) (Accu-Chek Comfort Curve T) 1 strip ACHS 06/20/24 07:00 06/20/24 11:39 Insulin Human Regular (InsuLIN R) ACHS SC 06/20/24 07:00 06/20/24 08:19 Dextrose 50 ml UD PRN IV Blood Sugar LESS THAN 60 06/20/24 06:45 Aspirin 81 mg DAILY PO 06/20/24 10:00 06/20/24 08:18 Cinacalcet (Sensipar) 30 mg DAILY PO 06/20/24 10:00 06/20/24 08:36 Clopidogrel Bisulfate (Plavix) 75 mg DAILY PO 06/20/24 10:00 06/20/24 08:18 Pantoprazole Sodium (Protonix Tablet) 40 mg DAILY PO 06/20/24 10:00 06/20/24 08:17 Patient Own Medication 1 tab DAILY PO 06/20/24 10:00 UNV Patient Own Medication 1 tab BID PO 06/20/24 10:00 UNV Patient Own Medication 1 tab BID PO 06/20/24 10:00 06/20/24 13:57 DC Patient Own Medication 1 tab Q8HR PO 06/20/24 14:00 06/20/24 13:57 DC Patient Own Medication 1 cap QAM PO 06/20/24 07:00 UNV Patient Own Medication 800 mg TIDWM PO 06/20/24 08:00 UNV Patient Own Medication 30 mg HS PO 06/20/24 22:00 UNV Atorvastatin Calcium (Lipitor) 10 mg HS PO 06/20/24 22:00 Hydroxyzine Pamoate (Vistaril Oral) 25 mg BID PO 06/20/24 10:00 06/20/24 08:39 Sertraline HCl (Zoloft) 150 mg QAM PO 06/21/24 07:00 Sevelamer HCl (Renagel) 800 mg TIDWM PO 06/20/24 12:00 Temazepam (Restoril) 30 mg HS PO 06/20/24 22:00 Oxycodone/ Acetaminophen (Percocet 5/ 325MG Tablet) 2 tab Q8HP PRN PO SEVERE PAIN (7-10 PAIN SCALE) 06/20/24 14:00 06/20/24 15:24 Ondansetron HCl (Zofran) 4 mg Q6HPRN PRN IV NAUSEA / VOMITING 06/20/24 14:00 Family History: Acute renal failure G8 MOTHER Cerebrovascular accident (CVA) G8 FATHER Diabetes mellitus G8 SISTER Hypertension G8 MOTHER G8 FATHER G8 BROTHER Review of Systems Mentioned in HPI H&P Exam Vital Signs/I&O Vital Sign Date Time Temp Pulse Resp B/P (MAP) Pulse Ox O2 Delivery O2 Flow Rate FiO2 06/20/24 15:20 72 104/39 (60) 06/20/24 12:50 97.6 18 98 97.6 06/20/24 10:00 Room Air* 0 21 Physical Exam General-not in any distress HEENT-normocephalic, no icterus, no pallor, neck supple Respiratory-fair air entry bilateral, no rhonchi, no wheeze [id number] heard, wound VAC Abdominal-soft, nontender, nondistended Musculoskeletal-no pedal edema, no calf tenderness Genitourinary-deferred Neuro-awake alert oriented x3, Psychiatric-not agitated, cooperative, Labs/Diagnostic Data Labs/Diagnostic Data Laboratory Tests Test 06/20/24 11:38 06/20/24 08:03 06/20/24 00:20 06/19/24 22:44 Range/Units POC Glucose 112 H 134 H 70-106 mg/dl Magnesium Level 2.2 1.6-2.6 mg/dL Troponin I High Sensitivity 25 23 </=34 ng/L Triglycerides Level 193 H < 150 mg/dL Cholesterol Level 131 < 200 mg/dL LDL Cholesterol 76 < 100 mg/dL HDL Cholesterol 30 L 40-59 mg/dL Thyroid Stimulating Hormone (TSH) 1.36 0.55-4.78 uIU/mL Test 06/19/24 21:49 Range/Units White Blood Count 5.8 4.4-10.8 10^3/uL Red Blood Count 4.13 4.0-5.20 10^6/uL Hemoglobin 11.2 L 12.2-16.2 g/dL Hematocrit 33.9 L 36.0-46.0 % Mean Corpuscular Volume 82.0 80.0-100.0 fL Mean Corpuscular Hemoglobin 27.1 L 28.0-32.0 pg Mean Corpuscular Hemoglobin Concent 33.1 32.0-36.0 g/dL Red Cell Distribution Width 16.7 H 11.8-14.3 % Platelet Count 187 140-450 10^3/uL Mean Platelet Volume 8.1 6.9-10.8 fL Neutrophils (%) (Auto) 78.7 37.0-80.0 % Lymphocytes (%) (Auto) 11.5 10.0-50.0 % Monocytes (%) (Auto) 8.0 0.0-12.0 % Eosinophils (%) (Auto) 1.1 0.0-7.0 % Basophils (%) (Auto) 0.7 0.0-2.0 % Neutrophils # (Auto) 4.6 1.6-8.6 10 ^3/uL Lymphocytes # (Auto) 0.7 0.4-5.4 10 ^3/uL Monocytes # (Auto) 0.5 0-1.3 10 ^3/uL Eosinophils # (Auto) 0.1 0-0.8 10 ^3/uL Basophils # (Auto) 0 0-0.2 10 ^3/uL Nucleated Red Blood Cells 0.1 % Sodium Level 134 L 136-145 mmol/L Potassium Level 3.8 3.5-5.1 mmol/L Chloride Level 92 L 98-107 mmol/L Carbon Dioxide Level 28 20-31 mmol/L Anion Gap 14 5-15 Blood Urea Nitrogen 46 H 9-23 mg/dL Creatinine 7.75 H 0.550-1.02 mg/dL Glomerular Filtration Rate Calc 6 >90 mL/min BUN/Creatinine Ratio 5.9 L 10.0-20.0 Serum Glucose 188 H 74-106 mg/dL Hemoglobin A1c 6.6 H <5.7 % A1C Calcium Level 9.4 8.7-10.4 mg/dL Total Bilirubin 0.4 0.2-1.0 mg/dL Aspartate Amino Transferase (AST) 21 13-40 U/L Alanine Aminotransferase (ALT) < 9 7-40 U/L Alkaline Phosphatase 163 H 46-116 U/L Troponin I High Sensitivity 22 </=34 ng/L B-Type Natriuretic Peptide 232.33 0-100 pg/mL Total Protein 7.8 5.7-8.2 g/dL Albumin 4.7 3.2-4.8 g/dL Assessment ESRD on home hemodialysis Chest pain/shortness of breath Congestive heart failure Mediastinitis status post wound vac recs Arranged dialysis today however she refused HD will be tomorrow Cardio eval ongoing We will follow closely Plan discussed with: Patient MER SAMAYOA MD Jun 20, 2024 11:32
[2024-06-20] MEDS ORDERED: SODIUM CHL 0.9% 1000 ML BAG XX ONE (11:45)
[2024-06-20] MEDS: ceFAZolin 1GM/50ML 50 ML IV ONE (11:46)
[2024-06-20 11:48] LABS: LDL Cholesterol 76 mg/dL (< 100)
[2024-06-20 11:49] LABS: Cholesterol 131 mg/dL (< 200)
[2024-06-20 11:51] LABS: HDL Cholesterol 30 mg/dL (40-59); Triglycerides 193 mg/dL (< 150)
[2024-06-20] MEDS: SEVELAMER 800 MG TAB PO SCH (12:00)
--- NOTE | 2024-06-20 13:54 | DVHPN2 ---
Progress Note Date Seen: Jun 20, 2024 Medical Necessity Reason Pt with a Central, PICC or Fol: No Objective vital signs Vital Sign Date Time Temp Pulse Resp B/P (MAP) Pulse Ox O2 Delivery O2 Flow Rate FiO2 06/20/24 12:50 97.6 67 18 113/30 (57) 98 97.6 06/20/24 09:39 Room Air* 0 21 medications Current Medications Medications Dose Ordered Sig/Arminda Route Start Time Stop Time Status Last Admin Dose Admin Morphine Sulfate 2 mg Q30MP PRN IV 06/20/24 06:45 Cancel Acetaminophen 650 mg Q6HP PRN PO 06/20/24 06:45 Nitroglycerin 0.4 mg Q5MINP PRN SL 06/20/24 06:45 Cancel Ondansetron HCl 4 mg Q4HP PRN IV 06/20/24 06:45 Nitroglycerin 0.4 mg Q5MINP PRN SL 06/20/24 06:45 Morphine Sulfate 2 mg Q30M PRN IV 06/20/24 06:45 06/20/24 09:28 2 MG Diagnostic Test (Pha) 1 strip ACHS 06/20/24 07:00 06/20/24 11:39 1 STRIP Insulin Human Regular ACHS SC 06/20/24 07:00 06/20/24 08:19 2 UNITS Dextrose 50 ml UD PRN IV 06/20/24 06:45 Aspirin 81 mg DAILY PO 06/20/24 10:00 06/20/24 08:18 81 MG Cinacalcet 30 mg DAILY PO 06/20/24 10:00 06/20/24 08:36 30 MG Clopidogrel Bisulfate 75 mg DAILY PO 06/20/24 10:00 06/20/24 08:18 75 MG Pantoprazole Sodium 40 mg DAILY PO 06/20/24 10:00 06/20/24 08:17 40 MG Patient Own Medication 1 tab DAILY PO 06/20/24 10:00 UNV Patient Own Medication 1 tab BID PO 06/20/24 10:00 UNV Patient Own Medication 1 tab BID PO 06/20/24 10:00 Patient Own Medication 1 tab Q8HR PO 06/20/24 14:00 Patient Own Medication 1 cap QAM PO 06/20/24 07:00 UNV Patient Own Medication 800 mg TIDWM PO 06/20/24 08:00 UNV Patient Own Medication 30 mg HS PO 06/20/24 22:00 UNV Atorvastatin Calcium 10 mg HS PO 06/20/24 22:00 Hydroxyzine Pamoate 25 mg BID PO 06/20/24 10:00 06/20/24 08:39 25 MG Sertraline HCl 150 mg QAM PO 06/21/24 07:00 Sevelamer HCl 800 mg TIDWM PO 06/20/24 12:00 Temazepam 30 mg HS PO 06/20/24 22:00 laboratory and microbiology Laboratory Tests 06/19/24 21:49 Test 06/19/24 21:49 Range/Units Serum Glucose 188 H 74-106 mg/dL Problem List/Assessment/Plan Problem List/Assessment/Plan #1 ? acute on chronic diastolic heart failure: dialysis, ct angio negative #2 End-stage renal disease, on hemodialysis. #3 Surgical wound infection with previous wound debridement. #4 Gastroesophageal reflux disease. #5 Coronary artery disease with previous bypass grafting and stents. #6 Diabetes mellitus: ssi #7 Depression. #8 liver cirrhosis #9 Obesity. #10 chronic pain advance care planning- full code- time spent 19 mins Plan discussed with: Patient Date of Service: Jun 20, 2024 Billing Provider: VENANCIO JARA MD Common Visit Codes: [id number] INP/OBS CARE(HIGH) Secondary Visit Codes: [id number] CARE PLAN 30 MINUTES VENANCIO JARA MD Jun 20, 2024 13:54
[2024-06-20] MEDS ORDERED: ACETAMINOPHEN PO SCH (14:00)
[2024-06-20] MEDS ORDERED: OXYCODONE PO SCH (14:00)
[2024-06-20] MEDS: OXYCODONE W/ ACETAMINOPHEN 5/325MG TABLET PO PRN ×2 (15:24→22:38)
[2024-06-20] MEDS ORDERED: PATIENTS OWN MEDICATION (Temazepam 30 MG) PO SCH (22:00)
[2024-06-20] MEDS: TEMAZEPAM 15 MG CAP PO SCH (22:36)
[2024-06-20] MEDS: ATORVASTATIN 20 MG TAB PO SCH (22:37)
[2024-06-21] VITALS (8 sets, daily range): BP systolic 110–148; BP diastolic 44–77; PULSE 64–74; RESP 14–19; TEMP 97.4–98.4; O2SAT 97–100
[2024-06-21] MEDS: SERTRALINE HCL 50 MG TAB PO SCH (06:21)
[2024-06-21 07:29] LABS: Basophils # (auto) 0 10 ^3/uL (0-0.2); Basophils % (auto) 0.3 % (0.0-2.0); Eosinophils # (auto) 0.2 10 ^3/uL (0-0.8); Eosinophils % (auto) 5.8 % (0.0-7.0); Hematocrit 30.5 % (36.0-46.0); Lymphocytes # (auto) 0.8 10 ^3/uL (0.4-5.4); Lymphocytes % (auto) 20.1 % (10.0-50.0); Mean Corpuscular Hemoglobin 27.1 pg (28.0-32.0); Mean Corpuscular Hgb Conc. 32.9 g/dL (32.0-36.0); Mean Corpuscular Volume 82.5 fL (80.0-100.0); Monocytes # (auto) 0.4 10 ^3/uL (0-1.3); Monocytes % (auto) 9.8 % (0.0-12.0); Neutrophils # (auto) 2.7 10 ^3/uL (1.6-8.6); Platelet Count (auto) 174 10^3/uL (140-450); Red Cell Distribution Width 16.8 % (11.8-14.3); White Blood Cell 4.2 10^3/uL (4.4-10.8)
[2024-06-21 07:33] LABS: Potassium 4.2 mmol/L (3.5-5.1)
[2024-06-21 07:34] LABS: Anion Gap 13 (5-15); Carbon Dioxide 28 mmol/L (20-31); Chloride 89 mmol/L (98-107); Sodium 130 mmol/L (136-145)
[2024-06-21 07:38] LABS: Calcium 8.7 mg/dL (8.7-10.4)
[2024-06-21 07:41] LABS: Blood Urea Nitrogen 62 mg/dL (9-23); Glucose 116 mg/dL (74-106)
--- NOTE | 2024-06-21 07:43 | DVHPN2 ---
Progress Note - Dictate Date Seen: Jun 21, 2024 Medical Necessity Reason Pt with a Central, PICC or Fol: No Subjective PT WELL KNOW TO ME WITH SHARP CHEST PAIN ASS OCIATED WITH SOB PMH: S/P MEDIASTINAL DEBRIDEMENT MEDIASTINITIS/ REMOVAL OD ALL STERNAL WIRES NOW WITH WOUND VACUUM ORG HD CAD S/P CABG S/P MULTI VESSEL PTCA STENT POST CABG ESRD ON HD HTN DIABETES ANEMIA LHC PATENT SVG TO LAD PATENT STENTS TO CX PATENT RCA AND PDA SVG TO PDA OCCLUDED EF 45% vital signs Vital Sign Date Time Temp Pulse Resp B/P (MAP) Pulse Ox O2 Delivery O2 Flow Rate FiO2 06/21/24 05:00 97.4 74 17 115/65 (82) 99 97.4 06/20/24 20:00 Room Air* 0 21 Total Intake and Output 06/20/24 06/20/24 06/21/24 15:00 23:00 07:00 Intake Total 100 ml 140 ml 120 ml Output Total 0 ml 600 ml Balance 100 ml 140 ml -480 ml medications Current Medications Medications Dose Ordered Sig/Arminad Route Start Time Stop Time Status Last Admin Dose Admin Morphine Sulfate 2 mg Q30MP PRN IV 06/20/24 06:45 Cancel Acetaminophen 650 mg Q6HP PRN PO 06/20/24 06:45 Nitroglycerin 0.4 mg Q5MINP PRN SL 06/20/24 06:45 Cancel Nitroglycerin 0.4 mg Q5MINP PRN SL 06/20/24 06:45 Morphine Sulfate 2 mg Q30M PRN IV 06/20/24 06:45 06/20/24 09:28 2 MG Diagnostic Test (Pha) 1 strip ACHS 06/20/24 07:00 06/21/24 06:11 1 STRIP Insulin Human Regular ACHS SC 06/20/24 07:00 06/20/24 22:40 2 UNITS Dextrose 50 ml UD PRN IV 06/20/24 06:45 Aspirin 81 mg DAILY PO 06/20/24 10:00 06/20/24 08:18 81 MG Cinacalcet 30 mg DAILY PO 06/20/24 10:00 06/20/24 08:36 30 MG Clopidogrel Bisulfate 75 mg DAILY PO 06/20/24 10:00 06/20/24 08:18 75 MG Pantoprazole Sodium 40 mg DAILY PO 06/20/24 10:00 06/20/24 08:17 40 MG Patient Own Medication 1 tab DAILY PO 06/20/24 10:00 UNV Patient Own Medication 1 tab BID PO 06/20/24 10:00 UNV Patient Own Medication 1 cap QAM PO 06/20/24 07:00 UNV Patient Own Medication 800 mg TIDWM PO 06/20/24 08:00 UNV Patient Own Medication 30 mg HS PO 06/20/24 22:00 UNV Atorvastatin Calcium 10 mg HS PO 06/20/24 22:00 06/20/24 22:37 10 MG Hydroxyzine Pamoate 25 mg BID PO 06/20/24 10:00 06/20/24 22:36 25 MG Sertraline HCl 150 mg QAM PO 06/21/24 07:00 06/21/24 06:21 150 MG Sevelamer HCl 800 mg TIDWM PO 06/20/24 12:00 06/20/24 17:59 800 MG Temazepam 30 mg HS PO 06/20/24 22:00 06/20/24 22:36 30 MG Ondansetron HCl 4 mg Q6HPRN PRN IV 06/20/24 14:00 Oxycodone/ Acetaminophen 2 tab Q6HPRN PRN PO 06/20/24 21:15 06/21/24 06:00 2 TAB laboratory and microbiology Laboratory Tests 06/21/24 06:25 Test 06/21/24 06:25 Range/Units Serum Glucose Pending Problem List WITH SHARP CHEST PAIN ASS OCIATED WITH SOB PMH: S/P MEDIASTINAL DEBRIDEMENT MEDIASTINITIS/ REMOVAL OD ALL STERNAL WIRES NOW WITH WOUND VACUUM ORG HD CAD S/P CABG S/P MULTI VESSEL PTCA STENT POST CABG ESRD ON HD HTN DIABETES HX OF UGI BLEED ANEMIA LHC PATENT SVG TO LAD PATENT STENTS TO CX PATENT RCA AND PDA SVG TO PDA OCCLUDED EF 45% Assessment/Plan CTA CHEST R/O PE AND R/O AORTIC DISSECTION CTA NEGATIVE FOR PE OR AORTIC DISSECTION POSITIVE FOR CIRRHOSIS/ CYTOGENIC REACTIVE MEDIASTINAL LYMPH NODES TREAT WITH NSAID CONSIDER ESR/ TRIPLE PHASE BONE SCAN OR GALLIUM SCAN Dietary Evaluation Review Comments: recommend CCHO-Renal standard, low fat low chol cardic diet Expected Outcomes/Goals: controlled DM, improved nutrition related lab values Plan discussed with: Patient LLOYD SINGH MD Jun 21, 2024 07:43
[2024-06-21] MEDS ORDERED: PATIENTS OWN MEDICATION (MEROPENEM 1 G) IV SCH (08:00)
[2024-06-21] MEDS ORDERED: KETOROLAC TROMETH 30 MG/ML 1ML VIAL IV PRN (08:00)
[2024-06-21] MEDS ORDERED: VANCOMYCIN PER PHARMACY 0 MG IV SCH (08:00)
[2024-06-21] MEDS: PANTOPRAZOLE 40 MG TAB PO ONE (08:15)
[2024-06-21] MEDS: KETOROLAC TROMETH 30 MG/ML 1ML VIAL IV ONE (08:16)
[2024-06-21] MEDS: ONDANSETRON HCL 4 MG/2 ML VIAL IV PRN (08:24)
[2024-06-21 08:38] LABS: Erythrocyte Sedimentation Rate 42 mm/hr (0-20)
[2024-06-21] MEDS ORDERED: VANCOMYCIN 500mg/100mL 100 ML IV ONE (09:15)
[2024-06-21] MEDS: MEROPENEM 1GM IVPB 50 ML IV ONE (10:59)
[2024-06-21] MEDS ORDERED: ISOS1TAB29 PO (11:03)
[2024-06-21] MEDS ORDERED: FLU01T PO (11:03)
[2024-06-21] MEDS: VANCOMYCIN 1GM/250ML KIT 250 ML IV ONE (12:42)
[2024-06-21] MEDS: PANTOPRAZOLE 40 MG TAB PO SCH (17:31)
--- NOTE | 2024-06-21 17:55 | DVHSR ---
APPROVED REPORT EXAM: Two-dimensional and M-mode echocardiogram with Doppler and color Doppler. Blood Pressure: 115/65 mmHg INDICATION Chest Pain RISK FACTORS Height: 5'6", Weight: 167 DIMENSIONS LVDd4.9 (3.8-5.7cm)LA (2D)4.6 (1.9-4.0cm)Aortic Root (2.0-3.7cm) LVDs3.5 (2.5-4.0cm)LA (MM) (1.9-4.0cm)Aortic Cusp Exc (1.5-2.0cm) EF (%) 54.0 (55-70%)Rt. Atrium3.6 (1.9-4.0cm)Asc. Aorta cm Mitral Valve MitralMitral Stenosis E wave1.26m/sMV Mean GR.mmHg A wave0.70m/sMV Peak GR.mmHg E/A ratio1.82D MVAcm2 DECEL [id number] 1/2 Timems Aortic Valve Aortic ValveAortic Stenosis V11.00m/Jessica Mean GR.5mmHg V21.56m/Jessica Peak GR.10mmHg LVOT Diameter2.0 (1.8-2.4cm)Doppler AVA2.01cm2 Tricuspid Valve TR Velocity2.74m/s [id number] Conclusion Technically good study. Sinus rhythm. Off axis views. Limited acoustic windows. Left atrial enlargement. Valves appear to be structurally normal. Left ventricular function is preserved at 55% with normal RV function. Moderate mitral insufficiency. Moderate tricuspid regurgitation. No pericardial effusion masses or vegetations.
--- NOTE | 2024-06-21 19:24 | DVHPN2 ---
Progress Note Date Seen: Jun 21, 2024 Medical Necessity Reason Pt with a Central, PICC or Fol: No Subjective Patient reports: Other (sob better,, chest pain ++) Review of Systems: Deferred Objective vital signs Vital Sign Date Time Temp Pulse Resp B/P (MAP) Pulse Ox O2 Delivery O2 Flow Rate FiO2 06/21/24 16:46 97.7 72 18 127/74 (91) 98 97.7 06/21/24 08:00 Room Air* 0 21 Total Intake and Output 06/20/24 06/20/24 06/21/24 15:00 23:00 07:00 Intake Total 100 ml 140 ml 120 ml Output Total 0 ml 600 ml Balance 100 ml 140 ml -480 ml medications Current Medications Medications Dose Ordered Sig/Arminda Route Start Time Stop Time Status Last Admin Dose Admin Morphine Sulfate 2 mg Q30MP PRN IV 06/20/24 06:45 Cancel Acetaminophen 650 mg Q6HP PRN PO 06/20/24 06:45 Nitroglycerin 0.4 mg Q5MINP PRN SL 06/20/24 06:45 Cancel Nitroglycerin 0.4 mg Q5MINP PRN SL 06/20/24 06:45 Morphine Sulfate 2 mg Q30M PRN IV 06/20/24 06:45 06/20/24 09:28 2 MG Diagnostic Test (Pha) 1 strip ACHS 06/20/24 07:00 06/21/24 17:24 1 STRIP Insulin Human Regular ACHS SC 06/20/24 07:00 06/20/24 22:40 2 UNITS Dextrose 50 ml UD PRN IV 06/20/24 06:45 Aspirin 81 mg DAILY PO 06/20/24 10:00 06/20/24 08:18 81 MG Cinacalcet 30 mg DAILY PO 06/20/24 10:00 06/20/24 08:36 30 MG Clopidogrel Bisulfate 75 mg DAILY PO 06/20/24 10:00 06/20/24 08:18 75 MG Patient Own Medication 1 tab DAILY PO 06/20/24 10:00 UNV Patient Own Medication 1 tab BID PO 06/20/24 10:00 UNV Patient Own Medication 1 cap QAM PO 06/20/24 07:00 UNV Patient Own Medication 800 mg TIDWM PO 06/20/24 08:00 UNV Patient Own Medication 30 mg HS PO 06/20/24 22:00 UNV Atorvastatin Calcium 10 mg HS PO 06/20/24 22:00 06/20/24 22:37 10 MG Hydroxyzine Pamoate 25 mg BID PO 06/20/24 10:00 06/21/24 08:15 25 MG Sertraline HCl 150 mg QAM PO 06/21/24 07:00 06/21/24 06:21 150 MG Sevelamer HCl 800 mg TIDWM PO 06/20/24 12:00 06/21/24 18:26 800 MG Temazepam 30 mg HS PO 06/20/24 22:00 06/20/24 22:36 30 MG Ondansetron HCl 4 mg Q6HPRN PRN IV 06/20/24 14:00 06/21/24 08:24 4 MG Oxycodone/ Acetaminophen 2 tab Q6HPRN PRN PO 06/20/24 21:15 06/21/24 12:37 2 TAB Vancomycin HCl 0 ml @ 0 mls/hr UD IV 06/21/24 08:00 Pantoprazole Sodium 40 mg BID@0600,1700 PO 06/21/24 17:00 06/21/24 17:31 40 MG Meropenem 50 ml @ 17 mls/hr HS IV 06/22/24 22:00 Ketorolac Tromethamine 15 mg Q6HPRN PRN IV 06/21/24 14:00 06/26/24 05:59 Examination: GENERAL:Normal, HEENT:Normal, CVS:Abnormal, MSK:Normal, SKIN:Abnormal, NEURO:Normal laboratory and microbiology Laboratory Tests 06/21/24 06:25 Test 06/21/24 06:25 Range/Units Serum Glucose 116 H 74-106 mg/dL Problem List/Assessment/Plan Problem List/Assessment/Plan ESRD on home hemodialysis Chest pain/shortness of breath Congestive heart failure Mediastinitis status post wound vac recs seen on dialysis today uf 1 L CTS consulted//echo being done Cardio eval ongoing We will follow closely Plan discussed with: Patient My Orders My Orders Orders - MER SAMAYOA MD Procedure Category Date Status Time Hepatitis B Surface LAB 06/21/24 In Process Antigen 08:59 Dietary Evaluation Review Comments: recommend CCHO-Renal standard, low fat low chol cardic diet Expected Outcomes/Goals: controlled DM, improved nutrition related lab values MER SAMAYOA MD Jun 21, 2024 19:24
--- NOTE | 2024-06-21 20:06 | DVH ---
Procedure: VT NM BONE 3 PHASE Exam Date: 06/21/2024 09:48 AM Clinical History: OSTEOMYELITIS OF STERNUM Comparison Study: [facility] BONE 3 PHASE on DOS: 09/30/22, VT BONE 3 PHASE on DOS: 01/28/22 patient has a p rior CT examination of the chest of June 20, 2024 Nuclear Medicine Three-Phase Bone Scan Technique: Following the intravenous administration of 25 millicuries of technetium 99m MDP dynamic blood flow i mages and static and blood pool images were obtained. Delayed planar images were obtained at 3 hours . Findings: In the prior chest CT there is irregularity possible bony destruction involving the tip of the xiphoi d process the inferior sternum. I do not appreciate any differential tracer enhancement involving the xiphoid process. Impression: 1. Study is not consistent with osteomyelitis. I would recommend if more imaging is required MRI exam ination of the anterior thorax. Contrast not necessary.
--- NOTE | 2024-06-21 20:38 | DVHPN2 ---
Subjective got HD today and still feeling SOB Changes from previous H/P or p: No Changes Eyes: No Pain, No Vision change, No Conjunctivae inflammation, No Eyelid inflammation, No Other, No Redness ENT: No Ear pain, No Ear discharge, No Nose pain, No Nose discharge, No Nose congestion, No Mouth pain, No Mouth swelling, No Throat pain, No Throat swelling, No Other Cardiovascular: Chest Pain; No Palpitations, No Orthopnea, No Paroxysmal Noc. Dyspnea, No Edema, No Lt Headedness, No Other Respiratory: No Cough, No Dry; Shortness of breath; No SOB with excertion, No Wheezing, No Hemoptysis, No Pleuritic Pain, No Sputum, No Other Gastrointestinal: No Nausea, No Vomiting, No Abdominal Pain, No Diarrhea, No Constipation, No Melena, No Hematochezia, No Other Genitourinary: No Dysuria, No Frequency, No Incontinence, No Hematuria, No Retention, No Other Musculoskeletal: No other, No neck pain, No shoulder pain, No arm pain, No back pain, No hand pain, No leg pain, No foot pain Skin: No Rash, No Lesions, No Jaundice, No Bruising, No Other Objective Vitals Vital Signs Date Time Temp Pulse Resp B/P (MAP) Pulse Ox O2 Delivery O2 Flow Rate FiO2 06/21/24 16:46 97.7 72 18 127/74 (91) 98 97.7 06/21/24 08:00 Room Air* 0 21 Intake/Output Intake and Output 06/21/24 05:00 Intake Total 360 ml Output Total 600 ml Balance -240 ml Intake Oral 260 ml IV Total 100 ml Output Urine Total 600 ml General Appearance: Alert, Oriented X3 Musculoskeletal: Other (LE swelling) Medications Current Medications Medications Dose Ordered Sig/Arminda Route Start Time Stop Time Status Last Admin Dose Admin Morphine Sulfate 2 mg Q30MP PRN IV 06/20/24 06:45 Cancel Acetaminophen 650 mg Q6HP PRN PO 06/20/24 06:45 Nitroglycerin 0.4 mg Q5MINP PRN SL 06/20/24 06:45 Cancel Nitroglycerin 0.4 mg Q5MINP PRN SL 06/20/24 06:45 Morphine Sulfate 2 mg Q30M PRN IV 06/20/24 06:45 06/20/24 09:28 2 MG Diagnostic Test (Pha) 1 strip ACHS 2/6/25 07:00 06/21/24 17:24 1 STRIP Insulin Human Regular ACHS SC 06/20/24 07:00 06/20/24 22:40 2 UNITS Dextrose 50 ml UD PRN IV 06/20/24 06:45 Aspirin 81 mg DAILY PO 06/20/24 10:00 06/20/24 08:18 81 MG Cinacalcet 30 mg DAILY PO 06/20/24 10:00 06/20/24 08:36 30 MG Clopidogrel Bisulfate 75 mg DAILY PO 06/20/24 10:00 06/20/24 08:18 75 MG Patient Own Medication 1 tab DAILY PO 06/20/24 10:00 UNV Patient Own Medication 1 tab BID PO 06/20/24 10:00 UNV Patient Own Medication 1 cap QAM PO 06/20/24 07:00 UNV Patient Own Medication 800 mg TIDWM PO 06/20/24 08:00 UNV Patient Own Medication 30 mg HS PO 06/20/24 22:00 UNV Atorvastatin Calcium 10 mg HS PO 06/20/24 22:00 06/20/24 22:37 10 MG Hydroxyzine Pamoate 25 mg BID PO 06/20/24 10:00 06/21/24 08:15 25 MG Sertraline HCl 150 mg QAM PO 06/21/24 07:00 06/21/24 06:21 150 MG Sevelamer HCl 800 mg TIDWM PO 06/20/24 12:00 06/21/24 18:26 800 MG Temazepam 30 mg HS PO 06/20/24 22:00 06/20/24 22:36 30 MG Ondansetron HCl 4 mg Q6HPRN PRN IV 06/20/24 14:00 06/21/24 08:24 4 MG Oxycodone/ Acetaminophen 2 tab Q6HPRN PRN PO 06/20/24 21:15 06/21/24 20:21 2 TAB Vancomycin HCl 0 ml @ 0 mls/hr UD IV 06/21/24 08:00 Pantoprazole Sodium 40 mg BID@0600,1700 PO 06/21/24 17:00 06/21/24 17:31 40 MG Meropenem 50 ml @ 17 mls/hr HS IV 06/22/24 22:00 Ketorolac Tromethamine 15 mg Q6HPRN PRN IV 06/21/24 14:00 06/26/24 05:59 Laboratory Results Laboratory Tests 06/21/24 06:25 Chemistry Test 06/21/24 06:25 Calcium Level 8.7 mg/dL (8.7-10.4) Assessment/Plan Assessment/Plan #1 ? acute on chronic diastolic heart failure: dialysis, ct angio negative #2 End-stage renal disease, on hemodialysis. #3 Surgical wound infection with previous wound debridement. #4 Gastroesophageal reflux disease. #5 Coronary artery disease with previous bypass grafting and stents. #6 Diabetes mellitus: ssi #7 Depression. #8 liver cirrhosis #9 Obesity. #10 chronic pain Plan discussed with: Patient Date of Service: Jun 21, 2024 Billing Provider: SERGO MARTIN MD Common Visit Codes: [id number] INP/OBS CARE(HIGH) SERGO MARTIN MD Jun 21, 2024 20:38
[2024-06-22] VITALS (8 sets, daily range): BP systolic 112–143; BP diastolic 40–68; PULSE 7–77; RESP 14–17; TEMP 96.9–98.6; O2SAT 93–100
[2024-06-22] MEDS: VANCOMYCIN 1GM/250ML KIT 250 ML IV ONE (11:49)
--- NOTE | 2024-06-22 19:25 | DVHPN2 ---
Subjective got HD today and still feeling SOB Changes from previous H/P or p: No Changes Eyes: No Pain, No Vision change, No Conjunctivae inflammation, No Eyelid inflammation, No Other, No Redness ENT: No Ear pain, No Ear discharge, No Nose pain, No Nose discharge, No Nose congestion, No Mouth pain, No Mouth swelling, No Throat pain, No Throat swelling, No Other Cardiovascular: Chest Pain; No Palpitations, No Orthopnea, No Paroxysmal Noc. Dyspnea, No Edema, No Lt Headedness, No Other Respiratory: No Cough, No Dry; Shortness of breath; No SOB with excertion, No Wheezing, No Hemoptysis, No Pleuritic Pain, No Sputum, No Other Gastrointestinal: No Nausea, No Vomiting, No Abdominal Pain, No Diarrhea, No Constipation, No Melena, No Hematochezia, No Other Genitourinary: No Dysuria, No Frequency, No Incontinence, No Hematuria, No Retention, No Other Musculoskeletal: No other, No neck pain, No shoulder pain, No arm pain, No back pain, No hand pain, No leg pain, No foot pain Skin: No Rash, No Lesions, No Jaundice, No Bruising, No Other Objective Vitals Vital Signs Date Time Temp Pulse Resp B/P (MAP) Pulse Ox O2 Delivery O2 Flow Rate FiO2 06/22/24 16:56 98.2 66 16 116/44 (68) 100 98.2 06/22/24 08:00 Room Air* 0 21 Intake/Output Intake and Output 06/22/24 05:00 Intake Total 740 ml Output Total 0 ml Balance 740 ml Intake Oral 740 ml Output Urine Total 0 ml General Appearance: Alert, Oriented X3 Musculoskeletal: Other (LE swelling) Medications Current Medications Medications Dose Ordered Sig/Arminda Route Start Time Stop Time Status Last Admin Dose Admin Morphine Sulfate 2 mg Q30MP PRN IV 06/20/24 06:45 Cancel Acetaminophen 650 mg Q6HP PRN PO 06/20/24 06:45 Nitroglycerin 0.4 mg Q5MINP PRN SL 06/20/24 06:45 Cancel Nitroglycerin 0.4 mg Q5MINP PRN SL 06/20/24 06:45 Morphine Sulfate 2 mg Q30M PRN IV 06/20/24 06:45 06/20/24 09:28 2 MG Diagnostic Test (Pha) 1 strip ACHS 06/20/24 07:00 06/22/24 17:04 1 STRIP Insulin Human Regular ACHS SC 06/20/24 07:00 06/22/24 05:59 2 UNITS Dextrose 50 ml UD PRN IV 06/20/24 06:45 Aspirin 81 mg DAILY PO 06/20/24 10:00 06/22/24 08:45 81 MG Cinacalcet 30 mg DAILY PO 06/20/24 10:00 06/22/24 08:46 30 MG Clopidogrel Bisulfate 75 mg DAILY PO 06/20/24 10:00 06/22/24 08:46 75 MG Patient Own Medication 1 tab DAILY PO 06/20/24 10:00 UNV Patient Own Medication 1 tab BID PO 06/20/24 10:00 UNV Patient Own Medication 1 cap QAM PO 06/20/24 07:00 UNV Patient Own Medication 800 mg TIDWM PO 06/20/24 08:00 UNV Patient Own Medication 30 mg HS PO 06/20/24 22:00 UNV Atorvastatin Calcium 10 mg HS PO 06/20/24 22:00 06/21/24 21:58 10 MG Hydroxyzine Pamoate 25 mg BID PO 06/20/24 10:00 06/22/24 08:46 25 MG Sertraline HCl 150 mg QAM PO 06/21/24 07:00 06/22/24 06:01 150 MG Sevelamer HCl 800 mg TIDWM PO 06/20/24 12:00 06/22/24 17:04 800 MG Temazepam 30 mg HS PO 06/20/24 22:00 06/21/24 21:58 30 MG Ondansetron HCl 4 mg Q6HPRN PRN IV 06/20/24 14:00 06/21/24 08:24 4 MG Oxycodone/ Acetaminophen 2 tab Q6HPRN PRN PO 06/20/24 21:15 06/22/24 08:54 2 TAB Vancomycin HCl 0 ml @ 0 mls/hr UD IV 06/21/24 08:00 Pantoprazole Sodium 40 mg BID@0600,1700 PO 06/21/24 17:00 06/22/24 17:04 40 MG Meropenem 50 ml @ 17 mls/hr HS IV 06/22/24 22:00 Ketorolac Tromethamine 15 mg Q6HPRN PRN IV 06/21/24 14:00 06/26/24 05:59 Laboratory Results Laboratory Tests 06/21/24 06:25 06/22/24 06:09 Assessment/Plan Assessment/Plan #1 ? acute on chronic diastolic heart failure: dialysis, ct angio negative #2 End-stage renal disease, on hemodialysis. #3 Surgical wound infection with previous wound debridement. #4 Gastroesophageal reflux disease. #5 Coronary artery disease with previous bypass grafting and stents. #6 Diabetes mellitus: ssi #7 Depression. #8 liver cirrhosis #9 Obesity. #10 chronic pain Plan discussed with: Patient Date of Service: Jun 22, 2024 Billing Provider: SERGO MARTIN MD Common Visit Codes: [id number] INP/OBS CARE(HIGH) SERGO MARTIN MD Jun 22, 2024 19:25
[2024-06-22] MEDS: KETOROLAC TROMETH 30 MG/ML 1ML VIAL IV PRN (20:53)
[2024-06-22] MEDS: MEROPENEM 500MG IVPB 50 ML IV SCH (20:58)
--- NOTE | 2024-06-22 21:15 | DVHPN2 ---
Progress Note Date Seen: Jun 22, 2024 Medical Necessity Reason Pt with a Central, PICC or Fol: No Subjective Patient reports: No new complaints Review of Systems: Deferred Objective vital signs Vital Sign Date Time Temp Pulse Resp B/P (MAP) Pulse Ox O2 Delivery O2 Flow Rate FiO2 06/22/24 20:00 Room Air* 0 21 06/22/24 16:56 98.2 66 16 116/44 (68) 100 98.2 Total Intake and Output 06/21/24 06/21/24 06/22/24 15:00 23:00 07:00 Intake Total 520 ml 220 ml Output Total 0 ml 0 ml Balance 520 ml 220 ml medications Current Medications Medications Dose Ordered Sig/Arminda Route Start Time Stop Time Status Last Admin Dose Admin Morphine Sulfate 2 mg Q30MP PRN IV 06/20/24 06:45 Cancel Acetaminophen 650 mg Q6HP PRN PO 06/20/24 06:45 Nitroglycerin 0.4 mg Q5MINP PRN SL 06/20/24 06:45 Cancel Nitroglycerin 0.4 mg Q5MINP PRN SL 06/20/24 06:45 Morphine Sulfate 2 mg Q30M PRN IV 06/20/24 06:45 06/20/24 09:28 2 MG Diagnostic Test (Pha) 1 strip ACHS 06/20/24 07:00 06/22/24 21:08 1 STRIP Insulin Human Regular ACHS SC 06/20/24 07:00 06/22/24 21:08 2 UNITS Dextrose 50 ml UD PRN IV 06/20/24 06:45 Aspirin 81 mg DAILY PO 06/20/24 10:00 06/22/24 08:45 81 MG Cinacalcet 30 mg DAILY PO 06/20/24 10:00 06/22/24 08:46 30 MG Clopidogrel Bisulfate 75 mg DAILY PO 06/20/24 10:00 06/22/24 08:46 75 MG Patient Own Medication 1 tab DAILY PO 06/20/24 10:00 UNV Patient Own Medication 1 tab BID PO 06/20/24 10:00 UNV Patient Own Medication 1 cap QAM PO 06/20/24 07:00 UNV Patient Own Medication 800 mg TIDWM PO 06/20/24 08:00 UNV Patient Own Medication 30 mg HS PO 06/20/24 22:00 UNV Atorvastatin Calcium 10 mg HS PO 06/20/24 22:00 06/22/24 20:54 10 MG Hydroxyzine Pamoate 25 mg BID PO 06/20/24 10:00 06/22/24 20:54 25 MG Sertraline HCl 150 mg QAM PO 06/21/24 07:00 06/22/24 06:01 150 MG Sevelamer HCl 800 mg TIDWM PO 06/20/24 12:00 06/22/24 17:04 800 MG Temazepam 30 mg HS PO 06/20/24 22:00 06/22/24 20:53 30 MG Ondansetron HCl 4 mg Q6HPRN PRN IV 06/20/24 14:00 06/21/24 08:24 4 MG Oxycodone/ Acetaminophen 2 tab Q6HPRN PRN PO 06/20/24 21:15 06/22/24 08:54 2 TAB Vancomycin HCl 0 ml @ 0 mls/hr UD IV 06/21/24 08:00 Pantoprazole Sodium 40 mg BID@0600,1700 PO 06/21/24 17:00 06/22/24 17:04 40 MG Meropenem 50 ml @ 17 mls/hr HS IV 06/22/24 22:00 06/22/24 20:58 17 MLS/HR Ketorolac Tromethamine 15 mg Q6HPRN PRN IV 06/21/24 14:00 06/26/24 05:59 06/22/24 20:53 15 MG Examination: GENERAL:Normal, HEENT:Normal, NECK:Normal, LUNGS:Normal, CVS:Abnormal, ABDOMEN:Normal, MSK:Normal, SKIN:Abnormal, NEURO:Normal, :Normal laboratory and microbiology Laboratory Tests 06/22/24 06:09 06/21/24 06:25 Test 06/21/24 06:25 Range/Units Serum Glucose 116 H 74-106 mg/dL Problem List/Assessment/Plan Problem List/Assessment/Plan ESRD on home hemodialysis Chest pain/shortness of breath Congestive heart failure Mediastinitis status post wound vac recs HD monday vs monday CTS consulted//echo Cardio eval ongoing We will follow closely Plan discussed with: Patient Dietary Evaluation Review Comments: recommend CCHO-Renal standard, low fat low chol cardic diet Expected Outcomes/Goals: controlled DM, improved nutrition related lab values MER SAMAYOA MD Jun 22, 2024 21:15
[2024-06-23] VITALS (9 sets, daily range): BP systolic 125–158; BP diastolic 27–74; PULSE 7–71; RESP 16–20; TEMP 97.8–99.1; O2SAT 91–99
[2024-06-23] MEDS: VANCOMYCIN 750MG KIT 100 ML IV ONE (11:33)
[2024-06-23 13:01] LABS: Potassium 4.4 mmol/L (3.5-5.1)
[2024-06-23 13:02] LABS: Anion Gap 11 (5-15); Calcium 8.2 mg/dL (8.7-10.4); Carbon Dioxide 27 mmol/L (20-31); Chloride 92 mmol/L (98-107); Sodium 130 mmol/L (136-145)
[2024-06-23 13:07] LABS: BUN/Creatinine Ratio 3.9 (10.0-20.0); Blood Urea Nitrogen 32 mg/dL (9-23); Glucose 98 mg/dL (74-106)
--- NOTE | 2024-06-23 20:20 | DVHPN2 ---
Progress Note Date Seen: Jun 23, 2024 Medical Necessity Reason Pt with a Central, PICC or Fol: No Subjective Patient reports: No new complaints Review of Systems: Deferred Objective vital signs Vital Sign Date Time Temp Pulse Resp B/P (MAP) Pulse Ox O2 Delivery O2 Flow Rate FiO2 06/23/24 17:00 98.2 70 18 131/27 (61) 96 98.2 06/23/24 07:55 Room Air* 0 21 Total Intake and Output 06/22/24 06/22/24 06/23/24 15:00 23:00 07:00 Intake Total 250 ml 480 ml 450 ml Output Total 0 ml Balance 250 ml 480 ml 450 ml medications Current Medications Medications Dose Ordered Sig/Arminda Route Start Time Stop Time Status Last Admin Dose Admin Morphine Sulfate 2 mg Q30MP PRN IV 06/20/24 06:45 Cancel Acetaminophen 650 mg Q6HP PRN PO 06/20/24 06:45 Nitroglycerin 0.4 mg Q5MINP PRN SL 06/20/24 06:45 Cancel Nitroglycerin 0.4 mg Q5MINP PRN SL 06/20/24 06:45 Morphine Sulfate 2 mg Q30M PRN IV 06/20/24 06:45 06/20/24 09:28 2 MG Diagnostic Test (Pha) 1 strip ACHS 06/20/24 07:00 06/23/24 17:11 1 STRIP Insulin Human Regular ACHS SC 06/20/24 07:00 06/23/24 17:12 3 UNITS Dextrose 50 ml UD PRN IV 06/20/24 06:45 Aspirin 81 mg DAILY PO 06/20/24 10:00 06/23/24 08:30 81 MG Cinacalcet 30 mg DAILY PO 06/20/24 10:00 06/23/24 08:31 30 MG Clopidogrel Bisulfate 75 mg DAILY PO 06/20/24 10:00 06/23/24 08:30 75 MG Patient Own Medication 1 tab DAILY PO 06/20/24 10:00 UNV Patient Own Medication 1 tab BID PO 06/20/24 10:00 UNV Patient Own Medication 1 cap QAM PO 06/20/24 07:00 UNV Patient Own Medication 800 mg TIDWM PO 06/20/24 08:00 UNV Patient Own Medication 30 mg HS PO 06/20/24 22:00 UNV Atorvastatin Calcium 10 mg HS PO 06/20/24 22:00 06/22/24 20:54 10 MG Hydroxyzine Pamoate 25 mg BID PO 06/20/24 10:00 06/23/24 08:30 25 MG Sertraline HCl 150 mg QAM PO 06/21/24 07:00 06/23/24 05:49 150 MG Sevelamer HCl 800 mg TIDWM PO 06/20/24 12:00 06/23/24 17:11 800 MG Temazepam 30 mg HS PO 06/20/24 22:00 06/22/24 20:53 30 MG Ondansetron HCl 4 mg Q6HPRN PRN IV 06/20/24 14:00 06/21/24 08:24 4 MG Oxycodone/ Acetaminophen 2 tab Q6HPRN PRN PO 06/20/24 21:15 06/23/24 13:31 2 TAB Vancomycin HCl 0 ml @ 0 mls/hr UD IV 06/21/24 08:00 Pantoprazole Sodium 40 mg BID@0600,1700 PO 06/21/24 17:00 06/23/24 17:11 40 MG Meropenem 50 ml @ 17 mls/hr HS IV 06/22/24 22:00 06/22/24 20:58 17 MLS/HR Ketorolac Tromethamine 15 mg Q6HPRN PRN IV 06/21/24 14:00 06/26/24 05:59 06/22/24 20:53 15 MG Examination: GENERAL:Normal, CVS:Abnormal, MSK:Normal, SKIN:Abnormal, NEURO:Normal laboratory and microbiology Laboratory Tests 06/23/24 05:18 06/21/24 06:25 Test 06/23/24 05:18 Range/Units Serum Glucose 98 74-106 mg/dL Problem List/Assessment/Plan Problem List/Assessment/Plan ESRD on home hemodialysis Chest pain/shortness of breath Congestive heart failure Mediastinitis status post wound vac recs HD monday CTS consulted Cardio eval ongoing We will follow closely Plan discussed with: Other Dietary Evaluation Review Comments: recommend CCHO-Renal standard, low fat low chol cardic diet Expected Outcomes/Goals: controlled DM, improved nutrition related lab values MER SAMAYOA MD Jun 23, 2024 20:20
--- NOTE | 2024-06-23 20:35 | DVHPN2 ---
Subjective still feeling SOB Changes from previous H/P or p: No Changes Eyes: No Pain, No Vision change, No Conjunctivae inflammation, No Eyelid inflammation, No Other, No Redness ENT: No Ear pain, No Ear discharge, No Nose pain, No Nose discharge, No Nose congestion, No Mouth pain, No Mouth swelling, No Throat pain, No Throat swelling, No Other Cardiovascular: Chest Pain; No Palpitations, No Orthopnea, No Paroxysmal Noc. Dyspnea, No Edema, No Lt Headedness, No Other Respiratory: No Cough, No Dry; Shortness of breath; No SOB with excertion, No Wheezing, No Hemoptysis, No Pleuritic Pain, No Sputum, No Other Gastrointestinal: No Nausea, No Vomiting, No Abdominal Pain, No Diarrhea, No Constipation, No Melena, No Hematochezia, No Other Genitourinary: No Dysuria, No Frequency, No Incontinence, No Hematuria, No Retention, No Other Musculoskeletal: No other, No neck pain, No shoulder pain, No arm pain, No back pain, No hand pain, No leg pain, No foot pain Skin: No Rash, No Lesions, No Jaundice, No Bruising, No Other Objective Vitals Vital Signs Date Time Temp Pulse Resp B/P (MAP) Pulse Ox O2 Delivery O2 Flow Rate FiO2 06/23/24 17:00 98.2 70 18 131/27 (61) 96 98.2 06/23/24 07:55 Room Air* 0 21 Intake/Output Intake and Output 06/23/24 05:00 Intake Total 1180 ml Output Total 0 ml Balance 1180 ml Intake Oral 880 ml IV Total 300 ml Output Urine Total 0 ml General Appearance: Alert, Oriented X3 Musculoskeletal: Other (LE swelling) Medications Current Medications Medications Dose Ordered Sig/Arminda Route Start Time Stop Time Status Last Admin Dose Admin Morphine Sulfate 2 mg Q30MP PRN IV 06/20/24 06:45 Cancel Acetaminophen 650 mg Q6HP PRN PO 06/20/24 06:45 Nitroglycerin 0.4 mg Q5MINP PRN SL 06/20/24 06:45 Cancel Nitroglycerin 0.4 mg Q5MINP PRN SL 06/20/24 06:45 Morphine Sulfate 2 mg Q30M PRN IV 06/20/24 06:45 06/20/24 09:28 2 MG Diagnostic Test (Pha) 1 strip ACHS 06/20/24 07:00 06/23/24 17:11 1 STRIP Insulin Human Regular ACHS SC 06/20/24 07:00 06/23/24 17:12 3 UNITS Dextrose 50 ml UD PRN IV 06/20/24 06:45 Aspirin 81 mg DAILY PO 06/20/24 10:00 06/23/24 08:30 81 MG Cinacalcet 30 mg DAILY PO 06/20/24 10:00 06/23/24 08:31 30 MG Clopidogrel Bisulfate 75 mg DAILY PO 06/20/24 10:00 06/23/24 08:30 75 MG Patient Own Medication 1 tab DAILY PO 06/20/24 10:00 UNV Patient Own Medication 1 tab BID PO 06/20/24 10:00 UNV Patient Own Medication 1 cap QAM PO 06/20/24 07:00 UNV Patient Own Medication 800 mg TIDWM PO 06/20/24 08:00 UNV Patient Own Medication 30 mg HS PO 06/20/24 22:00 UNV Atorvastatin Calcium 10 mg HS PO 06/20/24 22:00 06/22/24 20:54 10 MG Hydroxyzine Pamoate 25 mg BID PO 06/20/24 10:00 06/23/24 08:30 25 MG Sertraline HCl 150 mg QAM PO 06/21/24 07:00 06/23/24 05:49 150 MG Sevelamer HCl 800 mg TIDWM PO 06/20/24 12:00 06/23/24 17:11 800 MG Temazepam 30 mg HS PO 06/20/24 22:00 06/22/24 20:53 30 MG Ondansetron HCl 4 mg Q6HPRN PRN IV 06/20/24 14:00 06/21/24 08:24 4 MG Oxycodone/ Acetaminophen 2 tab Q6HPRN PRN PO 06/20/24 21:15 06/23/24 13:31 2 TAB Vancomycin HCl 0 ml @ 0 mls/hr UD IV 06/21/24 08:00 Pantoprazole Sodium 40 mg BID@0600,1700 PO 06/21/24 17:00 06/23/24 17:11 40 MG Meropenem 50 ml @ 17 mls/hr HS IV 06/22/24 22:00 06/22/24 20:58 17 MLS/HR Ketorolac Tromethamine 15 mg Q6HPRN PRN IV 06/21/24 14:00 06/26/24 05:59 06/22/24 20:53 15 MG Laboratory Results Laboratory Tests 06/21/24 06:25 06/23/24 05:18 Chemistry Test 06/23/24 05:18 Calcium Level 8.2 mg/dL (8.7-10.4) L Assessment/Plan Assessment/Plan #1 ? acute on chronic diastolic heart failure: dialysis, ct angio negative #2 End-stage renal disease, on hemodialysis. #3 Surgical wound infection with previous wound debridement. #4 Gastroesophageal reflux disease. #5 Coronary artery disease with previous bypass grafting and stents. #6 Diabetes mellitus: ssi #7 Depression. #8 liver cirrhosis #9 Obesity. #10 chronic pain Plan discussed with: Patient Date of Service: Jun 23, 2024 Billing Provider: SERGO MARTIN MD Common Visit Codes: [id number] INP/OBS CARE(HIGH) SERGO MARTIN MD Jun 23, 2024 20:35
[2024-06-24 05:00] VITALS: BP 119/30; PULSE 63; RESP 20; TEMP 97.4; O2SAT 95
[2024-06-24 08:00] VITALS: PULSE 67
[2024-06-24 08:19] VITALS: PULSE 70; RESP 16; O2SAT 95
[2024-06-24 08:30] VITALS: BP 135/42; PULSE 63; RESP 18; TEMP 97.3; O2SAT 98
--- NOTE | 2024-06-24 11:47 | DVHDS2 ---
Discharge Summary Date of Admission Jun 20, 2024 at 06:44 Date of Discharge: Jun 24, 2024 Labs/Diagnostic Data: Laboratory Results Test 06/24/24 07:40 06/24/24 06:16 06/23/24 05:18 06/21/24 06:25 Random Vancomycin Level 8.7 ug/mL (5-10) POC Glucose 98 mg/dl (70-106) Sodium Level 130 mmol/L (136-145) Potassium Level 4.4 mmol/L (3.5-5.1) Chloride Level 92 mmol/L (98-107) Carbon Dioxide Level 27 mmol/L (20-31) Anion Gap 11 (5-15) Blood Urea Nitrogen 32 mg/dL (9-23) Creatinine 8.29 mg/dL (0.550-1.02) Glomerular Filtration Rate Calc 5 mL/min (>90) BUN/Creatinine Ratio 3.9 (10.0-20.0) Serum Glucose 98 mg/dL (74-106) Calcium Level 8.2 mg/dL (8.7-10.4) White Blood Count 4.2 10^3/uL (4.4-10.8) Red Blood Count 3.70 10^6/uL (4.0-5.20) Hemoglobin 10.0 g/dL (12.2-16.2) Hematocrit 30.5 % (36.0-46.0) Mean Corpuscular Volume 82.5 fL (80.0-100.0) Mean Corpuscular Hemoglobin 27.1 pg (28.0-32.0) Mean Corpuscular Hemoglobin Concent 32.9 g/dL (32.0-36.0) Red Cell Distribution Width 16.8 % (11.8-14.3) Platelet Count 174 10^3/uL (140-450) Mean Platelet Volume 8.4 fL (6.9-10.8) Neutrophils (%) (Auto) 64.0 % (37.0-80.0) Lymphocytes (%) (Auto) 20.1 % (10.0-50.0) Monocytes (%) (Auto) 9.8 % (0.0-12.0) Eosinophils (%) (Auto) 5.8 % (0.0-7.0) Basophils (%) (Auto) 0.3 % (0.0-2.0) Neutrophils # (Auto) 2.7 10 ^3/uL (1.6-8.6) Lymphocytes # (Auto) 0.8 10 ^3/uL (0.4-5.4) Monocytes # (Auto) 0.4 10 ^3/uL (0-1.3) Eosinophils # (Auto) 0.2 10 ^3/uL (0-0.8) Basophils # (Auto) 0 10 ^3/uL (0-0.2) Nucleated Red Blood Cells 0.0 % Erythrocyte Sedimentation Rate 42 mm/hr (0-20) C-Reactive Protein High Sensitivity 1.68 mg/dL (<1.0) Hepatitis B Surface Antigen Negative (Negative) Test 06/20/24 00:20 06/19/24 21:49 Magnesium Level 2.2 mg/dL (1.6-2.6) Troponin I High Sensitivity 25 ng/L (</=34) Triglycerides Level 193 mg/dL (< 150) Cholesterol Level 131 mg/dL (< 200) LDL Cholesterol 76 mg/dL (< 100) HDL Cholesterol 30 mg/dL (40-59) Thyroid Stimulating Hormone (TSH) 1.36 uIU/mL (0.55-4.78) Hemoglobin A1c 6.6 % A1C (<5.7) Total Bilirubin 0.4 mg/dL (0.2-1.0) Aspartate Amino Transferase (AST) 21 U/L (13-40) Alanine Aminotransferase (ALT) < 9 U/L (7-40) Alkaline Phosphatase 163 U/L (46-116) B-Type Natriuretic Peptide 232.33 pg/mL (0-100) Total Protein 7.8 g/dL (5.7-8.2) Albumin 4.7 g/dL (3.2-4.8) Other Laboratory Tests 06/23/24 05:18 06/21/24 06:25 Brief Hx & Hospital Course: see dictated note Condition at Discharge: Fair Final Diagnosis/Problems List chf Discharge Disposition: Home Discharge Instruct/Medications Diet: Renal Activity: No Restrictions, As Tolerated Follow Up/Referral: fu with dr García/ nephrology/ Dr Liu Medications: resume home meds Discharge Statement: "Patient was advised to return to the ER or call 911 if any headaches, dizziness, shortness of breath, chest pain, abdominal pain, bleeding, fevers, or worsening of medical condition. Patient was counseled about treatment plan, medications, possible side effects, patientverbalized understanding. All questions were answered to the best of my ability. This discharge took greater then 30 minutes in planning, reviewing documentation, counseling the patient, and discussing with other team members." ASSESSMENT ASSESSMENT Assessment chf Date of Service: Jun 24, 2024 Billing Provider: VENANCIO JARA MD Common Visit Codes: [id number] DISCH DAY >30min VENANCIO JARA MD Jun 24, 2024 11:47
[2024-06-24 11:54] VITALS: BP 120/60; PULSE 68; RESP 18; TEMP 97.6; O2SAT 93
--- NOTE | 2024-06-24 12:04 | DVHDS ---
DATE OF DISCHARGE: 06/24/2024 HISTORY OF PRESENT ILLNESS: The patient is a 54-year-old lady who was admitted with history of shortness of breath. The patient has history of coronary artery disease, status post coronary artery bypass graft, sternal wound, end-stage renal disease, on hemodialysis, depression, anxiety, chronic pain, hypertension, hyperlipidemia. HOSPITAL COURSE: The patient was seen in cardiology consult by Dr. García. The patient had a CT angiography that was negative for PE, but showed evidence of liver cirrhosis. No aortic dissection was seen. The patient had a bone scan that was negative for osteomyelitis. The patient was seen in nephrology consult by Dr. Carter. Echocardiogram done, showed ejection fraction of 55%. The patient will now be discharged home to resume her home medications and follow up with nephrology, Dr. García and Dr. Liu. FINAL DIAGNOSES: Therefore, * Likely acute on chronic diastolic heart failure. * End-stage renal disease, on hemodialysis. * Surgical sternal wound with previous debridement. * Gastroesophageal reflux disease. * Coronary artery disease, status post coronary artery bypass graft with stents. * Diabetes mellitus. * Depression. * Liver cirrhosis. * Obesity. * Chronic pain. * Hypertension * Hyperlipidemia. Time spent in discharge planning and review of plan with the patient and nursing was 39 minutes. MD ELEAZAR Weems/ANAID TID: [id number] RECEIPT: [id number]
[2024-06-24 12:30] VITALS: BP 130/44; PULSE 67; RESP 14; TEMP 97.3; O2SAT 99
--- NOTE | 2024-06-24 12:32 | DVHPN2 ---
Progress Note Date Seen: Jun 24, 2024 Medical Necessity Reason Pt with a Central, PICC or Fol: No Subjective Patient reports: No new complaints Other Systems: Patient seen and examined by myself today in follow-up Patient examined hemodialysis, Objective vital signs Vital Sign Date Time Temp Pulse Resp B/P (MAP) Pulse Ox O2 Delivery O2 Flow Rate FiO2 06/24/24 11:54 97.6 68 18 93 06/24/24 08:30 135/42 (73) 06/24/24 08:19 Room Air* 0 21 Total Intake and Output 06/23/24 06/23/24 06/24/24 15:00 23:00 07:00 Intake Total 250 ml 600 ml 800 ml Output Total 1 ml 300 ml Balance 250 ml 599 ml 500 ml medications Current Medications Medications Dose Ordered Sig/Arminda Route Start Time Stop Time Status Last Admin Dose Admin Morphine Sulfate 2 mg Q30MP PRN IV 06/20/24 06:45 Cancel Acetaminophen 650 mg Q6HP PRN PO 06/20/24 06:45 Nitroglycerin 0.4 mg Q5MINP PRN SL 06/20/24 06:45 Cancel Nitroglycerin 0.4 mg Q5MINP PRN SL 06/20/24 06:45 Morphine Sulfate 2 mg Q30M PRN IV 06/20/24 06:45 06/20/24 09:28 2 MG Diagnostic Test (Pha) 1 strip ACHS 06/20/24 07:00 06/24/24 06:28 1 STRIP Insulin Human Regular ACHS SC 06/20/24 07:00 06/23/24 21:48 2 UNITS Dextrose 50 ml UD PRN IV 06/20/24 06:45 Aspirin 81 mg DAILY PO 06/20/24 10:00 06/24/24 07:43 81 MG Cinacalcet 30 mg DAILY PO 06/20/24 10:00 06/24/24 07:44 30 MG Clopidogrel Bisulfate 75 mg DAILY PO 06/20/24 10:00 06/23/24 08:30 75 MG Patient Own Medication 1 tab DAILY PO 06/20/24 10:00 UNV Patient Own Medication 1 tab BID PO 06/20/24 10:00 UNV Patient Own Medication 1 cap QAM PO 06/20/24 07:00 UNV Patient Own Medication 800 mg TIDWM PO 06/20/24 08:00 UNV Patient Own Medication 30 mg HS PO 06/20/24 22:00 UNV Atorvastatin Calcium 10 mg HS PO 06/20/24 22:00 06/23/24 21:53 10 MG Hydroxyzine Pamoate 25 mg BID PO 06/20/24 10:00 06/24/24 07:43 25 MG Sertraline HCl 150 mg QAM PO 06/21/24 07:00 06/24/24 06:22 150 MG Sevelamer HCl 800 mg TIDWM PO 06/20/24 12:00 06/24/24 07:43 800 MG Temazepam 30 mg HS PO 06/20/24 22:00 06/23/24 21:54 30 MG Ondansetron HCl 4 mg Q6HPRN PRN IV 06/20/24 14:00 06/24/24 07:44 4 MG Oxycodone/ Acetaminophen 2 tab Q6HPRN PRN PO 06/20/24 21:15 06/24/24 01:23 2 TAB Vancomycin HCl 0 ml @ 0 mls/hr UD IV 06/21/24 08:00 Pantoprazole Sodium 40 mg BID@0600,1700 PO 06/21/24 17:00 06/24/24 06:22 40 MG Meropenem 50 ml @ 17 mls/hr HS IV 06/22/24 22:00 06/23/24 21:54 17 MLS/HR Ketorolac Tromethamine 15 mg Q6HPRN PRN IV 06/21/24 14:00 06/26/24 05:59 06/24/24 06:22 15 MG Examination: CVS:Normal, MSK:Normal laboratory and microbiology Laboratory Tests 06/23/24 05:18 06/21/24 06:25 Test 06/23/24 05:18 Range/Units Serum Glucose 98 74-106 mg/dL Problem List/Assessment/Plan Problem List/Assessment/Plan ESRD on home hemodialysis Congestive heart failure exacerbation Mediastinitis status post wound vac Diabetes mellitus type 2 Anemia of chronic kidney disease Recommendations Continue with UF to L as tolerated [place] with hemodialysis Resume home medications Renal diet Cardiology consult We will continue to follow up Plan discussed with: Patient Dietary Evaluation Review Comments: recommend CCHO-Renal standard, low fat low chol cardic diet Expected Outcomes/Goals: controlled DM, improved nutrition related lab values NMARATA HOANG MD Jun 24, 2024 12:32
--- NOTE | 2024-06-24 12:44 | DVHPN2 ---
Progress Note - Dictate Date Seen: Jun 24, 2024 Medical Necessity Reason Pt with a Central, PICC or Fol: No Subjective PT WELL KNOW TO ME WITH SHARP CHEST PAIN ASS OCIATED WITH SOB PMH: S/P MEDIASTINAL DEBRIDEMENT MEDIASTINITIS/ REMOVAL OD ALL STERNAL WIRES NOW WITH WOUND VACUUM ORG HD CAD S/P CABG S/P MULTI VESSEL PTCA STENT POST CABG ESRD ON HD HTN DIABETES ANEMIA LHC PATENT SVG TO LAD PATENT STENTS TO CX PATENT RCA AND PDA SVG TO PDA OCCLUDED EF 45% vital signs Vital Sign Date Time Temp Pulse Resp B/P (MAP) Pulse Ox O2 Delivery O2 Flow Rate FiO2 06/24/24 11:54 97.6 68 18 93 06/24/24 08:30 135/42 (73) 06/24/24 08:19 Room Air* 0 21 Total Intake and Output 06/23/24 06/23/24 06/24/24 15:00 23:00 07:00 Intake Total 250 ml 600 ml 800 ml Output Total 1 ml 300 ml Balance 250 ml 599 ml 500 ml medications Current Medications Medications Dose Ordered Sig/Arminda Route Start Time Stop Time Status Last Admin Dose Admin Morphine Sulfate 2 mg Q30MP PRN IV 06/20/24 06:45 Cancel Acetaminophen 650 mg Q6HP PRN PO 06/20/24 06:45 Nitroglycerin 0.4 mg Q5MINP PRN SL 06/20/24 06:45 Cancel Nitroglycerin 0.4 mg Q5MINP PRN SL 06/20/24 06:45 Morphine Sulfate 2 mg Q30M PRN IV 06/20/24 06:45 06/20/24 09:28 2 MG Diagnostic Test (Pha) 1 strip ACHS 06/20/24 07:00 06/24/24 06:28 1 STRIP Insulin Human Regular ACHS SC 06/20/24 07:00 06/23/24 21:48 2 UNITS Dextrose 50 ml UD PRN IV 06/20/24 06:45 Aspirin 81 mg DAILY PO 06/20/24 10:00 06/24/24 07:43 81 MG Cinacalcet 30 mg DAILY PO 06/20/24 10:00 06/24/24 07:44 30 MG Clopidogrel Bisulfate 75 mg DAILY PO 06/20/24 10:00 06/23/24 08:30 75 MG Patient Own Medication 1 tab DAILY PO 06/20/24 10:00 UNV Patient Own Medication 1 tab BID PO 06/20/24 10:00 UNV Patient Own Medication 1 cap QAM PO 06/20/24 07:00 UNV Patient Own Medication 800 mg TIDWM PO 06/20/24 08:00 UNV Patient Own Medication 30 mg HS PO 06/20/24 22:00 UNV Atorvastatin Calcium 10 mg HS PO 06/20/24 22:00 06/23/24 21:53 10 MG Hydroxyzine Pamoate 25 mg BID PO 06/20/24 10:00 06/24/24 07:43 25 MG Sertraline HCl 150 mg QAM PO 06/21/24 07:00 06/24/24 06:22 150 MG Sevelamer HCl 800 mg TIDWM PO 06/20/24 12:00 06/24/24 07:43 800 MG Temazepam 30 mg HS PO 06/20/24 22:00 06/23/24 21:54 30 MG Ondansetron HCl 4 mg Q6HPRN PRN IV 06/20/24 14:00 06/24/24 07:44 4 MG Oxycodone/ Acetaminophen 2 tab Q6HPRN PRN PO 06/20/24 21:15 06/24/24 01:23 2 TAB Vancomycin HCl 0 ml @ 0 mls/hr UD IV 06/21/24 08:00 Pantoprazole Sodium 40 mg BID@0600,1700 PO 06/21/24 17:00 06/24/24 06:22 40 MG Meropenem 50 ml @ 17 mls/hr HS IV 06/22/24 22:00 06/23/24 21:54 17 MLS/HR Ketorolac Tromethamine 15 mg Q6HPRN PRN IV 06/21/24 14:00 06/26/24 05:59 06/24/24 06:22 15 MG laboratory and microbiology Laboratory Tests 06/23/24 05:18 06/21/24 06:25 Test 06/23/24 05:18 Range/Units Serum Glucose 98 74-106 mg/dL Problem List WITH SHARP CHEST PAIN ASS OCIATED WITH SOB PMH: S/P MEDIASTINAL DEBRIDEMENT MEDIASTINITIS/ REMOVAL OD ALL STERNAL WIRES NOW WITH WOUND VACUUM ORG HD CAD S/P CABG S/P MULTI VESSEL PTCA STENT POST CABG ESRD ON HD HTN DIABETES HX OF UGI BLEED ANEMIA LHC PATENT SVG TO LAD PATENT STENTS TO CX PATENT RCA AND PDA SVG TO PDA OCCLUDED EF 45% Assessment/Plan CTA CHEST R/O PE AND R/O AORTIC DISSECTION CTA NEGATIVE FOR PE OR AORTIC DISSECTION POSITIVE FOR CIRRHOSIS/ CYTOGENIC REACTIVE MEDIASTINAL LYMPH NODES TREAT WITH NSAID CONSIDER ESR/ TRIPLE PHASE BONE SCAN OR GALLIUM SCAN BONE SCAN NEGATIVE ELEVATED ESR 42 CRP 1.8 ABX DC HOME WITH WOUND VAC ARRANGE FOR WOUND VAC Dietary Evaluation Review Comments: recommend CCHO-Renal standard, low fat low chol cardic diet Expected Outcomes/Goals: controlled DM, improved nutrition related lab values Plan discussed with: Patient LLOYD SINGH MD Jun 24, 2024 12:44
== END 2024-06-24 14:02 | disposition home or self-care (01) | DRG 862 ==
LOC: EDBD 21:19 → ER 21:19 → TELE 06-20 06:44 → TELE-E-ADS 06-20 18:37
PROVIDERS: ADMIT Internal Medicine; ATTEND Internal Medicine
PROC: 5A1D70Z Performance of Urinary Filtration, Intermittent, Less than 6 Hours Per Day (ICD-10-PCS; principal; 2024-06-21)
DX: T81.41XA Infection following a procedure, superficial incisional surgical site, initial encounter (principal); I50.33 Acute on chronic diastolic (congestive) heart failure; N18.6 End stage renal disease; I13.2 Hypertensive heart and chronic kidney disease with heart failure and with stage 5 chronic kidney disease, or end stage renal disease; E87.0 Hyperosmolality and hypernatremia; N17.9 Acute kidney failure, unspecified; E11.65 Type 2 diabetes mellitus with hyperglycemia; E78.5 Hyperlipidemia, unspecified; L08.9 Local infection of the skin and subcutaneous tissue, unspecified; K74.60 Unspecified cirrhosis of liver; K21.9 Gastro-esophageal reflux disease without esophagitis; E66.9 Obesity, unspecified; F32.A Depression, unspecified; G89.29 Other chronic pain; F41.9 Anxiety disorder, unspecified; I25.10 Atherosclerotic heart disease of native coronary artery without angina pectoris; E11.22 Type 2 diabetes mellitus with diabetic chronic kidney disease; D63.1 Anemia in chronic kidney disease; Z86.73 Personal history of transient ischemic attack (TIA), and cerebral infarction without residual deficits; Z98.84 Bariatric surgery status; Z90.710 Acquired absence of both cervix and uterus; Z99.2 Dependence on renal dialysis; Z82.3 Family history of stroke; Z82.49 Family history of ischemic heart disease and other diseases of the circulatory system; Z83.3 Family history of diabetes mellitus; Z68.31 Body mass index [BMI] 31.0-31.9, adult; Y84.8 Other medical procedures as the cause of abnormal reaction of the patient, or of later complication, without mention of misadventure at the time of the procedure; Y92.89 Other specified places as the place of occurrence of the external cause
CPT/HCPCS: 36415; 71045; 71275; 78315; 80048; 80053; 80061; 80202; 82565; 82962; 83036; 83735; 83880; 84443; 84484; 85025; 85652; 86141; 87340; 90935; 93005; 93306; 96374; G0378; J1815; J1885; J2185; J2405; J2470

== ENCOUNTER 2024-12-22 12:32 | Inpatient (IN) | payer MEDICARE, MEDICAID ==
[2024-12-22] VITALS (8 sets, daily range): BP systolic 104–139; BP diastolic 28–74; PULSE 90–93; RESP 20; TEMP 98.1–98.9; O2SAT 97–100
[~2024-12-22] VITALS: Ht 170.2 cm; Wt 97.5 kg
[~2024-12-22 12:32] MED LIST changes: -AMLO1TAB23 PO; -BREX1TAB4 PO; -CHOL4POW33 PO; -FAMO-12 PO; +FLU01T PO; -HYDR-4798 PO; +INSU100I55 SC; -INSU100I56 SC; -ONDA-180 PO; -SUCR1TAB31 PO
[2024-12-22] MEDS: SODIUM CHLORIDE 0.9% 1,000 ML IV ONE ×2 (12:45→13:35)
--- NOTE | 2024-12-22 12:51 | ED.PDOC ---
History of Present Illness HPI Comments 54-year-old female brought by paramedics because of generalized weakness fever for the past week. She was seen here a week ago for generalized weakness. She was diagnosed with infected dialysis fistula in the left arm. She has not got her antibiotics after diagnosis. She has been having increasing fever. Blood pressure checked by the paramedics was 80/49 for which she was given 250 mL of fluids increase the blood pressure to a systolic above 100. Her saturation on room air was 91% placed on 2 L which increased to 99%. History of CHF chronic k idney disease hypotension diabetes CVA with no deficits. She does get hemodialysis. Denies any other symptoms. Time Seen by MD: 12:44 Primary Care Provider: JANY Reviewed Notes: Nurses Notes, Medications, Allergies Allergies: Coded Allergies: No Known Drug Allergy (Verified Allergy, Unknown, 10/26/21) Home Meds Reported Medications Fludrocortisone Acetate (Florinef) 0.1 Mg Tb, 1 TAB PO DAILY 06/21/24 Isosorbide Mononitrate (Isosorbide Mononitrate Er) 60 Mg Tab, 60 MG PO DAILY, MG 06/21/24 Calcitriol (Calcitriol) 0.25 Mcg Cap, 1 CAP PO DAILY, #30 CAP 06/21/24 Insulin Lispro-Aabc (Lyumjev) 100 Unit/Ml Inj, 24 UNIT SC DAILY, INJ 06/20/24 Insulin Glargine (Basaglar Kwikpen) 100 Unit/Ml Inj, 20 UNIT SC BID, INJ 06/20/24 Oxycodone W/ Acetaminophen (Apap/Oxycodone) 1 Tab Tab, 1 TAB PO Q8HR for 30 D ays, #90 [10/325 MG] 02/20/24 Clopidogrel Bisulfate (CLOPIDOGREL) 75 Mg Tab, 1 TAB PO DAILY 02/19/24 Cinacalcet HCl (Cinacalcet Hydrochloride) 30 Mg Tab, 1 TAB PO MWF 11/14/23 Hydroxyzine Hcl (Hydroxyzine Hcl) 25 Mg Tab, 1 TAB PO BID 11/14/23 Sertraline HCl (Sertraline Hydrochloride) 150 Mg Cap, 1 CAP PO QAM 11/14/23 Temazepam (Temazepam) 30 Mg Cap, 30 MG PO HS for SLEEP, CAP 10/09/20 Atorvastatin Calcium (ATORVASTATIN CALCIUM) 10 Mg Tab, 1 TAB PO DAILY, #30 TAB 5 Refills 07/03/17 Pantoprazole Sodium Sesquihydr (Protonix) 40 Mg Tab, 40 MG PO DAILY for 90 Days, #90 07/03/17 Aspirin (Asa) 81 Mg Ch, 81 MG PO DAILY 07/03/17 Sevelamer Carbonate (Renvela) 800 Mg Tab, 800 MG PO TIDWM for KIDNEY DISEASE/ DIALYSIS for 30 Days, MG 05/04/17 Information Source: Patient, Emergency Med Personnel Mode of Arrival: EMS Severity: Moderate Timing: Days Duration: Since onset Past Medical History PAST MEDICAL HISTORY: Anxiety, CAD, CHF, CKF, CVA, Depression, DM, ESRD, High Lipids, HTN Surgical History: CABG, , Hysterectomy AUDIOPROSTHOLOGIST History: No Pertinent AUDIOPROSTHOLOGIST History Family History Family History: Reviewed,noncontributory to illness, Family hx of heart sherley, Family hx of HTN Social History Smoker: Non-Smoker Alcohol: Denies ETOH Use Drugs: Denies Drug Use Lives In: Home Constitutional: reports: fever, weakness; denies: chills, diaphoresis, fatigue, malaise, sweats, others EENTM: denies: blurred vision, double vision, ear bleeding, ear discharge, ear drainage, ear pain, ear ringing, eye pain, eye redness, hearing loss, mouth pain, mouth swelling, nasal discharge, nose bleeding, nose congestion, nose pain, photophobia, tearing, throat pain, throat swelling, voice changes, others Respiratory: denies: cough, hemoptysis, orthopnea, SOB at rest, shortness of breath, SOB with excertion, stridor, wheezing, others Cardiovascular: denies: chest pain, dizzy spells, diaphoresis, Dyspnea on exertion, edema, irregular heart beat, left arm pain, lightheadedness, palpitations, PND, syncope, others Gastrointestinal: denies: abdomen distended, abdominal pain, blood streaked bowels, constipated, diarrhea, dysphagia, difficulty swallowing, hematemesis, me pilar, nausea, poor appetite, poor fluid intake, rectal bleeding, rectal pain, vomiting, others Genitourinary: denies: abnormal vagina bleeding, burning, dyspareunia, dysuria, flank pain, frequency, hematuria, incontinence, pain, , vagina discharge, urgency, others Neurological: denies: dizziness, fainting, headache, left sided numbness, left sided weakness, numbness, paresthesia, pre-existing deficit, right sided numbness, right sided weakness, seizure, speech problems, tingling, tremors, weakness, others Musculoskeletal: denies: back pain, gout, joint pain, joint swelling, muscle pain, muscle stiffness, neck pain, others Integumetry: denies: bruises, change in color, change in hair/nails, dryness, laceration, lesions, lumps, rash, wounds, others Allergic/Immunocompromised: denies: Difficulty Healing, Frequent Infections, Hives, Itching, others Hematologic/Lymphatic: denies: anemia, blood clots, easy bleeding, easy bruising, swollen glands, others Endocrine: denies: excessive hunger, excessive sweating, excessive thirst, excessive urination, flushing, intolerance to cold, intolerance to heat, unexplained weight gain, unexplained weight loss, others Psychiatric: denies: anxiety, bipolar disorder, depression, hopeless, panic disorder, schizophrenia, sleepless, suicidal, others Physical Exam General Appearance: Moderate Distress HEENT: Normal ENT Inspection, Pharynx Normal, TMs Normal Neck: Full Range of Motion, Non-Tender, Normal, Normal Inspection Respiratory: Chest Non-Tender, Lungs Clear, No Accessory Muscle Use, No Respiratory Distress, Normal Breath Sounds Cardiovascular: No Edema, No JVD, No Murmur, No Gallop, Normal Peripheral Pulses, Regular Rate/Rhythm Breast Exam: Deferred Gastrointestinal: No Organomegaly, Non Tender, No Pulsatile Mass, Normal Bowel Sounds, Soft Genitalia: Deferred Pelvic: Deferred Rectal: Deferred Extremities: No calf tenderness, No pedal edema Musculoskeletal : Apperance: Normal Neurologic: Alert, No Motor Deficits, No Sensory Deficits Cerebellar Function: NOT DONE Reflexes: NOT DONE Skin: Dry, Normal Color, Warm Peripheral Pulses: 3+ Radial (R), 3+ Radial (L) Lymphatic: No Adenopathy Was a procedure done? Was a procedure done?: No Differential Dx Considerations may include: Chronic kidney disease Sepsis X-Ray, Labs, Meds, VS Vital Signs Date Time Temp Pulse Resp B/P (MAP) Pulse Ox O2 Delivery O2 Flow Rate FiO2 12/22/24 17:19 85 15 121/24 12/22/24 16:59 78/24 12/22/24 16:49 86 18 131/42 12/22/24 16:00 80 27 124/30 (61) 91 12/22/24 15:45 12/22/24 14:10 98.7 86 16 78/24 (42) 95 98.7 12/22/24 12:40 100.5 101 22 113/52 99 100.5 Lab Test 12/22/24 16:16 12/22/24 14:13 12/22/24 13:04 Range/Units Lactic Acid Level 2.3 *H 2.8 *H 0.4-2.0 mmol/L Troponin I High Sensitivity 1312 *H 1283 *H 1547 *H </=34 ng/L White Blood Count 12.1 H 4.4-10.8 10^3/uL Red Blood Count 4.30 4.0-5.20 10^6/uL Hemoglobin 11.1 L 12.2-16.2 g/dL Hematocrit 34.1 L 36.0-46.0 % Mean Corpuscular Volume 79.4 L 80.0-100.0 fL Mean Corpuscular Hemoglobin 25.9 L 28.0-32.0 pg Mean Corpuscular Hemoglobin Concent 32.6 32.0-36.0 g/dL Red Cell Distribution Width 17.0 H 11.8-14.3 % Platelet Count 173 140-450 10^3/uL Mean Platelet Volume 8.7 6.9-10.8 fL Neutrophils (%) (Auto) 94.5 H 37.0-80.0 % Lymphocytes (%) (Auto) 2.2 L 10.0-50.0 % Monocytes (%) (Auto) 3.2 0.0-12.0 % Eosinophils (%) (Auto) 0.0 0.0-7.0 % Basophils (%) (Auto) 0.1 0.0-2.0 % Neutrophils # (Auto) 11.4 H 1.6-8.6 10 ^3/uL Lymphocytes # (Auto) 0.3 L 0.4-5.4 10 ^3/uL Monocytes # (Auto) 0.4 0-1.3 10 ^3/uL Eosinophils # (Auto) 0 0-0.8 10 ^3/uL Basophils # (Auto) 0 0-0.2 10 ^3/uL Nucleated Red Blood Cells 0.1 % Prothrombin Time 12.0 H 9.3-11.8 sec Prothrombin Time INR 1.15 0.9-1.15 Activated Partial Thromboplast Time 31.0 24.5-34.5 SEC Sodium Level 131 L 136-145 mmol/L Potassium Level 4.8 3.5-5.1 mmol/L Chloride Level 89 L 98-107 mmol/L Carbon Dioxide Level 27 20-31 mmol/L Anion Gap 15 5-15 Blood Urea Nitrogen 48 H 9-23 mg/dL Creatinine 8.61 H 0.550-1.02 mg/dL Glomerular Filtration Rate Calc 5 >90 mL/min BUN/Creatinine Ratio 5.6 L 10.0-20.0 Serum Glucose 185 H 74-106 mg/dL Calcium Level 9.7 8.7-10.4 mg/dL Total Bilirubin 0.7 0.2-1.0 mg/dL Aspartate Amino Transferase (AST) 30 13-40 U/L Alanine Aminotransferase (ALT) 15 7-40 U/L Alkaline Phosphatase 100 46-116 U/L Total Protein 8.0 5.7-8.2 g/dL Albumin 4.5 3.2-4.8 g/dL Current Medications Medications (Trade) Dose Ordered Sig/Arminda Route Start Time Stop Time Status Last Admin Sodium Chloride 1,000 ml @ 1,000 mls/hr Q1H ONCE IV 12/22/24 12:45 12/22/24 13:44 DC 12/22/24 13:35 Vancomycin HCl 250 ml @ 250 mls/hr ONCE ONCE IV 12/22/24 14:00 12/22/24 14:59 DC 12/22/24 14:58 Enoxaparin Sodium (Lovenox) 90 mg ONCE ONCE SC 12/22/24 14:15 12/22/24 14:16 DC 12/22/24 15:58 Norepinephrine Bitartrate 250 ml @ 3.75 mls/hr Q24H IV 12/22/24 14:15 12/22/24 16:59 Morphine Sulfate 2 mg ONCE ONCE IV 12/22/24 16:45 12/22/24 16:46 DC 12/22/24 16:49 Ondansetron HCl (Zofran) 2 mg ONCE ONCE IV 12/22/24 16:45 12/22/24 16:46 DC 12/22/24 16:48 Patient alert. Placed on oxygen. Is on hemodialysis. Answering questions. Possible sepsis. Fluids held because of her kidney function. Continue antibiotics. Reviewed her previous visit. Explained to the patient. Continue monitoring. Time of 1ST Reevaluation: 12:49 Reevaluation 1ST: Unchanged Patient Education/Counseling: Diagnosis, Treatment, Prognosis Family Education/Counseling: No Family Present SEPSIS Sepsis Screen Physician Orders Urinalysis (12/22/24 12:44) Chest Portable (12/22/24 12:44) Accucheck (12/22/24 12:44) Blood Culture (12/22/24 12:44) Cefepime 1gm/ 50ml (Maxipime 1gm/50ml) (12/22/24 14:00) Notify Md If Map <65 Or Bp<90 (12/22/24 12:44) If Map<65 Start Vasopressor (12/22/24 12:44) Sepsis Reassesment After Fluid (12/22/24 13:44) Sodium Chloride 0.9% (12/22/24 12:45) Norepinephrine 8 Mg/250ml Kit (Levophed) (12/22/24 14:15) Lt Upper Ext Art Duplex (12/22/24 17:00) Vital Signs Date Time Temp Pulse Resp B/P (MAP) Pulse Ox O2 Delivery O2 Flow Rate FiO2 12/22/24 17:19 85 15 121/24 12/22/24 16:59 78/24 12/22/24 16:49 86 18 131/42 12/22/24 16:00 80 27 124/30 (61) 91 12/22/24 15:45 12/22/24 14:10 98.7 86 16 78/24 (42) 95 98.7 12/22/24 12:40 100.5 101 22 113/52 99 100.5 Laboratory Tests Test 12/22/24 13:04 12/22/24 16:16 Lactic Acid Level 2.8 mmol/L (0.4-2.0) *H 2.3 mmol/L (0.4-2.0) *H White Blood Count 12.1 10^3/uL (4.4-10.8) H Medications Medications Dose Ordered Sig/Arminda Route Start Time Stop Time Status Last Admin Dose Admin Enoxaparin Sodium 90 mg ONCE ONCE SC 12/22/24 14:15 12/22/24 14:16 DC 12/22/24 15:58 Morphine Sulfate 2 mg ONCE ONCE IV 12/22/24 16:45 12/22/24 16:46 DC 12/22/24 16:49 Norepinephrine Bitartrate 250 ml @ 3.75 mls/hr Q24H IV 12/22/24 14:15 12/22/24 16:59 Ondansetron HCl 2 mg ONCE ONCE IV 12/22/24 16:45 12/22/24 16:46 DC 12/22/24 16:48 Sodium Chloride 1,000 ml @ 1,000 mls/hr Q1H ONCE IV 12/22/24 12:45 12/22/24 13:44 DC 12/22/24 13:35 Vancomycin HCl 250 ml @ 250 mls/hr ONCE ONCE IV 12/22/24 14:00 12/22/24 14:59 DC 12/22/24 14:58 Departure 1 Departure Time of Disposition: 12:50 Impression: Primary Impression: Sepsis, unspecified organism Qualified Codes: A41.9 - Sepsis, unspecified organism Additional Impressions: Chronic kidney disease on chronic dialysis Severe anemia Disposition: ADMITTED INPATIENT Admit to: Med Surg Condition: Guarded Critical Care Note Critical Care Time?: Yes (90 min-critical care time only) Critical care comment: Placed on oxygen Stability Stability form required: No Heart Score Heart Score: Heart Score Response (Comments) Value History Slightly Suspicious 0 EKG Normal 0 Age 45-64 1 Risk Factors >3 or Hx ASHD 2 Troponin Normal limit 0 Total 3 NONA HOLLAND MD Dec 22, 2024 12:51
[2024-12-22 13:31] LABS: Hematocrit 34.1 % (36.0-46.0); Hemoglobin 11.1 g/dL (12.2-16.2); Mean Corpuscular Hemoglobin 25.9 pg (28.0-32.0); Mean Corpuscular Volume 79.4 fL (80.0-100.0); Nucleated Red Blood Cells % 0.1 %
[2024-12-22 13:34] LABS: Alanine Aminotransferase 15 U/L (7-40); Albumin 4.5 g/dL (3.2-4.8); Alkaline Phosphatase 100 U/L (46-116); Anion Gap 15 (5-15); BUN/Creatinine Ratio 5.6 (10.0-20.0); Bilirubin, Total 0.7 mg/dL (0.2-1.0); Calcium 9.7 mg/dL (8.7-10.4); Carbon Dioxide 27 mmol/L (20-31); Potassium 4.8 mmol/L (3.5-5.1); Total Protein 8.0 g/dL (5.7-8.2)
[2024-12-22 13:36] LABS: Blood Urea Nitrogen 48 mg/dL (9-23); Chloride 89 mmol/L (98-107); Glucose 185 mg/dL (74-106); Sodium 131 mmol/L (136-145)
[2024-12-22 13:40] LABS: Lactic Acid w/Reflex 2.8 mmol/L (0.4-2.0)
[2024-12-22 13:45] LABS: INR 1.15 (0.9-1.15); Partial Thromboplastin Time 31.0 SEC (24.5-34.5); Prothrombin Time 12.0 sec (9.3-11.8)
--- NOTE | 2024-12-22 14:02 | DVH ---
INDICATION: sob TECHNIQUE: Frontal view of the chest. COMPARISON: XY CHEST XRAY 1 VIEW on DOS: 06/19/24, CT CHEST WITHOUT CONTRAST on DOS: 04/30/24, XY CHEST PORTABLE on DOS: 02/20/24, CT CHEST WITHOUT CONTRAST on DOS: 12/28/23, XY CHEST PORTABLE on DOS: FINDINGS: . The heart and mediastinal contours are grossly unremarkable. There is no evidence of pleural disea se. The lungs are clear. The bony structures of the chest are intact without fracture. IMPRESSION: 1. No evidence of acute disease.
[2024-12-22] MEDS: NOREPINEPHRINE 8 MG/250ML KIT 250 ML IV ONE (14:35)
[2024-12-22] MEDS: VANCOMYCIN 1GM/250ML KIT 250 ML IV ONE (14:58)
[2024-12-22] MEDS: VANCOMYCIN 1GM/200ML PM 200 ML IV ONE (15:06)
[2024-12-22] MEDS: ENOXAPARIN SOD 100 MG/1 ML SYRINGE SC ONE (15:58)
[2024-12-22] MEDS: ONDANSETRON HCL 4 MG/2 ML VIAL IV ONE (16:48)
[2024-12-22] MEDS: MORPHINE SULFATE INJ 2 MG/ml SYRG IV ONE (16:49)
[2024-12-22] MEDS: NOREPINEPHRINE 8 MG/250ML KIT 250 ML IV SCH (16:59)
--- NOTE | 2024-12-22 17:08 | DVHINCON2 ---
Date of service: Dec 22, [address] Magaña in ER Reason for Consultation End-stage renal disease History of Present Illness 54-year-old female past medical history of end-stage renal disease on hemodialysis at home, history of CABG with chronic mediastinitis patient has button holes for fistula. Most recently patient had a fistulogram proximally three weeks ago and reports last week has had noticeable swelling around the arm with redness and erythema. Outpatient blood cultures were obtained which were negative however a site culture from drainage from the AV fistula was positive for staph aureus. Per home hemodialysis nurse patient was ordered for IV antibiotic therapy vancomycin but she did not initiate therapy. She called the office today due to worsening symptoms or weakness and was advised to seek immediate ER attention. Allergies: Coded Allergies: No Known Drug Allergy (Verified Allergy, Unknown, 10/26/21) Home Meds Reported Medications Fludrocortisone Acetate (Florinef) 0.1 Mg Tb, 1 TAB PO DAILY 06/21/24 Isosorbide Mononitrate (Isosorbide Mononitrate Er) 60 Mg Tab, 60 MG PO DAILY, MG 06/21/24 Calcitriol (Calcitriol) 0.25 Mcg Cap, 1 CAP PO DAILY, #30 CAP 06/21/24 Insulin Lispro-Aabc (Lyumjev) 100 Unit/Ml Inj, 24 UNIT SC DAILY, INJ 06/20/24 Insulin Glargine (Basaglar Kwikpen) 100 Unit/Ml Inj, 20 UNIT SC BID, INJ 06/20/24 Oxycodone W/ Acetaminophen (Apap/Oxycodone) 1 Tab Tab, 1 TAB PO Q8HR for 30 Days, #90 [10/325 MG] 02/20/24 Clopidogrel Bisulfate (CLOPIDOGREL) 75 Mg Tab, 1 TAB PO DAILY 02/19/24 Cinacalcet HCl (Cinacalcet Hydrochloride) 30 Mg Tab, 1 TAB PO MWF 11/14/23 Hydroxyzine Hcl (Hydroxyzine Hcl) 25 Mg Tab, 1 TAB PO BID 11/14/23 Sertraline HCl (Sertraline Hydrochloride) 150 Mg Cap, 1 CAP PO QAM 11/14/23 Temazepam (Temazepam) 30 Mg Cap, 30 MG PO HS for SLEEP, CAP 10/09/20 Atorvastatin Calcium (ATORVASTATIN CALCIUM) 10 Mg Tab, 1 TAB PO DAILY, #30 TAB 5 Refills 07/03/17 Pantoprazole Sodium Sesquihydr (Protonix) 40 Mg Tab, 40 MG PO DAILY for 90 Days, #90 07/03/17 Aspirin (Asa) 81 Mg Ch, 81 MG PO DAILY 07/03/17 Sevelamer Carbonate (Renvela) 800 Mg Tab, 800 MG PO TIDWM for KIDNEY DISEASE/ DIALYSIS for 30 Days, MG 05/04/17 Current Medications Current Medications Medications (Trade) Dose Ordered Sig/Arminda Route PRN Reason Start Time Stop Time Status Last Admin Cefepime HCl 50 ml @ 12.5 mls/hr Q8HR IV 12/22/24 14:00 UNV Norepinephrine Bitartrate 250 ml @ 3.75 mls/hr Q24H IV 12/22/24 14:15 Family History: Acute renal failure G8 MOTHER Cerebrovascular accident (CVA) G8 FATHER Diabetes mellitus G8 SISTER Hypertension G8 MOTHER G8 FATHER G8 BROTHER Review of Systems Weakness H&P Exam Vital Signs/I&O Vital Sign Date Time Temp Pulse Resp B/P (MAP) Pulse Ox O2 Delivery O2 Flow Rate FiO2 12/22/24 16:49 86 18 131/42 12/22/24 16:00 91 12/22/24 14:10 98.7 98.7 Physical Exam Ill-appearing middle-aged female appears older than stated age Appears weak Not in respiratory distress Abdomen is soft No pitting edema Has large chest dressing on her sternum Left arm brachiocephalic fistula button hole raised area with erythema Labs/Diagnostic Data Labs/Diagnostic Data Laboratory Tests Test 12/22/24 16:16 12/22/24 14:13 12/22/24 13:04 Range/Units Lactic Acid Level 2.3 *H 2.8 *H 0.4-2.0 mmol/L Troponin I High Sensitivity 1312 *H 1283 *H 1547 *H </=34 ng/L White Blood Count 12.1 H 4.4-10.8 10^3/uL Red Blood Count 4.30 4.0-5.20 10^6/uL Hemoglobin 11.1 L 12.2-16.2 g/dL Hematocrit 34.1 L 36.0-46.0 % Mean Corpuscular Volume 79.4 L 80.0-100.0 fL Mean Corpuscular Hemoglobin 25.9 L 28.0-32.0 pg Mean Corpuscular Hemoglobin Concent 32.6 32.0-36.0 g/dL Red Cell Distribution Width 17.0 H 11.8-14.3 % Platelet Count 173 140-450 10^3/uL Mean Platelet Volume 8.7 6.9-10.8 fL Neutrophils (%) (Auto) 94.5 H 37.0-80.0 % Lymphocytes (%) (Auto) 2.2 L 10.0-50.0 % Monocytes (%) (Auto) 3.2 0.0-12.0 % Eosinophils (%) (Auto) 0.0 0.0-7.0 % Basophils (%) (Auto) 0.1 0.0-2.0 % Neutrophils # (Auto) 11.4 H 1.6-8.6 10 ^3/uL Lymphocytes # (Auto) 0.3 L 0.4-5.4 10 ^3/uL Monocytes # (Auto) 0.4 0-1.3 10 ^3/uL Eosinophils # (Auto) 0 0-0.8 10 ^3/uL Basophils # (Auto) 0 0-0.2 10 ^3/uL Nucleated Red Blood Cells 0.1 % Prothrombin Time 12.0 H 9.3-11.8 sec Prothrombin Time INR 1.15 0.9-1.15 Activated Partial Thromboplast Time 31.0 24.5-34.5 SEC Sodium Level 131 L 136-145 mmol/L Potassium Level 4.8 3.5-5.1 mmol/L Chloride Level 89 L 98-107 mmol/L Carbon Dioxide Level 27 20-31 mmol/L Anion Gap 15 5-15 Blood Urea Nitrogen 48 H 9-23 mg/dL Creatinine 8.61 H 0.550-1.02 mg/dL Glomerular Filtration Rate Calc 5 >90 mL/min BUN/Creatinine Ratio 5.6 L 10.0-20.0 Serum Glucose 185 H 74-106 mg/dL Calcium Level 9.7 8.7-10.4 mg/dL Total Bilirubin 0.7 0.2-1.0 mg/dL Aspartate Amino Transferase (AST) 30 13-40 U/L Alanine Aminotransferase (ALT) 15 7-40 U/L Alkaline Phosphatase 100 46-116 U/L Total Protein 8.0 5.7-8.2 g/dL Albumin 4.5 3.2-4.8 g/dL Assessment 54-year-old female past medical history of end-stage renal disease on hemodialysis presents to the hospital with a weakness and infected AV fistula End-stage renal disease on hemo dialysis at home Hypotension and sepsis secondary to infected AV fistula Elevated troponins Lactic acidosis patient also has a midline from outside Agree with IV antibiotics vancomycin Cultures of the blood Preliminary wound culture from the office was staph aureus Recommend Doppler ultrasound of the fistula site to assess for abscess Presently patient is hypotensive recommend IV fluids and stabilization with pressors keep mean arterial pressure greater than 65. Hemodialysis will be scheduled tomorrow based on stability and lab review Guarded prognosis Care time spent 55 minutes Plan discussed with: Patient ISAAK DURAN MD Dec 22, 2024 17:08
[2024-12-22] MEDS: CEFEPIME 1GM/ 50ML 50 ML IV ONE (18:10)
--- NOTE | 2024-12-22 19:12 | DVH ---
Upper Extremity Venous Duplex Clinical History: EVALUATE ARTERIAL VENOUS FISTULA Comparison: None Technique: Duplex Doppler evaluation of the venous system of the LEFT lower neck and upper extremity including c olor Doppler and spectral/pulsed waveform analysis was performed. Findings: RIGHT-SIDED AVF DEMONSTRATES PATENCY WITH THE PROXIMAL BASILIC VEIN MEASURING 1.87 CM. DISTAL BASILIC VEIN IS MILDLY DILATED AND MEASURES 2.89 CM. The defect in the brachial artery measures 0.61 cm patent with a vascular flow 335.8 cm/sec vascular flow in the mid AVF is 116.8 cm/sec. In the distal AVF basilic vein measures 2.89 cm in the dilated. Flow and this portion of the AVF is 5 1 cm/sec. Flow in the distal subclavian is 160.4 cm/sec Peak systolic flow in the axillary vein is 272.4 cm/sec. Flow in the mid radial arteries is 48 cm/sec Flow in the mid right ulnar artery is 21.7 cm/sec Flow in the distal right ulnar artery is 27.6 cm/sec Impression: 1. No venous thrombus identified in the left upper extremity vessels evaluated above. 2. If clinical concern/symptoms persist or worsen, short-interval follow-up study is suggested.
[2024-12-22] MEDS ORDERED: ONDANSETRON HCL 4 MG/2 ML VIAL IV PRN (19:15)
[2024-12-22] MEDS ORDERED: NITROGLYCERIN 0.4 MG SL TAB SL PRN (19:15)
[2024-12-22] MEDS ORDERED: DEXTROSE (50%) 50ML SYRG IV PRN (19:15)
[2024-12-22] MEDS ORDERED: MORPHINE SULFATE INJ 2 MG/ml SYRG IV PRN (19:15)
[2024-12-22] MEDS ORDERED: VANCOMYCIN PER PHARMACY 0 MG IV SCH (19:15)
[2024-12-22] MEDS: ATORVASTATIN 20 MG TAB PO SCH (22:15)
[2024-12-22] MEDS: ALBUMIN 5% 250 ML IV ONE (23:23)
[2024-12-23] VITALS (10 sets, daily range): BP systolic 101–156; BP diastolic 28–99; PULSE 81–93; RESP 14–19; TEMP 98.1–98.9; O2SAT 94–100
[2024-12-23] MEDS: ACCU-CHEK COMFORT CURVE STRIP VI SCH (00:28)
[2024-12-23] MEDS: InsuLIN REG 1unit/0.01ml Soln (100units/ml) SC SCH (00:34)
--- NOTE | 2024-12-23 04:34 | DVHHP2 ---
History of Present Illness Reason for Visit: Generalized weakness History of Present Illness 54-year-old female presents for evaluation of generalized weakness. Patient reports having a fever with generalized body aches for the past one-week. She was recently diagnosed with infected AV fistula. She has not been started on an tibiotics. On arrival patient's blood pressure was in the 80s which improved after a bolus of normal saline. Denies chest pain. Reports mild shortness for breath. No other acute complaints reported. Past Medical History CAD, CHF, end-stage renal disease, diabetes mellitus, dyslipidemia, hypertension Past Surgical History , hysterectomy, av fistula, CABG Family History Noncontributory Smoke: No ALCOHOL: none Drugs: None Lives: with Family Review of Systems Review of Systems Review of systems are currently negative otherwise addressed in HPI. Allergies: Coded Allergies: No Known Drug Allergy (Verified Allergy, Unknown, 10/26/21) Medications Current Medications Medications Dose Ordered Sig/Arminda Route Start Time Stop Time Status Last Admin Dose Admin Cefepime HCl 50 ml @ 12.5 mls/hr DAILY IV 12/23/24 10:00 Norepinephrine Bitartrate 250 ml @ 3.75 mls/hr Q24H IV 12/22/24 14:15 12/22/24 16:59 3.75 MLS/HR Vancomycin HCl 0 ml @ 0 mls/hr UD IV 12/22/24 19:15 Atorvastatin Calcium 40 mg HS PO 12/22/24 22:00 12/22/24 22:15 40 MG Clopidogrel Bisulfate 75 mg DAILY PO 12/23/24 10:00 Sevelamer HCl 800 mg TIDWM PO 12/23/24 08:00 Pantoprazole Sodium 40 mg DAILY@0600 PO 12/23/24 06:00 Diagnostic Test (Pha) 1 strip Q6HR 12/23/24 00:00 12/23/24 00:28 1 STRIP Insulin Human Regular Q6HR SC 12/23/24 00:00 12/23/24 00:34 4 UNITS Dextrose 50 ml UD PRN IV 12/22/24 19:15 Acetaminophen/ Hydrocodone Bitart 1 tab Q4HP PRN PO 12/22/24 19:15 Ondansetron HCl 4 mg Q4HP PRN IV 12/22/24 19:15 Acetaminophen 650 mg Q6HP PRN PO 12/22/24 19:15 Nitroglycerin 0.4 mg Q5MINP PRN SL 12/22/24 19:15 Morphine Sulfate 2 mg Q30M PRN IV 12/22/24 19:15 Exam Vital Signs Vital Signs Date Time Temp Pulse Resp B/P (MAP) Pulse Ox O2 Delivery O2 Flow Rate FiO2 12/23/24 03:30 98.1 83 16 156/54 (88) 97 98.1 12/22/24 18:21 Nasal Cannula* 2 28 Exam Gen: 54-year-old female in mild distress Skin: Warm, dry, normal color and texture, no rash. HEENT: Normocephalic atraumatic, mucous membranes moist and pink. Neck: Cervical and supraclavicular nodes normal without enlargement, trachea is midline, thyroid gland is normal without masses. Pulmonary: Clear to auscultation and percussion bilaterally. Cardiac: Regular rate and rhythm. No murmur Abdomen: Soft, nontender, nondistended, bowel sounds present all 4 quadrants, no guarding, no rigidity, no organomegaly. Extremities: No cyanosis, clubbing, no edema Neuro: Cranial nerves II through XII grossly intact, normal affect and speech, no focal motor deficits. Labs/Xrays ORDERING PHYSICIAN: ISAAK DURAN MD PROCEDURE(s): LUEAD - Lt Upper Ext Art Duplex REASON: ORDER NUMBER(s): [id number], ACCESSION NUMBER(s): [id number] Upper Extremity Venous Duplex Clinical History: EVALUATE ARTERIAL VENOUS FISTULA Comparison: None Technique: Duplex Doppler evaluation of the venous system of the LEFT lower neck and upper extremity including color Doppler and spectral/pulsed waveform analysis was per formed. Findings: RIGHT-SIDED AVF DEMONSTRATES PATENCY WITH THE PROXIMAL BASILIC VEIN MEASURING 1.87 CM. DISTAL BASILIC VEIN IS MILDLY DILATED AND MEASURES 2.89 CM. The defect in the brachial artery measures 0.61 cm patent with a vascular flow 335.8 cm/sec vascular flow in the mid AVF is 116.8 cm/sec. In the distal AVF basilic vein measures 2.89 cm in the dilated. Flow and this portion of the AVF is 51 cm/sec. Flow in the distal subclavian is 160.4 cm/sec Peak systolic flow in the axillary vein is 272.4 cm/sec. Flow in the mid radial arteries is 48 cm/sec Flow in the mid right ulnar artery is 21.7 cm/sec Flow in the distal right ulnar artery is 27.6 cm/sec Impression: 1. No venous thrombus identified in the left upper extremity vessels evaluated a viridiana. 2. If clinical concern/symptoms persist or worsen, short-interval follow-up study is suggested. ATED BY: LIZETH ACHARYA Jr., DO DICTATED DATE/TIME: 12/22/241908 SIGNED BY: LIZETH ACHARYA Jr., SIGNED DATE/TIME: 12/22/241908 CC: ORDERING PHYSICIAN: NONA HOLLAND MD PROCEDURE(s): CXRP - CHEST PORTABLE REASON: sob ORDER NUMBER(s): [id number], ACCESSION NUMBER(s): [id number] INDICATION: sob TECHNIQUE: Frontal view of the chest. COMPARISON: XY CHEST XRAY 1 VIEW on DOS: 06/19/24, CT CHEST WITHOUT CONTRAST on DOS: 04/30/24, XY CHEST PORTABLE on DOS: 02/20/24, CT CHEST WITHOUT CONTRAST on DOS: 12/28/23, XY CHEST PORTABLE on DOS: 12/25/23 FINDINGS: . The heart and mediastinal contours are grossly unremarkable. There is no evidence of pleural disease. The lungs are clear. The bony structures of the chest are intact without fracture. IMPRESSION: 1. No evidence of acute disease. Labs Test 12/23/24 00:26 12/22/24 16:16 12/22/24 13:04 Range/Units POC Glucose 220 H 70-106 mg/dl Lactic Acid Level 2.3 *H 0.4-2.0 mmol/L Troponin I High Sensitivity 1312 *H </=34 ng/L White Blood Count 12.1 H 4.4-10.8 10^3/uL Red Blood Count 4.30 4.0-5.20 10^6/uL Hemoglobin 11.1 L 12.2-16.2 g/dL Hematocrit 34.1 L 36.0-46.0 % Mean Corpuscular Volume 79.4 L 80.0-100.0 fL Mean Corpuscular Hemoglobin 25.9 L 28.0-32.0 pg Mean Corpuscular Hemoglobin Concent 32.6 32.0-36.0 g/dL Red Cell Distribution Width 17.0 H 11.8-14.3 % Platelet Count 173 140-450 10^3/uL Mean Platelet Volume 8.7 6.9-10.8 fL Neutrophils (%) (Auto) 94.5 H 37.0-80.0 % Lymphocytes (%) (Auto) 2.2 L 10.0-50.0 % Monocytes (%) (Auto) 3.2 0.0-12.0 % Eosinophils (%) (Auto) 0.0 0.0-7.0 % Basophils (%) (Auto) 0.1 0.0-2.0 % Neutrophils # (Auto) 11.4 H 1.6-8.6 10 ^3/uL Lymphocytes # (Auto) 0.3 L 0.4-5.4 10 ^3/uL Monocytes # (Auto) 0.4 0-1.3 10 ^3/uL Eosinophils # (Auto) 0 0-0.8 10 ^3/uL Basophils # (Auto) 0 0-0.2 10 ^3/uL Nucleated Red Blood Cells 0.1 % Prothrombin Time 12.0 H 9.3-11.8 sec Prothrombin Time INR 1.15 0.9-1.15 Activated Partial Thromboplast Time 31.0 24.5-34.5 SEC Sodium Level 131 L 136-145 mmol/L Potassium Level 4.8 3.5-5.1 mmol/L Chloride Level 89 L 98-107 mmol/L Carbon Dioxide Level 27 20-31 mmol/L Anion Gap 15 5-15 Blood Urea Nitrogen 48 H 9-23 mg/dL Creatinine 8.61 H 0.550-1.02 mg/dL Glomerular Filtration Rate Calc 5 >90 mL/min BUN/Creatinine Ratio 5.6 L 10.0-20.0 Serum Glucose 185 H 74-106 mg/dL Calcium Level 9.7 8.7-10.4 mg/dL Total Bilirubin 0.7 0.2-1.0 mg/dL Aspartate Amino Transferase (AST) 30 13-40 U/L Alanine Aminotransferase (ALT) 15 7-40 U/L Alkaline Phosphatase 100 46-116 U/L Total Protein 8.0 5.7-8.2 g/dL Albumin 4.5 3.2-4.8 g/dL Microbiology Date/Time Source Procedure Growth Status 12/22/24 13:04 Blood Blood Culture - Preliminary Resulted SEPSIS Sepsis Screen Date sepsis recognized/suspect: Dec 22, 2024 Time Sepsis recognized/suspect: 1239 Recent Procedure: No On Antibiotic Therapy: No Respiratory Rate >20: Yes Heart Rate >90: Yes Temp<36 C (96.8 F) or >38.3 C: Yes SBP <90 or MAP <65 mmHG: No New Acute Mental Status Change: No Is the patient on CPAP, BIPAP,: No Vital Signs Date Time Temp Pulse Resp B/P (MAP) Pulse Ox O2 Delivery O2 Flow Rate FiO2 12/23/24 03:30 98.1 83 16 156/54 (88) 97 98.1 12/23/24 02:00 144/57 (86) 12/23/24 00:59 139/47 (77) 12/23/24 00:30 93 18 151/56 (87) 100 12/23/24 00:04 142/44 (76) 12/23/24 00:00 89 12/22/24 23:44 90 131/43 (72) 12/22/24 23:30 107/74 (85) 12/22/24 23:16 110/36 (60) 12/22/24 22:53 136/31 (66) 12/22/24 22:33 98.9 93 20 111/30 (57) 100 98.9 12/22/24 21:00 104/28 (53) 12/22/24 20:36 91 20 139/38 (71) 100 Medications Medications Dose Ordered Sig/Arminda Route Start Time Stop Time Status Last Admin Dose Admin Albumin Human 250 ml @ 250 mls/hr ONCE ONCE IV 12/22/24 23:00 12/22/24 23:59 DC 12/22/24 23:23 250 MLS/HR Atorvastatin Calcium 40 mg HS PO 12/22/24 22:00 12/22/24 22:15 40 MG Cefepime HCl 50 ml @ 50 mls/hr ONCE ONCE IV 12/22/24 17:45 12/22/24 18:44 DC 12/22/24 18:10 50 MLS/HR Diagnostic Test (Pha) 1 strip Q6HR 12/23/24 00:00 12/23/24 00:28 1 STRIP Insulin Human Regular Q6HR SC 12/23/24 00:00 12/23/24 00:34 4 UNITS Morphine Sulfate 2 mg ONCE ONCE IV 12/22/24 16:45 12/22/24 16:46 DC 12/22/24 16:49 2 MG Ondansetron HCl 2 mg ONCE ONCE IV 12/22/24 16:45 12/22/24 16:46 DC 12/22/24 16:48 2 MG Assessment/Plan Assessment/Plan Assessment Sepsis Infected AV fistula Anemia of chronic disease End-stage renal disease, dialysis dependent Elevated troponin rule out NSTEMI Plan Admit the patient to telemetry to the hospitalist Cardiology consultation Nephrology consult Cefepime/vancomycin Resume home medications Continue treatment per orders. Plan discussed with: Patient My Orders Orders - VENANCIO LALA Procedure Category Date Status Time Vancomycin Per PHA 12/22/24 In Process Pharmacy 19:15 Atorvastatin (Lipitor) PHA 12/22/24 In Process 22:00 Clopidogrel Bisulfate PHA 12/23/24 In Process (Plavix) 10:00 Sevelamer (Renagel) PHA 12/23/24 In Process 08:00 Pantoprazole Tablet PHA 12/23/24 In Process (Protonix Tablet) 06:00 Basic Metabolic Panel LAB 12/23/24 Logged 04:00 Glucose Blood PHA 12/23/24 In Process (Accu-Chek Comfort 00:00 Insulin R (Human) PHA 12/23/24 In Process (Insulin R) 00:00 Dextrose 50% Syringe PHA 12/22/24 In Process 19:15 Admit ADMIT 12/22/24 Transmitted 19:13 Renal DIET 12/23/24 Transmitted Standard(2gna,3gk,Lopho) Breakfast Hydrocodone-Acet PHA 12/22/24 In Process 5/325mg Tab ([place] 19:15 Ondansetron Hcl PHA 12/22/24 In Process (Zofran) 19:15 Complete Blood Count LAB 12/23/24 Logged 04:00 Condition: Unstable BRIT 12/22/24 In Process 19:13 Acetaminophen Tablet PHA 12/22/24 In Process (Tylenol Tablet) 19:15 Bedrest With Bathroom BRIT 12/22/24 In Process Privileg 19:13 Nitroglycerin PHA 12/22/24 In Process Sublingual (Ntrostat 19:15 Morphine Sulfate PHA 12/22/24 In Process Injection 19:15 Stat Ekg For Chest [facility] 12/22/24 In Process Pain 19:13 Notify Of Changes [facility] 12/22/24 In Process From Base 19:13 Diabetologist For [facility] 12/22/24 In Process 24 Hours 19:13 Emergency Dysrhythmia [facility] 12/22/24 In Process Protocol 19:13 Rhythm Strips Once [facility] 12/22/24 In Process Every Shift 19:13 Oxygen By Nasal RT 12/22/24 Transmitted Cannula 19:13 * Cardiology Consult CONS 12/22/24 Transmitted 19:13 Vancomycin,Random LAB 12/23/24 Logged 04:00 Date of Service: Dec 22, 2024 Billing Provider: VENANCIO LALA Common Visit Codes: [id number] INP/OBS CARE (HIGH) VENANCIO LALA Dec 23, 2024 04:34
[2024-12-23 05:00] LABS: Hematocrit 31.6 % (36.0-46.0); Hemoglobin 10.3 g/dL (12.2-16.2); Mean Corpuscular Hemoglobin 25.5 pg (28.0-32.0); Mean Corpuscular Volume 78.0 fL (80.0-100.0); Nucleated Red Blood Cells % 0.1 %
[2024-12-23 05:07] LABS: Anion Gap 15 (5-15); Carbon Dioxide 24 mmol/L (20-31)
[2024-12-23 05:08] LABS: Calcium 9.3 mg/dL (8.7-10.4)
[2024-12-23 05:11] LABS: Chloride 91 mmol/L (98-107); Potassium 5.2 mmol/L (3.5-5.1); Sodium 130 mmol/L (136-145)
[2024-12-23 05:13] LABS: BUN/Creatinine Ratio 7.1 (10.0-20.0); Blood Urea Nitrogen 66 mg/dL (9-23); Glucose 170 mg/dL (74-106)
[2024-12-23] MEDS: PANTOPRAZOLE 40 MG TAB PO SCH (05:19)
[2024-12-23] MEDS: SEVELAMER 800 MG TAB PO SCH (09:07)
[2024-12-23] MEDS: CLOPIDOGREL BISULFATE 75 MG TAB PO SCH (09:07)
[2024-12-23] MEDS: CEFEPIME 1GM/ 50ML 50 ML IV SCH (09:30)
[2024-12-23] MEDS ORDERED: ALBUMIN 25% 100 ML IV ONE (10:15)
--- NOTE | 2024-12-23 12:51 | DVHPN2 ---
Progress Note Date Seen: Dec 23, 2024 Medical Necessity Reason Pt with a Central, PICC or Fol: No Subjective Patient reports: No new complaints Review of Systems: HEENT:Normal, CVS:Normal, RESPIRATORY:Normal, GI:Normal, :Normal, MSK:Normal, NEURO:Normal Objective vital signs Vital Sign Date Time Temp Pulse Resp B/P (MAP) Pulse Ox O2 Delivery O2 Flow Rate FiO2 12/23/24 12:30 98.1 91 16 135/99 (111) 100 98.1 12/23/24 08:59 Nasal Cannula* 2 28 medications Current Medications Medications Dose Ordered Sig/Arminda Route Start Time Stop Time Status Last Admin Dose Admin Cefepime HCl 50 ml @ 12.5 mls/hr DAILY IV 12/23/24 10:00 Norepinephrine Bitartrate 250 ml @ 3.75 mls/hr Q24H IV 12/22/24 14:15 12/22/24 16:59 3.75 MLS/HR Vancomycin HCl 0 ml @ 0 mls/hr UD IV 12/22/24 19:15 Atorvastatin Calcium 40 mg HS PO 12/22/24 22:00 12/22/24 22:15 40 MG Clopidogrel Bisulfate 75 mg DAILY PO 12/23/24 10:00 12/23/24 09:07 75 MG Sevelamer HCl 800 mg TIDWM PO 12/23/24 08:00 12/23/24 12:46 800 MG Pantoprazole Sodium 40 mg DAILY@0600 PO 12/23/24 06:00 12/23/24 05:19 40 MG Diagnostic Test (Pha) 1 strip Q6HR 12/23/24 00:00 12/23/24 12:17 1 STRIP Insulin Human Regular Q6HR SC 12/23/24 00:00 12/23/24 05:35 3 UNITS Dextrose 50 ml UD PRN IV 12/22/24 19:15 Acetaminophen/ Hydrocodone Bitart 1 tab Q4HP PRN PO 12/22/24 19:15 Ondansetron HCl 4 mg Q4HP PRN IV 12/22/24 19:15 Acetaminophen 650 mg Q6HP PRN PO 12/22/24 19:15 Nitroglycerin 0.4 mg Q5MINP PRN SL 12/22/24 19:15 Morphine Sulfate 2 mg Q30M PRN IV 12/22/24 19:15 Examination: GENERAL:Normal, HEENT:Normal, NECK:Normal, LUNGS:Normal, CVS:Normal, ABDOMEN:Normal, MSK:Normal, MSK:Abnormal (left arm fistula, chest dressing), SKIN:Normal, NEURO:Normal, :Normal laboratory and microbiology Laboratory Tests 12/23/24 04:30 Test 12/23/24 04:30 Range/Units Serum Glucose 170 H 74-106 mg/dL Microbiology Date/Time Source Procedure Growth Status 12/22/24 13:04 Blood Blood Culture - Preliminary Staphylococcus aureus Resulted Problem List/Assessment/Plan Problem List/Assessment/Plan * sepsis with staph aureus: iv vanc, echo * chronic diastolic heart failure. * End-stage renal disease, on hemodialysis. * Surgical sternal wound with previous debridement. * Gastroesophageal reflux disease. * Coronary artery disease, status post coronary artery bypass graft with stents. * Diabetes mellitus: ssi * Depression. * Liver cirrhosis. * Obesity. * Chronic pain. * Hypertension h/o * Hyperlipidemia. advance care planning- full code- time spent 19 mins Plan discussed with: Patient My Orders My Orders Orders - VENANCIO JARA MD Procedure Category Date Status Time Echo 2d Mode Cardiac US 12/23/24 Logged DOP 12:46 Complete Blood Count LAB 12/24/24 Verified 06:00 Comprehensive LAB 12/24/24 Verified Metabolic Panel 06:00 Blood Culture HELADIO 12/24/24 Transmitted 05:00 Date of Service: Dec 23, 2024 Billing Provider: VENANCIO JARA MD Common Visit Codes: [id number] INP/OBS CARE(HIGH) Secondary Visit Codes: [id number] CARE PLAN 30 MINUTES VENANCIO JARA MD Dec 23, 2024 12:51
[2024-12-23] MEDS: VANCOMYCIN 500mg/100mL PREMIX or KIT IV ONE (13:59)
--- NOTE | 2024-12-23 14:20 | DVHPN2 ---
Progress Note - Dictate Date Seen: Dec 23, 2024 Medical Necessity Reason Pt with a Central, PICC or Fol: No Subjective PT WELL KNOW TO ME WITH SHARP CHEST PAIN ASSOCIATED WITH SOB PMH: NOW WITH BLOOD CX POSITIVE STAPH AURES MRSA POSITVE NARES SOURCE OF INFECTION MEDISTINAL VS DIALYSIS GRAFT S/P MEDIASTINAL DEBRIDEMENT MEDIASTINITIS/ REMOVAL OD ALL STERNAL WIRES NOW WITH WOUND VACUUM ORG HD CAD S/P CABG S/P MULTI VESSEL PTCA STENT POST CABG ESRD ON HD HTN DIABETES ANEMIA LHC PATENT SVG TO LAD PATENT STENTS TO CX PATENT RCA AND PDA SVG TO PDA OCCLUDED EF 45% vital signs Vital Sign Date Time Temp Pulse Resp B/P (MAP) Pulse Ox O2 Delivery O2 Flow Rate FiO2 12/23/24 12:30 98.1 91 16 135/99 (111) 100 98.1 12/23/24 08:59 Nasal Cannula* 2 28 medications Current Medications Medications Dose Ordered Sig/Arminda Route Start Time Stop Time Status Last Admin Dose Admin Cefepime HCl 50 ml @ 12.5 mls/hr DAILY IV 12/23/24 10:00 Norepinephrine Bitartrate 250 ml @ 3.75 mls/hr Q24H IV 12/22/24 14:15 12/22/24 16:59 3.75 MLS/HR Vancomycin HCl 0 ml @ 0 mls/hr UD IV 12/22/24 19:15 Atorvastatin Calcium 40 mg HS PO 12/22/24 22:00 12/22/24 22:15 40 MG Clopidogrel Bisulfate 75 mg DAILY PO 12/23/24 10:00 12/23/24 09:07 75 MG Sevelamer HCl 800 mg TIDWM PO 12/23/24 08:00 12/23/24 12:46 800 MG Pantoprazole Sodium 40 mg DAILY@0600 PO 12/23/24 06:00 12/23/24 05:19 40 MG Diagnostic Test (Pha) 1 strip Q6HR 12/23/24 00:00 12/23/24 12:17 1 STRIP Insulin Human Regular Q6HR SC 12/23/24 00:00 12/23/24 05:35 3 UNITS Dextrose 50 ml UD PRN IV 12/22/24 19:15 Acetaminophen/ Hydrocodone Bitart 1 tab Q4HP PRN PO 12/22/24 19:15 Ondansetron HCl 4 mg Q4HP PRN IV 12/22/24 19:15 Acetaminophen 650 mg Q6HP PRN PO 12/22/24 19:15 Nitroglycerin 0.4 mg Q5MINP PRN SL 12/22/24 19:15 Morphine Sulfate 2 mg Q30M PRN IV 12/22/24 19:15 laboratory and microbiology Laboratory Tests 12/23/24 04:30 Test 12/23/24 04:30 Range/Units Serum Glucose 170 H 74-106 mg/dL Problem List LEUKOCYTOSIS WITH SHARP CHEST PAIN ASSOCIATED WITH SOB PMH: NOW WITH BLOOD CX POSITIVE STAPH AURES MRSA POSITVE NARES SOURCE OF INFECTION MEDISTINAL VS DIALYSIS GRAFT S/P MEDIASTINAL DEBRIDEMENT MEDIASTINITIS/ REMOVAL OD ALL STERNAL WIRES NOW WITH WOUND VACUUM ORG HD CAD S/P CABG S/P MULTI VESSEL PTCA STENT POST CABG ESRD ON HD HTN DIABETES ANEMIA LHC PATENT SVG TO LAD PATENT STENTS TO CX PATENT RCA AND PDA SVG TO PDA OCCLUDED EF 45% Assessment/Plan CHEST XRAY NEGATIVE VANCO SOURCE OF INFECTION MEDIASTINUM? SURGICAL CONSULT TRIPLE FACE BONE SCAN Plan discussed with: Patient Critical Care Time(min): 35 LLOYD SINGH MD Dec 23, 2024 14:20
--- NOTE | 2024-12-23 21:07 | DVHPN2 ---
Progress Note Date Seen: Dec 23, 2024 Medical Necessity Reason Pt with a Central, PICC or Fol: No Subjective Patient reports: Feels worse Review of Systems: HEENT:Abnormal, MSK:Abnormal Objective vital signs Vital Sign Date Time Temp Pulse Resp B/P (MAP) Pulse Ox O2 Delivery O2 Flow Rate FiO2 12/23/24 20:00 99.6 83 18 131/53 (79) 96 99.6 12/23/24 08:59 Nasal Cannula* 2 28 medications Current Medications Medications Dose Ordered Sig/Arminda Route Start Time Stop Time Status Last Admin Dose Admin Cefepime HCl 50 ml @ 12.5 mls/hr DAILY IV 12/23/24 10:00 Norepinephrine Bitartrate 250 ml @ 3.75 mls/hr Q24H IV 12/22/24 14:15 12/22/24 16:59 3.75 MLS/HR Vancomycin HCl 0 ml @ 0 mls/hr UD IV 12/22/24 19:15 Atorvastatin Calcium 40 mg HS PO 12/22/24 22:00 12/22/24 22:15 40 MG Clopidogrel Bisulfate 75 mg DAILY PO 12/23/24 10:00 12/23/24 09:07 75 MG Sevelamer HCl 800 mg TIDWM PO 12/23/24 08:00 12/23/24 12:46 800 MG Pantoprazole Sodium 40 mg DAILY@0600 PO 12/23/24 06:00 12/23/24 05:19 40 MG Diagnostic Test (Pha) 1 strip Q6HR 12/23/24 00:00 12/23/24 17:42 1 STRIP Insulin Human Regular Q6HR SC 12/23/24 00:00 12/23/24 17:42 3 UNITS Dextrose 50 ml UD PRN IV 12/22/24 19:15 Acetaminophen/ Hydrocodone Bitart 1 tab Q4HP PRN PO 12/22/24 19:15 Ondansetron HCl 4 mg Q4HP PRN IV 12/22/24 19:15 Acetaminophen 650 mg Q6HP PRN PO 12/22/24 19:15 Nitroglycerin 0.4 mg Q5MINP PRN SL 12/22/24 19:15 Morphine Sulfate 2 mg Q30M PRN IV 12/22/24 19:15 Examination: GENERAL:Abnormal, MSK:Abnormal laboratory and microbiology Laboratory Tests 12/23/24 04:30 Test 12/23/24 04:30 Range/Units Serum Glucose 170 H 74-106 mg/dL Microbiology Date/Time Source Procedure Growth Status 12/22/24 13:04 Blood Blood Culture - Preliminary Staphylococcus aureus Resulted Problem List/Assessment/Plan Problem List/Assessment/Plan End-stage renal disease on hemo dialysis at home severe sepsis missed HD hyperkalemia Hypotension and sepsis secondary to infected AV fistula Elevated troponins Lactic acidosis patient also has a midline from outside recs Agree with IV antibiotics vancomycin vasc eval for AVF site Preliminary wound culture from the office was staph aureus Plan discussed with: Patient My Orders My Orders Orders - MER SAMAYOA MD Procedure Category Date Status Time Hemodialysis Orders ORDERS 12/23/24 Transmitted 09:53 Consult CONS 12/23/24 Transmitted Vascular/Endovascular 21:02 MER SAMAYOA MD Dec 23, 2024 21:07
[2024-12-23] MEDS: HYDROcodone-ACET 5/325MG TAB PO PRN (22:48)
[2024-12-24] VITALS (8 sets, daily range): BP systolic 105–174; BP diastolic 45–87; PULSE 80–96; RESP 17–20; TEMP 97.7–100.7; O2SAT 96–100
[2024-12-24] MEDS ORDERED: SUCR1SUS5 PO (00:49)
[2024-12-24] MEDS ORDERED: ONDA-180 PO (00:49)
[2024-12-24] MEDS ORDERED: INSLISPI SC (00:49)
[2024-12-24] MEDS ORDERED: AML5T PO (00:49)
[2024-12-24 07:01] LABS: Nucleated Red Blood Cells % 0.0 %
[2024-12-24 07:04] LABS: Hematocrit 29.2 % (36.0-46.0); Hemoglobin 9.8 g/dL (12.2-16.2); Mean Corpuscular Hemoglobin 26.0 pg (28.0-32.0); Mean Corpuscular Volume 77.4 fL (80.0-100.0)
[2024-12-24 07:18] LABS: Alanine Aminotransferase 18 U/L (7-40); Alkaline Phosphatase 77 U/L (46-116); Anion Gap 14 (5-15); BUN/Creatinine Ratio 6.2 (10.0-20.0); Calcium 9.6 mg/dL (8.7-10.4); Carbon Dioxide 30 mmol/L (20-31); Potassium 4.6 mmol/L (3.5-5.1); Total Protein 7.6 g/dL (5.7-8.2)
[2024-12-24 07:19] LABS: Albumin 4.4 g/dL (3.2-4.8)
[2024-12-24 07:20] LABS: Bilirubin, Total 0.6 mg/dL (0.2-1.0)
[2024-12-24 07:21] LABS: Blood Urea Nitrogen 50 mg/dL (9-23); Chloride 89 mmol/L (98-107); Glucose 141 mg/dL (74-106); Sodium 133 mmol/L (136-145)
--- NOTE | 2024-12-24 08:08 | DVHCONRES ---
Date Seen: Dec 24, 2024 Resident Creating Document: PAULA ROJAS Jr., MD Referring Physician er Reason for Consultation evaluation of avf History of Present Illness 54-year-old female past medical history of end-stage renal disease on hemodialysis at home, history of CABG with chronic mediastinitis patient has button holes for fistula. Most recently patient had a fistulogram proximally three weeks ago and reports last week has had noticeable swelling around the arm with redness and erythema. Outpatient blood cultures were obtained which were negative however a site culture from drainage from the AV fistula was positive for staph aureus. Per home hemodialysis nurse patient was ordered for IV antibiotic therapy vancomycin but she did not initiate therapy. This morning patient complaining of right arm pain with a significant hand pain. Patient does have a PICC line which has been in place for a longer duration. In the right upper arm. Patient overall still feels unwell with fevers and significant hand and wrist pain on the right side. Left arm AV fistula states is without discomfort. Patient still has open sternal wound and is awaiting follow up with her cardiac surgeon. Past Medical History End-stage renal disease, CABG Past Surgical History CABG, left AV fistula Family History: Acute renal failure G8 MOTHER Cerebrovascular accident (CVA) G8 FATHER Diabetes mellitus G8 SISTER Hypertension G8 MOTHER G8 FATHER G8 BROTHER Social History Nonsmoker nondrinker Allergies: Coded Allergies: No Known Drug Allergy (Verified Allergy, Unknown, 10/26/21) Home Meds Reported Medications Sucralfate (Carafate) 1 Gm/10 Ml Mabel, 10 MG PO QID, ML 12/24/24 Ondansetron HCl (Ondansetron Hydrochloride) 8 Mg Tab, 8 MG PO Q12HP PRN for NAUSEA / VOMITING 12/24/24 Amlodipine Besylate (NORVASC TABLET) 5 Mg Tb, 10 MG PO DAILY PRN for SBP>150, TAB 12/24/24 Insulin Lispro (Human) (Humalog) 100 Unit/Ml Inj, 70-80 UNIT SC DAILY 12/24/24 Fludrocortisone Acetate (Florinef) 0.1 Mg Tb, 1 TAB PO 06/21/24 Calcitriol (Calcitriol) 0.25 Mcg Cap, 4 CAP PO DAILY, #30 CAP 06/21/24 Insulin Glargine (Basaglar Kwikpen) 100 Unit/Ml Inj, 20 UNIT SC BID, INJ 2/6/25 Oxycodone W/ Acetaminophen (Apap/Oxycodone) 1 Tab Tab, 1 TAB PO Q8HR for 30 Days, #90 [10/325 MG] 02/20/24 Clopidogrel Bisulfate (CLOPIDOGREL) 75 Mg Tab, 1 TAB PO DAILY 02/19/24 Cinacalcet HCl (Cinacalcet Hydrochloride) 30 Mg Tab, 1 TAB PO MWF 11/14/23 Hydroxyzine Hcl (Hydroxyzine Hcl) 25 Mg Tab, 1 TAB PO BID 11/14/23 Sertraline HCl (Sertraline Hydrochloride) 150 Mg Cap, 1 CAP PO QAM 11/14/23 Temazepam (Temazepam) 30 Mg Cap, 30 MG PO HS for SLEEP, CAP 10/09/20 Atorvastatin Calcium (ATORVASTATIN CALCIUM) 10 Mg Tab, 1 TAB PO DAILY, #30 TAB 5 Refills 07/03/17 Pantoprazole Sodium Sesquihydr (Protonix) 40 Mg Tab, 40 MG PO DAILY for 90 Days, #90 07/03/17 Aspirin (Asa) 81 Mg Ch, 81 MG PO DAILY 07/03/17 Sevelamer Carbonate (Renvela) 800 Mg Tab, 800 MG PO TIDWM for KIDNEY DISEASE/ DIALYSIS for 30 Days, MG 05/04/17 Current Medications Current Medications Medications (Trade) Dose Ordered Sig/Arminda Route PRN Reason Start Time Stop Time Status Last Admin Cefepime HCl 50 ml @ 12.5 mls/hr DAILY IV 12/23/24 10:00 Clopidogrel Bisulfate (Plavix) 75 mg DAILY PO 12/23/24 10:00 12/23/24 09:07 Review of Systems Systems reviewed otherwise negative other what was in HPI. Vital Signs Vital Signs Date Time Temp Pulse Resp B/P (MAP) Pulse Ox O2 Delivery O2 Flow Rate FiO2 12/24/24 05:00 98.0 86 17 156/70 (98) 99 98.0 12/23/24 23:47 Nasal Cannula* 2 28 Physical Exam His ears nose and throat exam eyes are nonicteric conjunctiva is pink neck was supple no JVD no lymphadenopathy no carotid bruits chest she has an open sternal wound which is currently dressed. Upper extremities she has a left arm AV fistula which is positive thrill and bruit. No significant swelling or erythema. The right arm PICC line in the right upper arm significant tenderness of the hand and wrist. Difficulty moving the hand and wrist on the right side. Lungs are clear to auscultation heart was regular rate and rhythm abdomen is soft nontender with no pulsatile abdominal mass or bruits lower extremities palpable femoral pulses weakly palpable pedal pulses. Labs/Diagnostic Data Labs Test 12/24/24 06:07 12/24/24 05:33 12/23/24 10:05 12/23/24 04:30 Range/Units POC Glucose 145 H 70-106 mg/dl White Blood Count 9.8 # 4.4-10.8 10^3/uL Red Blood Count 3.78 L 4.0-5.20 10^6/uL Hemoglobin 9.8 L 12.2-16.2 g/dL Hematocrit 29.2 L 36.0-46.0 % Mean Corpuscular Volume 77.4 L 80.0-100.0 fL Mean Corpuscular Hemoglobin 26.0 L 28.0-32.0 pg Mean Corpuscular Hemoglobin Concent 33.6 32.0-36.0 g/dL Red Cell Distribution Width 17.3 H 11.8-14.3 % Platelet Count 141 140-450 10^3/uL Mean Platelet Volume 9.5 6.9-10.8 fL Neutrophils (%) (Auto) 85.8 H 37.0-80.0 % Lymphocytes (%) (Auto) 5.6 L 10.0-50.0 % Monocytes (%) (Auto) 7.8 0.0-12.0 % Eosinophils (%) (Auto) 0.5 0.0-7.0 % Basophils (%) (Auto) 0.3 0.0-2.0 % Neutrophils # (Auto) 8.4 1.6-8.6 10 ^3/uL Lymphocytes # (Auto) 0.5 0.4-5.4 10 ^3/uL Monocytes # (Auto) 0.8 0-1.3 10 ^3/uL Eosinophils # (Auto) 0 0-0.8 10 ^3/uL Basophils # (Auto) 0 0-0.2 10 ^3/uL Nucleated Red Blood Cells 0.0 % Sodium Level 133 L 136-145 mmol/L Potassium Level 4.6 3.5-5.1 mmol/L Chloride Level 89 L 98-107 mmol/L Carbon Dioxide Level 30 20-31 mmol/L Anion Gap 14 5-15 Blood Urea Nitrogen 50 #H 9-23 mg/dL Creatinine 8.07 H 0.550-1.02 mg/dL Glomerular Filtration Rate Calc 5 >90 mL/min BUN/Creatinine Ratio 6.2 L 10.0-20.0 Serum Glucose 141 H 74-106 mg/dL Calcium Level 9.6 8.7-10.4 mg/dL Total Bilirubin 0.6 0.2-1.0 mg/dL Aspartate Amino Transferase (AST) 72 H 13-40 U/L Alanine Aminotransferase (ALT) 18 7-40 U/L Alkaline Phosphatase 77 46-116 U/L Total Protein 7.6 5.7-8.2 g/dL Albumin 4.4 3.2-4.8 g/dL Random Vancomycin Level 18.6 H 5-10 ug/mL Lactic Acid Level 1.3 0.4-2.0 mmol/L Thyroid Stimulating Hormone (TSH) 0.97 0.55-4.78 uIU/mL Hepatitis B Surface Antigen Negative Negative Test 12/22/24 16:16 12/22/24 13:04 Range/Units Troponin I High Sensitivity 1312 *H </=34 ng/L Prothrombin Time 12.0 H 9.3-11.8 sec Prothrombin Time INR 1.15 0.9-1.15 Activated Partial Thromboplast Time 31.0 24.5-34.5 SEC Microbiology Date/Time Source Procedure Growth Status 12/22/24 13:04 Blood Blood Culture - Preliminary Staphylococcus aureus Resulted Upper Extremity Venous Duplex Clinical History: EVALUATE ARTERIAL VENOUS FISTULA Comparison: None Technique: Duplex Doppler evaluation of the venous system of the LEFT lower neck and upper extremity including color Doppler and spectral/pulsed waveform analysis was performed. Findings: RIGHT-SIDED AVF DEMONSTRATES PATENCY WITH THE PROXIMAL BASILIC VEIN MEASURING 1.87 CM. DISTAL BASILIC VEIN IS MILDLY DILATED AND MEASURES 2.89 CM. The defect in the brachial artery measures 0.61 cm patent with a vascular flow 335.8 cm/sec vascular flow in the mid AVF is 116.8 cm/sec. In the distal AVF basilic vein measures 2.89 cm in the dilated. Flow and this portion of the AVF is 51 cm/sec. Flow in the distal subclavian is 160.4 cm/sec Peak systolic flow in the axillary vein is 272.4 cm/sec. Flow in the mid radial arteries is 48 cm/sec Flow in the mid right ulnar artery is 21.7 cm/sec Flow in the distal right ulnar artery is 27.6 cm/sec Impression: 1. No venous thrombus identified in the left upper extremity vessels evaluated above. 2. If clinical concern/symptoms persist or worsen, short-interval follow-up study is suggested. 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 Currently with significant arm pain on the right side but consider removing PICC line. We will need to culture blood as well as PICC line. Left arm AV fistula as okay to use. Needs follow up with her cardiac surgeon regarding the open sternal wound. 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 Currently with significant arm pain on the right side but consider removing PICC line. We will need to culture blood as well as PICC line. Left arm AV fistula as okay to use. Needs follow up with her cardiac surgeon regarding the open sternal wound. Plan discussed with: Patient PAULA ROJAS Jr., MD Dec 24, 2024 08:08
--- NOTE | 2024-12-24 10:37 | DVHPN2 ---
Progress Note Date Seen: Dec 24, 2024 Medical Necessity Reason Pt with a Central, PICC or Fol: No Subjective Patient reports: No new complaints Review of Systems: HEENT:Normal, CVS:Normal, RESPIRATORY:Normal, GI:Normal, :Normal, MSK:Normal, NEURO:Normal Objective vital signs Vital Sign Date Time Temp Pulse Resp B/P (MAP) Pulse Ox O2 Delivery O2 Flow Rate FiO2 12/24/24 09:04 98.7 90 20 149/77 (101) 98 98.7 12/23/24 23:47 Nasal Cannula* 2 28 Total Intake and Output 12/23/24 12/23/24 12/24/24 15:00 23:00 07:00 Intake Total 100 ml 200 ml Balance 100 ml 200 ml medications Current Medications Medications Dose Ordered Sig/Arminda Route Start Time Stop Time Status Last Admin Dose Admin Cefepime HCl 50 ml @ 12.5 mls/hr DAILY IV 12/23/24 10:00 12/24/24 08:57 12.5 MLS/HR Norepinephrine Bitartrate 250 ml @ 3.75 mls/hr Q24H IV 12/22/24 14:15 12/22/24 16:59 3.75 MLS/HR Vancomycin HCl 0 ml @ 0 mls/hr UD IV 12/22/24 19:15 Atorvastatin Calcium 40 mg HS PO 12/22/24 22:00 12/23/24 22:48 40 MG Clopidogrel Bisulfate 75 mg DAILY PO 12/23/24 10:00 12/24/24 08:56 75 MG Sevelamer HCl 800 mg TIDWM PO 12/23/24 08:00 12/24/24 08:57 800 MG Pantoprazole Sodium 40 mg DAILY@0600 PO 12/23/24 06:00 12/24/24 06:08 40 MG Diagnostic Test (Pha) 1 strip Q6HR 12/23/24 00:00 12/24/24 06:09 1 STRIP Insulin Human Regular Q6HR SC 12/23/24 00:00 12/24/24 06:11 2 UNITS Dextrose 50 ml UD PRN IV 12/22/24 19:15 Acetaminophen/ Hydrocodone Bitart 1 tab Q4HP PRN PO 12/22/24 19:15 12/24/24 08:56 1 TAB Ondansetron HCl 4 mg Q4HP PRN IV 12/22/24 19:15 Acetaminophen 650 mg Q6HP PRN PO 12/22/24 19:15 Nitroglycerin 0.4 mg Q5MINP PRN SL 12/22/24 19:15 Morphine Sulfate 2 mg Q30M PRN IV 12/22/24 19:15 Examination: GENERAL:Normal, HEENT:Normal, NECK:Normal, LUNGS:Normal, CVS:Normal, ABDOMEN:Normal, MSK:Normal, MSK:Abnormal (chest wound), SKIN:Normal, NEURO:Normal, :Normal laboratory and microbiology Laboratory Tests 12/24/24 05:33 Test 12/24/24 05:33 Range/Units Serum Glucose 141 H 74-106 mg/dL Microbiology Date/Time Source Procedure Growth Status 12/22/24 13:04 Blood Blood Culture - Preliminary Staphylococcus aureus Resulted Problem List/Assessment/Plan Problem List/Assessment/Plan * sepsis with staph aureus: iv vanc, echo, ct chest for chest wound * chronic diastolic heart failure. * End-stage renal disease, on hemodialysis. * Surgical sternal wound with previous debridement. * Gastroesophageal reflux disease. * Coronary artery disease, status post coronary artery bypass graft with stents. * Diabetes mellitus: ssi * Depression. * Liver cirrhosis. * Obesity. * Chronic pain. * Hypertension h/o * Hyperlipidemia. advance care planning- full code- time spent 19 mins Plan discussed with: Patient My Orders My Orders Orders - VENANCIO JARA MD Procedure Category Date Status Time Blood Culture HELADIO 12/24/24 In Process 05:00 * Wound Consult CONS 12/24/24 Transmitted Date of Service: Dec 24, 2024 Billing Provider: VENANCIO JARA MD Common Visit Codes: [id number] INP/OBS CARE(HIGH) Secondary Visit Codes: [id number] CARE PLAN 30 MINUTES VENANCIO JARA MD Dec 24, 2024 10:37
[2024-12-24] MEDS ORDERED: IOHEXOL 300 MG/ML 100ML BOTTLE IJ ONE ×2 (10:48→11:08)
--- NOTE | 2024-12-24 11:45 | DVHSR ---
APPROVED REPORT EXAM: Two-dimensional and M-mode echocardiogram with Doppler and color Doppler. Blood Pressure: 135/99 mmHg INDICATION r/o endocarditis RISK FACTORS Height: 60, Weight: 220 DIMENSIONS LVDd (3.8-5.7cm)LA (2D)4.3 (1.9-4.0cm)Aortic Root (2.0-3.7cm) Mitral Valve MitralMitral Stenosis E wavem/sMV Mean GR.3mmHg A wavem/sMV Peak GR.6mmHg E/A ratio0.02D MVAcm2 Other Information Quality : Technically LimitedRhythm : Technically limited study due to body habitus and patient position. Conclusion MOD MAC EF >55% LAE MILD TR MILD MR
[2024-12-24] MEDS: MORPHINE SULFATE INJ 2 MG/ml SYRG IV PRN (12:23)
--- NOTE | 2024-12-24 12:40 | DVHPN2 ---
Progress Note - Dictate Date Seen: Dec 24, 2024 Medical Necessity Reason Pt with a Central, PICC or Fol: No Subjective PT WELL KNOW TO ME WITH SHARP CHEST PAIN ASSOCIATED WITH SOB PMH: NOW WITH BLOOD CX POSITIVE STAPH AURES MRSA POSITVE NARES SOURCE OF INFECTION MEDISTINAL VS DIALYSIS GRAFT S/P MEDIASTINAL DEBRIDEMENT MEDIASTINITIS/ REMOVAL OD ALL STERNAL WIRES NOW WITH WOUND VACUUM ORG HD CAD S/P CABG S/P MULTI VESSEL PTCA STENT POST CABG ESRD ON HD HTN DIABETES ANEMIA LHC PATENT SVG TO LAD PATENT STENTS TO CX PATENT RCA AND PDA SVG TO PDA OCCLUDED EF 45% vital signs Vital Sign Date Time Temp Pulse Resp B/P (MAP) Pulse Ox O2 Delivery O2 Flow Rate FiO2 12/24/24 12:23 80 19 146/81 12/24/24 09:04 98.7 98 98.7 12/23/24 23:47 Nasal Cannula* 2 28 Total Intake and Output 12/23/24 12/23/24 12/24/24 15:00 23:00 07:00 Intake Total 100 ml 200 ml Balance 100 ml 200 ml medications Current Medications Medications Dose Ordered Sig/Arminda Route Start Time Stop Time Status Last Admin Dose Admin Cefepime HCl 50 ml @ 12.5 mls/hr DAILY IV 12/23/24 10:00 12/24/24 08:57 12.5 MLS/HR Norepinephrine Bitartrate 250 ml @ 3.75 mls/hr Q24H IV 12/22/24 14:15 12/22/24 16:59 3.75 MLS/HR Vancomycin HCl 0 ml @ 0 mls/hr UD IV 12/22/24 19:15 Atorvastatin Calcium 40 mg HS PO 12/22/24 22:00 12/23/24 22:48 40 MG Clopidogrel Bisulfate 75 mg DAILY PO 12/23/24 10:00 12/24/24 08:56 75 MG Sevelamer HCl 800 mg TIDWM PO 12/23/24 08:00 12/24/24 12:25 800 MG Pantoprazole Sodium 40 mg DAILY@0600 PO 12/23/24 06:00 12/24/24 06:08 40 MG Diagnostic Test (Pha) 1 strip Q6HR 12/23/24 00:00 12/24/24 12:31 1 STRIP Insulin Human Regular Q6HR SC 12/23/24 00:00 12/24/24 12:31 2 UNITS Dextrose 50 ml UD PRN IV 12/22/24 19:15 Acetaminophen/ Hydrocodone Bitart 1 tab Q4HP PRN PO 12/22/24 19:15 12/24/24 08:56 1 TAB Ondansetron HCl 4 mg Q4HP PRN IV 12/22/24 19:15 Acetaminophen 650 mg Q6HP PRN PO 12/22/24 19:15 Nitroglycerin 0.4 mg Q5MINP PRN SL 12/22/24 19:15 Morphine Sulfate 2 mg Q30M PRN IV 12/22/24 19:15 Morphine Sulfate 2 mg Q4HPRN PRN IV 12/24/24 11:15 12/24/24 12:23 2 MG laboratory and microbiology Laboratory Tests 12/24/24 05:33 Test 12/24/24 05:33 Range/Units Serum Glucose 141 H 74-106 mg/dL Problem List LEUKOCYTOSIS WITH SHARP CHEST PAIN ASSOCIATED WITH SOB PMH: NOW WITH BLOOD CX POSITIVE STAPH AURES MRSA POSITVE NARES SOURCE OF INFECTION MEDISTINAL VS DIALYSIS GRAFT S/P MEDIASTINAL DEBRIDEMENT MEDIASTINITIS/ REMOVAL OD ALL STERNAL WIRES NOW WITH WOUND VACUUM ORG HD CAD S/P CABG S/P MULTI VESSEL PTCA STENT POST CABG ESRD ON HD HTN DIABETES ANEMIA LHC PATENT SVG TO LAD PATENT STENTS TO CX PATENT RCA AND PDA SVG TO PDA OCCLUDED EF 45% Assessment/Plan CHEST XRAY NEGATIVE VANCO SOURCE OF INFECTION MEDIASTINUM? SURGICAL CONSULT TRIPLE FACE BONE SCAN Monitor Morphine Sulfate 2MG,IV. Plan discussed with: Patient Critical Care Time(min): 35 LLOYD SINGH MD Dec 24, 2024 12:40
--- NOTE | 2024-12-24 12:55 | DVH ---
Procedure: CT CHEST WITH CONTRAST Reason for study/Clinical History: chest abscess s/p previous cabg Comparison Study: XY CHEST PORTABLE on DOS: 12/22/24, CT CT ANGIO CHEST CONTRAST on DOS: 06/20/24, XY CH EST XRAY 1 VIEW on DOS: 06/19/24, CT CHEST WITHOUT CONTRAST on DOS: 04/30/24, XY CHEST PORTABLE on DOS: 02/20/24 Exam Date: 12/24/2024 11:01 AM Radiation Dose Information: CT Dose: CTDI volume is 25.52 mGy. Dose-length product is 864.9 mGy*cm TECHNIQUE: After the uneventful administration of intravenous contrast intravenously, CT imaging was performed through the chest. Coronal and sagittal reformations were performed by the technologist. FINDINGS: Lower Neck: Visualized portions of the thyroid gland are unremarkable. Aorta and Vasculature: Normal caliber of thoracic aorta. Lymph Nodes: No enlarged intrathoracic lymph nodes. Mediastinum: Cardiomegaly. Coronary artery calcifications. Vascular calcifications of the aorta. Lungs: No focal consolidation, pleural effusion or significant pneumothorax. No suspicious pulmonary nodule or mass. Musculoskeletal: No acute osseous abnormality. Renal osteodystrophy. Upper abdomen: Atrophic left kidney.. IMPRESSION: No evidence of acute intrathoracic abnormality identified. Cardiomegaly.
[2024-12-24] MEDS: ACETAMINOPHEN 325 MG TAB PO PRN (20:03)
--- NOTE | 2024-12-24 20:16 | DVHPN2 ---
Progress Note Date Seen: Dec 24, 2024 Medical Necessity Reason Pt with a Central, PICC or Fol: No Subjective Patient reports: Feels worse Review of Systems: Deferred Objective vital signs Vital Sign Date Time Temp Pulse Resp B/P (MAP) Pulse Ox O2 Delivery O2 Flow Rate FiO2 12/24/24 20:03 100.5 12/24/24 19:24 96 22 148/74 12/24/24 17:30 96 12/24/24 07:30 Nasal Cannula* 2 28 Total Intake and Output 12/23/24 12/23/24 12/24/24 15:00 23:00 07:00 Intake Total 100 ml 200 ml Balance 100 ml 200 ml medications Current Medications Medications Dose Ordered Sig/Arminda Route Start Time Stop Time Status Last Admin Dose Admin Cefepime HCl 50 ml @ 12.5 mls/hr DAILY IV 12/23/24 10:00 12/24/24 08:57 12.5 MLS/HR Norepinephrine Bitartrate 250 ml @ 3.75 mls/hr Q24H IV 12/22/24 14:15 12/22/24 16:59 3.75 MLS/HR Vancomycin HCl 0 ml @ 0 mls/hr UD IV 12/22/24 19:15 Atorvastatin Calcium 40 mg HS PO 12/22/24 22:00 12/24/24 20:03 40 MG Clopidogrel Bisulfate 75 mg DAILY PO 12/23/24 10:00 12/24/24 08:56 75 MG Sevelamer HCl 800 mg TIDWM PO 12/23/24 08:00 12/24/24 18:15 800 MG Pantoprazole Sodium 40 mg DAILY@0600 PO 12/23/24 06:00 12/24/24 06:08 40 MG Diagnostic Test (Pha) 1 strip Q6HR 12/23/24 00:00 12/24/24 18:41 1 STRIP Insulin Human Regular Q6HR SC 12/23/24 00:00 12/24/24 18:40 2 UNITS Dextrose 50 ml UD PRN IV 12/22/24 19:15 Acetaminophen/ Hydrocodone Bitart 1 tab Q4HP PRN PO 12/22/24 19:15 Hold 12/24/24 08:56 1 TAB Ondansetron HCl 4 mg Q4HP PRN IV 12/22/24 19:15 Acetaminophen 650 mg Q6HP PRN PO 12/22/24 19:15 12/24/24 20:03 650 MG Nitroglycerin 0.4 mg Q5MINP PRN SL 12/22/24 19:15 Morphine Sulfate 2 mg Q30M PRN IV 12/22/24 19:15 Morphine Sulfate 2 mg Q4HPRN PRN IV 12/24/24 11:15 12/24/24 18:32 2 MG Hydromorphone HCl 1.5 mg Q4HPRN PRN IV 12/24/24 13:45 Examination: GENERAL:Abnormal, MSK:Abnormal, SKIN:Abnormal, NEURO:Normal laboratory and microbiology Laboratory Tests 12/24/24 05:33 Test 12/24/24 05:33 Range/Units Serum Glucose 141 H 74-106 mg/dL Microbiology Date/Time Source Procedure Growth Status 12/22/24 13:04 Blood Blood Culture - Final Staphylococcus aureus Complete Problem List/Assessment/Plan Problem List/Assessment/Plan End-stage renal disease on hemo dialysis at home severe sepsis missed HD hyperkalemia Hypotension and sepsis secondary to infected AV fistula Elevated troponins Lactic acidosis recs Blood culture positive for staph aureus Remove PICC line Repeat hemodialysis today Plan discussed with: Patient My Orders My Orders Orders - MER SAMAYOA MD Procedure Category Date Status Time Consult CONS 12/23/24 Transmitted Vascular/Endovascular 21:02 Hemodialysis Orders ORDERS 12/24/24 Transmitted 12:47 MER SAMAYOA MD Dec 24, 2024 20:16
[2024-12-24] MEDS: HYDROmorphone HCL 2 MG/ML VL/or syr IV PRN (23:03)
[2024-12-24] MEDS: hydrALAZINE HCL 20 MG/ML VL IV PRN (23:46)
[2024-12-25] VITALS (7 sets, daily range): BP systolic 124–153; BP diastolic 52–93; PULSE 83–102; RESP 16–22; TEMP 98–101.2; O2SAT 95–100
[2024-12-25 06:37] LABS: Hematocrit 28.2 % (36.0-46.0); Hemoglobin 9.5 g/dL (12.2-16.2); Mean Corpuscular Hemoglobin 26.2 pg (28.0-32.0); Mean Corpuscular Volume 77.5 fL (80.0-100.0); Nucleated Red Blood Cells % 0.1 %
[2024-12-25 06:51] LABS: Potassium 4.6 mmol/L (3.5-5.1)
[2024-12-25 06:52] LABS: Anion Gap 15 (5-15); Carbon Dioxide 26 mmol/L (20-31)
[2024-12-25 06:53] LABS: Calcium 9.3 mg/dL (8.7-10.4)
[2024-12-25 06:57] LABS: Chloride 89 mmol/L (98-107); Sodium 130 mmol/L (136-145)
[2024-12-25 06:58] LABS: BUN/Creatinine Ratio 6.9 (10.0-20.0)
[2024-12-25 07:00] LABS: Blood Urea Nitrogen 50 mg/dL (9-23); Glucose 130 mg/dL (74-106)
--- NOTE | 2024-12-25 10:46 | DVHPN2 ---
Progress Note Date Seen: Dec 25, 2024 Medical Necessity Reason Pt with a Central, PICC or Fol: No Subjective Patient reports: No new complaints Review of Systems: HEENT:Normal, CVS:Normal, RESPIRATORY:Normal, GI:Normal, :Normal, MSK:Normal, NEURO:Normal Objective vital signs Vital Sign Date Time Temp Pulse Resp B/P (MAP) Pulse Ox O2 Delivery O2 Flow Rate FiO2 12/25/24 05:45 98.9 12/25/24 05:00 102 20 143/68 (93) 95 12/24/24 20:00 Nasal Cannula* 2 28 Total Intake and Output 12/24/24 12/24/24 12/25/24 15:00 23:00 07:00 Intake Total 50 ml 0 ml 500 ml Balance 50 ml 0 ml 500 ml medications Current Medications Medications Dose Ordered Sig/Arminda Route Start Time Stop Time Status Last Admin Dose Admin Cefepime HCl 50 ml @ 12.5 mls/hr DAILY IV 12/23/24 10:00 12/25/24 09:26 12.5 MLS/HR Norepinephrine Bitartrate 250 ml @ 3.75 mls/hr Q24H IV 12/22/24 14:15 12/22/24 16:59 3.75 MLS/HR Vancomycin HCl 0 ml @ 0 mls/hr UD IV 12/22/24 19:15 Atorvastatin Calcium 40 mg HS PO 12/22/24 22:00 12/24/24 20:03 40 MG Clopidogrel Bisulfate 75 mg DAILY PO 12/23/24 10:00 12/25/24 09:26 75 MG Sevelamer HCl 800 mg TIDWM PO 12/23/24 08:00 12/25/24 09:26 800 MG Pantoprazole Sodium 40 mg DAILY@0600 PO 12/23/24 06:00 12/25/24 06:13 40 MG Diagnostic Test (Pha) 1 strip Q6HR 12/23/24 00:00 12/25/24 06:09 1 STRIP Insulin Human Regular Q6HR SC 12/23/24 00:00 12/24/24 18:40 2 UNITS Dextrose 50 ml UD PRN IV 12/22/24 19:15 Acetaminophen/ Hydrocodone Bitart 1 tab Q4HP PRN PO 12/22/24 19:15 Hold 12/24/24 08:56 1 TAB Ondansetron HCl 4 mg Q4HP PRN IV 12/22/24 19:15 Acetaminophen 650 mg Q6HP PRN PO 12/22/24 19:15 12/25/24 04:45 650 MG Nitroglycerin 0.4 mg Q5MINP PRN SL 12/22/24 19:15 Morphine Sulfate 2 mg Q30M PRN IV 12/22/24 19:15 Morphine Sulfate 2 mg Q4HPRN PRN IV 12/24/24 11:15 12/24/24 18:32 2 MG Hydromorphone HCl 1.5 mg Q4HPRN PRN IV 12/24/24 13:45 12/24/24 23:03 1.5 MG Hydralazine HCl 10 mg Q6HP PRN IV 12/24/24 23:15 12/24/24 23:46 10 MG Examination: GENERAL:Normal, HEENT:Normal, NECK:Normal, LUNGS:Normal, CVS:Normal, ABDOMEN:Normal, MSK:Normal, SKIN:Normal, NEURO:Normal, :Normal laboratory and microbiology Laboratory Tests 12/25/24 05:23 Test 12/25/24 05:23 Range/Units Serum Glucose 130 H 74-106 mg/dL Microbiology Date/Time Source Procedure Growth Status 12/24/24 05:43 Blood Blood Culture - Preliminary Resulted Problem List/Assessment/Plan Problem List/Assessment/Plan * sepsis with staph aureus: iv vanc, echo, ct chest for chest wound, picc line removed * chronic diastolic heart failure. * End-stage renal disease, on hemodialysis. * Surgical sternal wound with previous debridement. * Gastroesophageal reflux disease. * Coronary artery disease, status post coronary artery bypass graft with stents. * Diabetes mellitus: ssi * Depression. * Liver cirrhosis. * Obesity. * Chronic pain. * Hypertension h/o * Hyperlipidemia. advance care planning- full code- time spent 19 mins Plan discussed with: Patient My Orders My Orders Orders - VENANCIO JARA MD Procedure Category Date Status Time Morphine Sulfate PHA 12/24/24 In Process Injection 11:15 D/C Picc Line ORDERS 12/24/24 Transmitted 13:52 Apply Barrier Cream BRIT 12/24/24 In Process 11:53 * Dietary Consult CONS 12/24/24 Transmitted 15:25 Cleanse Wound With BRIT 12/24/24 In Process Wound Clean 15:25 Date of Service: Dec 25, 2024 Billing Provider: VENANCIO JARA MD Common Visit Codes: [id number] INP/OBS CARE(HIGH) VENANCIO JARA MD Dec 25, 2024 10:46
[2024-12-25] MEDS: VANCOMYCIN 500mg/100mL 100 ML IV ONE (11:42)
--- NOTE | 2024-12-25 13:47 | DVHPN2 ---
Progress Note - Dictate Date Seen: Dec 25, 2024 Medical Necessity Reason Pt with a Central, PICC or Fol: No Subjective PT WELL KNOW TO ME WITH SHARP CHEST PAIN ASSOCIATED WITH SOB PMH: NOW WITH BLOOD CX POSITIVE STAPH AURES MRSA POSITVE NARES SOURCE OF INFECTION MEDISTINAL VS DIALYSIS GRAFT S/P MEDIASTINAL DEBRIDEMENT MEDIASTINITIS/ REMOVAL OD ALL STERNAL WIRES NOW WITH WOUND VACUUM ORG HD CAD S/P CABG S/P MULTI VESSEL PTCA STENT POST CABG ESRD ON HD HTN DIABETES ANEMIA LHC PATENT SVG TO LAD PATENT STENTS TO CX PATENT RCA AND PDA SVG TO PDA OCCLUDED EF 45% vital signs Vital Sign Date Time Temp Pulse Resp B/P (MAP) Pulse Ox O2 Delivery O2 Flow Rate FiO2 12/25/24 12:34 153/66 12/25/24 08:30 98.8 83 16 99 98.8 12/25/24 07:47 Nasal Cannula* 2 28 Total Intake and Output 12/24/24 12/24/24 12/25/24 15:00 23:00 07:00 Intake Total 50 ml 0 ml 500 ml Balance 50 ml 0 ml 500 ml medications Current Medications Medications Dose Ordered Sig/Arminda Route Start Time Stop Time Status Last Admin Dose Admin Vancomycin HCl 0 ml @ 0 mls/hr UD IV 12/22/24 19:15 Atorvastatin Calcium 40 mg HS PO 12/22/24 22:00 12/24/24 20:03 40 MG Clopidogrel Bisulfate 75 mg DAILY PO 12/23/24 10:00 12/25/24 09:26 75 MG Sevelamer HCl 800 mg TIDWM PO 12/23/24 08:00 12/25/24 11:38 800 MG Pantoprazole Sodium 40 mg DAILY@0600 PO 12/23/24 06:00 12/25/24 06:13 40 MG Diagnostic Test (Pha) 1 strip Q6HR 12/23/24 00:00 12/25/24 12:39 1 STRIP Insulin Human Regular Q6HR SC 12/23/24 00:00 12/25/24 12:39 2 UNITS Dextrose 50 ml UD PRN IV 12/22/24 19:15 Acetaminophen/ Hydrocodone Bitart 1 tab Q4HP PRN PO 12/22/24 19:15 Hold 12/24/24 08:56 1 TAB Ondansetron HCl 4 mg Q4HP PRN IV 12/22/24 19:15 Acetaminophen 650 mg Q6HP PRN PO 12/22/24 19:15 12/25/24 04:45 650 MG Nitroglycerin 0.4 mg Q5MINP PRN SL 12/22/24 19:15 Morphine Sulfate 2 mg Q30M PRN IV 12/22/24 19:15 Morphine Sulfate 2 mg Q4HPRN PRN IV 12/24/24 11:15 12/24/24 18:32 2 MG Hydromorphone HCl 1.5 mg Q4HPRN PRN IV 12/24/24 13:45 12/24/24 23:03 1.5 MG Hydralazine HCl 10 mg Q6HP PRN IV 12/24/24 23:15 12/25/24 12:34 10 MG laboratory and microbiology Laboratory Tests 12/25/24 05:23 Test 12/25/24 05:23 Range/Units Serum Glucose 130 H 74-106 mg/dL Problem List LEUKOCYTOSIS WITH SHARP CHEST PAIN ASSOCIATED WITH SOB PMH: NOW WITH BLOOD CX POSITIVE STAPH AURES MRSA POSITVE NARES SOURCE OF INFECTION MEDISTINAL VS DIALYSIS GRAFT S/P MEDIASTINAL DEBRIDEMENT MEDIASTINITIS/ REMOVAL OD ALL STERNAL WIRES NOW WITH WOUND VACUUM ORG HD CAD S/P CABG S/P MULTI VESSEL PTCA STENT POST CABG ESRD ON HD HTN DIABETES ANEMIA LHC PATENT SVG TO LAD PATENT STENTS TO CX PATENT RCA AND PDA SVG TO PDA OCCLUDED EF 45% Assessment/Plan CHEST XRAY NEGATIVE VANCO SOURCE OF INFECTION MEDIASTINUM? SURGICAL CONSULT TRIPLE PHASE BONE SCAN CT OF CHEST NEGATIVE Monitor Morphine Sulfate 2MG,IV. Dietary Evaluation Review Comments: 1. allow pt has higher protein intake until the sepsis is resolved 2. Offer Nepro PO 240 ml BID if PO intake remains low. Expected Outcomes/Goals: rebuild muscle mass Plan discussed with: Patient Critical Care Time(min): 35 LLOYD SINGH MD Dec 25, 2024 13:47
--- NOTE | 2024-12-25 16:31 | DVHPN2 ---
Progress Note Date Seen: Dec 25, 2024 Medical Necessity Reason Pt with a Central, PICC or Fol: No Subjective Patient reports: Other (weak) Review of Systems: Deferred Objective vital signs Vital Sign Date Time Temp Pulse Resp B/P (MAP) Pulse Ox O2 Delivery O2 Flow Rate FiO2 12/25/24 15:31 86 18 153/66 12/25/24 08:30 98.8 99 98.8 12/25/24 07:47 Nasal Cannula* 2 28 Total Intake and Output 12/24/24 12/24/24 12/25/24 15:00 23:00 07:00 Intake Total 50 ml 0 ml 500 ml Balance 50 ml 0 ml 500 ml medications Current Medications Medications Dose Ordered Sig/Arminda Route Start Time Stop Time Status Last Admin Dose Admin Vancomycin HCl 0 ml @ 0 mls/hr UD IV 12/22/24 19:15 Atorvastatin Calcium 40 mg HS PO 12/22/24 22:00 12/24/24 20:03 40 MG Clopidogrel Bisulfate 75 mg DAILY PO 12/23/24 10:00 12/25/24 09:26 75 MG Sevelamer HCl 800 mg TIDWM PO 12/23/24 08:00 12/25/24 11:38 800 MG Pantoprazole Sodium 40 mg DAILY@0600 PO 12/23/24 06:00 12/25/24 06:13 40 MG Diagnostic Test (Pha) 1 strip Q6HR 12/23/24 00:00 12/25/24 12:39 1 STRIP Insulin Human Regular Q6HR SC 12/23/24 00:00 12/25/24 12:39 2 UNITS Dextrose 50 ml UD PRN IV 12/22/24 19:15 Acetaminophen/ Hydrocodone Bitart 1 tab Q4HP PRN PO 12/22/24 19:15 Hold 12/24/24 08:56 1 TAB Ondansetron HCl 4 mg Q4HP PRN IV 12/22/24 19:15 Acetaminophen 650 mg Q6HP PRN PO 12/22/24 19:15 12/25/24 04:45 650 MG Nitroglycerin 0.4 mg Q5MINP PRN SL 12/22/24 19:15 Morphine Sulfate 2 mg Q30M PRN IV 12/22/24 19:15 Morphine Sulfate 2 mg Q4HPRN PRN IV 12/24/24 11:15 12/25/24 15:31 2 MG Hydromorphone HCl 1.5 mg Q4HPRN PRN IV 12/24/24 13:45 12/24/24 23:03 1.5 MG Hydralazine HCl 10 mg Q6HP PRN IV 12/24/24 23:15 12/25/24 12:34 10 MG Examination: GENERAL:Normal, LUNGS:Abnormal, MSK:Abnormal, NEURO:Abnormal laboratory and microbiology Laboratory Tests 12/25/24 05:23 Test 12/25/24 05:23 Range/Units Serum Glucose 130 H 74-106 mg/dL Microbiology Date/Time Source Procedure Growth Status 12/24/24 05:43 Blood Blood Culture - Preliminary Resulted Problem List/Assessment/Plan Problem List/Assessment/Plan End-stage renal disease on hemo dialysis at home severe sepsis missed HD hyperkalemia Hypotension and sepsis secondary to picc line placed 6M ago likely avf site has scab now prior wound cx staph aureus as outpt Elevated troponins Lactic acidosis recs Blood culture positive for staph aureus Remove PICC line hemodialysis 12/26 vasc sx eval noted iv abx Plan discussed with: Other Dietary Evaluation Review Comments: 1. allow pt has higher protein intake until the sepsis is resolved 2. Offer Nepro PO 240 ml BID if PO intake remains low. Expected Outcomes/Goals: rebuild muscle mass MER SAMAYOA MD Dec 25, 2024 16:30
[2024-12-26] VITALS (23 sets, daily range): BP systolic 114–183; BP diastolic 27–78; PULSE 80–108; RESP 17–33; TEMP 97.4–99.7; O2SAT 93–100
[2024-12-26 06:04] LABS: Hematocrit 29.4 % (36.0-46.0); Hemoglobin 9.7 g/dL (12.2-16.2); Mean Corpuscular Hemoglobin 25.3 pg (28.0-32.0); Mean Corpuscular Volume 76.6 fL (80.0-100.0); Nucleated Red Blood Cells % 0.2 %
[2024-12-26 06:08] LABS: Potassium 4.6 mmol/L (3.5-5.1)
[2024-12-26 06:09] LABS: Anion Gap 16 (5-15); Calcium 9.4 mg/dL (8.7-10.4); Carbon Dioxide 24 mmol/L (20-31)
[2024-12-26 06:14] LABS: BUN/Creatinine Ratio 7.5 (10.0-20.0)
[2024-12-26 06:21] LABS: Blood Urea Nitrogen 63 mg/dL (9-23); Chloride 87 mmol/L (98-107); Glucose 136 mg/dL (74-106); Sodium 127 mmol/L (136-145)
[2024-12-26] MEDS ORDERED: SODIUM CHL 0.9% 1000 ML BAG XX ONE (07:00)
--- NOTE | 2024-12-26 11:19 | MEDREC ---
[facility] Intervention Section I [facility] Intervention: Review courses of therapy (BLOOD CULTURES 4/4 BOTTLES FINAL FOR STAPH AUREUS SUSCEPTIBLE TO OXACILLIN. RECOMMEND ID CONSULT.) [facility] RESIDENT Dec 26, 2024 11:19
[2024-12-26] MEDS: NALOXONE HCL 0.4 MG/ML VIAL ONE (11:54)
--- NOTE | 2024-12-26 12:25 | DVHPN2 ---
Progress Note Date Seen: Dec 26, 2024 Medical Necessity Reason Pt with a Central, PICC or Fol: No Subjective Patient reports: No new complaints Review of Systems: HEENT:Normal, CVS:Normal, RESPIRATORY:Normal, GI:Normal, :Normal, MSK:Normal, NEURO:Normal Objective vital signs Vital Sign Date Time Temp Pulse Resp B/P (MAP) Pulse Ox O2 Delivery O2 Flow Rate FiO2 12/26/24 09:00 98.6 94 18 152/72 (98) 97 98.6 12/25/24 20:00 Nasal Cannula* 2 28 Total Intake and Output 12/25/24 12/25/24 12/26/24 15:00 23:00 07:00 Intake Total 150 ml 880 ml Output Total 0 ml Balance 150 ml 880 ml medications Current Medications Medications Dose Ordered Sig/Arminda Route Start Time Stop Time Status Last Admin Dose Admin Vancomycin HCl 0 ml @ 0 mls/hr UD IV 12/22/24 19:15 Atorvastatin Calcium 40 mg HS PO 12/22/24 22:00 12/25/24 21:38 40 MG Clopidogrel Bisulfate 75 mg DAILY PO 12/23/24 10:00 12/26/24 10:03 75 MG Sevelamer HCl 800 mg TIDWM PO 12/23/24 08:00 12/26/24 10:03 800 MG Pantoprazole Sodium 40 mg DAILY@0600 PO 12/23/24 06:00 12/26/24 05:32 40 MG Diagnostic Test (Pha) 1 strip Q6HR 12/23/24 00:00 12/26/24 05:45 1 STRIP Insulin Human Regular Q6HR SC 12/23/24 00:00 12/26/24 05:45 2 UNITS Dextrose 50 ml UD PRN IV 12/22/24 19:15 Acetaminophen/ Hydrocodone Bitart 1 tab Q4HP PRN PO 12/22/24 19:15 Hold 12/24/24 08:56 1 TAB Ondansetron HCl 4 mg Q4HP PRN IV 12/22/24 19:15 Acetaminophen 650 mg Q6HP PRN PO 12/22/24 19:15 12/25/24 20:27 650 MG Nitroglycerin 0.4 mg Q5MINP PRN SL 12/22/24 19:15 Morphine Sulfate 2 mg Q30M PRN IV 12/22/24 19:15 Morphine Sulfate 2 mg Q4HPRN PRN IV 12/24/24 11:15 12/25/24 15:31 2 MG Hydralazine HCl 10 mg Q6HP PRN IV 12/24/24 23:15 12/26/24 04:26 10 MG Examination: GENERAL:Normal, HEENT:Normal, NECK:Normal, LUNGS:Normal, CVS:Normal, ABDOMEN:Normal, MSK:Normal, SKIN:Normal, NEURO:Normal, NEURO:Abnormal (LEFT SIDE WEAKNESS, LEFT FACIAL DROOP), :Normal laboratory and microbiology Laboratory Tests 12/26/24 05:22 Test 12/26/24 05:22 Range/Units Serum Glucose 136 H 74-106 mg/dL Microbiology Date/Time Source Procedure Growth Status 12/25/24 13:35 Blood Blood Culture - Preliminary Resulted Problem List/Assessment/Plan Problem List/Assessment/Plan * sepsis with staph aureus: iv vanc, echo, ct chest for chest wound, picc line removed * chronic diastolic heart failure. * End-stage renal disease, on hemodialysis. * Surgical sternal wound with previous debridement. * Gastroesophageal reflux disease. * Coronary artery disease, status post coronary artery bypass graft with stents. * Diabetes mellitus: ssi * Depression. * Liver cirrhosis. * Obesity. * Chronic pain. * Hypertension h/o * Hyperlipidemia. * ACUTE CVA: CT HEAD, DW DR HAMMOND, TRANSFER TO ICU advance care planning- full code- time spent 19 mins Plan discussed with: Patient My Orders My Orders Orders - VENANCIO JARA MD Procedure Category Date Status Time Head Without Contrast CT 12/26/24 Taken 11:43 Transfer Orders XFER 12/26/24 Transmitted 11:48 PTPTT LAB 12/26/24 In Process 11:48 * Neurology Consult CONS 12/26/24 Transmitted 11:54 Blood Culture HELADIO 12/26/24 Logged 11:[address] Cont[address] CT 12/26/24 Logged 11:54 Complete Blood Count LAB 12/27/24 Verified 06:00 Comprehensive LAB 12/27/24 Verified Metabolic Panel 06:00 Chest Portable XY 12/27/24 Logged 06:00 Pantoprazole PHA 12/26/24 Transmitted (Protonix) 12:30 Pantoprazole PHA 12/27/24 Transmitted (Protonix) 10:00 Dietary Evaluation Review Comments: 1. allow pt has higher protein intake until the sepsis is resolved 2. Offer Nepro PO 240 ml BID if PO intake remains low. Expected Outcomes/Goals: rebuild muscle mass Critical Care Time (mins): 41 (critical care time excluding procedures is 41 mins) Date of Service: Dec 26, 2024 Billing Provider: VENANCIO JARA MD Common Visit Codes: [id number] CARE 30-74 MIN VENANCIO JARA MD Dec 26, 2024 12:25
[2024-12-26] MEDS ORDERED: PANTOPRAZOLE 40 MG/10 ML VIAL INJ IV ONE (12:30)
--- NOTE | 2024-12-26 12:35 | DVHPN2 ---
Progress Note Date Seen: Dec 26, 2024 Medical Necessity Reason Pt with a Central, PICC or Fol: No Subjective Patient reports: Other Review of Systems: NEURO:Abnormal (altered/slurred speech/ wekness /droop) Objective vital signs Vital Sign Date Time Temp Pulse Resp B/P (MAP) Pulse Ox O2 Delivery O2 Flow Rate FiO2 12/26/24 09:00 98.6 94 18 152/72 (98) 97 98.6 12/25/24 20:00 Nasal Cannula* 2 28 Total Intake and Output 12/25/24 12/25/24 12/26/24 15:00 23:00 07:00 Intake Total 150 ml 880 ml Output Total 0 ml Balance 150 ml 880 ml medications Current Medications Medications Dose Ordered Sig/Arminda Route Start Time Stop Time Status Last Admin Dose Admin Vancomycin HCl 0 ml @ 0 mls/hr UD IV 12/22/24 19:15 Atorvastatin Calcium 40 mg HS PO 12/22/24 22:00 12/25/24 21:38 40 MG Clopidogrel Bisulfate 75 mg DAILY PO 12/23/24 10:00 12/26/24 10:03 75 MG Diagnostic Test (Pha) 1 strip Q6HR 12/23/24 00:00 12/26/24 05:45 1 STRIP Insulin Human Regular Q6HR SC 12/23/24 00:00 12/26/24 05:45 2 UNITS Dextrose 50 ml UD PRN IV 12/22/24 19:15 Ondansetron HCl 4 mg Q4HP PRN IV 12/22/24 19:15 Acetaminophen 650 mg Q6HP PRN PO 12/22/24 19:15 12/25/24 20:27 650 MG Nitroglycerin 0.4 mg Q5MINP PRN SL 12/22/24 19:15 Morphine Sulfate 2 mg Q30M PRN IV 12/22/24 19:15 Morphine Sulfate 2 mg Q4HPRN PRN IV 12/24/24 11:15 12/25/24 15:31 2 MG Hydralazine HCl 10 mg Q6HP PRN IV 12/24/24 23:15 12/26/24 04:26 10 MG Pantoprazole Sodium 40 mg DAILY IV 12/27/24 10:00 UNV Examination: GENERAL:Abnormal, MSK:Abnormal, NEURO:Abnormal laboratory and microbiology Laboratory Tests 12/26/24 05:22 Test 12/26/24 05:22 Range/Units Serum Glucose 136 H 74-106 mg/dL Microbiology Date/Time Source Procedure Growth Status 12/25/24 13:35 Blood Blood Culture - Preliminary Resulted Problem List/Assessment/Plan Problem List/Assessment/Plan End-stage renal disease on hemo dialysis at home severe sepsis missed HD hyperkalemia hypotension sepsis secondary to picc line placed 6M ago likely avf site has scab now prior wound cx staph aureus as outpt recs ct head pending/events noted / r/o cva Blood culture positive for staph aureus hemodialysis 12/26 vasc sx eval noted iv abx Plan discussed with: Other My Orders My Orders Orders - MER SAMAYOA MD Procedure Category Date Status Time Hemodialysis Orders ORDERS 12/26/24 Transmitted 07:00 Dialysis Nursing BRIT 12/26/24 In Process Message 07:00 Document Fluid Input BRIT 12/26/24 In Process And Outpu 07:00 Epoetin Elieser-Epbx PHA 12/26/24 In Process (Retacrit) 21:00 Dietary Evaluation Review Comments: 1. allow pt has higher protein intake until the sepsis is resolved 2. Offer Nepro PO 240 ml BID if PO intake remains low. Expected Outcomes/Goals: rebuild muscle mass MER SAMAYOA MD Dec 26, 2024 12:35
--- NOTE | 2024-12-26 12:39 | DVH ---
CT brain without contrast CLINICAL INDICATION: r/o stroke FINDINGS: The study was performed in a multidetector scanner. This study performed taking axial image s from the skull base up to the vertex. Both brain and bone windows are photographed. Dose lowering techniques have been used including automated exposure control and adjustment of mA and /or KV according to patient size. Wedge-shaped area of low-density is present in the posterior right temporal and parietal lobes. No in traparenchymal hemorrhage. No hydrocephalus or midline shift. No extra-axial fluid collections No calvarial lesions on bone windows IMPRESSION: 1. Acute ischemic event involving the right posterior temporal and parietal lobes probably in the rig ht middle cerebral artery distribution Results called to Dr. Alvarez as critical finding at 1230 hr Computed Tomographic Radiation Dosimetry Report: Total CTDI vol = 40.47mGy Total DLP = 1.44mGy-cm All CT scans at this medical facility are performed using dose modulation techniques as appropriate to a performed exam including the following: Automated exposure control was utilized; adjustment of the M A and/or KvP according to patient size; and use of iterative reconstruction technique.
[2024-12-26 12:47] LABS: INR 1.06 (0.9-1.15); Partial Thromboplastin Time 32.6 SEC (24.5-34.5); Prothrombin Time 11.2 sec (9.3-11.8)
[2024-12-26] MEDS ORDERED: IOHEXOL 350 MG/ML 100ML IJ ONE (12:53)
--- NOTE | 2024-12-26 12:57 | DVHINCON2 ---
Date of service: Dec 26, [address] Alvarez Reason for Consultation CVA History of Present Illness 12/22/24 54-year-old female brought by paramedics because of generalized weakness fever for the past week. She was seen here a week ago for generalized weakness. She was diagnosed with infected dialysis fistula in the left arm. She has not got her antibiotics after diagnosis. She has been having increasing fever. Blood pressure checked by the paramedics was 80/49 for which she was given 250 mL of fluids increase the blood pressure to a systolic above 100. Her saturation on room air was 91% placed on 2 L which increased to 99%. History of CHF chronic kidney disease hypotension diabetes CVA with no deficits. She does get hemodialysis. Denies any other symptoms. Ms. Samuels is a 54 years old right-handed female with a history of hypertension, diabetes, dyslipidemia, coronary artery disease, heart attack, end-stage renal failure on hemodialysis, obesity, the patient came to the hospital on 12/22/2024 with a chief complaint of general weakness, fever. At that time, he is awake, oriented to person, place, he knows year and the month, her speech very slurry, the history is obtained from her nurse, and I have also talked to her daughter. The case has been discussed with Dr. Alvarez a few times I saw on 05/23/2023 for CVA (MRI brain negative), seizure (nonepileptic seizure during EEG), headache, diplopia on 11/15/2023 (ESR: 36. CRP: 1.85. MRI negative) On 12/26/2024, around 5:16 a.m., her daughter noticed slurred speech when he has talked to her on the phone, again she noticed slurred speech when she had another phone call with the patient around 10:14 a.m.. When her daytime nurse checked her up earlier this morning, the patient is noticed to be lethargic, oriented times 2-3. Around 11:15, he could not swallow medication, and the both arms were weak The following is previous history In 2006, she developed right-sided weakness, in that she was not able to walk, write, she was seen in the [facility] and she was said to have stroke. At home she takes aspirin 81 g daily, and atorvastatin She snores when she is tired, her sleep is not always refreshing, and she has daytime fatigue sometimes Since early 2022, she has constant tingling numbness in the left sole Since 2021, she has intermittent tingling and numbness in the right 3 radial fingers, worse after using her hands such as writing, since early 2022, she has similar, but less intense symptoms in the left three video fingers, she was said to have carpal tunnel syndrome, nocturnal carpal tunnel splints do not help WBC/HB/PLT/MCV, 12/26/2024: 11.9/9.7/129/76.6 Na, 12/22/2024: 131, 12/25/2024: 130, 12/26/2024: 127 BUN/CR, 12/26/2024: 63/8.45 GFR, 12/26/2024: 5 TG/CHO L/LDL/HDL, 10/2021: 88/74/39/27, 05/23/2023: 154/138/75/35 Vitamin B12, 05/2023: 1038 Folic acid, 05/2023: 24 TSH 05/2023: 1.46 EEG, 05/24/2023: Normal, nonepileptic seizure activity captured CT head, 05/22/2023: No acute intracranial abnormality. If clinically suspect stroke, recommend MRI. (I see 2 lacunar chronic stroke in the right hemisphere) CT head, 12/26/2024: Acute ischemic event involving the right posterior temporal and parietal lobes probably in the right middle cerebral artery distribution MRI brain, 05/23/2023: No evidence of acute intracranial abnormality. Nonacute findings as detailed above MRI head, 11/15/2023: No acute infarct, intracranial hemorrhage, mass effect, or hydrocephalus. Past Medical History Hypertension, diabetes, dyslipidemia, coronary artery disease, heart attack, end-stage renal failure on hemodialysis, Past Surgical History AV fistula, CABG, multiple cardiac stent, right nephrectomy Family History: Acute renal failure G8 MOTHER Cerebrovascular accident (CVA) G8 FATHER Diabetes mellitus G8 SISTER Hypertension G8 MOTHER G8 FATHER G8 BROTHER Family History Hypertension, diabetes, heart disease, kidney failure Social History She is nontobacco smoker, she denies a history of alcohol recreational substance abuse Allergies: Coded Allergies: No Known Drug Allergy (Verified Allergy, Unknown, 10/26/21) Home Meds Reported Medications Sucralfate (Carafate) 1 Gm/10 Ml Mabel, 10 MG PO QID, ML 12/24/24 Ondansetron HCl (Ondansetron Hydrochloride) 8 Mg Tab, 8 MG PO Q12HP PRN for NAUSEA / VOMITING 12/24/24 Amlodipine Besylate (NORVASC TABLET) 5 Mg Tb, 10 MG PO DAILY PRN for SBP>150, TAB 12/24/24 Insulin Lispro (Human) (Humalog) 100 Unit/Ml Inj, 70-80 UNIT SC DAILY 12/24/24 Fludrocortisone Acetate (Florinef) 0.1 Mg Tb, 1 TAB PO 06/21/24 Calcitriol (Calcitriol) 0.25 Mcg Cap, 4 CAP PO DAILY, #30 CAP 06/21/24 Insulin Glargine (Basaglar Kwikpen) 100 Unit/Ml Inj, 20 UNIT SC BID, INJ 06/20/24 Oxycodone W/ Acetaminophen (Apap/Oxycodone) 1 Tab Tab, 1 TAB PO Q8HR for 30 Days, #90 [10/325 MG] 02/20/24 Clopidogrel Bisulfate (CLOPIDOGREL) 75 Mg Tab, 1 TAB PO DAILY 02/19/24 Cinacalcet HCl (Cinacalcet Hydrochloride) 30 Mg Tab, 1 TAB PO MWF 11/14/23 Hydroxyzine Hcl (Hydroxyzine Hcl) 25 Mg Tab, 1 TAB PO BID 11/14/23 Sertraline HCl (Sertraline Hydrochloride) 150 Mg Cap, 1 CAP PO QAM 11/14/23 Temazepam (Temazepam) 30 Mg Cap, 30 MG PO HS for SLEEP, CAP 10/09/20 Atorvastatin Calcium (ATORVASTATIN CALCIUM) 10 Mg Tab, 1 TAB PO DAILY, #30 TAB 5 Refills 07/03/17 Pantoprazole Sodium Sesquihydr (Protonix) 40 Mg Tab, 40 MG PO DAILY for 90 Days, #90 07/03/17 Aspirin (Asa) 81 Mg Ch, 81 MG PO DAILY 07/03/17 Sevelamer Carbonate (Renvela) 800 Mg Tab, 800 MG PO TIDWM for KIDNEY DISEASE/ DIALYSIS for 30 Days, MG 05/04/17 Current Medications Current Medications Medications (Trade) Dose Ordered Sig/Arminda Route PRN Reason Start Time Stop Time Status Last Admin Pantoprazole Sodium (Protonix) 40 mg DAILY IV 12/27/24 10:00 UNV Review of Systems As above, the other systems are negative Vital Signs Vital Signs Date Time Temp Pulse Resp B/P (MAP) Pulse Ox O2 Delivery O2 Flow Rate FiO2 12/26/24 09:00 98.6 94 18 152/72 (98) 97 98.6 12/25/24 20:00 Nasal Cannula* 2 28 Physical Exam GENERAL EXAM: General: the patient is well developed and nourished. No acute distress. HEENT: Normocephalic, neck is supple, no carotid bruits. No mass. RESPIRATORY: Normal respiratory effort with symmetrical lung expansion. Lungs clear to auscultation. CARDIOVASCULAR: Regular rate and rhythm with no murmurs. S1, S2. ABDOMEN: Soft, nontender, normal bowel sound Bilateral hammertoes NEUROLOGICAL: MENTAL STATUS: Awake. Oriented to person, place, she knows year, likely month as well SPEECH, LANGUAGE, HIGHER CORTICAL FUNCTION: no aphasia but has moderate to severe dysarthria CRANIAL NERVES: #2: She may have left homonymous hemianopsia. #3,4,6: Pupils are equal, round and reactive. Eyes are deviated to the right side. No nystagmus. #5: Facial sensation intact in all three divisions bilaterally. Mandibular strength intact. #7: Left facial weakness of upper motor neuron pattern #8: Hearing grossly normal to voice. #9,10: Uvula and soft palate rise in the midline. Swallow and voice are normal. #11: Trapezius and sternomastoid strength intact bilaterally. #12: Tongue midline. No fasciculations or atrophy. SENSATION: Sensation to touch and pinprick is diminished in the left arm, likely in the legs while MOTOR: Normal tone in the upper and lower extremity. Normal muscle bulk. No fasciculations. No abnormal movements or posturing. Muscle strength of the major groups in the right extremities is no less than 4/5. Muscle strength of the major groups in the left extremities is 0-1/5. REFLEXES: Deep tendon reflexes are symmetrical. Upgoing toe in the left foot CEREBELLAR/COORDINATION: Deferred GAIT/STATION: deferred. Labs/Diagnostic Data Labs Test 12/26/24 11:48 12/26/24 05:23 12/26/24 05:22 12/24/24 05:33 Range/Units Prothrombin Time 11.2 9.3-11.8 sec Prothrombin Time INR 1.06 0.9-1.15 Activated Partial Thromboplast Time 32.6 24.5-34.5 SEC POC Glucose 148 H 70-106 mg/dl White Blood Count 11.9 H 4.4-10.8 10^3/uL Red Blood Count 3.84 L 4.0-5.20 10^6/uL Hemoglobin 9.7 L 12.2-16.2 g/dL Hematocrit 29.4 L 36.0-46.0 % Mean Corpuscular Volume 76.6 L 80.0-100.0 fL Mean Corpuscular Hemoglobin 25.3 L 28.0-32.0 pg Mean Corpuscular Hemoglobin Concent 33.0 32.0-36.0 g/dL Red Cell Distribution Width 17.2 H 11.8-14.3 % Platelet Count 129 L 140-450 10^3/uL Mean Platelet Volume 8.8 6.9-10.8 fL Neutrophils (%) (Auto) 86.4 H 37.0-80.0 % Lymphocytes (%) (Auto) 5.0 L 10.0-50.0 % Monocytes (%) (Auto) 7.9 0.0-12.0 % Eosinophils (%) (Auto) 0.6 0.0-7.0 % Basophils (%) (Auto) 0.1 0.0-2.0 % Neutrophils # (Auto) 10.3 H 1.6-8.6 10 ^3/uL Lymphocytes # (Auto) 0.6 0.4-5.4 10 ^3/uL Monocytes # (Auto) 0.9 0-1.3 10 ^3/uL Eosinophils # (Auto) 0.1 0-0.8 10 ^3/uL Basophils # (Auto) 0 0-0.2 10 ^3/uL Nucleated Red Blood Cells 0.2 % Sodium Level 127 L 136-145 mmol/L Potassium Level 4.6 3.5-5.1 mmol/L Chloride Level 87 L 98-107 mmol/L Carbon Dioxide Level 24 20-31 mmol/L Anion Gap 16 H 5-15 Blood Urea Nitrogen 63 #H 9-23 mg/dL Creatinine 8.45 H 0.550-1.02 mg/dL Glomerular Filtration Rate Calc 5 >90 mL/min BUN/Creatinine Ratio 7.5 L 10.0-20.0 Serum Glucose 136 H 74-106 mg/dL Calcium Level 9.4 8.7-10.4 mg/dL Random Vancomycin Level 20.1 H 5-10 ug/mL Total Bilirubin 0.6 0.2-1.0 mg/dL Aspartate Amino Transferase (AST) 72 H 13-40 U/L Alanine Aminotransferase (ALT) 18 7-40 U/L Alkaline Phosphatase 77 46-116 U/L Total Protein 7.6 5.7-8.2 g/dL Albumin 4.4 3.2-4.8 g/dL Test 12/23/24 10:05 12/23/24 04:30 12/22/24 16:16 Range/Units Lactic Acid Level 1.3 0.4-2.0 mmol/L Thyroid Stimulating Hormone (TSH) 0.97 0.55-4.78 uIU/mL Hepatitis B Surface Antigen Negative Negative Troponin I High Sensitivity 1312 *H </=34 ng/L Microbiology Date/Time Source Procedure Growth Status 12/25/24 13:35 Blood Blood Culture - Preliminary Resulted Assessment Acute big right MCA territory stroke with left homonymous hemianopsia, left hemiplegia, dysarthria Reported stroke in 2006 with right-sided weakness Asymptomatic right hemisphere lacunar strokes Plan/Recommendation Monitoring Support treatment ICU care Needs to transfer to a higher level care MRI brain scan Plavix 75 mg daily Lipitor 40 mg daily GI prophylaxis DVT prophylaxis Hold off hemodialysis on 12/26/2024 if okay with nephrologists More recommendation per clinical course Critical care time spent is more than 50 minutes This medical document was created using an electronic medical record system with [employer] dictation system. Although this document has been carefully reviewed, there may still be some phonetic and typographical errors. These areas are purely typographical due to imperfections of the software programs, and do not reflect any compromise in the patient's medical care Plan discussed with: Daughter, Other PORSHA HAMMOND MD Dec 26, 2024 12:57
--- NOTE | 2024-12-26 13:17 | DVHPN2 ---
Progress Note - Dictate Date Seen: Dec 26, 2024 Medical Necessity Reason Pt with a Central, PICC or Fol: No Subjective PT WELL KNOW TO ME WITH SHARP CHEST PAIN ASSOCIATED WITH SOB PMH: NOW WITH BLOOD CX POSITIVE STAPH AURES MRSA POSITVE NARES SOURCE OF INFECTION MEDISTINAL VS DIALYSIS GRAFT S/P MEDIASTINAL DEBRIDEMENT MEDIASTINITIS/ REMOVAL OD ALL STERNAL WIRES NOW WITH WOUND VACUUM ORG HD CAD S/P CABG S/P MULTI VESSEL PTCA STENT POST CABG ESRD ON HD HTN DIABETES ANEMIA LHC PATENT SVG TO LAD PATENT STENTS TO CX PATENT RCA AND PDA SVG TO PDA OCCLUDED EF 45% vital signs Vital Sign Date Time Temp Pulse Resp B/P (MAP) Pulse Ox O2 Delivery O2 Flow Rate FiO2 12/26/24 09:00 98.6 94 18 152/72 (98) 97 98.6 12/25/24 20:00 Nasal Cannula* 2 28 Total Intake and Output 12/25/24 12/25/24 12/26/24 15:00 23:00 07:00 Intake Total 150 ml 880 ml Output Total 0 ml Balance 150 ml 880 ml medications Current Medications Medications Dose Ordered Sig/Arminda Route Start Time Stop Time Status Last Admin Dose Admin Vancomycin HCl 0 ml @ 0 mls/hr UD IV 12/22/24 19:15 Atorvastatin Calcium 40 mg HS PO 12/22/24 22:00 12/25/24 21:38 40 MG Clopidogrel Bisulfate 75 mg DAILY PO 12/23/24 10:00 12/26/24 10:03 75 MG Diagnostic Test (Pha) 1 strip Q6HR 12/23/24 00:00 12/26/24 05:45 1 STRIP Insulin Human Regular Q6HR SC 12/23/24 00:00 12/26/24 05:45 2 UNITS Dextrose 50 ml UD PRN IV 12/22/24 19:15 Ondansetron HCl 4 mg Q4HP PRN IV 12/22/24 19:15 Acetaminophen 650 mg Q6HP PRN PO 12/22/24 19:15 12/25/24 20:27 650 MG Nitroglycerin 0.4 mg Q5MINP PRN SL 12/22/24 19:15 Morphine Sulfate 2 mg Q30M PRN IV 12/22/24 19:15 Morphine Sulfate 2 mg Q4HPRN PRN IV 12/24/24 11:15 12/25/24 15:31 2 MG Hydralazine HCl 10 mg Q6HP PRN IV 12/24/24 23:15 12/26/24 04:26 10 MG Pantoprazole Sodium 40 mg DAILY IV 12/27/24 10:00 laboratory and microbiology Laboratory Tests 12/26/24 05:22 Test 12/26/24 05:22 Range/Units Serum Glucose 136 H 74-106 mg/dL Problem List LEUKOCYTOSIS WITH SHARP CHEST PAIN ASSOCIATED WITH SOB PMH: NOW WITH BLOOD CX POSITIVE STAPH AURES MRSA POSITVE NARES SOURCE OF INFECTION MEDISTINAL VS DIALYSIS GRAFT S/P MEDIASTINAL DEBRIDEMENT MEDIASTINITIS/ REMOVAL OD ALL STERNAL WIRES NOW WITH WOUND VACUUM ORG HD CAD S/P CABG S/P MULTI VESSEL PTCA STENT POST CABG ESRD ON HD HTN DIABETES ANEMIA LHC PATENT SVG TO LAD PATENT STENTS TO CX PATENT RCA AND PDA SVG TO PDA OCCLUDED EF 45% Assessment/Plan CHEST XRAY NEGATIVE VANCO SOURCE OF INFECTION MEDIASTINUM? SURGICAL CONSULT TRIPLE PHASE BONE SCAN CT OF CHEST NEGATIVE PICC LINE DC Dietary Evaluation Review Comments: 1. allow pt has higher protein intake until the sepsis is resolved 2. Offer Nepro PO 240 ml BID if PO intake remains low. Expected Outcomes/Goals: rebuild muscle mass Plan discussed with: Patient LLOYD SINGH MD Dec 26, 2024 13:17
--- NOTE | 2024-12-26 13:32 | DVHPN2 ---
Progress Note - Dictate Date Seen: Dec 26, 2024 Medical Necessity Reason Pt with a Central, PICC or Fol: No Subjective PT WELL KNOW TO ME WITH SHARP CHEST PAIN ASSOCIATED WITH SOB PMH: NOW WITH BLOOD CX POSITIVE STAPH AURES MRSA POSITVE NARES SOURCE OF INFECTION MEDISTINAL VS DIALYSIS GRAFT S/P MEDIASTINAL DEBRIDEMENT MEDIASTINITIS/ REMOVAL OD ALL STERNAL WIRES NOW WITH WOUND VACUUM ORG HD CAD S/P CABG S/P MULTI VESSEL PTCA STENT POST CABG ESRD ON HD HTN DIABETES ANEMIA LHC PATENT SVG TO LAD PATENT STENTS TO CX PATENT RCA AND PDA SVG TO PDA OCCLUDED EF 45% vital signs Vital Sign Date Time Temp Pulse Resp B/P (MAP) Pulse Ox O2 Delivery O2 Flow Rate FiO2 12/26/24 09:00 98.6 94 18 152/72 (98) 97 98.6 12/25/24 20:00 Nasal Cannula* 2 28 Total Intake and Output 12/25/24 12/25/24 12/26/24 15:00 23:00 07:00 Intake Total 150 ml 880 ml Output Total 0 ml Balance 150 ml 880 ml medications Current Medications Medications Dose Ordered Sig/Arminda Route Start Time Stop Time Status Last Admin Dose Admin Vancomycin HCl 0 ml @ 0 mls/hr UD IV 12/22/24 19:15 Atorvastatin Calcium 40 mg HS PO 12/22/24 22:00 12/25/24 21:38 40 MG Clopidogrel Bisulfate 75 mg DAILY PO 12/23/24 10:00 12/26/24 10:03 75 MG Diagnostic Test (Pha) 1 strip Q6HR 12/23/24 00:00 12/26/24 05:45 1 STRIP Insulin Human Regular Q6HR SC 12/23/24 00:00 12/26/24 05:45 2 UNITS Dextrose 50 ml UD PRN IV 12/22/24 19:15 Ondansetron HCl 4 mg Q4HP PRN IV 12/22/24 19:15 Acetaminophen 650 mg Q6HP PRN PO 12/22/24 19:15 12/25/24 20:27 650 MG Nitroglycerin 0.4 mg Q5MINP PRN SL 12/22/24 19:15 Morphine Sulfate 2 mg Q30M PRN IV 12/22/24 19:15 Morphine Sulfate 2 mg Q4HPRN PRN IV 12/24/24 11:15 12/25/24 15:31 2 MG Hydralazine HCl 10 mg Q6HP PRN IV 12/24/24 23:15 12/26/24 04:26 10 MG Pantoprazole Sodium 40 mg DAILY IV 12/27/24 10:00 laboratory and microbiology Laboratory Tests 12/26/24 05:22 Test 12/26/24 05:22 Range/Units Serum Glucose 136 H 74-106 mg/dL Problem List LEUKOCYTOSIS WITH SHARP CHEST PAIN ASSOCIATED WITH SOB PMH: NOW WITH BLOOD CX POSITIVE STAPH AURES MRSA POSITVE NARES SOURCE OF INFECTION MEDISTINAL VS DIALYSIS GRAFT S/P MEDIASTINAL DEBRIDEMENT MEDIASTINITIS/ REMOVAL OD ALL STERNAL WIRES NOW WITH WOUND VACUUM ORG HD CAD S/P CABG S/P MULTI VESSEL PTCA STENT POST CABG ESRD ON HD HTN DIABETES ANEMIA LHC PATENT SVG TO LAD PATENT STENTS TO CX PATENT RCA AND PDA SVG TO PDA OCCLUDED EF 45% ACUTE EMBOLIC STROKE R/O SEPTIC EMBOLI Assessment/Plan CHEST XRAY NEGATIVE VANCO SOURCE OF INFECTION MEDIASTINUM? SURGICAL CONSULT TRIPLE PHASE BONE SCAN CT OF CHEST NEGATIVE PICC LINE DC NOW WITH ACUTE CVA DON IN AM Dietary Evaluation Review Comments: 1. allow pt has higher protein intake until the sepsis is resolved 2. Offer Nepro PO 240 ml BID if PO intake remains low. Expected Outcomes/Goals: rebuild muscle mass Plan discussed with: Patient Critical Care Time(min): 35 LLOYD SINGH MD Dec 26, 2024 13:32
--- NOTE | 2024-12-26 13:41 | BSKYNEURO ---
[facility] Note # Demographics Consult Type: Acute Stroke Level 2 (4.5-24 hrs) Patient Location: Inpatient First Name: Maribel Last Name: Arvind Date of : 1970 Age: 54 Gender: Female Facility: [facility] Time of Initial Page (): 12/26/2024 11:48 First Contact with Site (): 12/26/2024 11:48 # HPI Chief Complaint: - weakness (focal) History: 54-year-old female who was admitted for sepsis. At midnight on December 26, 2024, she received Dilaudid and subsequently experienced a change in mental status. The night nurse reported that the patient became more somnolent after receiving the medication. The following morning, when attempting to administer medications, the day nurse noticed that the patient was unable to swallow Jell-O, keeping it in her mouth without swallowing. This prompted further evaluation. A stroke alert was called after day team evaluated the patient on rounds. Last Known Normal: - 12 AM # Scores Time of exam and NIHSS (): 12/26/2024 12:30 Level of Consciousness 1a: [1] = Not alert; but arousable by minor stim LOC Questions 1b: [2] = Answers neither correctly LOC Commands 1c: [2] = Performs neither correctly Best Gaze 2: [0] = Normal Visual 3: [0] = No visual loss Facial Palsy 4: [0] = Normal symmetrical movements Motor Arm Left 5a: [4] = No movement Motor Arm Right 5b: [2] = Some effort against gravity Motor Leg Left 6a: [4] = No movement Motor Leg Right 6b: [2] = Some effort against gravity Limb Ataxia 7: [0] = Absent Sensory 8: [0] = Normal Best Language 9: [0] = No aphasia Dysarthria 10: [2] = Severe dysarthria Extinction and Inattention 11: [0] = No abnormality NIHSS Total: 19 # Data Time Head CT personally read by me (): 12/26/2024 12:[address]: - preliminarily reviewed by me, please refer to radiology read for official reading - subacute ischemic stroke # Assessment Impression: - Ischemic Stroke (Acute) # Plan Thrombolytic/Intervention: NOT IV Thrombolysis or IA Intervention candidate Thrombolytic Exclusion: > 4.5 hours Intraarterial Exclusion: - unfavorable imaging/hypodensity Target Blood Pressure: - SBP < 220 - DBP < 120 Labs: - hemoglobin A1c - lipid panel Imaging: (urgency: STAT): - CT Angiogram Head and CT Angiogram Neck AND call back with results if abnormal Imaging: (urgency: routine): - MRI Brain without contrast Diagnostic Test: - echo without bubble study Therapy/Evaluation: - NPO until swallow evaluation - PT/OT evaluation - speech/swallow consultation Medication: - start statin with goal of LDL < 70 - aspirin 81 mg daily DVT Prophylaxis: - chemical DVT prophylaxis Other: - If patient has any neurological deterioration please call me back immediately - permissive hypertension - telemetry monitoring - I have discussed my recommendations with the referring provider Disposition: continue admission # Demographics First Name: Maribel Last Name: Arvind Facility: [facility] Yes ANURAG GUZMAN MD Dec 26, 2024 13:41
--- NOTE | 2024-12-26 13:44 | DVH ---
CLINICAL HISTORY: CVA TECHNIQUE: CT angiogram of the head and neck was performed without and with intravenous contrast all. 3D MIP reconstructed images were created and archived on the PACS system. This exam was performed ac cording to our departmental dose optimization program. Up-to-date CT equipment and radiation dose red uction techniques are utilized as appropriate. CTDI 22.1 DLP 778.3 COMPARISON: CT HEAD WITHOUT CONTRAST on DOS: 12/26/24, CT HEAD WITHOUT CONTRAST on DOS: 12/23/23, MRI B RAIN HEAD WO CONTRAST on DOS: 11/15/23, CT HEAD WITHOUT CONTRAST on DOS: 11/13/23, CT SINUS WITHOUT CONTR AST on DOS: 05/25/23 FINDINGS: CTA NECK: The common carotid, internal carotid, and vertebral arteries are patent with no evidence for high gra de narrowing, occlusion, and dissection. There are mild after strategic changes at both carotid bulbs. There is no significant narrowing at th e carotid bulbs per NASCET criteria. CTA HEAD: The anterior and posterior intracranial circulations are intact with no evidence for high grade narro wing, occlusion, or aneurysm. There are moderate atherosclerotic calcifications at the bilateral discontinue cord arteries resultin g grossly moderate luminal narrowing. There are stents within the left subclavian and brachiocephalic veins which appears grossly patent. IMPRESSION: No acute CTA abnormality of the major head and neck arterial vasculature.
[2024-12-26] MEDS ORDERED: LABETALOL HCL 20 MG/4 ML VL IV PRN (13:45)
--- NOTE | 2024-12-26 15:18 | DVHDS2 ---
Discharge Summary Date of Admission Dec 22, 2024 at 19:13 Date of Discharge: Dec 26, 2024 Labs/Diagnostic Data: Laboratory Results Test 12/26/24 11:48 12/26/24 05:23 12/26/24 05:22 12/24/24 05:33 Prothrombin Time 11.2 sec (9.3-11.8) Prothrombin Time INR 1.06 (0.9-1.15) Activated Partial Thromboplast Time 32.6 SEC (24.5-34.5) POC Glucose 148 mg/dl (70-106) White Blood Count 11.9 10^3/uL (4.4-10.8) Red Blood Count 3.84 10^6/uL (4.0-5.20) Hemoglobin 9.7 g/dL (12.2-16.2) Hematocrit 29.4 % (36.0-46.0) Mean Corpuscular Volume 76.6 fL (80.0-100.0) Mean Corpuscular Hemoglobin 25.3 pg (28.0-32.0) Mean Corpuscular Hemoglobin Concent 33.0 g/dL (32.0-36.0) Red Cell Distribution Width 17.2 % (11.8-14.3) Platelet Count 129 10^3/uL (140-450) Mean Platelet Volume 8.8 fL (6.9-10.8) Neutrophils (%) (Auto) 86.4 % (37.0-80.0) Lymphocytes (%) (Auto) 5.0 % (10.0-50.0) Monocytes (%) (Auto) 7.9 % (0.0-12.0) Eosinophils (%) (Auto) 0.6 % (0.0-7.0) Basophils (%) (Auto) 0.1 % (0.0-2.0) Neutrophils # (Auto) 10.3 10 ^3/uL (1.6-8.6) Lymphocytes # (Auto) 0.6 10 ^3/uL (0.4-5.4) Monocytes # (Auto) 0.9 10 ^3/uL (0-1.3) Eosinophils # (Auto) 0.1 10 ^3/uL (0-0.8) Basophils # (Auto) 0 10 ^3/uL (0-0.2) Nucleated Red Blood Cells 0.2 % Sodium Level 127 mmol/L (136-145) Potassium Level 4.6 mmol/L (3.5-5.1) Chloride Level 87 mmol/L (98-107) Carbon Dioxide Level 24 mmol/L (20-31) Anion Gap 16 (5-15) Blood Urea Nitrogen 63 mg/dL (9-23) Creatinine 8.45 mg/dL (0.550-1.02) Glomerular Filtration Rate Calc 5 mL/min (>90) BUN/Creatinine Ratio 7.5 (10.0-20.0) Serum Glucose 136 mg/dL (74-106) Calcium Level 9.4 mg/dL (8.7-10.4) Random Vancomycin Level 20.1 ug/mL (5-10) Total Bilirubin 0.6 mg/dL (0.2-1.0) Aspartate Amino Transferase (AST) 72 U/L (13-40) Alanine Aminotransferase (ALT) 18 U/L (7-40) Alkaline Phosphatase 77 U/L (46-116) Total Protein 7.6 g/dL (5.7-8.2) Albumin 4.4 g/dL (3.2-4.8) Test 12/23/24 10:05 12/23/24 04:30 12/22/24 16:16 Lactic Acid Level 1.3 mmol/L (0.4-2.0) Thyroid Stimulating Hormone (TSH) 0.97 uIU/mL (0.55-4.78) Hepatitis B Surface Antigen Negative (Negative) Troponin I High Sensitivity 1312 ng/L (</=34) Other Laboratory Tests 12/26/24 05:22 Brief Hx & Hospital Course: SEE DICTATED NOTE Condition at Discharge: Fair Final Diagnosis/Problems List ACUTE CVA Discharge Disposition: Acute Care Facility Discharge Instruct/Medications Diet: Renal Activity: No Restrictions, As Tolerated Follow Up/Referral: FU WITH PCP Medications: PER MAR Scheduled Aspirin (Asa), 81 MG PO DAILY, (Reported) Atorvastatin Calcium (Atorvastatin Calcium), 1 TAB PO DAILY, (Reported) Calcitriol (Calcitriol), 4 CAP PO DAILY, (Reported) Cinacalcet HCl (Cinacalcet Hydrochloride), 1 TAB PO MWF, (Reported) Clopidogrel Bisulfate (Clopidogrel), 1 TAB PO DAILY, (Reported) Hydroxyzine Hcl (Hydroxyzine Hcl), 1 TAB PO BID, (Reported) Insulin Glargine (Basaglar Kwikpen), 20 UNIT SC BID, (Reported) Insulin Lispro (Human) (Humalog), 70-80 UNIT SC DAILY, (Reported) Oxycodone W/ Acetaminophen (Apap/Oxycodone), 1 TAB PO Q8HR, (Reported) Pantoprazole Sodium Sesquihydr (Protonix), 40 MG PO DAILY, (Reported) Sertraline HCl (Sertraline Hydrochloride), 1 CAP PO QAM, (Reported) Sevelamer Carbonate (Renvela), 800 MG PO TIDWM, (Reported) Sucralfate (Carafate), 10 MG PO QID, (Reported) Temazepam (Temazepam), 30 MG PO HS, (Reported) Scheduled PRN Amlodipine Besylate (Norvasc Tablet), 10 MG PO DAILY PRN for SBP>150, (Reported) Ondansetron HCl (Ondansetron Hydrochloride), 8 MG PO Q12HP PRN for NAUSEA / VOMITING, (Reported) Miscellaneous Medications Fludrocortisone Acetate (Florinef), 1 TAB PO, (Reported) Discharge Statement: "Patient was advised to return to the ER or call 911 if any headaches, dizziness, shortness of breath, chest pain, abdominal pain, bleeding, fevers, or worsening of medical condition. Patient was counseled about treatment plan, medications, possible side effects, patientverbalized understanding. All questions were answered to the best of my ability. This discharge took greater then 30 minutes in planning, reviewing documentation, counseling the patient, and discussing with other team members." ASSESSMENT ASSESSMENT Assessment ACUTE CVA Date of Service: Dec 26, 2024 Billing Provider: VENANCIO JARA MD Common Visit Codes: 95199-[id number] CARE 30-74 MIN VENANCIO JARA MD Dec 26, 2024 15:18
--- NOTE | 2024-12-26 16:00 | DVHDS ---
DATE OF DISCHARGE: 12/26/2024 TRANSFER SUMMARY HISTORY OF PRESENT ILLNESS: The patient is a 54-year-old lady who is admitted with a history of generalized weakness and body aches and has a history of end-stage renal disease, on hemodialysis, diabetes, previous CABG, congestive heart failure, hypertension. HOSPITAL COURSE: The patient had blood cultures that was positive for Staph aureus, 08/16. The patient had a PICC line that was removed. The patient was placed on IV vancomycin. She was dialyzed while in the hospital and was seen in cardiology consult by Dr. García. 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 An emergent CT head that was obtained showed acute ischemic involvement in the right middle cerebral distribution. The patient also had a CT of the head and neck that showed no acute abnormality. She was seen in consult by Dr. Paredes from Neurology who recommended that the patient be transferred to a high level of care. The patient will be transferred once arrangements have been made. FINAL DIAGNOSES: * Acute CVA. * Sepsis with Staph aureus. * End-stage renal disease, on hemodialysis. * Surgical sternal wound with previous debridement. * History of coronary artery disease status post CABG with stents. * Diabetes mellitus. * Liver cirrhosis. * Obesity. * Depression. * Chronic pain. * History of hypertension. * Hyperlipidemia. Time spent in discharge planning and review of plan with the patient, performance test consultant, and nursing, critical care time spent was 46 minutes. MD ELEAZAR Weems/RONY TID: [id number] RECEIPT: [id number]
[2024-12-26] MEDS ORDERED: VANCOMYCIN 500mg/100mL 100 ML IV ONE (17:00)
[2024-12-26] MEDS ORDERED: EPOETIN ALFA-EPBX 4,000 UNIT/ML VIAL SC ONE (21:00)
[2024-12-27] MEDS ORDERED: PANTOPRAZOLE 40 MG/10 ML VIAL INJ IV SCH (10:00)
== END 2024-12-26 17:37 | disposition short-term general hospital (02) | DRG 314 ==
LOC: ER 12:32 → EDBD 12:32 → OVERFLOW 19:13 → CENTRAL 12-23 23:42 → ICU WEST 12-26 11:54
PROVIDERS: ADMIT Internal Medicine; ATTEND Internal Medicine
PROC: 5A1D70Z Performance of Urinary Filtration, Intermittent, Less than 6 Hours Per Day (ICD-10-PCS; principal; 2024-12-23)
PROC: 5A1D70Z Performance of Urinary Filtration, Intermittent, Less than 6 Hours Per Day (ICD-10-PCS; 2024-12-24)
DX: T82.7XXA Infection and inflammatory reaction due to other cardiac and vascular devices, implants and grafts, initial encounter (principal); A41.2 Sepsis due to unspecified staphylococcus; N18.6 End stage renal disease; I63.411 Cerebral infarction due to embolism of right middle cerebral artery; R65.20 Severe sepsis without septic shock; E87.20 Acidosis, unspecified; I50.32 Chronic diastolic (congestive) heart failure; I69.351 Hemiplegia and hemiparesis following cerebral infarction affecting right dominant side; I38 Endocarditis, valve unspecified; I25.810 Atherosclerosis of coronary artery bypass graft(s) without angina pectoris; I13.2 Hypertensive heart and chronic kidney disease with heart failure and with stage 5 chronic kidney disease, or end stage renal disease; D63.8 Anemia in other chronic diseases classified elsewhere; H53.47 Heteronymous bilateral field defects; E11.22 Type 2 diabetes mellitus with diabetic chronic kidney disease; Z68.33 Body mass index [BMI] 33.0-33.9, adult; F32.A Depression, unspecified; K74.60 Unspecified cirrhosis of liver; E66.9 Obesity, unspecified; Z99.2 Dependence on renal dialysis; E87.5 Hyperkalemia; I95.9 Hypotension, unspecified; K21.9 Gastro-esophageal reflux disease without esophagitis; I25.10 Atherosclerotic heart disease of native coronary artery without angina pectoris; E78.5 Hyperlipidemia, unspecified; F41.9 Anxiety disorder, unspecified; G89.29 Other chronic pain; F17.200 Nicotine dependence, unspecified, uncomplicated; Z84.1 Family history of disorders of kidney and ureter; Z95.5 Presence of coronary angioplasty implant and graft; Z90.710 Acquired absence of both cervix and uterus; Z90.5 Acquired absence of kidney; Z83.3 Family history of diabetes mellitus; Z82.49 Family history of ischemic heart disease and other diseases of the circulatory system; Z82.3 Family history of stroke; I25.2 Old myocardial infarction; Z79.899 Other long term (current) drug therapy; Z79.82 Long term (current) use of aspirin; Z79.02 Long term (current) use of antithrombotics/antiplatelets; Y83.2 Surgical operation with anastomosis, bypass or graft as the cause of abnormal reaction of the patient, or of later complication, without mention of misadventure at the time of the procedure
CPT/HCPCS: 36415; 70450; 70496; 70498; 71045; 71260; 80048; 80053; 80202; 82962; 83605; 84443; 84484; 85025; 85610; 85730; 87040; 87077; 87081; 87186; 87340; 90935; 93306; 97163; 99291; 99292; G0378; J1815; J2405; P9047